=== PATIENT | male | born 1995 | race Caucasian/White ===

== ENCOUNTER 2022-04-29 11:12 | Emergency (ER) | payer OTHER, SELFPAY ==
--- NOTE | ~2022-04-29 | XR_ITS ---
Indication: Fall EXAMINATION: Bilateral knees. 4 views of the left knee do not demonstrate evidence for an acute fracture or dislocation. 4 views of the right knee do not show evidence for an acute fracture or dislocation. Degenerative changes are noted. XR/XR knee RT 4V IMPRESSION: No acute fracture or dislocation left or right knee.
--- NOTE | ~2022-04-29 | XR_ITS ---
Indication: Fall EXAMINATION: Bilateral knees. 4 views of the left knee do not demonstrate evidence for an acute fracture or dislocation. 4 views of the right knee do not show evidence for an acute fracture or dislocation. Degenerative changes are noted. XR/XR knee LT 4V IMPRESSION: No acute fracture or dislocation left or right knee.
[2022-04-29 11:18] VITALS: BP 167/97; PULSE 120; O2SAT 97
[2022-04-29 12:19] VITALS: BP 159/81; PULSE 129; RESP 20; TEMP 36.4; O2SAT 96; BMI 46.0
== END 2022-04-29 16:43 | disposition left against medical advice (07) ==
PROVIDERS: Emergency Provider Emergency Medicine; PCP Nurse Practitioner Family
DX: S89.92XA Unspecified injury of left lower leg, initial encounter (principal); S89.91XA Unspecified injury of right lower leg, initial encounter; W19.XXXA Unspecified fall, initial encounter; Y93.89 Activity, other specified; Y92.511 Restaurant or cafe as the place of occurrence of the external cause; Y99.9 Unspecified external cause status
CPT/HCPCS: 73564; 99281; 99283

== ENCOUNTER 2022-04-30 12:57 | Emergency (ER) | payer OTHER, SELFPAY ==
[2022-04-30 13:00] VITALS: BP 156/84; PULSE 110; RESP 18; TEMP 37.2; O2SAT 97; BMI 48.8
[2022-04-30 13:28] LABS: MANUAL DIFF FLAG NO
[2022-04-30 13:31] LABS: Basophils Percent Auto 0.4 % (0-2); Eosinophils Absolute Auto 0.3 X10*3/uL (0.0-0.4); Eosinophils Percent Auto 2.5 % (0-4); Hematocrit 38.2 % (42.0-52.0); Hemoglobin 12.8 g/dl (14.0-18.0); Imm Gran Abs Auto 0.03 X10*3/uL (0.00-0.03); Imm Gran Pct Auto 0.3 % (0.0-0.4); Lymphocytes Absolute Auto 2.4 X10*3/uL (1.2-4.9); Lymphocytes Percent Auto 24.6 % (20-40); Mean Corpuscular HGB Conc 33.5 g/dl (31.0-36.0); Mean Corpuscular Volume 86.6 fL (80.0-98.0); Mean Platelet Volume 9.9 fL (9.4-12.4); Monocytes Absolute Auto 0.7 X10*3/uL (0.1-1.2); Monocytes Percent Auto 7.4 % (2-11); Neutrophils Absolute Auto 6.4 x10*3/uL (2.0-8.3); Neutrophils Percent Auto 64.8 % (45-73); Platelet Count 170 X10*3/uL (160-400); Red Blood Count 4.41 X10*6/uL (4.60-5.80); Red Cell Distribution Width 12.9 % (11.0-16.0); White Blood Count 9.9 X10*3/uL (4.8-10.8)
[2022-04-30 13:56] LABS: Alanine Aminotransferase 51 U/L (0-40); Albumin Level 4.2 g/dL (3.5-5.0); Alkaline Phosphatase 81 U/L (39-117); Anion Gap 16 (12-20); Aspartate Amino Transferase 28 U/L (5-37); Bilirubin Direct 0.2 mg/dL (0.0-0.5); Bilirubin Total 0.5 mg/dL (0.0-1.0); Blood Urea Nitrogen 18 mg/dL (9-16); Calcium 9.3 mg/dL (8.4-10.2); Carbon Dioxide 29 mmol/L (22-29); Chloride 96 mmol/L (96-108); Creatinine Clr Calc Pharmacy 183.7; Estimated Glomerular Filt Rate > 60; Glucose Random 344 mg/dL (60-115); Lipase 62 U/L (8-78); Potassium 4.8 mmol/L (3.3-5.1); Sodium 136 mmol/L (135-145)
[2022-04-30 15:00] VITALS: BP 143/59; PULSE 100; RESP 18; TEMP 37.2; O2SAT 98
[2022-04-30 22:25] LABS: Acetone, serum QL Negative (Negative)
--- NOTE | 2022-04-30 23:55 | ED.ABDPAIN ---
HPI - Abdominal Pain General Chief Complaint: Abdominal Pain Stated Complaint: fall Time Seen by Provider: 04/30/22 17:58 Source: patient Mode of arrival: ambulatory History of Present Illness HPI narrative: 27-year-old male with history of hypertension and prior alcohol dependency with abuse as well as pancreatitis secondary to the alcoholism presents today with left-sided abdominal discomfort after a slip fall accident without head strike and no loss of consciousness on water at a [employer]. Otherwise, patient does describe that he is been very thirsty, urinating a lot and feeling fatigued. Related Data Home Medications Medication Instructions Recorded Confirmed dextroamphetamine-amphetamine 10 1 tab PO DAILY PRN 04/25/21 02/01/22 mg tablet dextroamphetamine-amphetamine ER cap PO 04/25/21 02/01/22 20 mg 24hr capsule,extend release (Adderall XR) hydroxyzine pamoate 25 mg capsule 25 mg PO DAILY PRN 02/01/22 02/01/22 mirtazapine 15 mg tablet 15 mg PO BEDTIME 02/01/22 02/01/22 Previous Rx's Medication Instructions Recorded clonidine HCl 0.1 mg tablet 0.1 mg PO BID 30 days #60 tabs 06/15/21 thiamine HCl (vitamin B1) 100 mg 100 mg PO DAILY 90 days #90 tabs 07/13/21 tablet folic acid 1 mg tablet 1 mg PO DAILY #90 tabs 09/26/21 albuterol sulfate 90 mcg/actuation 2 puff inhalation Q6H PRN 02/01/22 aerosol inhaler (ProAir HFA) shortness of breath or wheezing #8.5 grams lisinopril 10 mg tablet 10 mg PO DAILY 30 days #30 tabs 02/06/22 betamethasone dipropionate 0.05 % 1 appl topical BID PRN skin 02/07/22 topical cream irritation #45 grams gabapentin 100 mg capsule 200 mg PO TID 30 days #180 caps 02/20/22 metformin 500 mg tablet 500 mg PO DAILY #30 tabs 05/01/22 Allergies Allergy/AdvReac Type Severity Reaction Status Date / Time No Known Allergies Allergy Verified 02/01/22 18:34 Review of Systems Review of Systems Pertinent positives and negatives as stated in HPI 10 point review of systems otherwise negative. [facility] Past Medical History Source: nursing notes reviewed Surgical History H/O tooth extraction Family History Family History Father Diabetes Alcoholic Substance use disorder Mother Hypertension Social History Social History Housing: Apartment Patient Tobacco Use Status: Former Tobacco user Quit Date: quit 4 months ago e-Cigarette/Vaping Use: Currently Using Second Hand Smoke Exposure: No Advance Directives: No Current occupational status: unemployed Cognitive needs: No Hearing needs: No Vision needs: No Physical Exam ED Vital Signs: Vital Signs - 24 hr 04/30/22 13:00 04/30/22 15:00 Temperature 98.9 F 98.9 F Pulse Rate 110 H 100 Respiratory Rate 18 18 Blood Pressure 156/84 H 143/59 H Pulse Oximetry 97 98 Oxygen Delivery Method Room Air Room Air BMI result Body Mass Index 48.8 VITAL SIGNS: Reviewed. GENERAL: Elevated BMI, Well developed, well nourished, in no acute distress. HEAD: Normocephalic/atraumatic EYES: PERRLA, EOMI EARS: Ext canals without abnormality OROPHARYNX: no oral lesions noted, posterior pharynx clear LUNGS: Normal breath sounds. No adventitious sounds or accessory muscle use. SpO2<97> CARDIOVASCULAR: Regular rate and rhythm without noted murmurs, no JVD or lower extremity edema. ABDOMEN: Soft, non-tender, non-distended with bowel sounds. MUSCULOSKELETAL: No tenderness, deformities, or effusions noted on gross inspection. EXTREMITIES: No cyanosis, clubbing or edema, full range of motion at left shoulder/elbow/wrist without effusion/erythema SKIN: Inspection of the skin reveals no rashes NEUROLOGIC: Alert and oriented x 4. Strength and sensation to light touch were grossly intact x 4. Course Course Course Narrative: 27-year-old male with history and clinical presentation consistent with a mechanical fall due to a wet floor without head strike or loss of consciousness and no abdominal contusions or extremity deformities/ecchymoses noted. On review of all investigations patient is noted to have hyperglycemia-331 without evidence of acetone and given patient's history this is most consistent with new onset diabetes. Patient was informed of all results and findings, he became emotional but then was reassured that he would be started on oral medication initially and that he should call his primary care provider 1st thing in the morning and set up an appointment for re-evaluation. I will be sending initial oral medication to his pharmacy and will provide him with 1st dose here in the emergency room. MDM - Abdominal Pain Lab Data Result diagrams: 04/30/22 13:25 04/30/22 13:25 Labs: Lab Results 04/30/22 04/30/22 Range/Units 13:25 13:25 WBC 9.9 (4.8-10.8) X10*3/uL RBC 4.41 L (4.60-5.80) X10*6/uL Hgb 12.8 L (14.0-18.0) g/dl Hct 38.2 L (42.0-52.0) % MCV 86.6 (80.0-98.0) fL MCH 29.0 (27.0-33.0) pg MCHC 33.5 (31.0-36.0) g/dl RDW 12.9 (11.0-16.0) % Plt Count 170 (160-400) X10*3/uL MPV 9.9 (9.4-12.4) fL Immature Gran % (Auto) 0.3 (0.0-0.4) % Neut % (Auto) 64.8 (45-73) % Lymph % (Auto) 24.6 (20-40) % [place] % (Auto) 7.4 (2-11) % Eos % (Auto) 2.5 (0-4) % Baso % (Auto) 0.4 (0-2) % Lymph # (Auto) 2.4 (1.2-4.9) X10*3/uL [place] # (Auto) 0.7 (0.1-1.2) X10*3/uL Eos # (Auto) 0.3 (0.0-0.4) X10*3/uL Baso # (Auto) 0.0 (0.0-0.2) X10*3/uL Abs Immat Gran (auto) 0.03 (0.00-0.03) X10*3/uL Absolute Neuts (auto) 6.4 (2.0-8.3) x10*3/uL Absolute Nucleated RBC 0.000 (0.0-0.012) X10*3/uL Nucleated RBC % (auto) 0.0 (0.0-0.2) /100WBC Sodium 136 (135-145) mmol/L Potassium 4.8 (3.3-5.1) mmol/L Chloride 96 (96-108) mmol/L Carbon Dioxide 29 (22-29) mmol/L Anion Gap 16 (12-20) BUN 18 H (9-16) mg/dL Creatinine 0.92 (0.5-1.4) mg/dL Estim Creat Clear Calc 183.7 Estimated GFR > 60 Random Glucose 344 H (60-115) mg/dL Calcium 9.3 (8.4-10.2) mg/dL Total Bilirubin 0.5 (0.0-1.0) mg/dL Direct Bilirubin 0.2 (0.0-0.5) mg/dL AST 28 (5-37) U/L ALT 51 H (0-40) U/L Alkaline Phosphatase 81 (39-117) U/L Total Protein 7.0 (6.5-8.0) g/dL Albumin 4.2 (3.5-5.0) g/dL Lipase 62 (8-78) U/L Acetone, Qual Negative (Negative) Discharge Plan Discharge Clinical Impression: Diabetes mellitus, new onset, Hyperglycemia Patient Disposition: Home, Self-Care Instructions: Foot Care for People with Diabetes (ED), Type 2 Diabetes in Adults: New Diagnosis (ED), Diabetic Hyperglycemia (ED), Diabetes and Nutrition (ED), Diabetes and Exercise (ED) Additional Instructions: 1. Resume all home medications as prescribed. 2. You have been provided with extensive information regarding your new diagnosis of diabetes, you should call your primary care provider 1st thing in the morning to set up an appointment for re-evaluation. 3. You have been provided with a new prescription for oral medication, you should also begin initiating dietary changes to help in the control of your sugar levels. Return to the ER for any worsening of symptoms. Prescriptions: New metformin 500 mg tablet 500 mg PO DAILY Qty: 30 0RF No Action clonidine HCl 0.1 mg tablet 0.1 mg PO BID 30 Days Qty: 60 0RF thiamine HCl (vitamin B1) 100 mg tablet 100 mg PO DAILY 90 Days Qty: 90 0RF folic acid 1 mg tablet 1 mg PO DAILY Qty: 90 0RF lisinopril 10 mg tablet 10 mg PO DAILY 30 Days Qty: 30 3RF betamethasone dipropionate 0.05 % cream 1 appl topical BID PRN (Reason: skin irritation) Qty: 45 0RF gabapentin 100 mg capsule 200 mg PO TID 30 Days Qty: 180 2RF dextroamphetamine-amphetamine [Adderall XR] 20 mg capsule,extended release 24hr PO dextroamphetamine-amphetamine 10 mg tablet 1 tab PO DAILY PRN mirtazapine 15 mg tablet 15 mg PO BEDTIME hydroxyzine pamoate 25 mg capsule 25 mg PO DAILY PRN albuterol sulfate [ProAir HFA] 90 mcg/actuation HFA aerosol inhaler 2 puff inhalation Q6H PRN (Reason: shortness of breath or wheezing) Qty: 8.5 2RF Referrals: Isaac Dominguez, [employer] [Primary Care Provider] - (New onset diabetes, glucose-331 no ketones, started on metformin 500 daily, HB A1c is pending)
[2022-05-01] MEDS: metFORMIN HCl 500 MG TABLET PO (00:12)
[2022-05-01 07:38] LABS: Estimated Average Glucose 154 mg/dL
== END 2022-05-01 00:18 | disposition home or self-care (01) ==
PROVIDERS: Emergency Provider Student in an Organized Health Care Education/Training Program; PCP Nurse Practitioner Family
DX: E11.65 Type 2 diabetes mellitus with hyperglycemia (principal); R10.9 Unspecified abdominal pain; Z87.891 Personal history of nicotine dependence; Z79.899 Other long term (current) drug therapy
CPT/HCPCS: 36415; 80053; 82009; 82248; 83036; 83690; 85025; 99283

== ENCOUNTER 2023-07-16 14:20 | Outpatient (AMB) | payer OTHER, SELFPAY ==
[2023-07-16 14:30] VITALS: BP 110/76; PULSE 97; O2SAT 97; BMI 43.2
--- NOTE | 2023-07-16 14:30 | MHC.PC.OV ---
Vital Signs 07/16/23 14:30 Height 5 ft 11 in Weight 310 lb BMI 43.2 BP 110/76 Blood Pressure Location Rt brachial Position Sitting Pulse 97 Pulse Source Pulse Oximeter Pulse Oximetry (%) 97 Oxygen Delivery Method Room Air Intake Visit Reasons: ED F/U-Pulmonary embolisms Intake Note: Pt is here today to f/u ER Allergies No Known Allergies Allergy (Verified 07/16/23 14:35) Medication List - Last Reconciled 07/16/23 by KIM Cartwright- albuterol sulfate 90 mcg/actuation (ProAir HFA) 2 puffs inhalation Q6H PRN alcohol swabs (Alcohol Pads) 1 pad to test BS topically; apixaban (Eliquis) 5 mg PO BID 90 days blood sugar diagnostic (FreeStyle Lite Strips) 4 times a day testing clonidine HCl 0.1 mg PO BID 30 days dextroamphetamine-amphetamine 20 mg ER (Adderall XR) caps PO dextroamphetamine-amphetamine 5 mg 1 tab PO BID folic acid 1 mg PO DAILY FreeStyle Lancets (lancets) 4 x a day testing NS FreeStyle Lite Meter (blood-glucose meter) tid testing NS gabapentin 200 mg (2 x 100 mg) PO TID 30 days lisinopril 10 mg PO DAILY metformin 500 mg PO BID 30 days quetiapine mg PO rosuvastatin (Crestor) 5 mg PO BEDTIME 30 days thiamine HCl (vitamin B1) 100 mg PO DAILY 90 days Tobacco use date assessed: 07/16/23 Dental Screening Dental Screen Date: 07/16/23 Did you have a dental visit in the last 12 months?: Yes Did you have a dental problem in the last 6 months where you did not have access to dental care?: Yes Was dental information given to patient?: Patient has dentist HPI ED F/U-Pulmonary embolisms HPI Details Pt was seen in the ER on 07/01 with hemoptysis, chest pain, and alcohol withdrawl. Chest XR was nonacute. CTA showed small filling defects in segmental and subsegmental branches of pulmonary arteries in the lower lobes posteriorly, consistent with pulmonary emboli with a small clot burden and post bibasilar groundglass opacities, suggested airspace disease vs atelectatic change vs areas of pulmonary infarct. Labs were significant for d-dimer of 1.0, glucose 131, AST 60, ALT 111. He was given loveneox in the ER. Pt was admitted for alcohol withdrawal and PE. Pt was switched from lovenox to eliquis. Will refer to hematology for eval for possible reasons for PEs. Pt reports that he is still drinking alcohol and using drugs intermittently, reports having 2 beers yesterday. Educated pt on the importance of abstaining from alcohol and drugs. Denies fever, chills, chest pain, shortness of breath, abdominal pain, and N/V. Pt sees a psychiatrist and a psychologist. On eliquis 5mg BID currently. [facility] Surgical History H/O tooth extraction Family History Father Diabetes Alcoholic Substance use disorder Mother Hypertension Social History Housing: Apartment Patient Tobacco Use Status: Former Tobacco user Quit Date: quit 4 months ago e-Cigarette/Vaping Use: Currently Using Second Hand Smoke Exposure: No Current occupational status: unemployed Cognitive needs: No Hearing needs: No Vision needs: No Questionnaire Thrive Questionnaire Date Thrive assessed: 02/01/22 FABIOLA-7 AMB Questionnaire FABIOLA-7 Date FABIOLA - 7 assessed: 02/01/22 Source: Developed by Drs. Dann Ashley, Linda Macario, Nick Robert and colleagues, with an educational liz from [employer]. Review of Systems Const Reports as per HPI Physical exam (Primary Care) Vital Signs: Last Vital Signs Pulse 97 07/16/23 14:30 BP 110/76 07/16/23 14:30 Pulse Ox 97 07/16/23 14:30 Oxygen Delivery Method Room Air 07/16/23 14:30 BMI result Body Mass Index 43.2 Tobacco/Smoking Status: Tobacco use Status Tobacco use date assessed 07/16/23 07/16/23 14:38 Patient Tobacco Use Status Former Tobacco user 07/16/23 14:34 e-Cigarette/Vaping Use Currently Using 07/16/23 14:34 Thrive Assessment: Date of Thrive Assessment Date Thrive assessed 02/01/22 07/16/23 14:34 Const General: cooperative Nutritional Appearance: obese morbidly obese Orientation/consciousness: patient oriented x3 Resp Effort & Inspection: normal respiratory effort Auscultation: clear to auscultation bilaterally Cardio Rate: regular rate Rhythm: regular rhythm Heart sounds: S1 normal heart sound present, S2 normal heart sound present and no murmurs GI Palpation (GI): Soft to palpation and nontender Auscultation: normal bowel sounds Neuro General: patient oriented x3 Psych Appearance: grossly normal Mental Status: mental status grossly normal Speech and movement: Normal speech and movement present Affect: Anxious affect present Attitude: cooperative Thought process: Normal thought process present Thought content: Normal thought content present Insight: Good insight present (Psych) Judgement: Good judgement present (Psych) Results AMB Hemoglobin A1c AMB Hemoglobin A1c 6.0 % Last Edit by Alannah De La Torre CMA on 07/16/23 15:08 Results Reviewed Results Reviewed: Laboratory Last Values Hgb A1c (Clinic) 6.0 % (4.0-6.0) 07/16/23 15:07 Assessment and Plan Assessment & Plan (1) Alcoholic pancreatitis: Code(s): K85.20 - Alcohol induced acute pancreatitis without necrosis or infection Plan: Labs ordered (2) Pulmonary embolism: Code(s): I26.99 - Other pulmonary embolism without acute cor pulmonale Plan: Labs ordered, referred Plan The patient agreed to the use of a electromedical equipment technician for this encounter. Scribed for OUSMANE Jakcman by Debi Tan electromedical equipment technician, on 07/16/2023 at 14:50 EST. Orders: Orders Complete Blood Count Auto Diff Today K85.20 - Alcohol induced acute pancreatitis without necrosis or infection Comprehensive Met. Panel Today K85.20 - Alcohol induced acute pancreatitis without necrosis or infection TSH reflex Free T4 Today K85.20 - Alcohol induced acute pancreatitis without necrosis or infection Lipase Today K85.20 - Alcohol induced acute pancreatitis without necrosis or infection AMB Hemoglobin A1c Today E11.9 - Type 2 diabetes mellitus without complications Referrals Hematology & Oncology Referral I26.99 - Other pulmonary embolism without acute cor pulmonale Medications: New apixaban (Eliquis) 5 mg PO BID 90 days 180 tabs 0RF Coding Level of Care Code Est Pt Level 3 (82965) Diagnoses Alcoholic pancreatitis K85.20 Pulmonary embolism I26.99
== END 2023-07-16 15:51 | disposition home or self-care (01) ==
PROVIDERS: PCP Nurse Practitioner Family; Visit Provider Nurse Practitioner Family
DX: K85.20 Alcohol induced acute pancreatitis without necrosis or infection (principal); I26.99 Other pulmonary embolism without acute cor pulmonale; E11.9 Type 2 diabetes mellitus without complications
CPT/HCPCS: 83036; 99213

== ENCOUNTER 2023-07-18 12:31 | Outpatient (REF) | payer OTHER, SELFPAY ==
[2023-07-18 16:09] LABS: MANUAL DIFF FLAG NO
[2023-07-18 16:23] LABS: Basophils Percent Auto 0.4 % (0-2); Eosinophils Absolute Auto 0.1 X10*3/uL (0.0-0.4); Eosinophils Percent Auto 0.8 % (0-4); Hematocrit 46.3 % (42.0-52.0); Hemoglobin 14.9 g/dl (14.0-18.0); Imm Gran Abs Auto 0.03 X10*3/uL (0.00-0.03); Imm Gran Pct Auto 0.3 % (0.0-0.4); Lymphocytes Percent Auto 31.6 % (20-40); Mean Corpuscular HGB Conc 32.2 g/dl (31.0-36.0); Mean Corpuscular Hemoglobin 28.9 pg (27.0-33.0); Mean Corpuscular Volume 89.9 fL (80.0-98.0); Mean Platelet Volume 10.1 fL (9.4-12.4); Monocytes Absolute Auto 0.7 X10*3/uL (0.1-1.2); Neutrophils Absolute Auto 5.7 x10*3/uL (2.0-8.3); Neutrophils Percent Auto 59.9 % (45-73); Platelet Count 257 X10*3/uL (160-400); Red Blood Count 5.15 X10*6/uL (4.60-5.80); Red Cell Distribution Width 12.7 % (11.0-16.0); White Blood Count 9.5 X10*3/uL (4.8-10.8)
[2023-07-18 16:35] LABS: Alanine Aminotransferase 94 U/L (0-40); Albumin Level 4.8 g/dL (3.5-5.0); Alkaline Phosphatase 68 U/L (39-117); Anion Gap 12 (12-20); Aspartate Amino Transferase 41 U/L (5-37); Bilirubin Total 1.2 mg/dL (0.0-1.0); Blood Urea Nitrogen 15 mg/dL (9-16); Calcium 9.7 mg/dL (8.4-10.2); Carbon Dioxide 27 mmol/L (22-29); Chloride 102 mmol/L (96-108); Estimated Glomerular Filt Rate > 60; Glucose Random 119 mg/dL (60-115); Lipase 21 U/L (8-78); Potassium 3.4 mmol/L (3.3-5.1); Sodium 138 mmol/L (135-145); Total Protein 8.5 g/dL (6.5-8.0)
[2023-07-18 16:53] LABS: TSH reflex Free T4 1.53 uIU/mL (0.32-4.0)
== END 2023-07-18 12:32 | disposition home or self-care (01) ==
LOC: HO.HMGCLDS 12:31
PROVIDERS: PCP Nurse Practitioner Family; Visit Provider Nurse Practitioner Family
DX: K85.20 Alcohol induced acute pancreatitis without necrosis or infection (principal)
CPT/HCPCS: 36415; 80053; 83690; 84443; 85025

== ENCOUNTER 2023-08-02 14:23 | Emergency (ER) | payer OTHER, SELFPAY ==
--- NOTE | ~2023-08-02 | US_ITS ---
EXAMINATION: US VENOUS ULTRASOUND WITH DOPPLER LOWER EXTREMITY, RIGHT CLINICAL INFORMATION: Right leg pain, history of DVT COMPARISON: None available. TECHNIQUE: Ultrasound of the deep veins is performed from the hip to the calf with compression sonography and color and pulse Doppler assessment. Spectral analysis with color-flow imaging is performed. FINDINGS: There is normal venous compression and respiratory variation and augmented flow. The visualized common femoral vein, superficial femoral vein, profunda femoral vein, popliteal vein, and the trifurcation region shows no evidence of deep venous thrombosis. There is no significant popliteal fossa cyst. US/US venous duplex LE RT IMPRESSION: No evidence of deep vein thrombosis in the right femoral-popliteal system.
--- NOTE | 2023-08-02 15:55 | ED.ABDPAIN ---
HPI - Abdominal Pain General Chief Complaint: General Medical Stated Complaint: Abd & leg pain Time Seen by Provider: 08/02/23 20:05 Source: patient, RN notes reviewed and old records reviewed Mode of arrival: ambulatory Limitations: no limitations History of Present Illness HPI narrative: 28-year-old male with past medical history significant for obesity, diabetes, hypertension, pulmonary embolism on Eliquis presents for evaluation of right leg pain. Patient reports that he was diagnosed with PE 2 weeks ago at [facility] Reports that he was discharged on Eliquis and he reports being compliant with medication He states since his discharge she has had pain to the right leg behind his right knee He is concerned for DVT as ?they never checked this. ? He also complains of ?feeling jittery. He believes this is related to alcohol withdrawal because he wants to self detox. His last drink was 3 days ago. He reports that he is taking Klonopin that is not prescribed to him He states that he got from a friend and has been seeing 1 mg tablets remaining He is not interested in going detox at this time He denies any chest pain, shortness of breath Related Data Home Medications Medication Instructions Recorded Confirmed dextroamphetamine-amphetamine ER cap PO 04/25/21 07/16/23 20 mg 24hr capsule,extend release (Adderall XR) quetiapine 50 mg tablet mg PO 07/17/22 07/16/23 dextroamphetamine-amphetamine 5 mg 1 tab PO BID 07/16/23 07/16/23 tablet Previous Rx's Medication Instructions Recorded clonidine HCl 0.1 mg tablet 0.1 mg PO BID 30 days #60 tabs 06/15/21 alcohol swabs (Alcohol Pads) See Rx Instructions topical 05/01/22 .COMPLEX #100 ea albuterol sulfate 90 mcg/actuation 2 puff inhalation Q6H PRN 05/03/22 aerosol inhaler (ProAir HFA) shortness of breath or wheezing #8.5 grams FreeStyle Lancets 28 gauge #100 ea 07/03/22 (lancets) metformin 500 mg tablet 500 mg PO BID 30 days #60 tabs 08/07/22 rosuvastatin 5 mg tablet (Crestor) 5 mg PO BEDTIME 30 days #30 tabs 08/18/22 thiamine HCl (vitamin B1) 100 mg 100 mg PO DAILY 90 days #90 tabs 08/18/22 tablet blood sugar diagnostic (FreeStyle #100 ea 10/02/22 Lite Strips) FreeStyle Lite Meter #1 ea 12/04/22 (blood-glucose meter) folic acid 1 mg tablet 1 mg PO DAILY #90 tabs 12/25/22 gabapentin 100 mg capsule 200 mg (2 x 100 mg) PO TID 30 days 03/20/23 #180 caps lisinopril 10 mg tablet 10 mg PO DAILY #90 tabs 06/14/23 apixaban 5 mg tablet (Eliquis) 5 mg PO BID 90 days #180 tabs 07/16/23 Allergies Allergy/AdvReac Type Severity Reaction Status Date / Time No Known Allergies Allergy Verified 08/02/23 15:55 Review of Systems Constitutional: Denies chills and Denies fever(s) Cardiovascular: Denies chest pain and Denies dyspnea Respiratory: Reports cough and Denies dyspnea Gastrointestinal: Denies abdominal pain, Denies nausea and Denies vomiting Musculoskeletal: Denies back pain and Reports radiating pain into limb Skin/Breast: Denies rash PMFSH Past Medical History Surgical History H/O tooth extraction Family History Family History Father Diabetes Alcoholic Substance use disorder Mother Hypertension Social History Social History Housing: Apartment Patient Tobacco Use Status: Former Tobacco user Quit Date: quit 4 months ago e-Cigarette/Vaping Use: Currently Using Second Hand Smoke Exposure: No Current occupational status: unemployed Cognitive needs: No Hearing needs: No Vision needs: No Physical Exam ED Vital Signs: Vital Signs - 24 hr 08/02/23 15:56 08/02/23 19:38 Temperature 96.8 F 97.9 F Pulse Rate 83 101 H Respiratory Rate 18 20 Blood Pressure 155/102 H 142/81 H Pulse Oximetry 95 96 Oxygen Delivery Method Room Air Room Air BMI result Body Mass Index 43.2 Const General: healthy appearing, comfortable, no acute distress, alert and awake Nutritional Appearance: well nourished and obese morbidly obese Orientation/consciousness: patient oriented x3 HENMT Head: Yes normocephalic and Yes atraumatic Eyes Eyelids: Yes eyelids normal Conjunctivae: conjunctivae normal Sclerae: sclerae normal Corneas: corneas normal Pupils: Equal, round and reactive pupils present EOM: EOMs intact bilaterally Neck Neck: Yes full ROM Resp Effort & Inspection: normal respiratory effort, able to speak in complete sentences, no audible wheezes and not labored Auscultation: clear to auscultation bilaterally Cardio Rate: regular rate Rhythm: regular rhythm GI Inspection: No distended Palpation (GI): Soft to palpation, not firm, nontender, no guarding and not rigid Skin General skin exam: no rashes or lesions noted and elasticity normal Neuro General: patient oriented x3 Cranial nerves: Yes Equal, round and reactive pupils present and Yes Bilaterally intact EOM present Cognition (Neuro): normal cognition Extrem Other: Moving all extremities well without any obvious deformities. Patient has right calf tenderness behind the right knee and to his distal hamstring region with no deformity. No palpable cords. No skin changes. DP and PT pulses 2+ and equal Course Course Course Narrative: RME: 28yo M w/PMHx ETOH abuse, PE on Eliquis (Dx at [facility] a few weeks ago), HTN, DM, Opiate abuse, c/o R calf pain/pressure and RUQ abd pain x2 days. Admits to taking Klonopin x2 days and has not drank ETOH x2 days. denies missing doses of Eliquis. Admits typically drinks 12-30pk beer daily, last drink 2 days ago but has been taking Benzos to compensate Patient does not want his records released pertaining to his ETOH abuse EKG, labs, UA, Tox screen, Venous duplex US ordered Full HPI, ROS and PE to be performed by primary ED provider. Medical Decision Making Medical Decision Making [facility] Narrative: 28-year-old male presents for evaluation of right leg pain. He was diagnosed with PE 2 weeks ago reports being compliant with Eliquis but concern for DVT. His vital signs are stable, he is slightly tachycardic to 101. He is not hypoxic or tachypneic. Denies any chest pain or shortness of breath. Doubt worsening PE burden her will get an ultrasound of the right lower extremity to rule out DVT which was ultimately negative for DVT. Patient appears to have mild alcohol withdrawal symptoms but is not interested in detox at this time. He is stable for discharge Differential Diagnosis Differential Diagnoses: The differential diagnosis associated with the presentation includes Leg strain Pablo cyst DVT Muscle strain Admission/Observation Consideration of admission/observation: Escalation of care including admission/observation considered Patient with been considered for admission had he had worsening DVT/clot burden Lab Data MDM Lab Attestation statement: I reviewed the patient's lab results. Cytosis or anemia. No significant electrolyte abnormalities. Patient's BUN is just above normal but creatinine within normal limits. He had a very mild transaminitis likely related to alcoholic cirrhosis 08/02/23 16:25 08/02/23 16:25 Labs: Lab Results 08/02/23 Range/Units 16:25 WBC 9.9 (4.8-10.8) X10*3/uL RBC 5.57 (4.60-5.80) X10*6/uL Hgb 16.3 (14.0-18.0) g/dl Hct 48.9 (42.0-52.0) % MCV 87.8 (80.0-98.0) fL MCH 29.3 (27.0-33.0) pg MCHC 33.3 (31.0-36.0) g/dl RDW 12.8 (11.0-16.0) % Plt Count 237 (160-400) X10*3/uL MPV 9.7 (9.4-12.4) fL Immature Gran % (Auto) 0.2 (0.0-0.4) % Neut % (Auto) 64.0 (45-73) % Lymph % (Auto) 28.0 (20-40) % Bertie % (Auto) 6.1 (2-11) % Eos % (Auto) 1.2 (0-4) % Baso % (Auto) 0.5 (0-2) % Lymph # (Auto) 2.8 (1.2-4.9) X10*3/uL Bertie # (Auto) 0.6 (0.1-1.2) X10*3/uL Eos # (Auto) 0.1 (0.0-0.4) X10*3/uL Baso # (Auto) 0.1 (0.0-0.2) X10*3/uL Abs Immat Gran (auto) 0.02 (0.00-0.03) X10*3/uL Absolute Neuts (auto) 6.3 (2.0-8.3) x10*3/uL Absolute Nucleated RBC 0.000 (0.0-0.012) X10*3/uL Nucleated RBC % (auto) 0.0 (0.0-0.2) /100WBC PT 11.7 (11.1-13.3) SEC INR 1.0 (0.9-1.1) Sodium 139 (135-145) mmol/L Potassium 4.5 D (3.3-5.1) mmol/L Chloride 101 (96-108) mmol/L Carbon Dioxide 28 (22-29) mmol/L Anion Gap 15 (12-20) BUN 17 H (9-16) mg/dL Creatinine 0.86 (0.5-1.4) mg/dL Estim Creat Clear Calc 181.8 Estimated GFR > 60 Random Glucose 97 (60-115) mg/dL Calcium 10.1 (8.4-10.2) mg/dL Magnesium 2.2 (1.6-2.6) mg/dL Total Bilirubin 0.9 (0.0-1.0) mg/dL Direct Bilirubin 0.3 (0.0-0.5) mg/dL AST 52 H (5-37) U/L ALT 89 H (0-40) U/L Alkaline Phosphatase 68 (39-117) U/L B-Natriuretic Peptide < 10 (<100) pg/mL Total Protein 8.6 H (6.5-8.0) g/dL Albumin 4.9 (3.5-5.0) g/dL Lipase 22 (8-78) U/L Ethyl Alcohol < 10 mg/dL Discharge Plan Discharge Clinical Impression: Acute pain of right lower extremity Patient Disposition: Home, Self-Care Instructions: Leg Pain (ED) Additional Instructions: Your workup in the emergency department today was reassuring. This includes your ultrasound which did not show any evidence of blood clot or DVT Your labs are reassuring. You did have a slight elevation of your liver enzymes which is likely related to alcohol abuse Return to the ER for any new or worsening symptoms Prescriptions: No Action clonidine HCl 0.1 mg tablet 0.1 mg PO BID 30 Days Qty: 60 0RF alcohol swabs [Alcohol Pads] Pads, Medicated See Rx Instructions topical .COMPLEX Qty: 100 0RF Rx Instructions: 1 pad to test BS topically; albuterol sulfate [ProAir HFA] 90 mcg/actuation HFA aerosol inhaler 2 puff inhalation Q6H PRN (Reason: shortness of breath or wheezing) Qty: 8.5 2RF (DME) lancets [FreeStyle Lancets] 28 gauge misc See Rx Instructions .Route Qty: 100 1RF Rx Instructions: 4 x a day testing metformin 500 mg tablet 500 mg PO BID 30 Days Qty: 60 3RF thiamine HCl (vitamin B1) 100 mg tablet 100 mg PO DAILY 90 Days Qty: 90 0RF rosuvastatin [Crestor] 5 mg tablet 5 mg PO BEDTIME 30 Days Qty: 30 3RF (DME) FreeStyle Lite Strips Strip See Rx Instructions .Route Qty: 100 1RF Rx Instructions: 4 times a day testing (DME) blood-glucose meter [FreeStyle Lite Meter] Kit See Rx Instructions .Route Qty: 1 0RF Rx Instructions: tid testing folic acid 1 mg tablet 1 mg PO DAILY Qty: 90 1RF gabapentin 100 mg capsule 200 mg PO TID 30 Days Qty: 180 2RF lisinopril 10 mg tablet 10 mg PO DAILY Qty: 90 0RF dextroamphetamine-amphetamine [Adderall XR] 20 mg capsule,extended release 24hr PO quetiapine 50 mg tablet PO dextroamphetamine-amphetamine 5 mg tablet 1 tab PO BID Eliquis 5 mg tablet 5 mg PO BID 90 Days Qty: 180 0RF
[2023-08-02 15:56] VITALS: BP 155/102; PULSE 83; RESP 18; TEMP 36; O2SAT 95; BMI 43.2
[2023-08-02 16:29] LABS: MANUAL DIFF FLAG NO
[2023-08-02 16:31] LABS: Basophils Absolute Auto 0.1 X10*3/uL (0.0-0.2); Basophils Percent Auto 0.5 % (0-2); Eosinophils Absolute Auto 0.1 X10*3/uL (0.0-0.4); Eosinophils Percent Auto 1.2 % (0-4); Hematocrit 48.9 % (42.0-52.0); Hemoglobin 16.3 g/dl (14.0-18.0); Imm Gran Abs Auto 0.02 X10*3/uL (0.00-0.03); Imm Gran Pct Auto 0.2 % (0.0-0.4); Lymphocytes Absolute Auto 2.8 X10*3/uL (1.2-4.9); Mean Corpuscular HGB Conc 33.3 g/dl (31.0-36.0); Mean Corpuscular Hemoglobin 29.3 pg (27.0-33.0); Mean Corpuscular Volume 87.8 fL (80.0-98.0); Mean Platelet Volume 9.7 fL (9.4-12.4); Monocytes Absolute Auto 0.6 X10*3/uL (0.1-1.2); Monocytes Percent Auto 6.1 % (2-11); Neutrophils Absolute Auto 6.3 x10*3/uL (2.0-8.3); Platelet Count 237 X10*3/uL (160-400); Red Blood Count 5.57 X10*6/uL (4.60-5.80); Red Cell Distribution Width 12.8 % (11.0-16.0); White Blood Count 9.9 X10*3/uL (4.8-10.8)
[2023-08-02 16:37] LABS: Prothrombin Time 11.7 SEC (11.1-13.3)
[2023-08-02 16:57] LABS: B Type Natriuretic Peptide < 10 pg/mL (<100)
[2023-08-02 16:59] LABS: Alanine Aminotransferase 89 U/L (0-40); Albumin Level 4.9 g/dL (3.5-5.0); Alkaline Phosphatase 68 U/L (39-117); Anion Gap 15 (12-20); Aspartate Amino Transferase 52 U/L (5-37); Bilirubin Direct 0.3 mg/dL (0.0-0.5); Bilirubin Total 0.9 mg/dL (0.0-1.0); Blood Urea Nitrogen 17 mg/dL (9-16); Calcium 10.1 mg/dL (8.4-10.2); Carbon Dioxide 28 mmol/L (22-29); Chloride 101 mmol/L (96-108); Creatinine Clr Calc Pharmacy 181.8; Estimated Glomerular Filt Rate > 60; Ethanol < 10 mg/dL; Glucose Random 97 mg/dL (60-115); Lipase 22 U/L (8-78); Magnesium 2.2 mg/dL (1.6-2.6); Potassium 4.5 mmol/L (3.3-5.1); Sodium 139 mmol/L (135-145); Total Protein 8.6 g/dL (6.5-8.0)
[2023-08-02 19:38] VITALS: BP 142/81; PULSE 101; RESP 20; TEMP 36.6; O2SAT 96
== END 2023-08-02 20:46 | disposition home or self-care (01) ==
PROVIDERS: Physician Assistant; Emergency Provider Internal Medicine; PCP Nurse Practitioner Family
DX: M79.604 Pain in right leg (principal); R60.0 Localized edema; R06.02 Shortness of breath; Z79.899 Other long term (current) drug therapy
CPT/HCPCS: 36415; 80048; 80076; 80307; 83690; 83735; 83880; 85025; 85610; 93971; 99284

== ENCOUNTER → 2023-09-03 13:41 | Outpatient (BNV) | payer OTHER, SELFPAY | PROVIDERS: PCP Nurse Practitioner Family; Visit Provider Internal Medicine | DX: I26.99 Other pulmonary embolism without acute cor pulmonale (principal) | CPT/HCPCS: 99204 ==

== ENCOUNTER 2023-10-24 14:52 | Outpatient (AMB) | payer OTHER, SELFPAY ==
--- NOTE | 2023-10-24 15:09 | MHC.PC.OV ---
Vital Signs 10/24/23 15:13 Height 5 ft 11 in Weight 320 lb BMI 44.6 BP 132/80 Blood Pressure Location Lt brachial Position Sitting Pulse 90 Pulse Source Pulse Oximeter Pulse Oximetry (%) 97 Oxygen Delivery Method Room Air Intake Visit Reasons: 3 month fu Intake Note: pt is here for 3 month follow up Alcohol Rubber Required: No Allergies No Known Allergies Allergy (Verified 10/24/23 15:28) Medication List - Last Reconciled 10/24/23 by OUSMANE Cartwright albuterol sulfate 90 mcg/actuation (ProAir HFA) 2 puffs inhalation Q6H PRN alcohol swabs (Alcohol Pads) 1 pad to test BS topically; apixaban (Eliquis) 5 mg PO BID 90 days blood sugar diagnostic (FreeStyle Lite Strips) 4 times a day testing clonidine HCl 0.1 mg PO BID 30 days dextroamphetamine-amphetamine 20 mg ER (Adderall XR) caps PO DAILY folic acid 1 mg PO DAILY FreeStyle Lancets (lancets) 4 x a day testing NS FreeStyle Lite Meter (blood-glucose meter) tid testing NS gabapentin 200 mg (2 x 100 mg) PO TID 30 days lisinopril 10 mg PO DAILY metformin 500 mg PO BID 30 days quetiapine mg PO rosuvastatin (Crestor) 5 mg PO BEDTIME 30 days thiamine HCl (vitamin B1) 100 mg PO DAILY 90 days Tobacco use date assessed: 10/24/23 Dental Screening Dental Screen Date: 10/24/23 Did you have a dental visit in the last 12 months?: Yes Did you have a dental problem in the last 6 months where you did not have access to dental care?: No Was dental information given to patient?: Patient has dentist HPI 3 month fu HPI Details pt is here for a DM follow up. Reports his sugars around 120. Reports neuropathy, mostly to right foot. on gabapentin, which helps. pt is on a statin and chichi. Pt knows the s/s of hypoglycemia and how to correct it. He denies any polyuria, polydipsia. Pt is tolerating metformin. Hx of elevated liver enzymes, pt does drink alcohol, reports cutting back on this. Will order labs and ABD US. [facility] Surgical History H/O tooth extraction Family History Father Diabetes Alcoholic Substance use disorder Mother Hypertension Social History Household Members: Family Housing: Apartment Alcohol intake: former Patient Tobacco Use Status: Former Tobacco user Quit Date: quit 4 months ago e-Cigarette/Vaping Use: Currently Using Second Hand Smoke Exposure: No Current occupational status: unemployed Cognitive needs: No Hearing needs: No Vision needs: No Questionnaire Thrive Questionnaire Date Thrive assessed: 02/01/22 FABIOLA-7 AMB Questionnaire FABIOLA-7 Date FABIOLA - 7 assessed: 02/01/22 Source: Developed by Drs. Dann Ashley, Linda Macario, Nick Robert and colleagues, with an educational liz from [email or web address]. Physical exam (Primary Care) Vital Signs: Last Vital Signs Pulse 90 10/24/23 15:13 BP 132/80 10/24/23 15:13 Pulse Ox 97 10/24/23 15:13 Oxygen Delivery Method Room Air 10/24/23 15:13 BMI result Body Mass Index 44.6 Tobacco/Smoking Status: Tobacco use Status Tobacco use date assessed 10/24/23 10/24/23 15:17 Patient Tobacco Use Status Former Tobacco user 10/24/23 15:10 e-Cigarette/Vaping Use Currently Using 10/24/23 15:10 Thrive Assessment: Date of Thrive Assessment Date Thrive assessed 02/01/22 10/24/23 15:10 Const General: cooperative Nutritional Appearance: obese morbidly obese Resp Effort & Inspection: normal respiratory effort Auscultation: clear to auscultation bilaterally Cardio Rate: regular rate Rhythm: regular rhythm Heart sounds: S1 normal heart sound present, S2 normal heart sound present and no murmurs GI Palpation (GI): Soft to palpation and nontender Extrem Other: left heal dry, cracking. + sensation to bilat feet, intact otherwise. Psych Speech and movement: Normal speech and movement present Attitude: cooperative Assessment and Plan Assessment & Plan (1) Diabetes: Code(s): E11.9 - Type 2 diabetes mellitus without complications Plan: labs, A1c stable (2) Elevated liver enzymes: Code(s): R74.8 - Abnormal levels of other serum enzymes Plan: abd us and labs ordered. liver enzymes were trending down Orders: Orders Comprehensive [place]. Panel Fast Today E11.9 - Type 2 diabetes mellitus without complications UA CC w/rflx Micro + Cult Today E11.9 - Type 2 diabetes mellitus without complications US abdomen complete Today R74.8 - Abnormal levels of other serum enzymes Hepatitis A,B,C Profile Today R74.8 - Abnormal levels of other serum enzymes Complete Blood Count Auto Diff Today E11.9 - Type 2 diabetes mellitus without complications TSH reflex Free T4 Today E11.9 - Type 2 diabetes mellitus without complications Lipid Panel Today E11.9 - Type 2 diabetes mellitus without complications Referrals Gastroenterology Referral R74.8 - Abnormal levels of other serum enzymes Medications: Refilled apixaban (Eliquis) 5 mg PO BID 90 days 180 tabs 1RF gabapentin 200 mg (2 x 100 mg) PO TID 30 days 180 caps 2RF Coding Level of Care Code Est Pt Level 3 (86965) Diagnoses Diabetes E11.9 Elevated liver enzymes R74.8
[2023-10-24 15:13] VITALS: BP 132/80; PULSE 90; O2SAT 97; BMI 44.6
== END 2023-10-24 15:49 | disposition home or self-care (01) ==
PROVIDERS: PCP Nurse Practitioner Family; Visit Provider Nurse Practitioner Family
DX: E11.9 Type 2 diabetes mellitus without complications (principal); R74.8 Abnormal levels of other serum enzymes
CPT/HCPCS: 99213

== ENCOUNTER 2023-11-20 09:59 | Outpatient (REF) | payer OTHER, SELFPAY ==
--- NOTE | ~2023-11-20 | US_ITS ---
EXAMINATION: US ABDOMEN COMPLETE CLINICAL INFORMATION: Abnormal levels of other serum enzymes. COMPARISON: Ultrasound abdomen complete 02/22/2021. TECHNIQUE: Real-time imaging of the abdominal viscera. Technically limited study secondary to body habitus. FINDINGS: PANCREAS: Obscured by overlying bowel gas. ABDOMINAL AORTA: The proximal, mid, and distal segments are normal in caliber. INFERIOR VENA CAVA: Visualized portions are normal. LIVER: The liver is normal in size. The liver contour is normal. Diffuse increased echogenicity of the liver parenchyma. No focal hepatic lesion. There is no intrahepatic biliary duct dilatation seen. GALLBLADDER: Normal. The gallbladder is physiologically distended without evidence of stones, sludge, polyps, wall thickening or pericholecystic fluid. COMMON BILE DUCT: Normal in caliber measuring 0.8 cm in diameter. RIGHT KIDNEY: Normal. No hydronephrosis. No renal calculi or focal parenchymal lesions. The kidney measures 12.3 cm in maximum dimension. LEFT KIDNEY: Normal. No hydronephrosis. No renal calculi or focal parenchymal lesions. The kidney measures 13.6 cm in maximum dimension. SPLEEN: Normal. The spleen measures 11.3 cm in maximum dimension. FREE FLUID: None. US/US abdomen complete IMPRESSION: Diffuse increased echogenicity of the liver parenchyma. This is a nonspecific finding but most commonly on the basis of diffuse hepatocellular disease such as hepatic steatosis.
== END 2023-11-20 10:00 | disposition home or self-care (01) ==
LOC: HO.US 09:59
PROVIDERS: PCP Nurse Practitioner Family; Visit Provider Nurse Practitioner Family
DX: R74.8 Abnormal levels of other serum enzymes (principal)
CPT/HCPCS: 76700

== ENCOUNTER 2023-12-12 17:49 | Emergency (ER) | payer OTHER, SELFPAY ==
[2023-12-12 18:11] VITALS: BP 164/110; PULSE 109; RESP 18; TEMP 36.2; O2SAT 97; BMI 43.2
--- NOTE | 2023-12-12 18:12 | ED_ITS ---
HPI - General Adult General Stated complaint: pain with urination Related Data Home Medications ?Medication ?Instructions ?Recorded ?Confirmed quetiapine 50 mg tablet mg PO 07/17/22 10/24/23 dextroamphetamine-amphetamine ER cap PO DAILY 10/24/23 10/24/23 20 mg 24hr capsule,extend release (Adderall XR) Previous Rx's ?Medication ?Instructions ?Recorded clonidine HCl 0.1 mg tablet 0.1 mg PO BID 30 days #60 tabs 06/15/21 alcohol swabs (Alcohol Pads) See Rx Instructions topical 05/01/22 .COMPLEX #100 ea albuterol sulfate 90 mcg/actuation 2 puff inhalation Q6H PRN 05/03/22 aerosol inhaler (ProAir HFA) shortness of breath or wheezing #8.5 grams FreeStyle Lancets 28 gauge #100 ea 07/03/22 (lancets) metformin 500 mg tablet 500 mg PO BID 30 days #60 tabs 08/07/22 rosuvastatin 5 mg tablet (Crestor) 5 mg PO BEDTIME 30 days #30 tabs 08/18/22 blood sugar diagnostic (FreeStyle #100 ea 10/02/22 Lite Strips) FreeStyle Lite Meter #1 ea 12/04/22 (blood-glucose meter) lisinopril 10 mg tablet 10 mg PO DAILY #90 tabs 08/29/23 thiamine HCl (vitamin B1) 100 mg 100 mg PO DAILY 90 days #90 tabs 08/29/23 tablet apixaban 5 mg tablet (Eliquis) 5 mg PO BID 90 days #180 tabs 10/24/23 gabapentin 100 mg capsule 200 mg (2 x 100 mg) PO TID 30 days 10/24/23 #180 caps folic acid 1 mg tablet 1 mg PO DAILY #90 tabs 12/06/23 Allergies Allergy/AdvReac Type Severity Reaction Status Date / Time No Known Allergies Allergy Verified 12/12/23 18:11 [facility] Past Medical History Surgical History H/O tooth extraction Family History Family History Father Diabetes Alcoholic Substance use disorder Mother Hypertension Social History Social History Household Members: Family Housing: Apartment Alcohol intake: former Patient Tobacco Use Status: Former Tobacco user Quit Date: quit 4 months ago e-Cigarette/Vaping Use: Currently Using Second Hand Smoke Exposure: No Current occupational status: unemployed Cognitive needs: No Hearing needs: No Vision needs: No Course Course Course Narrative: RME- 28 year old male presents for evaluation of oliguria and burning with urination. Plan for UA. Denies any new sexual partners. Patient admits to not showering in the last few days. Discharge Plan Discharge Prescriptions: No Action clonidine HCl 0.1 mg tablet 0.1 mg PO BID 30 Days Qty: 60 0RF alcohol swabs [Alcohol Pads] Pads, Medicated See Rx Instructions topical .COMPLEX Qty: 100 0RF Rx Instructions: 1 pad to test BS topically; albuterol sulfate [ProAir HFA] 90 mcg/actuation HFA aerosol inhaler 2 puff inhalation Q6H PRN (Reason: shortness of breath or wheezing) Qty: 8.5 2RF (DME) lancets [FreeStyle Lancets] 28 gauge misc See Rx Instructions .Route Qty: 100 1RF Rx Instructions: 4 x a day testing metformin 500 mg tablet 500 mg PO BID 30 Days Qty: 60 3RF rosuvastatin [Crestor] 5 mg tablet 5 mg PO BEDTIME 30 Days Qty: 30 3RF (DME) FreeStyle Lite Strips Strip See Rx Instructions .Route Qty: 100 1RF Rx Instructions: 4 times a day testing (DME) blood-glucose meter [FreeStyle Lite Meter] Kit See Rx Instructions .Route Qty: 1 0RF Rx Instructions: tid testing lisinopril 10 mg tablet 10 mg PO DAILY Qty: 90 1RF thiamine HCl (vitamin B1) 100 mg tablet 100 mg PO DAILY 90 Days Qty: 90 1RF folic acid 1 mg tablet 1 mg PO DAILY Qty: 90 1RF dextroamphetamine-amphetamine [Adderall XR] 20 mg capsule,extended release 24hr PO DAILY quetiapine 50 mg tablet PO Eliquis 5 mg tablet 5 mg PO BID 90 Days Qty: 180 1RF gabapentin 100 mg capsule 200 mg PO TID 30 Days Qty: 180 2RF Print Language: Bahraini
[2023-12-12 18:33] LABS: MANUAL DIFF FLAG NO
[2023-12-12 18:34] LABS: Basophils Absolute Auto 0.1 X10*3/uL (0.0-0.2); Basophils Percent Auto 0.5 % (0-2); Eosinophils Percent Auto 0.4 % (0-4); Hematocrit 44.7 % (42.0-52.0); Hemoglobin 15.3 g/dl (14.0-18.0); Imm Gran Abs Auto 0.04 X10*3/uL (0.00-0.03); Imm Gran Pct Auto 0.4 % (0.0-0.4); Lymphocytes Absolute Auto 2.1 X10*3/uL (1.2-4.9); Lymphocytes Percent Auto 20.1 % (20-40); Mean Corpuscular HGB Conc 34.2 g/dl (31.0-36.0); Mean Corpuscular Hemoglobin 29.9 pg (27.0-33.0); Mean Corpuscular Volume 87.3 fL (80.0-98.0); Mean Platelet Volume 9.8 fL (9.4-12.4); Monocytes Absolute Auto 0.7 X10*3/uL (0.1-1.2); Monocytes Percent Auto 6.7 % (2-11); Neutrophils Absolute Auto 7.4 x10*3/uL (2.0-8.3); Neutrophils Percent Auto 71.9 % (45-73); Platelet Count 244 X10*3/uL (160-400); Red Blood Count 5.12 X10*6/uL (4.60-5.80); Red Cell Distribution Width 12.6 % (11.0-16.0); White Blood Count 10.2 X10*3/uL (4.8-10.8)
[2023-12-12 18:47] LABS: Anion Gap 15 (12-20); Blood Urea Nitrogen 13 mg/dL (9-16); Calcium 9.9 mg/dL (8.4-10.2); Carbon Dioxide 24 mmol/L (22-29); Chloride 105 mmol/L (96-108); Creatinine Clr Calc Pharmacy 164.5; Estimated Glomerular Filt Rate > 60; Glucose Random 99 mg/dL (60-115); Potassium 4.2 mmol/L (3.3-5.1); Sodium 140 mmol/L (135-145)
[2023-12-12 20:03] LABS: Appearance Urine Turbid; Color Urine Dark Yellow; Glucose Urine UA Negative (Negative); Leukocyte Esterase Urine Negative (Negative); Nitrite Urine Negative (Negative); Specific Gravity - Urine >= 1.030 (1.005-1.025); Urine Blood Negative (Negative); Urine Ketones Trace mg/dL (Negative); Urine Protein Trace mg/dL (Neg-Trace)
[2023-12-12 20:15] LABS: Bacteria Urine None Seen (None Seen); RBC Urine 0-2 /HPF (0-2); WBC Urine 0-5 /HPF (0-5)
[2023-12-12 20:35] LABS: Amphetamine Screen Urine Not Detected (Not Detect); Barbiturates, Urine Not Detected (Not Detect); Benzodiazepines Screen Urine POSITIVE (Not Detect); Buprenorphine Scr Not Detected (Not Detect); Cannabinoid Screen Urine POSITIVE (Not Detect); Cocaine Screen Urine Not Detected (Not Detect); Fentanyl, urine POSITIVE (Not Detect); Methadone Screen, Urine Positive (Not Detect); Opiate Screen Urine POSITIVE (Not Detect); Oxycodone Screen Urine Not Detected (Not Detect); Phencyclidine Screen Urine Not Detected (Not Detect)
--- OUTSIDE RECORDS SUMMARY | 2023-12-12 23:30 | XMS_ITS | Continuity of Care Document ---
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 Name Role Phone Raman Woodward MD Primary Care Physician Encounter [facility] [place] Date(s): 07/01/23 - 07/02/[address] [address]- Discharge Disposition: A-D/C Home Attending Physician: Joshua Sargent MD, Terry Fuchs Admitting Physician: Santiago ROJO, Ulysses Solis Referring Physician: Not on Staff, Referring MD Allergies, Adverse Reactions, Alerts No Known Allergies Medications acamprosate 333 mg oral delayed release tablet = 666 mg, By Mouth, 3 times a day with meals, # 120 tablet, 0 Refills, Maintenance, 03/16/21 8:58:00 EDT, Tablet, [facility], Partial fill upon patient request if the prescription is for a schedule II opioid drug., 170, cm, 03/13/21 21:5... Start Date: 03/16/21 Stop Date: 04/15/21 Status: Ordered Adderall XR 20 mg oral capsule, extended release TAKE 2 CAPSULES BY MOUTH EVERY MORNING WITH MEALS DX. ADHD Start Date: 07/01/23 Status: Ordered amphetamine-dextroamphetamine 5 mg oral tablet TAKE 2 TABLETS BY MOUTH ONCE DAILY AT 3 PM NEEDED DNF 06/02 Start Date: 07/01/23 Status: Ordered apixaban Starter Pack 5 mg oral tablet See Instructions, please 10 mg 2 times a day for one wek till 07/09/2023 then 5 mg 2 times a day from 07/10/2023 for 6 months till you see your PCP before stopping, # 37 tablet, 0 Refills, Maintenance, 07/02/23 9:57:00 EST, Tablet, [facility] Start Date: 07/02/23 Status: Ordered cloNIDine 0.1 mg oral tablet 0.1 mg, 1, tablet, By Mouth, 2 times a day, # 60 tablet, Refills 0, Maintenance, 06/15/21 11:59:00 EDT, Partial fill upon patient request if the prescription is for a schedule II opioid drug. Start Date: 06/15/21 Status: Ordered folic acid 1 mg oral tablet 1 mg, 1, tablet, By Mouth, Daily, # 30 tablet, Refills 0, Tot. Refills 0, Maintenance, 03/16/21 8:59:00 EDT, Route to Pharmacy Electronically, [facility], Partial fill upon patient request if the prescription is for a schedule II opioid... Start Date: 03/16/21 Status: Ordered gabapentin 100 mg oral capsule 200 mg, 2, capsule, By Mouth, 3 times a day, # 180 capsule, Refills 0, Maintenance, 07/01/23 19:26:00 EST, Partial fill upon patient request if the prescription is for a schedule II opioid drug. Start Date: 07/01/23 Status: Ordered lisinopril 10 mg oral tablet 10 mg, 1, tablet, By Mouth, Daily, # 30 tablet, Refills 0, Maintenance, 07/01/23 19:24:00 EST, Partial fill upon patient request if the prescription is for a schedule II opioid drug. Start Date: 07/01/23 Status: Ordered lisinopril 10 mg oral tablet 10 mg, Tablet, By Mouth, 07/02/23 9:00:00 EST Start Date: 07/02/23 Stop Date: 07/02/23 Status: Completed Methadone Tablet 140 mg, Tablet, By Mouth, Once, JONELLE, 07/02/23 10:21:00 EST, Stop date 07/02/23 10:21:00 EST Start Date: 07/02/23 Stop Date: 07/02/23 Status: Completed nicotine 4 mg oral transmucosal gum 1 each = 4 mg, Chew, Every 2 hours, PRN as needed for smoking cessation, # 40 each, 0 Refills, Maintenance, 03/16/21 9:01:00 EDT, Gum, [facility], Partial fill upon patient request if the prescription is for a schedule II opioid drug., 1... Start Date: 03/16/21 Status: Ordered QUEtiapine 50 mg oral tablet TAKE 1 TO 2 TABLETS BY MOUTH AT BEDTIME Start Date: 07/01/23 Status: Ordered Problem List Condition Confirmation Course Effective Dates Status Health [facility] Informant Alcohol dependence Confirmed Active Asperger's syndrome Confirmed Active ADHD Confirmed Active Gynecomastia 1 Confirmed Active In methadone clinic for opiate dependence Confirmed Active Obesity Confirmed Active Severe obesity Confirmed Active 1s/p reduction surgery Results Radiology Reports * Exam Date Time Procedure Performing Provider Status 07/01/23 9:[address] Angio Chest Ama Fernandez (Verified) Notes: (CT Angio Chest) Reason For Exam: PE suspected, Intermediate prob, positive D-dimer,;Other: RESULT: CT Angio Chest EXAMINATION: CT Angio Chest INDICATION: Patient comes in this endosing abdominal pain and an episode of coughing up blood. Uncomfortable appearing.; Reason: PE suspected, Intermediate prob, positive D-dimer,; Clinical Question(s): Pulmonary Embolism; TECHNIQUE: Spiral CTA of the chest was performed after rapid IV contrast administration without cardiac gating, triggered by an JOESPH on the main pulmonary artery. Images are formatted in multiple planes using 2-D multiplanar and 3-D maximum intensity projection. 50 cc of Omnipaque 300 was administered intravenously. Weight-based protocol using automatic tube modulation was used to optimize exposure parameters. CTDIvol Body: 4.70 mGy, DLP Body: 158 mGy*cm. COMPARISONS: None. ANGIOGRAPHIC FINDINGS: Evaluation is mildly limited by incomplete opacification of the pulmonary arteries with contrast. There are filling defects in a few of the segmental and subsegmental pulmonary arteries to the lower lobes lobes. NON-ANGIOGRAPHIC FINDINGS: Macadam Raker View Findings, Lines and Tubes: None. Trachea and Airways: Patent without evidence of tracheal or endobronchial lesion. Lungs and Pleura: There are groundglass opacities in the posterior lung bases which may represent atelectatic change. Mediastinum and mellisa: No mass or hematoma. There are mildly enlarged mediastinal and right hilar lymph nodes measuring up to 1 cm at their short axis. No esophageal abnormality. Normal thyroid. Heart: Heart is normal in size. No pericardial effusion. Chest Wall Soft Tissues: Unremarkable. Diaphragm and upper abdomen: No significant abnormality. Bones: No acute abnormality. IMPRESSION: 1. Small filling defects in segmental and subsegmental branches of pulmonary arteries in the lower lobes posteriorly consistent with pulmonary emboli with a small clot burden. 2. Posterior bibasilar groundglass opacities. Differential considerations include airspace disease versus atelectatic change. Given the pulmonary emboli. Areas of pulmonary infarct cannot be excluded. An actionable message (Edmunds) has been communicated via the [employer] system on 07/01/2023 10:24 AM, Message ID [id number]. I have personally reviewed the images and I agree with this report. WSN: [id number] Ordering Physician: Keshav Ortiz Dictated By: Jono Avendano MD Dictated Date/Time: 07/01/23 10:24 a Reviewed By: Susan Donato MD Signed By: Susan Donato MD Signed Date/Time: 07/01/23 10:29 am Transcribed By: ISABELLE Transcribed Date/Time: 07/01/23 9:53 am * Exam Date Time Procedure Performing Provider Status 06/30/23 6:47 PM Chest 2 Views Frontal and Lat Ellen z , Romina; Auth (Verified) Notes: (Chest 2 Views Frontal and Lat) Reason For Exam: Shortness of Breath, Fever;Other: RESULT: Chest 2 Views Frontal and Lat PA and lateral chest dated June 30, 2023. Comparison films are from 2021. HISTORY: Shortness of breath and fever. FINDINGS: The cardiac silhouette is at the upper limits of normal for size. Hilar and mediastinal structures are unremarkable. No airspace infiltrate or pleural effusion is identified. Visualized osseous structures are unremarkable. IMPRESSION: No evidence of acute pulmonary disease. Examination [id number]. Thank you for allowing me to participate in the care of this patient. WSN: [id number] Ordering Physician: Nataly Espinoza Dictated By: Ashkan Fraga MD Dictated Date/Time: 06/30/23 7:06 pm Reviewed By: Ashkan Fraga MD Signed By: Ashkan Fraga MD Signed Date/Time: 06/30/23 7:06 pm Transcribed By: ISABELLE Transcribed Date/Time: 06/30/23 6:51 pm Vital Signs Most recent to oldest [Reference Range]: 1 2 3 Height 180 cm (07/02/23 11:43 AM) Weight 141 kg (07/02/23 11:43 AM) 147.4 kg (07/02/23 7:59 AM) 147.4 kg (06/30/23 9:31 PM) Oxygen Saturation [94-100 %] 98 % (07/02/23 11:43 AM) 97 % (07/02/23 9:18 AM) 97 % (07/02/23 7:59 AM) Pulse Rate [55-90 bpm] 86 bpm (07/02/23 11:43 AM) 91 bpm *H* (07/02/23 9:21 AM) 92 bpm *H* (07/02/23 9:18 AM) Body Mass Index [18.5-24.99 kg/m2] 43.52 kg/m2 *>HHI* (07/02/23 11:43 AM) Blood Pressure [90-138/55-84 mm Hg] 156/66mm Hg *H* (07/02/23 11:43 AM) 137/60mm Hg (07/02/23 9:21 AM) 137/60mm Hg (07/02/23 9:18 AM) Respiratory Rate [16-30 br/min] 16 br/min (07/02/23 12:38 PM) 18 br/min (07/02/23 11:43 AM) 17 br/min (07/02/23 11:38 AM) Temperature [96.8-100.4 DegF] 98.4 DegF (07/02/23 11:43 AM) 97.9 DegF (07/02/23 6:35 AM) 98.0 DegF (07/02/23 1:54 AM) Mode of Delivery (Oxygen) Room air (07/02/23 11:43 AM) Room air (07/02/23 9:18 AM) Room air (07/02/23 7:59 AM) Blood pressure sites Arm, right (07/02/23 11:43 AM) Arm, right (07/02/23 9:18 AM) Arm, right (07/02/23 7:59 AM) Temperature Route Oral (07/02/23 11:43 AM) Oral (07/02/23 6:35 AM) Oral (07/02/23 1:54 AM) Dry Weight 141 kg (07/02/23 11:43 AM) Weight Obtained Via Patient/family state d (07/02/23 11:43 AM) Social History Social History Type Response Smoking Status Current every day 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 Admission evaluation note * Jer MONROY, Sandee Fuchs: PERFORM, MODIFY, MODIFY, MODIFY, MODIFY, MODIFY, MODIFY, MODIFY, MODIFY, MODIFY Event Display: Admission Note Authored Date: [id number] Patient: ??URIEL GRANADOS ? Age:??28 Years?Sex:??Male?:??1995?? History of Present Illness The patient is a 28-year-old male with a history of ADHD,??opioid use, on methadone, and??alcohol use disorder who presents for hemoptysis, chest pain and??alcohol withdrawal.?? For about 4-5 weeks, he has been having right sided chest/RUQ pain, which is increased with??deep breathing.?He denies??fevers, chills, shortness of breath.?Patient tells me he drinks 12??beers daily and voices concern for alcohol withdrawal.?He has attempted to stop drinking on his own before but has required unprescribed Klonopin for withdrawal symptoms.?? He is requesting detox.?He denies leg swelling,??recent travel, surgery, trauma.? In the ED, the patient is afebrile with stable vital signs.?? CXR is nonacute.?? CTA shows smallfilling defects in segmental and subsegmental branches of pulmonary arteries in the lower lobes posteriorly consistent with pulmonary emboli with a small clot burden??and posterior bibasilar groundglass opacities. suggesting??airspace disease versus atelectatic change vs areas of pulmonary infarct.Laboratory data is significant for D-dimer 1.0,?? glucose 131, AST 60, ALT 111.?? The patient was given therapeutic Lovenox in the ED. The patient is admitted for alcohol withdrawal and??pulmonary embolism. Review of Systems Constitutional:??No weight loss, fever, chills, weakness or fatigue. Allergy/Immune: Denies any??Eczema or hives Eyes:??No visual loss, blurred vision, double vision or yellow sclera ENT:??No hearing loss, sneezing, congestion, runny nose or sore throat. Respiratory:??No shortness of breath.?Hemoptysis. Cardiovascular: Pleuritic??chest pain. No palpitations or pedal edema. Gastrointestinal:??No anorexia, nausea, vomiting or diarrhea. No abdominal pain or blood in stool. Genitourinary:??No burning micturition. No urinary frequency or incontinence. Neurologic:??No headache, dizziness, syncope, unilateral weakness, ataxia, numbness or tingling in the extremities. No change in bowel or bladder control. Musculoskeletal:??No muscle pain, back pain, joint pain or stiffness. Hematologic/Lymphatics:??No bleeding or bruising. No painful lymph nodes. Skin:??No rash or itching. Endocrine:??No reports of sweating. No cold or heat intolerance. No polyuria or polydipsia. Psychiatric:??No depression or anxiety. Objective Vital Signs?? Temperature: 98.2 DegF (07/01/23 08:00:00) Temperature Route: Oral (07/01/23 08:00:00) Pulse Rate: 85 bpm (07/01/23 20:00:00) Respiratory Rate: 16 br/min (07/01/23 20:00:00) Systolic Blood Pressure: 129 mm Hg (07/01/23 20:00:00) Diastolic Blood Pressure: 69 mm Hg (07/01/23 20:00:00) Blood pressure sites: Arm, right (07/01/23 20:00:00) Mean Arterial Pressure: 51 mm Hg (07/01/23 08:00:00) Pulse Pressure: 60 mm Hg (07/01/23 20:00:00) Oxygen Saturation: 98 % (07/01/23 20:00:00) Mode of Delivery (Oxygen): Room air (07/01/23 20:00:00) Early Warning Score: 0 (07/01/23:51:31) ? Intake/Output? No Data Available ? Physical Exam Constitutional: Alert, in no distress. Mental Status: Oriented to person, place and time. Head: Normocephalic. Eyes: Pupils are equal, round and reactive to light. Extraocular muscles intact. Ear, Nose and Throat: Oropharynx clear, mucous membranes moist. Ears and nose without masses, lesions or deformities. Trachea midline. Neck: Supple, Full range of motion. Respiratory: Clear to auscultation. No wheezing, rales or rhonchi. Cardiovascular: S1 S2 regular. No murmurs, rubs or gallops. Gastrointestinal: Abdomen soft, non-tender, non-distended, obese. Normal bowel sounds. No pulsatilemass.?? Genitourinary: No costovertebral angle tenderness. Neurologic: Cranial nerves II-XII grossly intact. No focal neurological deficits. Flexor plantar response. Moves all extremities spontaneously. Sensation intact bilaterally. Skin: No rashes or lesions. No petechiae or purpura.?? Musculoskeletal: No cyanosis or clubbing. No gross deformities. Normal range of motion. Heme/Lymphatics/Immun: Palpation of neck reveals no swelling or tenderness of neck nodes.?? Psychiatric: Normal mood and affect Assessment/Plan Assessment:??The patient is a 28-year-old male with a history of ADHD, opioid use, on methadone, and alcohol use disorder who presents for hemoptysis, chest pain and alcohol withdrawal. For about 4-5weeks, he has been having right sided chest/RUQ pain, which is increased with deep breathing.?? He denies fevers, chills, shortness of breath. Patient tells me he drinks 12 beers daily and voices concern for alcohol withdrawal. He has attempted to stop drinking on his own before but has required unprescribed Klonopin for withdrawal symptoms. He is requesting detox. He denies leg swelling, recent travel, surgery, trauma. ?? In the ED, the patient is afebrile with stable vital signs. CXR is nonacute. CTA shows small filling defects in segmental and subsegmental branches of pulmonary arteries in the lower lobes posteriorly consistent with pulmonary emboli with a small clot burden and posterior bibasilar groundglass opacities. suggesting airspace disease versus atelectatic change vs areas of pulmonary infarct. Laboratory data is significant for D-dimer 1.0, glucose 131, AST 60, ALT 111. The patient was given therapeutic Lovenox in the ED. The patient is admitted for alcohol withdrawal and pulmonary embolism. ?? Pulmonary embolism (I26.99):?? Pleuritic chest pain (R 07.81): 28-year-old male with a history of ADHD, opioid use, on methadone, and alcohol use disorder presents for hemoptysis, chest pain and alcohol withdrawal. For about 4-5 weeks, he has been having right sided chest/RUQ pain, which is increased with deep breathing.?? He denies fevers, chills, shortness of breath. He denies leg swelling, recent travel, surgery, trauma.?? He does report sedentary lifestyle. In the ED, the patient is afebrile with stable vital signs. CXR is nonacute. CTA shows small filling defects in segmental and subsegmental branches of pulmonary arteries in the lower lobes posteriorly consistent with pulmonary emboli with a small clot burden and posterior bibasilar groundglass op acities. suggesting airspace disease versus atelectatic change vs areas of pulmonary infarct. The patient was given therapeutic Lovenox in the ED. -Continue Lovenox while inpatient.?? -Upon discharge can be switched to NOAC, depending on his insurance. -prn oxycodone for pain. ? Alcohol withdrawal (F10.939):?? Patient tells me he drinks 12 beers daily and voices concern for alcohol withdrawal. He has attempted to stop drinking on his own before but has required unprescribed Klonopin for withdrawal symptoms. He is requesting detox. -Continue CIWA. -Phenobarbital per CIWA scale. -Continue folic acid, thiamine, MV, and Pyridoxine. -Consult addiction medicine. ?? ADHD (F90.9):?? Agitation (R 45.1): -Continue home dose of Adderall, Quetiapine. ?? Opioid abuse (F11.10):?? Patient currently receives methadone [facility] daily through[facility] [place]. . -He gets a take home dose for Sundays and did receive his dose for today. -If needed, please verify dose with his clinic tomorrow, but please??discuss with patient first. ?? Hypertension (I10.): -Continue home dose of lisinopril, clonidine. ? Neuropathy (G62.9) -Continue gabapentin. ?VTE Prophylaxis:?? On therapeutic Lovenox. ?? Code Status:??Presumed Full Code. ?? Discharge Planning:?? -OMN PE, Alcohol withdrawal. ? Histories Allergies Allergies ?(Active and Proposed Allergies Only) NKA? (Severity: Unknown severity, Onset: Unknown) ? Past Medical History/Problem List Active Problems??(7) ADHD Agitation Alcohol dependence Asperger's syndrome Gynecomastia In methadone clinic for opiate dependence Obesity ? Past Surgical History No surgery history documented. ? Social History Tobacco Details:??Current every day smoker, Type: Cigarettes. ? Psychosocial History ? Family History No family history recorded. ? Medications Home Medications Acamprosate (acamprosate 333 mg oral delayed release tablet)?666?Milligram?By Mouth?3 times a day with meals?for 30?Days Amphetamine-Dextroamphetamine (Adderall XR 20 mg oral capsule, extended release)?TAKE 2 CAPSULESBY MOUTH EVERY MORNING WITH MEALS DX. ADHD Amphetamine-Dextroamphetamine (amphetamine-dextroamphetamine 5 mg oral tablet)?TAKE 2 TABLETS BYMOUTH ONCE DAILY AT 3 PM NEEDED DNF 06/02 Clonidine (cloNIDine 0.1 mg oral tablet)?0.1?Milligram?1?tablet?By Mouth?2 times a day Folic Acid (folic acid 1 mg oral tablet)?1?Milligram?1?tablet?By Mouth?Daily Gabapentin (gabapentin 100 mg oral capsule)?200?Milligram?2?capsule?By Mouth?3 times a day Lisinopril (lisinopril 10 mg oral tablet)?10?Milligram?1?tablet?By Mouth?Daily Nicotine (nicotine 4 mg oral transmucosal gum)?1?Each?4?Milligram?Chew?Every 2 hours?as needed?as needed for smoking cessation Quetiapine (QUEtiapine 50 mg oral tablet)?TAKE 1 TO 2 TABLETS BY MOUTH AT BEDTIME ? Inpatient Medications Medications (21) Active SCHEDULED: (11) Amphetamine-Dextroamphetamine 20 mg XR capsule (Adderall XR oral capsule) ??40 mg, By Mouth, Daily Amphetamine-Dextroamphetamine 5 mg Tablet (Amphetamine-Dextroamphetamine Oral Tablet) ??10 mg, By Mouth, Daily before dinner Clonidine 0.1 mg Tablet (cloNIDine 0.1 mg oral tablet) ??0.1 mg, By Mouth, 2 times a day Enoxaparin 150 mg Inj (Enoxaparin Inj) ??149 mg 0.99 mL, Subcutaneous Injection, Every 12 hours Folic Acid 1 mg Tablet (Folic Acid Tablet) ??1 mg, By Mouth, Daily Gabapentin 100 mg Capsule (gabapentin 100 mg oral capsule) ??200 mg, By Mouth, 3 times a day Lisinopril 10 mg Tablet (lisinopril 10 mg oral tablet) ??10 mg, By Mouth, Daily Multivitamin Tablet ??1 tablet, By Mouth, Daily Pyridoxine 50 mg Tablet (Pyridoxine Tablet) ??50 mg, By Mouth, Daily Quetiapine 25 mg Tablet (QUEtiapine 25 mg oral tablet) ??50 mg, By Mouth, Daily at bedtime Thiamine 100 mg Tablet (Thiamine Tablet) ??100 mg, By Mouth, 2 times a day CONTINUOUS: (1) NaCL 0.9% (1000 mL) Cont IV 1,000 mL (0.9% NaCL 1,000 mL) ??1,000 mL, IV Infusion, 150 mL/hr PRN: (9) Acetaminophen 325 mg Tablet (Acetaminophen Tablet) ??650 mg, By Mouth, Every 4 hours Docusate Sodium 100 mg Capsule (Docusate Sodium Capsule) ??100 mg 1 capsule, By Mouth, 2 times a day Melatonin 3 mg Tablet (Melatonin Tablet) ??3 mg, By Mouth, Daily at bedtime NaCl 0.9% Flush 3ml (NaCL 0.9% Flush) ??3 mL, IV Push, Every 8 hours OxyCODONE 5 mg IR Tablet (oxyCODONE 5 mg oral tablet) ??5 mg, By Mouth, Every 6 hours Phenobarbital 130 mg/mL Inj (Phenobarbital Inj) ??260 mg 2 mL, IV Push, Once Phenobarbital 130 mg/mL Inj (Phenobarbital Inj) ??130 mg 1 mL, IV Push, Every 2 hours Polyethylene Glycol 17 Gm Powder (MiraLax Powder) ??17 Gm 1 pack/packet, By Mouth, Daily Senna Tablet ??8.6 mg 1 tablet, By Mouth, 2 times a day ? Results Recent Labs BLOOD COUNT & DIFF WBC 9.5 k/mm3 ()?? 06/30/2023 15:22 RBC 4.53 m/mm3 (Low)?? 06/30/2023 15:22 Hgb 13.3 Gm/dL (Low)?? 06/30/2023 15:22 Hct 40.3 % (Low)?? 06/30/2023 15:22 MCV 89.0 femtoliters ()?? 06/30/2023 15:22 MCH 29.4 pg ()?? 06/30/2023 15:22 MCHC 33.0 g/dL ()?? 06/30/2023 15:22 Platelet Count 226 k/mm3 ()?? 06/30/2023 15:22 RDW-SD 41.1 femtoliters ()?? 06/30/2023 15:22 MPV 9.8 femtoliters ()?? 06/30/2023 15:22 Nucleated RBC (Automated) 0.0 #/100 WBC'S ()?? 06/30/2023 15:22 Abs. NRBC 0.0 k/mm3 ()?? 06/30/2023 15:22 Abs. Neut 7.0 k/mm3 ()?? 06/30/2023 15:22 Abs. Lymph 1.6 k/mm3 ()?? 06/30/2023 15:22 Abs. [place] 0.7 k/mm3 ()?? 06/30/2023 15:22 Abs. Eo 0.1 k/mm3 ()?? 06/30/2023 15:22 Abs. Baso 0.0 k/mm3 ()?? 06/30/2023 15:22 Neut % 74.1 % ()?? 06/30/2023 15:22 Lymph % 17.3 % ()?? 06/30/2023 15:22 [place] % 7.3 % ()?? 06/30/2023 15:22 Eos % 0.5 % ()?? 06/30/2023 15:22 Baso % 0.3 % ()?? 06/30/2023 15:22 Imm Gran 0.5 % ()?? 06/30/2023 15:22 Abs. Imm Gran 0.1 k/mm3 ()?? 06/30/2023 15:22 ?? CHEM GENERAL Sodium 138 mmol/L ()?? 06/30/2023 15:22 Potassium 4.8 mmol/L ()?? 06/30/2023 15:22 Chloride 101 mmol/L ()?? 06/30/2023 15:22 Bicarbonate Level 28 mmol/L ()?? 06/30/2023 15:22 Anion Gap 9 ()?? 06/30/2023 15:22 Glucose Level 131 mg/dL (High)?? 06/30/2023 15:22 BUN 13 mg/dL ()?? 06/30/2023 15:22 Creatinine-Blood 0.7 mg/dL ()?? 06/30/2023 15:22 Estimated GFR Creatinine 126 ML/MIN/1.73 M2 ()?? 06/30/2023 15:22 Calcium 9.7 mg/dL ()?? 06/30/2023 15:22 Protein, Total 7.2 Gm/dL ()?? 06/30/2023 15:22 Albumin 4.4 Gm/dL ()?? 06/30/2023 15:22 AG Ratio 1.6 ()?? 06/30/2023 15:22 Alkaline Phosphatase 68 units/L ()?? 06/30/2023 15:22 Lipase 28 units/L ()?? 06/30/2023 15:22 AST (SGOT) 60 units/L (High)?? 06/30/2023 15:22 ALT (SGPT) 111 units/L (High)?? 06/30/2023 15:22 Bilirubin, Total 0.8 mg/dL ()?? 06/30/2023 15:22 Lactate 1.9 mmol/L ()?? 06/30/2023 15:22 ?? COAG D-Dimer 1.00 mg/L FEU ()?? 06/30/2023 15:22 ?? HEME OTHER Hold Blue Top SPECIMEN DISCARDED AFTER 4 HOURS. ()?? 06/30/2023 15:22 ?? UA/URINALYSIS Appear/Color, Urine LIGHT YELLOW ()?? 06/30/2023 15:00 Specific [place], Urine 1.017 ()?? 06/30/2023 15:00 pH, Urine 6.5 ()?? 06/30/2023 15:00 Albumin, Urine NEGATIVE ()?? 06/30/2023 15:00 Glucose, Urine TRACE (Abnormal)?? 06/30/2023 15:00 Ketones, Urine NEGATIVE ()?? 06/30/2023 15:00 Bilirubin, Urine NEGATIVE ()?? 06/30/2023 15:00 Hemoglobin, Urine NEGATIVE ()?? 06/30/2023 15:00 Nitrite, Urine NEGATIVE ()?? 06/30/2023 15:00 Leukocyte, Urine NEGATIVE ()?? 06/30/2023 15:00 Urobilinogen NORMAL mg/dL ()?? 06/30/2023 15:00 WBC's, Urine 1 /HPF ()?? 06/30/2023 15:00 RBC's, Urine 2 /HPF ()?? 06/30/2023 15:00 Bacteria SLIGHT HPF (Abnormal)?? 06/30/2023 15:00 Squamous Epith <1 /HPF ()?? 06/30/2023 15:00 Hold Urine Culture Testing available 48 hours from time of collection. ()?? 06/30/2023 15:00 ?? VIROLOGY Influenza A PCR NEGATIVE ()?? 06/30/2023 17:55 Influenza B PCR NEGATIVE ()?? 06/30/2023 17:55 RSV PCR NEGATIVE ()?? 06/30/2023 17:55 COVID-19 PCR Specimen Source NASAL ()?? 06/30/2023 17:55 COVID-19 PCR Result NEGATIVE ()?? 06/30/2023 17:55 ? EKG study * Event Display: ECG 12-Lead Authored Date: Please click on pdf link to open report * Event Display: ECG 12-Lead Authored Date: Ventricular Rate: 70 BPM Atrial Rate: 70 BPM P-R Interval: 158 ms QRS Duration: 116 ms Q-T Interval: 414 ms QTC Calculation(Bazett): 447 ms P [place]: 2 degrees R [place]: -35 degrees T [place]: 17 degrees Normal sinus rhythm Left axis deviation Abnormal ECG When compared with ECG of 14-JUN-2021 13:49, Vent. rate has decreased BY 36 BPM Confirmed by SAMARA GARCIA MD ([id number]) on 07/01/2023 6:55:26 AM [place]: SAMARA GARCIA MD Consult note * Pat Klein: PERFORM Event Display: Consultation Note Authored Date: Patient: ??URIEL GRANADOS ? Age:??28 Years?Sex:??Male?:??1995?? Reason for Consultation Addiction Med Consult - ETOH dep Requested by??Sandee Randle NP History of Present Illness Uriel Granados is a 28 yo male with a PMHx of OUD on methadone, alcohol use disorder, ADHD. He was admitted 07/01 after presenting with chest pain and ETOH withdrawal.??Drinking??12 beers a day.??CTA with evidence of??PE with small clot burden. Pt given lovenox in the ED. Started on a CIWA with PRN phenobarbital, received 2 doses through today. ?? Met with pt this morning while he was in the ED. Pt reporting that he attends [facility] in [place]??for methadone. He last received his??dose??yesterday, and has been on??140mg??of methadone for??a few years now. He??does not endorse??any issues with his methadone??dose, and would like??to keep??it as is. Pt does not??report??any recent??recreational??opioid??use. He does mention he took a pill from??a friend recently??that he??thought was??a muscle relaxer,??but ended??up being one of those pressed pills people??get from the??street. He didn't realize until later, and was freaked out??by it.??He says he knows the dangers of that such as overdose, and would??not do that intentionally. Pt has been drinking on a more regular basis over the last??2 weeks. He has had issues with ETOH before though??and acknowledges he is a recovering alcoholic. [facility], and since he is in the hospital, his family has thrown out the rest of his beer. He is currently not interested in any medication for ETOH cravings.??Not interested in any specificresource referrals from our team. Pt does??not endorse use of??any other??substances aside??from??a nicotine vaporizer. Review of Systems No??acute complaints Physical Exam Vitals & Measurements T:??98.4?F?? TMIN:??97.9?F?? TMAX:??98.4?F?? HR:??86??(Peripheral)?? RR:??16?? BP:??156/66?? SpO2:??98%?? WT:??141??kg?? General:??well developed, well nourished,??appears to be stated age.??Breathing is??even and unlabored.??In no acute distress,??no diaphoresis. Mental Status Exam: Appearance:??casual?? Attitude:??cooperative? Eye contact:??normal Motor activity:??calm, no aberrant movements? Mood:??euthymic? Affect:??congruent? Speech:??fluent, unimpaired? Judgment:??appears intact? Insight:??appears intact? Thought process:??linear? Reliability:??likely reliable source? Delusions or hallucinations:??denies Fund of knowledge:??intact Assessment/Plan Alcohol use disorder, moderate, dependence (F10.20):??. Patient was counseled on consequences of fdc excessive ETOH consumption such as damage to thecardiovascular system, memory loss/dementia, falls/injury, cirrhosis, higher risk??for HCC,??liver failure, . ?? Pt not currently interested in any MAT for ETOH cravings, nor any referrals for any substance use??supports. Should pt change his mind, please let us know.? Nicotine dependence (F17.200):??. Pt is aware of the possible consequences that fdc nicotine??use may have on their health, such as pulmonary and/or cardiac complications. Pt should quit and is aware.? Opioid use disorder (F11.90):??. Methadone dose will need to be verified. QTc this admission <500ms. If he has received this in the last 3 days, can resume at 140mg daily. ?? At time of writing this note, pt has discharged already. Addiction??Service will sign off at this time. Thank you for allowing us to participate in the careof this patient. Please contact me with any questions or concerns. ?? Problem List/Past Medical History Ongoing ADHD Agitation Alcohol dependence Asperger's syndrome Gynecomastia In methadone clinic for opiate dependence Obesity Severe obesity Medications Inpatient 0.9% NaCL 1,000 mL, 1000 mL, IV Infusion Acetaminophen Tablet, 650 mg, By Mouth, Every 4 hours, PRN Adderall XR oral capsule, 40 mg, By Mouth, Daily Amphetamine-Dextroamphetamine Oral Tablet, 10 mg, By Mouth, Daily before dinner Apixaban Tablet, 10 mg, By Mouth, 2 times a day Apixaban Tablet, 5 mg, By Mouth, 2 times a day cloNIDine 0.1 mg oral tablet, 0.1 mg, By Mouth, 2 times a day Docusate Sodium Capsule, 100 mg= 1 capsule, By Mouth, 2 times a day, PRN Folic Acid Tablet, 1 mg, By Mouth, Daily gabapentin 100 mg oral capsule, 200 mg, By Mouth, 3 times a day lisinopril 10 mg oral tablet, 10 mg, By Mouth, Daily Melatonin Tablet, 3 mg, By Mouth, Daily at bedtime, PRN MiraLax Powder, 17 Gm= 1 pack/packet, By Mouth, Daily, PRN Multivitamin Tablet, 1 tablet, By Mouth, Daily NaCL 0.9% Flush, 3 mL, IV Push, Every 8 hours, PRN nalOXONE Inj, 0.2 mg= 0.5 mL, IV Push, Every 5 minutes, PRN oxyCODONE 5 mg oral tablet, 5 mg, By Mouth, Every 6 hours, PRN Pyridoxine Tablet, 50 mg, By Mouth, Daily QUEtiapine 25 mg oral tablet, 50 mg, By Mouth, Daily at bedtime Senna Tablet, 8.6 mg= 1 tablet, By Mouth, 2 times a day, PRN Thiamine Tablet, 100 mg, By Mouth, 2 times a day Home acamprosate 333 mg oral delayed release tablet, 666 mg, By Mouth, 3 times a day with meals Adderall XR 20 mg oral capsule, extended release amphetamine-dextroamphetamine 5 mg oral tablet apixaban Starter Pack 5 mg oral tablet, See Instructions cloNIDine 0.1 mg oral tablet, 0.1 mg= 1 tablet, By Mouth, 2 times a day folic acid 1 mg oral tablet, 1 mg= 1 tablet, By Mouth, Daily gabapentin 100 mg oral capsule, 200 mg= 2 capsule, By Mouth, 3 times a day lisinopril 10 mg oral tablet, 10 mg= 1 tablet, By Mouth, Daily nicotine 4 mg oral transmucosal gum, 4 mg= 1 each, Chew, Every 2 hours, PRN QUEtiapine 50 mg oral tablet Allergies NKA Social History Tobacco Current every day smoker, Type: Cigarettes. Immunizations Vaccine Date Status pneumococcal 23-valent vaccine - Not Given Comments : Patient Refuses influenza virus vaccine, inactivated - Not Given Comments : Patient Refuses Note * Joshua Sargent MD, Terry Fuchs: PERFORM Event Display: Discharge/Transfer Note Hospital Authored Date: Patient: ??URIEL GRANADOS ? Age:??28 Years?Sex:??Male?:??1995?? Patient Information Discharge Location: [facility] Primary Care Physician: Raman Woodward MD Admit Date/Time: 07/01/23 11:15 Discharge Disposition Discharge Disposition: ?? Discharge Diagnosis ADHD (F90.9) Alcohol withdrawal (F10.939) Neuropathy (G62.9) Opioid abuse (F11.10) Pleuritic chest pain (R07.81) Pulmonary embolism (I26.99) ADHD Asperger's syndrome In methadone clinic for opiate dependence Obesity ?? _ Discharge Medications Acamprosate (acamprosate 333 mg oral delayed release tablet)?666?Milligram?By Mouth?3 times a day with meals?for 30?Days Amphetamine-Dextroamphetamine (Adderall XR 20 mg oral capsule, extended release)?TAKE 2 CAPSULESBY MOUTH EVERY MORNING WITH MEALS DX. ADHD Amphetamine-Dextroamphetamine (amphetamine-dextroamphetamine 5 mg oral tablet)?TAKE 2 TABLETS BYMOUTH ONCE DAILY AT 3 PM NEEDED DNF 06/02 apixaban (apixaban Starter Pack 5 mg oral tablet)?See Instructions?please 10 mg 2 times a dayfor one week till 07/09/2023 then 5 mg 2 times a day from 07/10/2023 for 6 months till you see yourPCP before stopping Clonidine (cloNIDine 0.1 mg oral tablet)?0.1?Milligram?1?tablet?By Mouth?2 times a day Folic Acid (folic acid 1 mg oral tablet)?1?Milligram?1?tablet?By Mouth?Daily Gabapentin (gabapentin 100 mg oral capsule)?200?Milligram?2?capsule?By Mouth?3 times a day Lisinopril (lisinopril 10 mg oral tablet)?10?Milligram?1?tablet?By Mouth?Daily Nicotine (nicotine 4 mg oral transmucosal gum)?1?Each?4?Milligram?Chew?Every 2 hours?as needed?as needed for smoking cessation Quetiapine (QUEtiapine 50 mg oral tablet)?TAKE 1 TO 2 TABLETS BY MOUTH AT BEDTIME ? Allergies Allergies ?(Active and Proposed Allergies Only) NKA? (Severity: Unknown severity, Onset: Unknown) ? Objective The patient is a 28-year-old male with a history of ADHD, opioid use, on methadone, and alcohol usedisorder who presents for hemoptysis, chest pain and alcohol withdrawal. For about 4-5 weeks, he has been having right sided chest/RUQ pain, which is increased with deep breathing.?? He denies fevers, chills, shortness of breath. Patient tells me he drinks 12 beers daily and voices concern for alcohol withdrawal. He has attempted to stop drinking on his own before but has required unprescribed Klonopin for withdrawal symptoms. He is requesting detox. He denies leg swelling, recent travel, surgery, trauma. ?? In the ED, the patient is afebrile with stable vital signs. CXR is nonacute. CTA shows small filling defects in segmental and subsegmental branches of pulmonary arteries in the lower lobes posteriorly consistent with pulmonary emboli with a small clot burden and posterior bibasilar groundglass opacities. suggesting airspace disease versus atelectatic change vs areas of pulmonary infarct. Laboratory data is significant for D-dimer 1.0, glucose 131, AST 60, ALT 111. The patient was given therapeutic Lovenox in the ED. The patient is admitted for alcohol withdrawal and pulmonary embolism. ?? Pulmonary embolism (I26.99):?? Pleuritic chest pain (R 07.81): history of ADHD, opioid use, on methadone, and alcohol use disorder presents for hemoptysis chest pain and alcohol withdrawal. For about 4-5 weeks he has been having right sided chest/RUQ pain, which is increased with deep breathing.?? He does report sedentary lifestyle. In the ED, the patient is afebrile with stable vital signs. CXR is nonacute. CTA shows small filling defects in segmental and subsegmental branches of pulmonary arteries in thelower lobes posteriorly consistent with pulmonary emboli with a small clot burden and posterior bibasilar groundglass opacities. suggesting airspace disease versus atelectatic change vs areas of pulmonary infarct. The patient was given therapeutic Lovenox in the ED. ?? Patient is HD stable , afebrile, breathing at room air Lovenox switched to Eliquis 10 mg BID for 7 days then 5 mg BID for anticipated 6 months ?? Alcohol withdrawal (F10.939):?? Patient tells me he drinks 12 beers daily and voices concern for alcohol withdrawal. He has attempted to stop drinking on his own before but has required undescribed Klonopin for withdrawal symptoms. He is requesting detox. ?? S/p CIWA no withdrawal symptoms ?? ADHD (F90.9):?? Agitation (R 45.1): Continue home dose of Adderall, Quetiapine. ?? Opioid abuse (F11.10):?? Patient currently receives methadone 140 mg daily through??[facility] ([facility] [place]. . verified dose??140 mg , givne 11 am today ?? Hypertension (I10.): Continue home dose of lisinopril, clonidine. ?? Neuropathy (G62.9) Continue gabapentin. ? Measurements?? Height: 180 cm (07/02/23) Weight: 141 kg (07/02/23) Dry Weight: 141 kg (07/02/23) Body Mass Index:??43.52 kg/m2??Critical (07/02/23) ? Vital Signs?? Temperature: 98.4 DegF (07/02/23 11:43:00) Temperature Route: Oral (07/02/23 11:43:00) Pulse Rate: 86 bpm (07/02/23 11:43:00) Respiratory Rate: 18 br/min (07/02/23 11:43:00) Systolic Blood Pressure:??156 mm Hg??High (07/02/23 11:43:00) Diastolic Blood Pressure: 66 mm Hg (07/02/23 11:43:00) Blood pressure sites: Arm, right (07/02/23 11:43:00) Mean Arterial Pressure: 96 mm Hg (07/02/23 11:43:00) Pulse Pressure: 90 mm Hg (07/02/23 11:43:00) Oxygen Saturation: 98 % (07/02/23 11:43:00) Mode of Delivery (Oxygen): Room air (07/02/23 11:43:00) Early Warning Score: 0 (07/02/23 11:56:34) ? Intake/Output? No Data Available ?? . Physical Exam General: Awake, not in??distress, morbidly obese?? Head and neck: Atraumatic, no neck swelling Eye: no injection or jaundice, EOMI. Cardiac: RRR, no murmurs, gallops or rubs, no S3 or S4. Pulmonary: diminished?? breathing sounds bilaterally with decreased??air entry with??no wheezing or??rhonchi Abdominal: No tenderness or rebound tenderness, normal BS, no HSM Skin: No rashes, jaundice or scratching lau Extremities: No edema, no swelling or varicose veins Neuro: awake, alert oriented X3, no focal weakness. Psych: Not anxious Pending Results Add On Lab Order ordered on 06/30/2023 Follow-Up Appointments Added Follow Up ?Time Frame ?Comments Raman Woodward MD?1 week Post Discharge Care Discharge ?07/02/23 11:57:00 EST ?07/02/23 11:57:00 EST Home Health Face to Face *Denotes mandatory wallace ?? *I certify that this patient is under my care and that I or an allowed non- physician working with me had a face to face encounter with the patient on this date:??07/02/2023 12:01 ?? *The encounter with the patient was in whole, or in part, for the following medical condition, which is the primary diagnosis(es) for home health care:??ADHD (F90.9) Alcohol withdrawal (F10.939) Neuropathy (G62.9) Opioid abuse (F11.10) Pleuritic chest pain (R07.81) Pulmonary embolism (I26.99) ADHD Asperger's syndrome In methadone clinic for opiate dependence Obesity ? *Select the indications for the discipline/s that are being arranged for this patient. Nursing (select all that apply): [_] None [_XX] Medication management (reconciliation, teaching)?? [XX_] Chronic disease management?? [_] Wound care and treatment?? [_] Home safety evaluation [_] Administer SQ/IM/IV medications?? [_] Cath care?? [_] Drain care?? [_] Trach or GT care?? Other _ Occupation Therapy (select all that apply): [_] None [_] ADL Management [_] Fall prevention training [_] Energy conservation [_] Cognitive training Other _ Physical Therapy (select all that apply): [_] None [_XX] Functional mobility training [_] Home exercise program to strengthen [_] Increase ROM?? [_] Falls prevention training [_] Home maintenance program for chronic disease Other _ Speech Therapy (select all that apply): [_] None [_] Swallow evaluation and training [_] Speech and language training [_] Cognitive training to process, organize, and/or recall information Other _ ? *Homebound due to (select all that apply): [XX_] Inability to leave home without assistance/supervision [_] Inability to ambulate without assistance [_] Pain [_] Decreased strength and endurance [_] Unsteady gait [_] Severe SOB and fatigue [_] Impaired transfers [_] Inability to negotiate stairs [_] Limited weight bearing [_] Mental status change? *Physician Signature:??Terry Lewis MD ?? *By signing this, I certify that I have personally evaluated the patient and agree with the findings and recommendations as documented above. ? Results Discharge Labs BLOOD COUNT & DIFF WBC 9.5 k/mm3 ()?? 06/30/2023 15:22 RBC 4.53 m/mm3 (Low)?? 06/30/2023 15:22 Hgb 13.3 Gm/dL (Low)?? 06/30/2023 15:22 Hct 40.3 % (Low)?? 06/30/2023 15:22 MCV 89.0 femtoliters ()?? 06/30/2023 15:22 MCH 29.4 pg ()?? 06/30/2023 15:22 MCHC 33.0 g/dL ()?? 06/30/2023 15:22 Platelet Count 226 k/mm3 ()?? 06/30/2023 15:22 RDW-SD 41.1 femtoliters ()?? 06/30/2023 15:22 MPV 9.8 femtoliters ()?? 06/30/2023 15:22 Nucleated RBC (Automated) 0.0 #/100 WBC'S ()?? 06/30/2023 15:22 Abs. NRBC 0.0 k/mm3 ()?? 06/30/2023 15:22 Abs. Neut 7.0 k/mm3 ()?? 06/30/2023 15:22 Abs. Lymph 1.6 k/mm3 ()?? 06/30/2023 15:22 Abs. [place] 0.7 k/mm3 ()?? 06/30/2023 15:22 Abs. Eo 0.1 k/mm3 ()?? 06/30/2023 15:22 Abs. Baso 0.0 k/mm3 ()?? 06/30/2023 15:22 Neut % 74.1 % ()?? 06/30/2023 15:22 Lymph % 17.3 % ()?? 06/30/2023 15:22 [place] % 7.3 % ()?? 06/30/2023 15:22 Eos % 0.5 % ()?? 06/30/2023 15:22 Baso % 0.3 % ()?? 06/30/2023 15:22 Imm Gran 0.5 % ()?? 06/30/2023 15:22 Abs. Imm Gran 0.1 k/mm3 ()?? 06/30/2023 15:22 ?? CHEM GENERAL Sodium 138 mmol/L ()?? 06/30/2023 15:22 Potassium 4.8 mmol/L ()?? 06/30/2023 15:22 Chloride 101 mmol/L ()?? 06/30/2023 15:22 Bicarbonate Level 28 mmol/L ()?? 06/30/2023 15:22 Anion Gap 9 ()?? 06/30/2023 15:22 Glucose Level 131 mg/dL (High)?? 06/30/2023 15:22 BUN 13 mg/dL ()?? 06/30/2023 15:22 Creatinine-Blood 0.7 mg/dL ()?? 06/30/2023 15:22 Estimated GFR Creatinine 126 ML/MIN/1.73 M2 ()?? 06/30/2023 15:22 Calcium 9.7 mg/dL ()?? 06/30/2023 15:22 Protein, Total 7.2 Gm/dL ()?? 06/30/2023 15:22 Albumin 4.4 Gm/dL ()?? 06/30/2023 15:22 AG Ratio 1.6 ()?? 06/30/2023 15:22 Alkaline Phosphatase 68 units/L ()?? 06/30/2023 15:22 Lipase 28 units/L ()?? 06/30/2023 15:22 AST (SGOT) 60 units/L (High)?? 06/30/2023 15:22 ALT (SGPT) 111 units/L (High)?? 06/30/2023 15:22 Bilirubin, Total 0.8 mg/dL ()?? 06/30/2023 15:22 Lactate 1.9 mmol/L ()?? 06/30/2023 15:22 ? COAG D-Dimer 1.00 mg/L FEU ()?? 06/30/2023 15:22 ? HEME OTHER Hold Blue Top SPECIMEN DISCARDED AFTER 4 HOURS. ()?? 06/30/2023 15:22 ? UA/URINALYSIS Appear/Color, Urine LIGHT YELLOW ()?? 06/30/2023 15:00 Specific [place], Urine 1.017 ()?? 06/30/2023 15:00 pH, Urine 6.5 ()?? 06/30/2023 15:00 Albumin, Urine NEGATIVE ()?? 06/30/2023 15:00 Glucose, Urine TRACE (Abnormal)?? 06/30/2023 15:00 Ketones, Urine NEGATIVE ()?? 06/30/2023 15:00 Bilirubin, Urine NEGATIVE ()?? 06/30/2023 15:00 Hemoglobin, Urine NEGATIVE ()?? 06/30/2023 15:00 Nitrite, Urine NEGATIVE ()?? 06/30/2023 15:00 Leukocyte, Urine NEGATIVE ()?? 06/30/2023 15:00 Urobilinogen NORMAL mg/dL ()?? 06/30/2023 15:00 WBC's, Urine 1 /HPF ()?? 06/30/2023 15:00 RBC's, Urine 2 /HPF ()?? 06/30/2023 15:00 Bacteria SLIGHT HPF (Abnormal)?? 06/30/2023 15:00 Squamous Epith <1 /HPF ()?? 06/30/2023 15:00 Hold Urine Culture Testing available 48 hours from time of collection. ()?? 06/30/2023 15:00 ?? URINE OTHER Est Creatinine Clearance 165.16 mL/min ()?? 07/02/2023 11:56 ? VIROLOGY Influenza A PCR NEGATIVE ()?? 06/30/2023 17:55 Influenza B PCR NEGATIVE ()?? 06/30/2023 17:55 RSV PCR NEGATIVE ()?? 06/30/2023 17:55 COVID-19 PCR Specimen Source NASAL ()?? 06/30/2023 17:55 COVID-19 PCR Result NEGATIVE ()?? 06/30/2023 17:55 ? Microbiology ?? COVID-19, RSV, and Flu A/B, Rapid PCR?? Completed?? Source: Nasal Body Site: Nose Collected Dt/Tm: 06/30/2023 17:46 Last Updated Dt/Tm: 06/30/2023 19:51 ? >45_ minutes spent on discharge * Joshua Sargent MD, Terry Fuchs: PERFORM, SIGN, VERIFY Event Display: Patient Education Handout Authored Date: [id number] Patient Care team information Care Team Personnel Name: Zenaida Espinosa Position: S RN Member Role: Primary Care Nurse Name: Pat Iniguez RN Position: S RN Member Role: Primary Care Nurse Name: Juliette MONROY, Rosamaria Barrientos Position: [facility] Associate Professional Member Role: Primary Care Nurse Address: Address: [address] [place] [address] [place] [address]- [place] Name: Tanmay Ashford RN Position: [facility] RN Supv Member Role: Primary Care Nurse Name: Linn Gleason RN Position: [facility] RN Member Role: Primary Care Nurse Name: Daphne Case RN Position: [facility] RN Member Role: Primary Care Nurse Name: Anita Calvin RN Position: [facility] Cylinder Press Operator Helper Member Role: Primary Care Nurse Name: Briseyda Peralta RN Position: [facility] RN Member Role: Primary Care Nurse Name: Raman Woodward MD Position: [facility] General Pediatrics MD Member Role: PCP Address: Address: [address] [place] [address]- [place] Name: Deric BARNETT Attending Position: [facility] ED Medicine MD Name: Amparo Mcgregor Position: [facility] ED TA [facility] Member Role: Stream Control Officer Care Team Related Persons Name: MARCELA GREER Name: CAROLYNE WARREN Address: [address] [place] [address]
--- OUTSIDE RECORDS SUMMARY | 2023-12-12 23:30 | XMS_ITS | Continuity of Care Document ---
Author Organization [facility] Address [address] [place] [address]- Care Team Providers Care Metalsmith Name Role Phone Trace ROJO, Raman Primary Care Physician [place] [facility] [place] - 06/16/[address] [address] Discharge Disposition: A-D/C Home Attending Physician: Vasyl Velasquez MD Admitting Physician: Ariel Herrera MD Referring Physician: Not on Staff, Referring MD Allergies, Adverse Reactions, Alerts Substance Reaction Severity Status NKA Active Immunizations Not Given Vaccine Date Status Refusal Reason pneumococcal 23-valent vaccine 06/12/14 Not Given Patient Refuses influenza virus vaccine, inactivated 06/12/14 Not Given Patient Refuses Medications acamprosate 333 mg oral delayed release tablet = 666 mg, By Mouth, 3 times a day with meals, # 120 tablet, 0 Refills, Maintenance, 03/16/21 8:58:00 EDT, Tablet, [facility], Partial fill upon patient request if the prescription is for a schedule II opioid drug., 170, cm, 03/13/21 21:5... Start Date: 03/16/21 Stop Date: 04/15/21 Status: Ordered citalopram 20 mg oral tablet 1 tablet = 20 mg, By Mouth, Daily, # 30 tablet, 0 Refills, Maintenance, 06/15/21 11:56:00 EDT, Tablet, Partial fill upon patient request if the prescription is for a schedule II opioid drug. Start Date: 06/15/21 Status: Ordered cloNIDine 0.1 mg oral tablet [...] 03/16/21 8:59:00 EDT, Route to Pharmacy Electronically, [facility], Partial fill upon patient request if the prescription is for a schedule II opioid... Start Date: 03/16/21 Status: Ordered gabapentin 100 mg oral capsule 100 mg, 1, capsule, By Mouth, 3 times a day, # 21 capsule, Refills 0, Tot. Refills 0, Maintenance, 03/16/21 9:03:00 EDT, Route to Pharmacy Electronically, [facility], Partial fill upon patient request if the prescription is for a schedul... Start Date: 03/16/21 Stop Date: 03/23/21 Status: Ordered gabapentin 100 mg oral capsule 100 mg, Capsule, By Mouth, 06/16/21 9:00:00 EDT Start Date: 06/16/21 Stop Date: 06/16/21 Status: Completed hydrOXYzine hydrochloride 50 mg oral tablet 1 tablet = 50 mg, By Mouth, Daily, PRN for anxiety, # 40 tablet, 0 Refills, Maintenance, 06/15/21 11:58:00 EDT, Tablet, Partial fill upon patient request if the prescription is for a schedule II opioid drug. Start Date: 06/15/21 Status: Ordered Methadone = 135 mg, By Mouth, Daily, 0 Refills, Maintenance, 06/12/14 10:45:49 EDT Start Date: 06/12/14 Status: Ordered Methadone Tablet 135 mg, Tablet, By Mouth, 06/16/21 9:00:00 EDT Start Date: 06/16/21 Stop Date: 06/16/21 Status: Completed nicotine 4 mg oral transmucosal gum 1 each = 4 mg, Chew, Every 2 hours, PRN as needed for smoking cessation, # 40 each, 0 Refills, Maintenance, 03/16/21 9:01:00 EDT, Gum, [facility], Partial fill upon patient request if the prescription is for a schedule II opioid drug., 1... Start Date: 03/16/21 Status: Ordered Problem List Condition Effective Dates Status Health Status Inform ant Alcohol dependence(Confirmed) Active Asperger's syndrome(Confirmed) Active ADHD(Confirmed) Active Gynecomastia(Confirmed) 1 Active In methadone clinic for opia te dependence(Confirmed) Active Obesity(Confirmed) Active 1s/p reduction surgery Vital Signs Most recent to oldest [Reference Range]: 1 2 3 Weight 140.4 kg (06/15/21 11:18 AM) 140.4 kg (06/15/21 11:18 AM) 140.4 kg (06/14/21 6:34 PM) Oxygen Saturation [94-100 %] 95 % (06/16/21 2:39 PM) 99 % (06/15/21 8:31 PM) 91 % *L* (06/15/21 9:32 AM) Pulse Rate [55-90 bpm] 93 bpm *H* (06/16/21 2:39 PM) 81 bpm (06/16/21 4:23 AM) 79 bpm (06/16/21 12:48 AM) Blood Pressure [90-138/55-84 mm Hg] 136/80mm Hg (06/16/21 2:39 PM) 143/75mm Hg *H* (06/16/21 4:23 AM) 130/84mm Hg (06/16/21 12:48 AM) Respiratory Rate [16-30 br/min] 20 br/min (06/16/21 2:39 PM) 18 br/min (06/16/21 8:49 AM) 18 br/min (06/16/21 8:49 AM) Temperature [96.8-100.4 DegF] 98.1 DegF (06/16/21 2:39 PM) 97.4 DegF (06/16/21 4:23 AM) 98 DegF (06/16/21 12:48 AM) Mode of Delivery (Oxygen) Room air (06/16/21 2:39 PM) Room air (06/15/21 8:31 PM) Room air (06/15/21 9:32 AM) Blood pressure sites Arm, right (06/16/21 2:39 PM) Arm, right (06/15/21 8:31 PM) Arm, right (06/14/21 6:34 PM) Temperature Route Oral (06/16/21 2:39 PM) Oral (06/16/21 4:23 AM) Oral (06/16/21 12:48 AM) Dry Weight 140.4 kg (06/14/21 6:34 PM) Weight Obtained Via Bed scale (06/14/21 6:34 PM) Dry Weight Obtained Via Bed scale (06/14/21 6:34 PM) Social History Social History Type Response Smoking Status Current every day 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
--- OUTSIDE RECORDS SUMMARY | 2023-12-12 23:30 | XMS_ITS | Continuity of Care Document ---
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 Name Role Phone PORFIRIO Dominguez Primary Care Provider + MD Evaristo Tsai Emergency Provider Chief Complaint and Reason for Visit Chief Complaint ABD PAIN,(FROM [employer]) Allergies, Adverse Reactions, Alerts No known allergies Social History Smoking Status Unknown if ever smoked Additional Data Assigned Sex Male Problems Active Problems Medical Problem Onset Date Status Vomiting Active Relevant Diagnostic Tests and/or Laboratory Data Laboratory Results Test Date/Time Result Interpretation Reference Range Result Comment Performing Site White Blood Count February 09, 2023 3:25pm 9.2 X10 3/uL 4.5-11.0 [facility] [id number] [address] [place] [address] 63710 Red Blood Count February 09, 2023 3:25pm 4.65 X10 6/uL 4.00-5.50 [facility] [id number] [address] [place] [address] 38243 Hemoglobin February 09, 2023 3:25pm 13.7 g/dl 13.0-17.0 [facility] [id number] [address] [place] [address] 72610 Hematocrit February 09, 2023 3:25pm 43.0 % 37.5-50.0 [facility] [id number] [address] [place] [address] 62698 Mean Corpuscular Volume February 09, 2023 3:25pm 92.5 fl 80.0-100.0 [facility] [id number] [address] [place] [address] 27430 Mean Corpuscular Hemoglobin February 09, 2023 3:25pm 29.5 pg 27.0-34.0 [facility] [id number] [address] [place] [address] 43317 Mean Corpuscular Hemoglobin Concent February 09, 2023 3:25pm 31.9 g/dl 31.0-36.0 [facility] [id number] [address] [place] [address] 54696 Red Cell Distribution Width February 09, 2023 3:25pm 13.0 % 11.5-15.0 [facility] [id number] [address] [place] [address] 18022 Platelet Count February 09, 2023 3:25pm 222 X10 3/uL 150-400 [facility] [id number] [address] [place] [address] 58640 Immature Granulocyte % (Auto) February 09, 2023 3:25pm 0.2 % [facility] [id number] [address] [place] [address] 43013 Neutrophils (%) (Auto) February 09, 2023 3:25pm 66.7 % [facility] [id number] [address] [place] [address] 42258 Lymphocytes (%) (Auto) February 09, 2023 3:25pm 23.0 % [facility] [id number] [address] [place] [address] 08054 Monocytes (%) (Auto) February 09, 2023 3:25pm 7.5 % [facility] [id number] [address] [place] [address] 33870 Eosinophils (%) (Auto) February 09, 2023 3:25pm 2.2 % [facility] [id number] [address] [place] [address] 39547 Basophils (%) (Auto) February 09, 2023 3:25pm 0.4 % [facility] [id number] [address] [place] [address] 08696 Immature Granulocyte # (Auto) February 09, 2023 3:25pm 0.02 X10 3/uL 0.00-0.09 [facility] [id number] [address] [place] [address] 65920 Neutrophils # (Auto) February 09, 2023 3:25pm 6.1 X10 3/uL 1.5-7.8 [facility] [id number] [address] [facility] 21766 Lymphocytes # (Auto) February 09, 2023 3:25pm 2.1 X10 3/uL 1.0-4.8 [facility] [id number] [address] [place] [address] 60965 Monocytes # (Auto) February 09, 2023 3:25pm 0.7 X10 3/uL 0.0-0.8 [facility] [id number] [address] [place] [address] 77658 Eosinophils # (Auto) February 09, 2023 3:25pm 0.2 X10 3/uL 0.0-0.5 [facility] [id number] [address] [place] [address] 37886 Basophils # (Auto) February 09, 2023 3:25pm 0.0 X10 3/uL 0.0-0.2 [facility] [id number] [address] [place] [address] 02149 Nucleated Red Blood Cells % February 09, 2023 3:25pm 0.0 /100 WBC 0.0-0.0 [facility] [id number] [address] [place] [address] 81625 Sodium Level February 09, 2023 3:25pm 135 mmol/L 137-146 [facility] [id number] [address] [place] [address] 25386 Potassium Level February 09, 2023 3:25pm 4.4 mmol/L 3.5-5.3 [facility] [id number] [address] [place] [address] 45892 Chloride Level February 09, 2023 3:25pm 99 mmol/L 98-107 [facility] [id number] [address] [place] [address] 42244 Carbon Dioxide Level February 09, 2023 3:25pm 26 mmol/L 23-32 [facility] [id number] [address] [place] [address] 49030 Anion Gap February 09, 2023 3:25pm 10 mmol/L - [facility] [id number] [address] [place] [address] 79778 Blood Urea Nitrogen February 09, 2023 3:25pm 16 mg/dl 01-04 [facility] [id number] [address] [place] [address] 03427 Creatinine February 09, 2023 3:25pm 0.7 mg/dL 0.6-1.4 [facility] [id number] [address] [place] [address] 53928 Estimated Creatinine Clearance February 09, 2023 3:25pm Irrigation District Manager Unable to Calculate CRCL,Ht and/or Wt missing [facility] [id number] [address] [place] [address] 81531 Estimat Glomerular Filtration Rate February 09, 2023 3:25pm 129 >90 Reported eGFR is based on the CKD-EPI 2020 equation that does not use a race coefficient. Additional information can be found at: 1_icb_egfr_s [employer]_flyer 5.pdf (kidney.org) [facility] [id number] [address] [place] [address] 25210 BUN/Creatinine Ratio February 09, 2023 3:25pm 22.9 10.0-20.0 [facility] [id number] [address] [place] [address] 47040 Glucose Level February 09, 2023 3:25pm 124 mg/dL 70-100 [facility] [id number] [address] [place] [address] 06669 Calcium Level February 09, 2023 3:25pm 9.0 mg/dl 8.6-10.3 [facility] [id number] [address] [place] [address] 75058 Total Bilirubin February 09, 2023 3:25pm 0.5 mg/dl <1.1 [facility] [id number] [address] [place] [address] 18754 Aspartate Amino Transf (AST/SGOT) February 09, 2023 3:25pm 41 U/L 15- [facility] [id number] [address] [place] [address] 77625 Alanine Aminotransferase (ALT/SGPT) February 09, 2023 3:25pm 62 U/L 14-63 [facility] [id number] [address] [facility] 39559 Total Protein February 09, 2023 3:25pm 7.3 g/dL 6.4-8.3 [facility] [id number] [address] [facility] 49142 Albumin February 09, 2023 3:25pm 4.0 g/dl 4.0-5.0 [facility] [id number] [address] [facility] 91225 Albumin/Globulin Ratio February 09, 2023 3:25pm 1.2 1.0-2.6 [facility] [id number] [address] [facility] 03969 Alkaline Phosphatase February 09, 2023 3:25pm 53 U/L 40-129 [facility] [id number] [address] [facility] 97807 Lipase February 09, 2023 3:25pm 24 U/L 13-60 [facility] [id number] [address] [place] [address] 79438 Vital Signs Vital Reading Result Reference Range Collection Date/Time Body Temperature 98.1 [degF] 97.6-99.6 February 10 2 023 4:30am Heart Rate 78 /min 60-90 February 10, 2023 4:30am Respiratory rate 18 /min 12-24 February 10, 2 023 4:30am Oxygen saturation by Pulse oximetry 98 % 95-10 0 February 10, 2023 4:30am BP Systolic 136 mm[Hg] 90-140 February 10, 2023 4:30am BP Diastolic 71 mm[Hg] 60-90 February 10, 2023 4:30am Advance Directives Advance Directive Response Recorded Date/ Time Advance Directives No February 09 3:30pm Health Care Proxy No February 09 3:30pm Insurance Providers Guarantor URIEL QUINTEROS Address [address] [place] [address] Contact Info. Home Phone: Payer Policy Id Coverage Id Subscriber's Name Subscriber Id Effective Date Expiration Date [facility] (Medicaid) URIEL QUINTEROS [id number] [facility] Required [id number] URIEL QUINTEROS [id number] Encounters Encounter Location(s) Arrival/Admit Date Discharge/Depart Date Provider(s) Departed Emergency [facility]Emergency [facility] February 09, 2023 2:32pm February 10, 2023 6:25am null Plan of Treatment Future Tests Future scheduled test information is unavailable Pending Tests Pending diagnostic test information is unavailable Future Visits Future appointment information is unavailable Referrals to Other Providers Reason for Referral Referral Start Date Provider Provider Contact Information Provider Address Isaac Dominguez NP Work Phone: [address] [address] Future Procedures Future procedure information is unavailable Future Medications Future medication information is unavailable Patient Instructions ED Vomiting (Adult) Goals Acute Goals You were seen here for vomit ing and diarrhea and abdominal pain. Your workup here was reassuring. At this time, this is likely alcohol withdraw or viral illness. Please follow-up with your primary care doctor in the next several days. If you experience new or worsening symptoms, please return to the ER. You are cleared to return to detox.
--- OUTSIDE RECORDS SUMMARY | 2023-12-12 23:30 | XMS_ITS | Continuity of Care Document ---
Author Organization [facility] Address [address] [place] [address] Phone Care Team Providers Care Special Delivery Clerk Name Role Phone PORFIRIO Dominguez Primary Care [...] 09, 2023 3:25pm 9.2 X10 3/uL 4.5-11.0 [facility] [id number] [address] [place] [address] 29144 Red Blood Count February 09, 2023 3:25pm 4.65 X10 6/uL 4.00-5.50 [facility] [id number] [address] [place] [address] 61792 Hemoglobin February 09, 2023 3:25pm 13.7 g/dl 13.0-17.0 [facility] [id number] [address] [place] [address] 14906 Hematocrit February 09, 2023 3:25pm 43.0 % 37.5-50.0 [facility] [id number] [address] [place] [address] 81869 Mean Corpuscular Volume February 09, 2023 3:25pm 92.5 fl 80.0-100.0 [facility] [id number] [address] [place] [address] 46800 Mean Corpuscular Hemoglobin February 09, 2023 3:25pm 29.5 pg 27.0-34.0 [facility] [id number] [address] [place] [address] 62430 Mean Corpuscular Hemoglobin Concent February 09, 2023 3:25pm 31.9 g/dl 31.0-36.0 [facility] [id number] [address] [place] [address] 27022 Red Cell Distribution Width February 09, 2023 3:25pm 13.0 % 11.5-15.0 [facility] [id number] [address] [place] [address] 44674 Platelet Count February 09, 2023 3:25pm 222 X10 3/uL 150-400 [facility] [id number] [address] [place] [address] 87463 Immature Granulocyte % (Auto) February 09, 2023 3:25pm 0.2 % [facility] [id number] [address] [place] [address] 82102 Neutrophils (%) (Auto) February 09, 2023 3:25pm 66.7 % [facility] [id number] [address] [place] [address] 54545 Lymphocytes (%) (Auto) February 09, 2023 3:25pm 23.0 % [facility] [id number] [address] [place] [address] 64795 Monocytes (%) (Auto) February 09, 2023 3:25pm 7.5 % [facility] [id number] [address] [place] [address] 21326 Eosinophils (%) (Auto) February 09, 2023 3:25pm 2.2 % [facility] [id number] [address] [place] [address] 77075 Basophils (%) (Auto) February 09, 2023 3:25pm 0.4 % [facility] [id number] [address] [place] [address] 94238 Immature Granulocyte # (Auto) February 09, 2023 3:25pm 0.02 X10 3/uL 0.00-0.09 [facility] [id number] [address] [place] [address] 40335 Neutrophils # (Auto) February 09, 2023 3:25pm 6.1 X10 3/uL 1.5-7.8 [facility] [id number] [address] [facility] 314[address] Lymphocytes # (Auto) February 09, 2023 3:25pm 2.1 X10 3/uL 1.0-4.8 [facility] [id number] [address] [place] [address] 50333 Monocytes # (Auto) February 09, 2023 3:25pm 0.7 X10 3/uL 0.0-0.8 [facility] [id number] [address] [place] [address] 10062 Eosinophils # (Auto) February 09, 2023 3:25pm 0.2 X10 3/uL 0.0-0.5 [facility] [id number] [address] [place] [address] 71672 Basophils # (Auto) February 09, 2023 3:25pm 0.0 X10 3/uL 0.0-0.2 [facility] [id number] [address] [place] [address] 99747 Nucleated Red Blood Cells % February 09, 2023 3:25pm 0.0 /100 WBC 0.0-0.0 [facility] [id number] [address] [place] [address] 47421 Sodium Level February 09, 2023 3:25pm 135 mmol/L 137-146 [facility] [id number] [address] [place] [address] 76279 Potassium Level February 09, 2023 3:25pm 4.4 mmol/L 3.5-5.3 [facility] [id number] [address] [place] [address] 08777 Chloride Level February 09, 2023 3:25pm 99 mmol/L 98-107 [facility] [id number] [address] [place] [address] 86990 Carbon Dioxide Level February 09, 2023 3:25pm 26 mmol/L 23-32 [facility] [id number] [address] [place] [address] 86436 Anion Gap February 09, 2023 3:25pm 10 mmol/L - [facility] [id number] [address] [place] [address] 48104 Blood Urea Nitrogen February 09, 2023 3:25pm 16 mg/dl 01-04 [facility] [id number] [address] [place] [address] 42844 Creatinine February 09, 2023 3:25pm 0.7 mg/dL 0.6-1.4 [facility] [id number] [address] [place] [address] 56923 Estimated Creatinine Clearance February 09, 2023 3:25pm Manager Investigations Unable to Calculate CRCL,Ht and/or Wt missing [facility] [id number] [address] [place] [address] 40845 Estimat Glomerular Filtration Rate February 09, 2023 3:25pm 129 >90 Reported eGFR is based on the CKD-EPI 2020 equation that does not use a race coefficient. Additional information can be found at: 1_icb_egfr_s [employer]_flyer 5.pdf (kidney.org) [facility] [id number] [address] [place] [address] 46991 BUN/Creatinine Ratio February 09, 2023 3:25pm 22.9 10.0-20.0 [facility] [id number] [address] [place] [address] 49757 Glucose Level February 09, 2023 3:25pm 124 mg/dL 70-100 [facility] [id number] [address] [place] [address] 43099 Calcium Level February 09, 2023 3:25pm 9.0 mg/dl 8.6-10.3 [facility] [id number] [address] [place] [address] 19554 Total Bilirubin February 09, 2023 3:25pm 0.5 mg/dl <1.1 [facility] [id number] [address] [place] [address] 51101 Aspartate Amino Transf (AST/SGOT) February 09, 2023 3:25pm 41 U/L 15- [facility] [id number] [address] [place] [address] 28722 Alanine Aminotransferase (ALT/SGPT) February 09, 2023 3:25pm 62 U/L 14-63 [facility] [id number] [address] [facility] 7[address] Total Protein February 09, 2023 3:25pm 7.3 g/dL 6.4-8.3 [facility] [id number] [address] [facility] 37223 Albumin February 09, 2023 3:25pm 4.0 g/dl 4.0-5.0 [facility] [id number] [address] [facility] 10019 Albumin/Globulin Ratio February 09, 2023 3:25pm 1.2 1.0-2.6 [facility] [id number] [address] [facility] 33359 Alkaline Phosphatase February 09, 2023 3:25pm 53 U/L 40-129 [facility] [id number] [address] [facility] 74565 Lipase February 09, 2023 3:25pm 24 U/L 13-60 [facility] [id number] [address] [place] [address] 44418 Vital Signs Vital Reading Result Reference Range [...] Insurance Providers Guarantor URIEL QUINTEROS Address [address] [place] [address] Contact Info. Home Phone: Payer Policy Id Coverage Id Subscriber's Name Subscriber Id Effective Date Expiration Date [facility] (Medicaid) URIEL QUINTEROS [id number] [facility] Required [id number] URIEL QUINTEROS [id number] Encounters Encounter Location(s) Arrival/Admit Date Discharge/Depart Date Provider(s) Departed Emergency [facility] February 09, 2023 2:32pm February 10, 2023 5:05am null Plan of Treatment Future Tests Future scheduled test information is unavailable Pending Tests Pending diagnostic test information is unavailable Future Visits Future appointment information is unavailable Referrals to Other Providers Reason for Referral Referral Start Date Provider Provider Contact Information Provider Address Isaac Dominguez NP Work Phone: [address] [address] Future Procedures Future procedure information is unavailable [...]
== END 2023-12-12 23:31 | disposition left against medical advice (07) ==
PROVIDERS: Physician Assistant; Emergency Provider Emergency Medicine; PCP Nurse Practitioner Family
DX: R30.0 Dysuria (principal); R34 Anuria and oliguria; E11.9 Type 2 diabetes mellitus without complications; I10 Essential (primary) hypertension; F11.10 Opioid abuse, uncomplicated; Z87.891 Personal history of nicotine dependence; Z79.84 Long term (current) use of oral hypoglycemic drugs; Z53.21 Procedure and treatment not carried out due to patient leaving prior to being seen by health care provider
CPT/HCPCS: 36415; 80048; 80307; 81001; 85025; 99282; 99283

== ENCOUNTER 2024-03-25 13:50 | Outpatient (AMB) | payer OTHER, SELFPAY ==
[2024-03-25 13:59] VITALS: BP 140/92; PULSE 122; O2SAT 97; BMI 45.5
--- NOTE | 2024-03-25 13:59 | MHC.PC.OV ---
Vital Signs 03/25/24 13:59 Height 5 ft 11 in Weight 326 lb BMI 45.5 BP 140/92 H Blood Pressure Location Rt brachial Position Sitting Pulse 122 H Pulse Source Pulse Oximeter Pulse Oximetry (%) 97 Oxygen Delivery Method Room Air Intake Visit Reasons: Pancreas Issue Intake Note: pt is here for for pancreas issue Dining Room Busser Required: No Accompanied by: Self / Same As Patient Allergies No Known Allergies Allergy (Verified 03/25/24 17:14) Medication List - Last Reconciled 03/25/24 by [facility] albuterol sulfate 90 mcg/actuation (ProAir HFA) 2 puffs inhalation Q6H PRN alcohol swabs (Alcohol Pads) 1 pad to test BS topically; apixaban (Eliquis) 5 mg PO BID 90 days blood sugar diagnostic (FreeStyle Lite Strips) 4 times a day testing clonidine HCl 0.1 mg PO BID 30 days dextroamphetamine-amphetamine 20 mg ER (Adderall XR) caps PO DAILY folic acid 1 mg PO DAILY FreeStyle Lancets (lancets) 4 x a day testing NS FreeStyle Lite Meter (blood-glucose meter) tid testing NS gabapentin 200 mg (2 x 100 mg) PO TID 30 days lisinopril 10 mg PO DAILY metformin 500 mg PO BID 30 days quetiapine mg PO rosuvastatin (Crestor) 5 mg PO BEDTIME 30 days thiamine HCl (vitamin B1) 100 mg PO DAILY 90 days Tobacco use date assessed: 10/24/23 Dental Screening Dental Screen Date: 10/24/23 HPI Pancreas Issue HPI Details Pt reports that he is not digesting food. He reports undigested food (mostly fruit/vegetable skins) in his stool. He believes this is due to an issue with his pancreas. Pt has a hx of chronic alcoholic pancreatitis. He reports that he is not drinking alcohol currently, last time drinking was 4 months ago. Previous abdominal US showed diffuse increased echogenicity of the liver parenchyma. This is a nonspecific finding but most commonly on the basis of diffuse hepatocellular disease such as hepatic steatosis. He reports epigastric pain radiating to his LUQ. Will order CT and labs. Pt also reports shortness of breath. He reports that this is worse with activity. He is tachycardic today. Pt does have a hx of PE. He is on eliquis. Pt was seeing hematology for this and was told he could stop eliquis after 6 months. Pt has not stopped his eliquis because he questions a residual PE. Will order CTA to rule out PE. Will do an EKG in office today due to tachycardia. Pt is hysterical today and is very concerned about his health. He is catastrophizing and stating he is going to soon. After talking with pt for quite some time he did calm down. Denies fever, chills, vomiting, and diarrhea. PFSH Surgical History H/O tooth extraction Family History Father Diabetes Alcoholic Substance use disorder Mother Hypertension Social History Household Members: Family Housing: Apartment Alcohol intake: former Patient Tobacco Use Status: Former Tobacco user e-Cigarette/Vaping Use: Currently Using Second Hand Smoke Exposure: No Current occupational status: unemployed Cognitive needs: No Hearing needs: No Vision needs: No Questionnaire Thrive Questionnaire Date Thrive assessed: 02/01/22 FABIOLA-7 AMB Questionnaire FABIOLA-7 Date FABIOLA - 7 assessed: 02/01/22 Source: Developed by Drs. Dann Ashley, Linda Macario, Nick Robert and colleagues, with an educational liz from [employer]. Review of Systems Const Reports as per HPI Physical exam (Primary Care) Vital Signs: Last Vital Signs Pulse 122 H 03/25/24 13:59 BP 140/92 H 03/25/24 13:59 Pulse Ox 97 03/25/24 13:59 Oxygen Delivery Method Room Air 03/25/24 13:59 BMI result Body Mass Index 45.5 Tobacco/Smoking Status: Tobacco use Status Tobacco use date assessed 10/24/23 03/25/24 14:02 Patient Tobacco Use Status Former Tobacco user 03/25/24 14:02 e-Cigarette/Vaping Use Currently Using 03/25/24 14:02 Thrive Assessment: Date of Thrive Assessment Date Thrive assessed 02/01/22 03/25/24 14:02 Const General: cooperative Nutritional Appearance: obese morbidly obese Orientation/consciousness: patient oriented x3 Resp Effort & Inspection: normal respiratory effort Auscultation: clear to auscultation bilaterally Cardio Rate: tachycardic Rhythm: regular rhythm Heart sounds: S1 normal heart sound present and S2 normal heart sound present GI Palpation (GI): nontender Neuro General: patient oriented x3 Psych Appearance: grossly normal Mental Status: mental status grossly normal Speech and movement: Normal speech and movement present Assessment and Plan Assessment & Plan (1) Fatty liver: Code(s): K76.0 - Fatty (change of) liver, not elsewhere classified Plan: Labs and CT ordered (2) Elevated liver enzymes: Code(s): R74.8 - Abnormal levels of other serum enzymes Plan: Labs and CT ordered (3) Pulmonary embolism: Code(s): I26.99 - Other pulmonary embolism without acute cor pulmonale Plan: CTA ordered (4) Tachycardia: Code(s): R00.0 - Tachycardia, unspecified Plan: ekg performed, CTA ordered (5) Alcoholic pancreatitis: Code(s): K85.20 - Alcohol induced acute pancreatitis without necrosis or infection Plan: pt reports last drink was over 4 months ago. epigastric discomfort, CT scan ordered and labs (6) Left upper quadrant pain: Code(s): R10.12 - Left upper quadrant pain Plan: CT scan ordered (7) Tachycardia: Code(s): R00.0 - Tachycardia, unspecified (8) Pulmonary embolism: Code(s): I26.99 - Other pulmonary embolism without acute cor pulmonale (9) Tachycardia: Code(s): R00.0 - Tachycardia, unspecified (10) Hx of drug abuse: Code(s): F19.11 - Other psychoactive substance abuse, in remission (11) Diabetes: Code(s): E11.9 - Type 2 diabetes mellitus without complications Plan: labs Plan The patient agreed to the use of a medical records specialist for this encounter. Scribed for OUSMANE Jackman by Debi Tan medical records specialist, on 03/25/2024 at 14:10 EST. Orders: Orders Lipase Today K76.0 - Fatty (change of) liver, not elsewhere classified, R74.8 - Abnormal levels of other serum enzymes Drug Screen Urine Today F19.11 - Other psychoactive substance abuse, in remission, R00.0 - Tachycardia, unspecified Microalbumin, Random (w Creat) Today E11.9 - Type 2 diabetes mellitus without complications Amylase Today K76.0 - Fatty (change of) liver, not elsewhere classified, R74.8 - Abnormal levels of other serum enzymes CT abdomen wo IV con Today K76.0 - Fatty (change of) liver, not elsewhere classified, R74.8 - Abnormal levels of other serum enzymes CT angio chest PE protocol Today I26.99 - Other pulmonary embolism without acute cor pulmonale, R00.0 - Tachycardia, unspecified Pancreatic Elastase-1 Today K85.20 - Alcohol induced acute pancreatitis without necrosis or infection, R10.12 - Left upper quadrant pain AMB EKG-In Office Today R00.0 - Tachycardia, unspecified D Dimer High Sensitivity Today I26.99 - Other pulmonary embolism without acute cor pulmonale Hemoglobin A1c Today E11.9 - Type 2 diabetes mellitus without complications Coding Level of Care Code Est Pt Level 4 (25640) Diagnoses Fatty liver K76.0 Elevated liver enzymes R74.8 Pulmonary embolism I26.99 Tachycardia R00.0 Alcoholic pancreatitis K85.20 Left upper quadrant pain R10.12 Hx of drug abuse F19.11 Diabetes E11.9
== END 2024-03-25 15:06 | disposition home or self-care (01) ==
LOC: HO.HMGC 13:50
PROVIDERS: PCP Nurse Practitioner Family; Visit Provider Nurse Practitioner Family
DX: E11.9 Type 2 diabetes mellitus without complications (principal); I26.99 Other pulmonary embolism without acute cor pulmonale; F19.11 Other psychoactive substance abuse, in remission; R00.0 Tachycardia, unspecified; K76.0 Fatty (change of) liver, not elsewhere classified; R74.8 Abnormal levels of other serum enzymes; K85.20 Alcohol induced acute pancreatitis without necrosis or infection; R10.12 Left upper quadrant pain
CPT/HCPCS: 93000; 99214

== ENCOUNTER 2024-03-27 14:50 | Outpatient (REF) | payer OTHER, SELFPAY ==
--- NOTE | ~2024-03-27 | CT_ITS ---
EXAMINATION: CT ANGIOGRAM OF THE CHEST WITH AND WITHOUT CONTRAST (CT PULMONARY ANGIOGRAM FOR PE) CLINICAL INFORMATION: Reason for Exam R00.0 - Tachycardia, unspecified COMPARISON: None available. TECHNIQUE: Prior to contrast administration, noncontrast localization images were obtained. Subsequently, multidetector volumetric imaging was performed from the thoracic inlet to below the diaphragms following the administration of 85 mL Omnipaque 350 intravenous contrast. No contrast reaction reported Sagittal, coronal, and MIP oblique sagittal reformatted images were obtained on the CT workstation, uploaded to PACS, and reviewed. This CT examination was performed using dose optimization techniques as appropriate, variously including the following: *Automated exposure control *Adjustment of mA and/or kV according to patient size (this includes techniques or standardized protocols for targeted exams where dose is matched to indication/reason for exam; i.e. extremities or head) *Use of iterative reconstruction technique Total exam dose-length product 273 mGy-cm FINDINGS: QUALITY OF STUDY/CONTRAST BOLUS: Satisfactory. PULMONARY ARTERIES: No pulmonary emboli. THORACIC AORTA: No aneurysm. LUNG: No focal consolidation or suspicious nodules. PLEURA: No pleural effusion or pneumothorax. MEDIASTINUM: Normal heart size. No pericardial effusion. No hilar or mediastinal lymphadenopathy. No evidence of septal bowing or right heart strain. CORONARY ARTERY CALCIFICATION: None visualized on this study. CHEST WALL/AXILLA: No axillary or internal mammary lymphadenopathy. OSSEOUS STRUCTURES: No destructive bone lesions. UPPER ABDOMEN: Unremarkable. No reflux of contrast into the hepatic veins to suggest elevated right heart pressures. CT/CT angio chest PE protocol IMPRESSION: No evidence of pulmonary embolus. No acute intrathoracic abnormality. VTE: negative
[2024-03-27] MEDS: iohexoL 350 MG/ML 100 ML INFUS..BTL IV (15:55)
== END 2024-03-27 14:51 | disposition home or self-care (01) ==
LOC: HO.CT 14:50
PROVIDERS: PCP Nurse Practitioner Family; Visit Provider Nurse Practitioner Family
DX: R00.0 Tachycardia, unspecified (principal); I26.99 Other pulmonary embolism without acute cor pulmonale
CPT/HCPCS: 71275; Q9967

== ENCOUNTER 2024-07-16 09:13 | Outpatient (REF) | payer OTHER, SELFPAY ==
[2024-07-16 13:08] LABS: MANUAL DIFF FLAG NO
[2024-07-16 13:17] LABS: Basophils Percent Auto 0.4 % (0-2); Eosinophils Percent Auto 0.1 % (0-4); Hematocrit 45.6 % (42.0-52.0); Imm Gran Abs Auto 0.03 X10*3/uL (0.00-0.03); Imm Gran Pct Auto 0.3 % (0.0-0.4); Lymphocytes Absolute Auto 1.9 X10*3/uL (1.2-4.9); Mean Corpuscular HGB Conc 32.9 g/dl (31.0-36.0); Mean Corpuscular Hemoglobin 29.1 pg (27.0-33.0); Mean Corpuscular Volume 88.5 fL (80.0-98.0); Mean Platelet Volume 11.1 fL (9.4-12.4); Monocytes Absolute Auto 0.4 X10*3/uL (0.1-1.2); Monocytes Percent Auto 4.5 % (2-11); Neutrophils Absolute Auto 6.7 x10*3/uL (2.0-8.3); Neutrophils Percent Auto 73.7 % (45-73); Platelet Count 241 X10*3/uL (160-400); Red Blood Count 5.15 X10*6/uL (4.60-5.80); Red Cell Distribution Width 12.9 % (11.0-16.0); White Blood Count 9.2 X10*3/uL (4.8-10.8)
[2024-07-16 13:18] LABS: Amphetamine Screen Urine Not Detected (Not Detect); Barbiturates, Urine Not Detected (Not Detect); Benzodiazepines Screen Urine Not Detected (Not Detect); Buprenorphine Scr Not Detected (Not Detect); Cannabinoid Screen Urine POSITIVE (Not Detect); Cocaine Screen Urine Not Detected (Not Detect); Fentanyl, urine POSITIVE (Not Detect); Methadone Screen, Urine Positive (Not Detect); Opiate Screen Urine POSITIVE (Not Detect); Oxycodone Screen Urine Not Detected (Not Detect); Phencyclidine Screen Urine Not Detected (Not Detect)
[2024-07-16 13:24] LABS: D Dimer High Sensitivity < 150 NG/ML
[2024-07-16 13:25] LABS: Appearance Urine Clear; Color Urine Yellow; Glucose Urine UA >=1000 mg/dL (Negative); Leukocyte Esterase Urine Negative (Negative); Nitrite Urine Negative (Negative); PH 5.5 (5.0-9.0); Specific Gravity - Urine >= 1.030 (1.005-1.025); UMIC TRIGGER UACC YES; Urine Blood Negative (Negative); Urine Ketones Trace mg/dL (Negative); Urine Protein Negative (Neg-Trace)
[2024-07-16 13:34] LABS: Bacteria Urine None Seen (None Seen); Hyaline Casts Urine 0-2 /LPF (0-2); RBC Urine 0-2 /HPF (0-2); Squamous Epithelial Cell Urine 0-2 /HPF (0-2); WBC Urine 0-5 /HPF (0-5)
[2024-07-16 13:35] LABS: Estimated Average Glucose 243 mg/dL; Hemoglobin A1C 337.7578 umol/L; Hemoglobin A1c % 10.1 % (<6.0)
[2024-07-16 13:53] LABS: Alanine Aminotransferase 209 U/L (0-40); Albumin Level 4.8 g/dL (3.5-5.0); Alkaline Phosphatase 81 U/L (39-117); Amylase 25 U/L (28-100); Anion Gap 12 (12-20); Aspartate Amino Transferase 156 U/L (5-37); Bilirubin Total 0.8 mg/dL (0.0-1.0); Blood Urea Nitrogen 12 mg/dL (9-16); Calcium 10.4 mg/dL (8.4-10.2); Carbon Dioxide 27 mmol/L (22-29); Chloride 103 mmol/L (96-108); Cholesterol 222 mg/dL (<200); Estimated Glomerular Filt Rate > 60; Glucose Fasting 410 mg/dL (60-99); HDL Cholesterol 35 mg/dL (>40); LDL Cholesterol Calculated 147 mg/dL (<100); Lipase 20 U/L (8-78); Potassium 4.4 mmol/L (3.3-5.1); Sodium 138 mmol/L (135-145); TSH reflex Free T4 2.19 uIU/mL (0.32-4.0); Total Protein 8.1 g/dL (6.5-8.0); Triglycerides 202 mg/dL (<150)
[2024-07-16 14:13] LABS: Creatinine Urine 75.61 mg/dL
[2024-07-17 04:51] LABS: HBc Num1 0.04 S/CO (0.00-0.79); HBsAGNum1 0.42 S/CO (0.00-0.99); Hepatitis A Antibody IgM 0.13 Index (0-0.79); Hepatitis B Core Antibody Nonreactive (Nonreactive); Hepatitis B Surface Antigen Negative (Negative); ~HepC Num1 7.83 S/CO (0.00-0.79); ~Hepatitis A Antibody IgM Nonreactive (Nonreactive); ~Hepatitis B Surface Antibody NONREACTIVE (Nonreactive); ~Hepatitis C Antibody Reactive (Nonreactive)
== END 2024-07-16 09:14 | disposition home or self-care (01) ==
LOC: HO.HMGCLDS 09:13
PROVIDERS: PCP Nurse Practitioner Family; Visit Provider Nurse Practitioner Family
DX: E11.9 Type 2 diabetes mellitus without complications (principal); R74.8 Abnormal levels of other serum enzymes; K76.0 Fatty (change of) liver, not elsewhere classified; I26.99 Other pulmonary embolism without acute cor pulmonale; R00.0 Tachycardia, unspecified; F19.11 Other psychoactive substance abuse, in remission
CPT/HCPCS: 80053; 80061; 80307; 81001; 82043; 82150; 82570; 82948; 83036; 83690; 84443; 85025; 85379; 86704; 86706; 86709; 86803; 87340; 99212

== ENCOUNTER 2024-07-16 09:13 | Outpatient (AMB) | payer OTHER, SELFPAY ==
--- NOTE | 2024-07-16 09:16 | MHC.OFFWIV ---
Intake Vital Signs 07/16/24 09:18 Height 5 ft 11 in Weight 310 lb BMI 43.2 BP 150/110 H Blood Pressure Location Rt brachial Position Sitting Pulse 111 H Pulse Source Pulse Oximeter Pulse Oximetry (%) 99 Oxygen Delivery Method Room Air Intake Visit Reasons: EP- H/blood sugar Intake Note: Patient here for elevated blood sugars that have been going on for a few weeks. Patient Tobacco Use Status: Former Tobacco user Allergies No Known Allergies Allergy (Verified 07/16/24 09:19) Do you need a note to return to daycare/school/sports/work: No HPI EP- H/blood sugar HPI Details This note is constructed using voice recognition software. While every effort has been made to ensure accuracy, steam service inspector errors may have been included. The patient is a 29 year old male with history of alcoholic pancreatitis who presents to the clinic today with concerns for elevated glucose for the past 3 weeks. He reports that he has been sober for the past 3 weeks, when he had a couple of beers. He reports that when he drinks he tends to spend over a day in bed as it does not make him feel very good. In the past he was having up to a 12 pack every other week, but was advising his primary that he was no longer consuming alcohol. Given history weeks of sobriety, he has been acutely aware of what he has been doing to his body, and is concerned that if he does not take good care of himself that he may prematurely . He reports he is still drinking O'douls as he likes the carbonation and burping effect. He reports during the past 3 weeks, he has been checking his glucose more frequently, and has been running in the 300's and at times as high as 400. He has a friend who is diabetic, who gave his an insulin pen which is short acting insulin. He reports he is taking 1-2 units at a time, a couple times per day for the past few days. He has not kept an appointment with his pcp for the past few visits, which he attributes to increased drinking at that time. He did not obtain labs previously ordered for him in March to look at the pancreas, diabetes, and general health, as he reports he was unaware of orders. He also notes he had a CTA of his chest and was advised there was no order for Ct of his abdomen in March, which I advised him these orders are all in the system. [facility] Surgical History H/O tooth extraction Family History Father Diabetes Alcoholic Substance use disorder Mother Hypertension Social History Household Members: Family Housing: Apartment Alcohol intake: former Patient Tobacco Use Status: Former Tobacco user e-Cigarette/Vaping Use: Currently Using Second Hand Smoke Exposure: No Current occupational status: unemployed Cognitive needs: No Hearing needs: No Vision needs: No Review of Systems Const All systems reviewed & are unremarkable except as noted in HPI and below Physical Exam Vital Signs: Last Vital Signs Pulse 111 H 07/16/24 09:18 BP 150/110 H 07/16/24 09:18 Pulse Ox 99 07/16/24 09:18 Oxygen Delivery Method Room Air 07/16/24 09:18 BMI result Body Mass Index 43.2 Const General: cooperative, healthy appearing, comfortable, no acute distress and well developed Orientation/consciousness: patient oriented x3 Limitations: no limitations Resp Effort & Inspection: normal respiratory effort and able to speak in complete sentences Auscultation: clear to auscultation bilaterally Cardio Rate: regular rate Rhythm: regular rhythm Heart sounds: normal S1 and S2 GI Inspection: Yes normal to inspection (obese) Palpation (GI): Soft to palpation and nontender Skin General skin exam: no rashes or lesions noted Neuro General: patient oriented x3 Results AMB Random Glucose (hemocue) AMB Random Glucose (hemocue) 310 mg/dL Last Edit by TRACY Rojas on 07/16/24 09:50 Assessment & Plan Assessment & Plan (1) Diabetes: Code(s): E11.9 - Type 2 diabetes mellitus without complications Qualifiers: Diabetes mellitus type: type 2 Diabetes mellitus terminal clerk insulin use: without residential use Diabetes mellitus complication status: without complication Qualified Code(s): E11.9 - Type 2 diabetes mellitus without complications Plan: Advised patient to obtain previously ordered labs. He likely will require insulin given his long-term history of pancreatitis, coupled with the ongoing elevation in his blood sugars, however it would be best be determined with A1c results as well. Message sent to PCP to coordinate care, in terms of action in regards to overdue labs. Advised patient to avoid use of medications not prescribed to him. Advised adherence to his current medications. Reviewed signs and symptoms of hyper and hypoglycemia with the patient. Reviewed dietary changes to help with appropriate glucose levels. Advised patient to follow up with his PCP. Advised ongoing avoidance of EtOH, particularly beer as that contains higher levels of carbohydrates and is more likely to create abnormalities in his glucose level, as well as worsen his pancreatitis. Plan See above for full details and plan. Orders: Orders AMB Random Glucose (hemocue) Today Z13.9 - Encounter for screening, unspecified Medications: Refilled blood sugar diagnostic (FreeStyle Lite Strips) Test blood sugar twice a day 100 ea 1RF E11.9 - Type 2 diabetes mellitus without complications Coding Level of Care Code Est Pt Level 4 (72423) Diagnoses Type 2 diabetes mellitus without complication, without long-term current use of insulin E11.9 Diabetes mellitus type: type 2 Diabetes mellitus terminal clerk insulin use: without terminal clerk use Diabetes mellitus complication status: without complication Time Spent (min) 30
[2024-07-16 09:18] VITALS: BP 150/110; PULSE 111; O2SAT 99; BMI 43.2
--- OUTSIDE RECORDS SUMMARY | 2024-07-22 16:53 | XMS_ITS | Data Portability ---
Author Organization GIULIA RODRIGUEZ MD [facility], Main Office Address [address] [place] [id number] Assessment No assessment recorded. Plan of Treatment Reminders Order Date Submit Date Provider Last Modified By Organization Details Last Modified Time Details Appointments None recorded. Lab lipase, serum or plasma 2023 024 [email or web address] [facility], [address] [place], [address], 10:29:17 bilirubin , total, blood 2023 024 [email or web address] [facility], [address] [place], [address], 4 10:29:17 albumin, serum or plasma 2023 024 [email or web address] [facility], [address] [place], [address], 4 10:29:17 AST/SGOT (aspartat e aminotran sferase), serum or plasma 2023 024 [email or web address] [facility], [address] [place], [address], 4 10:29:17 ALT (alanine aminotran sferase), serum or plasma 2023 024 [email or web address] [facility], [address] [place], [address], 4 10:29:17 hepatitis C liver status biomarker panel, serum 2023 024 [email or web address] [facility], [address] [place], [address], 4 10:29:16 hepatitis C virus RNA, quant, PCR, serum or plasma 2023 024 [place] [address] [facility], [address] [place], [address], 4 10:29:16 culture, aerobic + anaerobic 2023 024 [place] [address] [facility], [address] [place], [address], 4 10:29:17 HIV 1 + 2 RNA panel, MARITZA+probe , serum or plasma [address], [address] [place], [address], 4 10:29:16 HIV-1 RNA, quantitat genoveva, PCR, serum or plasma [address], [address] [place], [address], 4 10:29:16 RPR (rapid plasma reagin), serum [address], [address] [place], [address], 4 10:29:16 HBsAg (hepatiti s B surface Ag), EIA, serum 2023 024 [place] [address] [facility], [address] [place], [address], 4 10:29:16 hepatitis B surface Ab, qualitati ve, serum 2023 024 [place] [address] [facility], [address] [place], [address], 4 10:29:17 chlamydia + gonorrhea RNA, QL, unspecifi ed specimen 2023 024 [email or web address] [facility], [address] [place], [address], 4 10:29:17 CT + NG RNA, PCR, unspecifi ed specimen 2023 024 [email or web address] [facility], [address], [address], 4 10:29:17 H pylori urea breath test, co2 infrared 2023 024 [email or web address] Main Office, [address] [place] [address], [phone], 14:18:04 H pylori urea breath test, co2 infrared 2023 024 [email or web address] Main Office, [address] [place] [address], [phone], 13:20:02 Referral None recorded. Procedures None recorded. Surgeries None recorded. Imaging None recorded. Medication Orders vitamin E 268 mg (400 unit) capsule 2023 024 [id number], [address] [place] [address], [address], 4 17:41:29 vitamin E 268 mg (400 unit) capsule 2023 024 [id number], [address] [place] [address], [address], 13:20:25 bupropion HCl SR 100 mg tablet,12 hr sustained -release 2023 024 [facility][id number], [address] [place] [address], [address], 13:41:09 Patient TargetsNo targets recorded. Patient InstructionsNo instructions recorded. Reason for Referral None Reported. Results Created Date Observation Date Name Description Value Unit Range Abnormal Flag Note LastModifiedBy Organization Detail LastModifiedTime 01/02/20 24 01/02/2024 WOUND CULTU RE wound culture GRAM STAIN RESUL T NO POLYS , NO EPITH ELIAL CELLS , NO ORGAN ISMS NOTED Not Available [facility] [address] [place] [address], [address], 01/02/2024 21:15:51 01/02/20 24 01/02/2024 WOUND CULTU RE performing lab Perfor vance [facility] cesar aguilar mem[facility] r of [address] [place] [address] Medic al Direc ele stuart MD Not Available [facility] [address] [place] [address], [address], 01/02/2024 21:15:51 01/02/20 24 01/02/2024 ANAER OBIC CULTU RE anaerobic culture GRAM STAIN RESUL T REFER TO AEROB IC CULTU RE FOR SMEAR RESUL TS Not Available [facility] [address] [place] [address], [address], 01/02/2024 21:15:52 01/02/20 24 01/02/2024 ANAER OBIC CULTU RE performing lab Perfor vance [facility] at[facility] cesar aguilar mem[facility] r of [address] [place] [address] Medic al Direc ele stuart MD Not Available [facility] [address] [place] [address], [address], 01/02/2024 21:15:52 01/02/20 24 01/03/2024 CHLAM YDIA DNA SWAB chlamydia DNA swab NEGATI VE negati ve Not Available [facility] [address] [place] [address], [address], 01/03/2024 08:54:37 01/02/20 24 01/03/2024 GC DNA SWAB GC DNA swab NEGATI VE negati ve Not Available [email or web address] [address] [place] [address], [address], 01/03/2024 08:54:38 01/02/20 24 01/03/2024 GC DNA SWAB performing lab Perfor vance [facility], [facility] [address] [place] [address] Medic al [facility] Not Available [facility] [address] [place] [address], [address], 01/03/2024 08:54:38 01/02/20 24 01/02/2024 FUNGU S CULTU RE: SKIN HAIR NAIL performing lab Perfor vance Lab [facility], [facility] [address] [place] [address] Medic al Dire ele stuart MD Not Available [facility] [address] [place] [address], [address], 01/31/2024 15:21:38 01/02/20 24 01/31/2024 FUNGU S CULTU RE: SKIN HAIR NAIL fungus culture: skin hair nail Negati ve for Fungus after 4 weeks Not Available [facility] [address] [place] [address], [address], 01/31/2024 15:21:38 01/02/20 24 01/02/2024 HCV FIBRO SURE methodology: Commen t The marcela evelyn teste d are perfo rmed by Fibro Sure- Speci fic metho ds. Not inten ded for use with other diagn ostic consi derat ions. Not Available [facility] ([facility]) [address] [facility], [place], [address], 02/07/2024 12:06:22 01/02/20 24 01/02/2024 HCV FIBRO SURE interpretati ons: Commen t Quant itati ve resul ts of 6 bioch emica l tests are marcela zed using a compu tatio nal algor ithm to provi de a quant itati ve surro gate marke r (0.0- 1.0) for liver fibro sis (META VIR F0-F4 ) and for necro infla mmato ry activ ity (META VIR A0-A3 ). Not Available [facility] ([facility]) [address] [facility], [place], [address], 02/07/2024 12:06:22 01/02/20 24 01/02/2024 HCV FIBRO SURE fibrosis scoring: Commen t <=0.2 1 = Stage F0 - No fibro sis 0.21 - 0.27 = Stage F0 - F1 0.27 - 0.31 = Stage F1 - Eleanor l fibro sis 0.31 - 0.48 = Stage F1 - F2 0.48 - 0.58 = Stage F2 - Bridg ing fibro sis with few septa 0.58 - 0.72 = Stage F3 - Bridg ing fibro sis with many septa 0.72 - 0.74 = Stage F3 - F4 >0.74 = Stage F4 - Cirrh osis Not Available [facility] ([facility]) [address] [facility], [place], [address], 02/07/2024 12:06:22 01/02/20 24 01/02/2024 HCV FIBRO SURE necroinflamm activity scoring: Commen t <0.17 = Grade A0 - No Activ ity 0.17 - 0.29 = Grade A0 - A1 0.29 - 0.36 = Grade A1 - Minim al activ ity 0.36 - 0.52 = Grade A1 - A2 0.52 - 0.60 = Grade A2 - Moder ate activ ity 0.60 - 0.62 = Grade A2 - A3 >0.62 = Grade A3 - Sever e activ ity Not Available [facility] ([facility]) [address] [facility], [place], [address], 02/07/2024 12:06:22 01/02/20 24 01/02/2024 HCV FIBRO SURE comment: Commen t This test was devel oped and its perfo rmanc e jeromy cteri stics deter mined by [facility]. It has not been clear ed or appro jamie by the Food and Drug Admin istra tion. The FDA has deter mined that such clear ance or appro eliezer is not neces durga. For quest ions regar ding this repor t pleas e conta ct custo cornelia servi ce at [phone]. Not Available [facility] ([facility]) [address] [place], [address], 02/07/2024 12:06:22 01/02/20 24 01/04/2024 HCV FIBRO SURE fibrosis score 0.07 0.00-0 .21 Not Available [facility] ([facility]) [address] [place], [address], 02/07/2024 12:06:22 01/02/20 24 01/04/2024 HCV FIBRO SURE fibrosis stage Commen t F0 - No fibro sis Not Available [facility] ([facility]) [address] [place], [address], 02/07/2024 12:06:22 01/02/20 24 01/04/2024 HCV FIBRO SURE necroinflamm at activity score 0.53 0.00-0 .17 above high normal Not Available [facility] ([facility]) [address] [place], [address], 02/07/2024 12:06:22 01/02/20 24 01/04/2024 HCV FIBRO SURE necroinflamm at activity grade A2-Mod erate activi ty Not Available [facility] ([facility]) [address] [place], [address], 02/07/2024 12:06:22 01/02/20 24 01/04/2024 HCV FIBRO SURE alpha 2-macroglobu johnny, qn 102 mg/dL 110-27 6 below low normal Not Available [facility] ([facility]) [address] [place], [address], 02/07/2024 12:06:22 01/02/20 24 01/04/2024 HCV FIBRO SURE haptoglobin 203 mg/dL 17-317 Not Available [facility] ([facility]) [address] [place], [address], 02/07/2024 12:06:22 01/02/20 24 01/04/2024 HCV FIBRO SURE apolipoprote in A-1 136 mg/dL 101-17 8 Not Available [facility] ([facility]) [address] [place], [address], 02/07/2024 12:06:22 01/02/20 24 01/04/2024 HCV FIBRO SURE bilirubin, total 0.6 mg/dL 0.0-1. 2 Not Available [facility] ([facility]) [address] [place], [address], 02/07/2024 12:06:22 01/02/20 24 01/04/2024 HCV FIBRO SURE GGT 91 IU/L 0-65 above high normal Not Available [facility] ([facility]) [address] [place], [address], 02/07/2024 12:06:22 01/02/20 24 01/04/2024 HCV FIBRO SURE ALT (SGPT) p5p 112 IU/L 0-55 above high normal Not Available [facility] ([facility]) [address] [place], [address], 02/07/2024 12:06:22 01/02/20 24 01/04/2024 HCV FIBRO SURE limitations: Commen t The negat genoveva predi ctive value of a Fibro test score <0.31 (abse nce of clini mariia signi fican t fibro sis) was 85% when hugh red to liver biops y in 1,270 HCV infec luis patie nts with a 38% preva lence of signi fican t liver fibro sis (F2, 3 or 4). The posit genoveva predi ctive value of a Fibro - test score >0.48 (F2, 3, 4) was 61% in that same patie nt cohor t. HCV Fibro SURE is not recom david d in patie nts with Gilbe rt Disea se, acute hemol ysis (e.g. HCV ribav irin thera py media luis hemol ysis) acute hepa- titis of the liver , extra -hepa tic fatuma stasi s, trans plant patie nts, and/o r renal insuf ficie ncy patie nts. Any of these clini arline situa tions may lead to inacc urate quant itati ve predi ction s of fibro sis and necro infla mmato ry activ ity in the liver . Not Available [facility] ([facility]) [address] [facility], [place], [address], 02/07/2024 12:06:22 01/02/20 24 01/02/2024 HCV RNA BY PCR, QN RFX JATIN test information: Commen t The quant itati ve range of this assay is 15 IU/mL to 100 regi on IU/mL . Not Available [facility] ([facility]) [address] [facility], [place], [address], 02/07/2024 12:06:22 01/02/20 24 01/04/2024 HCV RNA BY PCR, QN RFX JATIN hepatitis C quantitation HCV Not Detect ed IU/mL Not Available [facility] ([facility]) [address] [facility], [place], [address], 02/07/2024 12:06:22 01/02/20 24 01/04/2024 HCV RNA BY PCR, QN RFX JATIN HCV log10 COMMEN T log10 _IU/m L Unabl e to calcu late resul t since non-n umeri c resul t obtai yecenia for compo nent test. Not Available [facility] ([facility]) [address] [facility], [place], [address], 02/07/2024 12:06:22 01/02/20 24 01/04/2024 HCV RNA BY PCR, QN RFX JATIN HCV genotype COMMEN T Not indic ated Not Available [facility] ([facility]) [address] [facility], [place], [address], 02/07/2024 12:06:22 01/02/20 24 01/24/2024 CHLAM YDIA/ GC AMPLI FICAT ION chlamydia trachomatis, MARITZA COMMEN T [facility] was unabl e to colle ct suffi cient speci men to perfo rm the follo wing test( s), and is provi ding the patie nt with re-co llect ion instr uctio ns. Not Available [facility] ([facility]) [address] [facility], [place], [address], 02/07/2024 12:06:23 01/02/20 24 01/24/2024 CHLAM YDIA/ GC AMPLI FICAT ION neisseria gonorrhoeae, MARITZA TNP Test not perfo rmed Not Available [facility] ([facility]) [address] [facility], [place], [address], 02/07/2024 12:06:23 01/02/20 24 01/24/2024 CHLAM YDIA/ GC AMPLI FICAT ION pdf SYNTHETIC SOIL BLOCKS PULPER Not Available [facility] ([facility]) [address] [facility], [place], [address], 02/07/2024 12:06:23 01/02/20 24 01/04/2024 RNA, PCR(N ONGRA PH)RF X/GEN OPRI HIV-1 RNA by PCR <20 copie s/mL HIV-1 RNA not detec luis The repor table range for this assay is 20 to 10,00 0,000 copie s HIV-1 RNA/m L. Not Available [facility] ([facility]) [address] [facility], [place], [address], 02/07/2024 12:06:23 01/02/20 24 01/04/2024 RNA, PCR(N ONGRA PH)RF X/GEN OPRI log10 HIV-1 RNA COMMEN T log10 copy/ mL Unabl e to calcu late resul t since non-n umeri c resul t obtai yecenia for compo nent test. Not Available [facility] ([facility]) [address] [place], [address], 02/07/2024 12:06:23 01/02/20 24 01/04/2024 RNA, PCR(N ONGRA PH)RF X/GEN OPRI HIV genosure prime(R) COMMEN T Not indic ated Not Available [facility] ([facility]) [address] [facility], [place], [address], 02/07/2024 12:06:23 01/02/20 24 01/05/2024 HIV-1 /HIV- 2 QUALI TATIV E RNA HIV-1 RNA Non Reacti ve non reacti ve Not Available [facility] ([facility]) [address] [place], [address], 02/07/2024 12:06:24 01/02/20 24 01/05/2024 HIV-1 /HIV- 2 QUALI TATIV E RNA HIV-2 RNA Non Reacti ve non reacti ve Not Available [facility] ([facility]) [address] [facility], [place], [address], 02/07/2024 12:06:24 01/02/20 24 01/03/2024 RPR, RFX QN RPR/C ONFIR M TP RPR Non Reacti ve non reacti ve Not Available [facility] ([facility]) [address] [place], [address], 02/07/2024 12:06:24 01/02/20 24 01/04/2024 ALBUM IN albumin 4.7 g/dL 4.3-5. 2 Not Available [facility] ([facility]) [address] [place], [address], 02/07/2024 12:06:24 01/02/20 24 01/04/2024 BILIR UBIN, TOTAL bilirubin, total 0.5 mg/dL 0.0-1. 2 Not Available [facility] ([facility]) [address] [place], [address], 02/07/2024 12:06:25 01/02/20 24 01/04/2024 AST (SGOT ) AST (SGOT) 74 IU/L 0-40 above high normal Not Available [facility] ([facility]) [address] [place], [address], 02/07/2024 12:06:25 01/02/20 24 01/04/2024 ALT (SGPT ) ALT (SGPT) 95 IU/L 0-44 above high normal Not Available [facility] ([facility]) [address] [place], [address], 02/07/2024 12:06:26 01/02/20 24 01/04/2024 LIPAS E lipase 43 U/L 13-78 Not Available [facility] ([facility]) [address] [place], [address], 02/07/2024 12:06:26 01/02/20 24 01/25/2024 HBSAG SCREE N HBsAg screen COMMEN T [facility] was unabl e to colle ct suffi cient speci men to perfo rm the follo wing test( s), and is provi ding the patie nt with re-co llect ion instr uctio ns. Not Available [facility] ([facility]) [address] [place], [address], 02/07/2024 12:06:26 01/02/20 24 01/24/[address] PROBL EM request problem COMMEN T [facility] was unabl e to colle ct suffi cient speci men to perfo rm the follo wing test( s), and is provi ding the patie nt with re-co llect ion instr uctio ns. TEST: [id number] Chlam ydia/ GC Ampli ficat ion Not Available [facility] ([facility]) [address] [place], [address], 02/07/2024 12:06:27 01/02/20 24 01/25/[address] PROBL EM request problem COMMEN T [facility] was unabl e to colle ct suffi cient speci men to perfo rm the follo wing test( s), and is provi ding the patie nt with re-co llect ion instr uctio ns. TEST: [id number] HBsAg Scree n Not Available [facility] ([facility]) [address] [facility], [place], [address], 02/07/2024 12:06:27 01/25/20 24 01/26/2024 H PYLOR I BREAT H TEST H pylori breath test NEGATI VE negati ve Not Available [facility] [address] [place], [address], 01/26/2024 09:27:28 01/25/20 24 01/26/2024 H PYLOR I BREAT H TEST performing lab Perfor vance [facility], a [facility] [address] [facility] [place] [address] Medic al Direc ele stuart MD Not Available [facility] [address] [place], [address], 01/26/2024 09:27:28 01/21/20 24 11/20/2023 US, abdom en No observ ation record ed. [email or web address] Not Available 2023 12:08:41 Result Notes None recorded. Problems Name Problem SNOMED Code Status Onset Date Resolution Date Notes Provider Name and Address Organization Details Recorded Time Steatosis of liver 387496187 Active 2023 Traci Julian [facility] [address] [facility] [place], [address], [place] GIULIA JULIAN MD [facility] 09:47:56 Chronic hepatitis C 467087143 Active 2023 Traci Julian MD [address] [facility] [place], [address], [place] GIULIA JULIAN MD [facility] 09:47:59 Exposure to sexually transmissib le disorder Active 2023 Traci Julian MD [address] [place] [address], [place], [address], GIULIA JULIAN MD [facility] 4 09:48:29 Alcohol abuse 44473474 Active 2023 Traci Julian MD [address] [place] [address], [place], [address], GIULIA JULIAN MD [facility] 4 09:49:23 Morbid obesity 851819185 Active 2023 Traci Julian MD [address] [place] [address], [place], [address], GIULIA JULIAN MD [facility] 4 09:49:26 History of pancreatiti s 2304668237171 7 Active 2023 Traci Julian MD [address] [place] [address], [place], [address], GIULIA JULIAN MD [facility] 4 09:49:44 Problem Notes None recorded. Procedures Surgical History None recorded. Imaging Results Imaging Date Name Status LastModified by Organiz ation Details LastModified Time 11/20/2023 US, abdomen completed [email or web address] Information n ot available 01/21/2024 12:08:41 Procedure Notes None recorded. Medical Equipment None Reported. Allergies Allergen ID Allergen Name Allergen Category Reaction Reaction Severity Criticality Documentation Date Start Date Code Code System Note Provider Name and Address Organization Details Recorded Time 492 Prozac medicatio n Not available Not available Not available 10/03/20232014 08177 RxNorm Comme nt: adver se_ev ent_t ype: 29231 8002; ; Not Available [facility] 06:50:31 Medications Name Sig Start Date Stop Date Status Note LastModified by Organization Details LastModified Time clonidine HCl 0.1 mg tablet TAKE 1 TABLET BY MOUTH THREE TIMES A DAY active Not Available Not Available No t Available nicotine (polacril ex) 2 mg gum CHEW 1 PIECE IN MOUTH EVERY 1 TO 2 HOURS active Not Available Not Available No t Available dextroamp hetamine- amphetami ne 10 mg tablet 10 MG TAB; Quantity : 30; Duration : 30; 0 refill(s ) 2020 active Duration : 30; VACCINE_ IND: no; Not Available Not Available Not Available RA Nicotine 2 mg gum Quantity : 100; Duration : 25; 0 refill(s ) 02/01 completed Duration : 25; VACCINE_ IND: no; Not Available Not Available Not Available thiamine HCl (vitamin B1) 100 mg tablet TAKE 1 TABLET BY MOUTH DAILY FOR 90 DAYS active Not Available Not Available No t Available hydroxyzi ne HCl 50 mg tablet HCL 50 MG TABLET; Quantity : 30; Duration : 30; 0 refill(s ) 2020 active Duration : 30; VACCINE_ IND: no; Not Available Not Available Not Available quetiapin e 100 mg tablet active Not Available Not Available Not Available bupropion HCl SR 100 mg tablet,12 hr sustained -release TAKE 1 TABLET BY MOUTH EVERY MORNING FOR 1 WEEK TAKE 1 TABLET BY MOUTH TWICE A DAY FOR 1 WEEK TAKE 2 TABLETS BY MOUTH EVERY MORNING TAKE 1 TABLET IN THE EVENING FOR 1 WEEK active Not Available Not Available No t Available Adderall XR 20 mg capsule,e xtended release TAKE 2 CAPSULE BY MOUTH EVERY MORNING WITH MEALS FOR ADHD active Not Available Not Available No t Available citalopra m 20 mg tablet HBR 20 MG TABLET; Quantity : 30; Duration : 30; 0 refill(s ) 2020 active Duration : 30; VACCINE_ IND: no; Not Available Not Available Not Available magnesium oxide 400 mg (241.3 mg magnesium ) tablet active Not Available Not Available Not Available lisinopri l 10 mg tablet TAKE 1 TABLET BY MOUTH EVERY DAY active Not Available Not Available No t Available gabapenti n 300 mg capsule active Not Available Not Available Not Available folic acid 1 mg tablet TAKE 1 TABLET BY MOUTH DAILY active Not Available Not Available No t Available gabapenti n 100 mg capsule TAKE 2 CAPSULES BY MOUTH 3 TIMES A DAY FOR 30 DAYS active Not Available Not Available No t Available vitamin E 268 mg (400 unit) capsule Take 2 capsules by oral route. 2023 active Not Available Not Available Not Avai lable dextroamp hetamine- amphetami ne 5 mg tablet TAKE 2 TABLETS BY MOUTH ONCE DAILY AT 3 PM NEEDED FOR ADHD active Not Available Not Available No t Available atomoxeti ne 40 mg capsule TAKE 1 CAPSULE BY MOUTH EVERY MORNING WITH MEALS DX. ADHD (HX OF GAMA) active Not Available Not Available No t Available atomoxeti ne 60 mg capsule TAKE 1 CAPSULE BY MOUTH EVERY MORNING WITH MEALS DX. ADHD active Not Available Not Available No t Available acamprosa te 333 mg tablet,de layed release 333 mg Quantity : 90; Duration : 30; 0 refill(s ) 04/02 completed Frequenc y: tid; Duration : 30; VACCINE_ IND: no; SU_FULL_ NAME: Traci magallanes; Not Available Not Available Not Available quetiapin e 50 mg tablet TAKE 1 TO 2 TABLETS BY MOUTH AT BEDTIME active Not Available Not Available No t Available vitamin E (dl, acetate) 180 mg (400 unit) capsule TAKE 2 CAPSULES BY MOUTH EVERY DAY active Not Available Not Available No t Available Eliquis 5 mg tablet TAKE 1 TABLET BY MOUTH TWICE A DAY FOR 90 DAYS active Not Available Not Available No t Available Vitals Date Recorded Body height Heart rate Respiratory rate Body temperature Body mass index (BMI) Body weight Systolic blood pressure Diastolic blood pressure Provider Name and Address Organization Details Last Updated DateTime 180.34 cm 95 /min 12 /min 97.8 [degF] 44.1 kg/m2 524603. 19 g 130 mm[Hg] 80 mm[Hg] Allison JULIAN MD [facility] 12:52:48 Social History None recorded. Functional Status None recorded. Mental Status None recorded. Family History Nothing Reported Notes:Family history unknown , Response Property: Yes; Medical History No medical history recorded. Past Encounters Encounter ID Performer Location Encounter Start Date Encounter Closed Date Diagnosis/Indication Diagnosis SNOMED-CT Code Diagnosis ICD10 Code [id number] Traci Julian MD Main Office [address] [place] [phone] 01/02/2024 12:40:28 01/02/2024 13:18:34 Steatosis of liver 107676378 K76.0 Chronic hepatitis C 1283 18827 B18.2 Exposure t o sexually transmissible disorder 569290632 Z20.2 Alcohol abuse 75627390 F 10.10 Folliculitis 11038610 L7 3.9 Morbid obesity 416862856 E66.01 History of pancreatitis 5537303901 9107 Z87.19 [id number] Traci Julian MD Main Office [address] [place] [place] [address] 01/16/2024 12:23:28 01/17/2024 09:21:35 Steatosis of liver 927250159 K76.0 Chronic hepatitis C 1283 14139 B18.2 Alcohol abuse 18648950 F 10.10 Morbid obesity 817367652 E66.01 Nonulcer dyspepsia 40139 07 K30 Mixed anxi ety and depressive disorder 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.8 [id number] Traci Julian MD Main Office [address] [facility] [place] [place] [address] 01/25/2024 13:41:00 01/25/2024 15:55:31 Steatosis of liver 395668250 K76.0 Chronic hepatitis C 1283 46272 B18.2 Alcohol abuse 61772169 F 10.10 Morbid obesity 755734266 E66.01 Nonulcer dyspepsia 78355 07 K30 Mixed anxi ety and depressive disorder 543109915 F41.8 Health Concerns Section Related Observation LastModified by Organization Detai ls LastModified Time None Recorded Concern Status LastModified by Organization Details LastModified Time None Recorded Advance Directives Directive None Recorded Payers Encounter Date Sequence Insurance Name Policy Number Policy Anand Covered Member ID Anand Member ID Guarantor Name 01/02/2024 1 [facility] - Addiction Treatment Reviews & Information [facility] PLAN (MEDICAID O) VALENTINA Granados Ariel Granados 01/16/[address] [facility] PLAN (MEDICAID HMO) VALENTINA Granados Ariel Granados 01/25/[address] [facility] PLAN (MEDICAID HMO) VALENTINA Granados Ariel Granados Notes Date Note Type Note Provider Name and Address Organization Details Recorded Time 01/02/2024 text/html Male pt come in for fatty liver eval. overweight.Hx of ETOH use and hx pancreatitis hospitalized multiple times.on adderal prescribed by another prescriberchronic pancreatitis hx.cannot do wegovy due to risk of pancreatitisno recent labsreports recent u/s abd.has never been treated for weight loss. interestedETOH decreased per his report; last use 2 days ago.no drug usehas tried Campral. not interested in re-starting.anxious which he says triggers drinking; drinking calms he. he is aware pancreatitis episodes are related to drinking.past HCV. would like re-testing, and STI testingno STI sx.denies drug use.no fever. no current n/v/d. Traci Julian MD [address] [place] [address], [phone], GIULIA JULIAN MD [facility] 01/08/2024 09:54:06 01/16/2024 text/html f/uhx fatty liver/overweight/ETOH use; hx chronic pancreatitis hospitalized multiple times.on adderal prescribed by another prescriber ADHD; he is now on qd.12/2023 HCV VL PCR nondetected; HIV negative; fibrosure F0; RPR NR; alb 4.7 alb 4.7; GC/chlamydia pending; lipase =43; HBV s ag pendingolder CT scans 02/2021 fatty liver; u/s 2020 fatty liveru/s abd 11/2023 [place]: Fatty liver.has never been treated for weight loss. interested ; cannot do wegovy due to pancreatitis hx,ETOH decreased per his report; last use 2 days ago.sad. no suicide ideas.has tried Campral. not interested in re-starting.anxious which he says triggers drinking; drinking calms him;he reports pancreatitis episodes are related to drinking.past HCV.no STI sx nor hx.denies drug use. no opioid useno fever. no current n/v/d.complains about bloating; no diarrhea; has seen undigested food in his stools.methadone Traci Julian MD [address] [place] [address], [phone], GIULIA JULIAN MD [facility] 01/25/2024 15:17:23 01/25/2024 text/html f/uhx fatty liver/overweight/ETOH use; hx chronic pancreatitis hospitalized multiple times.on adderal prescribed by another prescriber ADHD; he is now on qd.12/2023 HCV VL PCR nondetected; HIV negative; fibrosure F0; RPR NR; alb 4.7 alb 4.7; GC/chlamydia pending; lipase =43; HBV s ag pendingolder CT scans 02/2021 fatty liver; u/s 2020 fatty liveru/s abd 11/2023 [place]: Fatty liver.has never been treated for weight loss. interested ; cannot do wegovy due to pancreatitis hx,ETOH decreased per his report; last use 2 days ago.sad. no suicide ideas.has tried Campral. not interested in re-starting.anxious which he says triggers drinking; drinking calms him;he reports pancreatitis episodes are related to drinking.past HCV.no STI sx nor hx.denies drug use. no opioid useno fever. no current n/v/d.complains about bloating; no diarrhea; has seen undigested food in his stools.methadone Traci Julian MD [address] [place] [address], [phone], GIULIA - TRACI JULIAN MD [facility] 01/28/2024 13:20:29
== END 2024-07-16 11:34 | disposition home or self-care (01) ==
PROVIDERS: PCP Nurse Practitioner Family; Visit Provider Registered Nurse
DX: Z13.9 Encounter for screening, unspecified (principal); E11.9 Type 2 diabetes mellitus without complications

== ENCOUNTER 2024-07-22 14:58 | Outpatient (AMB) | payer OTHER, SELFPAY ==
--- NOTE | 2024-07-22 15:04 | A.OFFPC_ITS ---
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: No Accompanied by: Self / Same As Patient Allergies No Known Allergies Allergy (Verified 07/22/24 15:47) Medication List - Last Reconciled 07/22/24 by Isaac Dominguez [employer]- albuterol sulfate 90 mcg/actuation (ProAir HFA) 2 puffs inhalation Q6H PRN alcohol swabs (Alcohol Pads) 1 pad to test BS topically; apixaban (Eliquis) 5 mg PO BID 90 days blood sugar diagnostic (FreeStyle Lite Strips) Test blood sugar twice a day clonidine HCl 0.1 mg PO BID 30 days dextroamphetamine-amphetamine 20 mg ER (Adderall XR) caps PO DAILY folic acid 1 mg PO DAILY FreeStyle Lancets (lancets) 4 x a day testing NS FreeStyle Lite Meter (blood-glucose meter) tid testing NS gabapentin 200 mg (2 x 100 mg) PO TID 30 days insulin glargine (Lantus Solostar U-100 Insulin) 15 units (0.15 mL) subcut QPM lisinopril 10 mg PO DAILY metformin 500 mg PO BID methadone 135 mg PO DAILY pen needle, diabetic (Comfort EZ Pen Bradley) Use to inject insulin once a day quetiapine mg PO rosuvastatin (Crestor) 5 mg PO BEDTIME 30 days thiamine HCl (vitamin B1) 100 mg PO DAILY 90 days Tobacco use date assessed: 10/24/23 Dental Screening Dental Screen Date: 10/24/23 HPI lab HPI Details Chief Complaint Patient experiences neuropathy and seeks management advice for diabetes. History of Present Illness The patient is a 29-year-old male presenting with diabetes mellitus and associated neuropathy. Previously, he was a heavy drinker but reports cessation of alcohol consumption approximately one month prior to the visit. He admits recent use of marijuana and cocaine, and a urine drug screen was positive for fentanyl, of which the patient was unaware. The patient reports daily use of gabapentin for neuropathy and has recently started insulin glargine (Lantus) at a dosage of 10 units daily to manage his diabetes. He acknowledges some abdominal discomfort, particularly localized to the left upper quadrant, and I have ordered a repeat abdominal CT scan as the previous one was not completed. The patient denies any fever, chills, chest pain, shortness of breath, nausea,vomiting, or gastrointestinal bleeding. A monofilament test revealed decreased sensation in the right big toe. Pt does see a psychiatrist and a therapist, denies any si or hi. Social History - Cessation of alcohol use one month ago - Reports recent cocaine and marijuana u se - Positive urine drug screen for fentany l - Currently taking gabapentin for neurop athy - Recently started on Lantus for diabete s management - Previously a heavy drinker Health Maintenance Review of Systems - Neurological: Reports neuropathy - Gastrointestinal: Denies vomiting, blo od in stool, constipation, diarrhea - Cardiovascular: Denies chest pain or s hortness of breath - General: Denies fever or chills Physical Exam General: Cooperative, healthy appearing, comfortable, no acute distress and well developed, morbidly obese Orientation: Patient oriented x3 Limitations: No limitations Head: Normal to inspection Ears: Hearing grossly normal bilaterally Nose: Normal external nose present Eyes: Appearance normal, both eyes and all related structures Neck: Normal visual inspection and Yes full ROM Respiratory: Normal respiratory effort and able to speak in complete sentences. Clear to auscultation bilaterally Cardiovascular: Regular rate and rhythm. Normal S1 and S2 GI: Tenderness to left upper abdomen with palpation Skin: No rashes or lesions noted Neuro: Patient oriented x3 Extremities: Feet are intact, monofilament was not felt to right big toe plantar aspect, otherwise positive sensation throughout Results - Urine Drug Screen: Positive for fentan yl and opiates Plan Patient was informed and verbally consented to the use of an ambient scribe for clinic note documentation during this visit. Discussion Notes Patient Instructions - Continue insulin (Lantus) as prescribe d (increased to 15 units from 10 units) - Avoid all street drugs given the poten tial risk of harm including - Maintain abstinence from alcohol - Monitor neuropathy symptoms and report changes - Seek medical attention if abdominal pa in worsens, or if severe symptoms occur - Follow up with endocrinology for diabe evelyn management and monitoring -pt knows to go to the er with worsening symptoms PFSH Surgical History H/O tooth extraction Family History Father Diabetes Alcoholic Substance use disorder Mother Hypertension Social History Household Members: Family Housing: Apartment Alcohol intake: former Patient Tobacco Use Status: Former Tobacco user e-Cigarette/Vaping Use: Currently Using Second Hand Smoke Exposure: No Current occupational status: unemployed Cognitive needs: No Hearing needs: No Vision needs: No Questionnaire Thrive Questionnaire Date Thrive assessed: 02/01/22 FABIOLA-7 AMB Questionnaire FABIOLA-7 Date FABIOLA - 7 assessed: 02/01/22 Source: Developed by Drs. Dann Ashley, Linda Macario, Nick Robert and colleagues, with an educational liz from [employer] Physical exam (Primary Care) Vital Signs: Last Vital Signs Pulse 120 H 07/22/24 15:05 BP 138/86 07/22/24 15:05 Pulse Ox 97 07/22/24 15:05 BMI result Body Mass Index 42.8 Tobacco/Smoking Status: Tobacco use Status Tobacco use date assessed 10/24/23 07/22/24 15:08 Patient Tobacco Use Status Former Tobacco user 07/22/24 15:08 e-Cigarette/Vaping Use Currently Using 07/22/24 15:08 Thrive Assessment: Date of Thrive Assessment Date Thrive assessed 02/01/22 07/22/24 15:08 Coding Level of Care Code Est Pt Level 4 (77499) Diagnoses Hx of drug abuse F19.11 Abdominal tenderness R10.819 Newly diagnosed diabetes E11.9 Assessment & Plan Assessment & Plan (1) Hx of drug abuse: Code(s): F19.11 - Other psychoactive substance abuse, in remission Category: Medical (2) Abdominal tenderness: Code(s): R10.819 - Abdominal tenderness, unspecified site Category: Medical (3) Newly diagnosed diabetes: Code(s): E11.9 - Type 2 diabetes mellitus without complications Category: Medical Plan . Medications: Changed From insulin glargine (Lantus Solostar U-100 Insulin) 10 units (0.1 mL) subcut QPM 15 mL 0RF E11.9 - Type 2 diabetes mellitus without complications To insulin glargine (Lantus Solostar U-100 Insulin) 15 units (0.15 mL) subcut QPM 15 mL 0RF E11.9 - Type 2 diabetes mellitus without complications Refilled gabapentin 200 mg (2 x 100 mg) PO TID 30 days 180 caps 2RF
[2024-07-22 15:05] VITALS: BP 138/86; PULSE 120; O2SAT 97; BMI 42.8
--- OUTSIDE RECORDS SUMMARY | 2024-07-23 22:18 | XMS_ITS | Data Portability ---
Author Organization GIULIA RODRIGUEZ MD [facility], Main Office Address [address] [place] [phone] Assessment No assessment recorded. Plan of Treatment Reminders Order Date Submit Date Provider Last Modified By Organization Details Last Modified Time Details Appointments None recorded. Lab lipase, serum or plasma 2023 024 [email or web address] [facility], [address] [place], [address], 10:29:17 bilirubin , total, blood 2023 024 [email or web address] [facility], [address] [place], [address], 4 10:29:17 albumin, serum or plasma 2023 024 [email or web address] [facility], [address] [place], [address], 4 10:29:17 AST/SGOT (aspartat e aminotran sferase), serum or plasma 2023 024 [email or web address] [facility], [address] [place], [address], 4 10:29:17 ALT (alanine aminotran sferase), serum or plasma 2023 024 [email or web address] [facility], [address] [place], [address], 4 10:29:17 hepatitis C liver status biomarker panel, serum 2023 024 [email or web address] [facility], [address] [place], [address], 4 10:29:16 hepatitis C virus RNA, quant, PCR, serum or plasma 2023 024 [place] [address] [facility], [address] [place], [address], 4 10:29:16 culture, aerobic + anaerobic 2023 024 [place] [address] [facility], [address] [place], [address], 4 10:29:17 HIV 1 + 2 RNA panel, MARITZA+probe , serum or plasma [address], [address] [place], [address], 4 10:29:16 HIV-1 RNA, quantitat genoveva, PCR, serum or plasma [address], [address] [place], [address], 4 10:29:16 RPR (rapid plasma reagin), serum [address], [address] [place], [address], 4 10:29:16 HBsAg (hepatiti s B surface Ag), EIA, serum 2023 024 [place] [address] [facility], [address] [place], [address], 4 10:29:16 hepatitis B surface Ab, qualitati ve, serum 2023 024 [place] [address] [facility], [address] [place], [address], 4 10:29:17 chlamydia + gonorrhea RNA, QL, unspecifi ed specimen 2023 024 [email or web address] [facility], [address] [place], [address], 4 10:29:17 CT + NG RNA, PCR, unspecifi ed specimen 2023 024 [email or web address] [facility], [address], [address], 4 10:29:17 H pylori urea breath test, co2 infrared 2023 024 [email or web address] Main Office, [address] [place] [address], [phone], 14:18:04 H pylori urea breath test, co2 infrared 2023 024 [email or web address] Main Office, [address] [place] [address], [phone], 13:20:02 Referral None recorded. Procedures None recorded. Surgeries None recorded. Imaging None recorded. Medication Orders vitamin E 268 mg (400 unit) capsule 2023 024 [id number], [address] [place] [address], [address], 4 17:41:29 vitamin E 268 mg (400 unit) capsule 2023 024 [facility]/Pharmacy #[id number], [address] [place] [address], [address], 13:20:25 bupropion HCl SR 100 mg tablet,12 hr sustained -release 2023 024 [facility]acy #[id number], [address] [place] [address], [address], 13:41:09 Patient TargetsNo targets recorded. Patient InstructionsNo instructions recorded. Reason for Referral None Reported. Results Created Date Observation Date Name Description Value Unit Range Abnormal Flag Note LastModifiedBy Organization Detail LastModifiedTime 01/02/20 24 01/02/2024 WOUND CULTU RE wound culture GRAM STAIN RESUL T NO POLYS , NO EPITH ELIAL CELLS , NO ORGAN ISMS NOTED Not Available [facility] [address] [place] [address], [address], 01/02/2024 21:15:51 01/02/20 24 01/02/2024 WOUND CULTU RE performing lab Perfor v[facility] ces[facility] aguilar membe r of [address] [place] [address] Medic al Direc ele stuart MD Not Available [facility] [address] [place] [address], [address], 01/02/2024 21:15:51 01/02/20 24 01/02/2024 ANAER OBIC CULTU RE anaerobic culture GRAM STAIN RESUL T REFER TO AEROB IC CULTU RE FOR SMEAR RESUL TS Not Available [facility] [address] [place] [address], [address], 01/02/2024 21:15:52 01/02/20 24 01/02/2024 ANAER OBIC CULTU RE performing lab Perfor vance [facility] aguilar mem[facility] r of [address] [place] [address] Medic al Direc ele stuart MD Not Available [facility] [address] [place] [address], [address], 01/02/2024 21:15:52 01/02/20 24 01/03/2024 CHLAM YDIA DNA SWAB chlamydia DNA swab NEGATI VE negati ve Not Available [facility] [address] [place] [address], [address], 01/03/2024 08:54:37 01/02/20 24 01/03/2024 GC DNA SWAB GC DNA swab NEGATI VE negati ve Not Available [facility] [address] [place] [address], [address], 01/03/2024 08:54:38 01/02/20 24 01/03/2024 GC DNA SWAB performing lab Perfor v[facility], [facility] [address] [place] [address] Medic al [facility] Not Available [facility] [address] [place] [address], [address], 01/03/2024 08:54:38 01/02/20 24 01/02/2024 FUNGU S CULTU RE: SKIN HAIR NAIL performing lab Perfor vance [facility], [facility] [address] [place] [address] Medic al Dire ele stuart MD Not Available [facility] [address] [place] [address], [address], 01/31/2024 15:21:38 01/02/20 24 01/31/2024 FUNGU S CULTU RE: SKIN HAIR NAIL fungus culture: skin hair nail Negati ve for Fungus after 4 weeks Not Available [facility] [address] [place] [address], [address], 01/31/2024 15:21:38 01/02/20 24 01/02/2024 HCV FIBRO SURE methodology: Commen t The marcela evelyn teste d are perfo rmed by Fibro Sure- Speci fic metho ds. Not inten ded for use with other diagn ostic consi derat ions. Not Available [facility] ([facility]) [address] [facility], [place], [address], 02/07/2024 12:06:22 01/02/20 24 01/02/2024 HCV FIBRO [...] (META VIR A0-A3 ). Not Available [facility] ([facility]) [address] [facility], [place], [address], 02/07/2024 12:06:22 01/02/20 24 01/02/2024 HCV FIBRO [...] F4 - Cirrh osis Not Available [facility] ([facility]) [address] [facility], [place], [address], 02/07/2024 12:06:22 01/02/20 24 01/02/2024 HCV FIBRO [...] Sever e activ ity Not Available [facility] ([facility]) [address] [facility], [place], [address], 02/07/2024 12:06:22 01/02/20 24 01/02/2024 HCV FIBRO [...] conta ct custo cornelia servi ce at [phone]. Not Available [facility] ([facility]) [address] [place], [address], 02/07/2024 12:06:22 01/02/20 24 01/04/2024 HCV FIBRO SURE fibrosis score 0.07 0.00-0 .21 Not Available [facility] ([facility]) [address] [place], [address], 02/07/2024 12:06:22 01/02/20 24 01/04/2024 HCV FIBRO SURE fibrosis stage Commen t F0 - No fibro sis Not Available [facility] ([facility]) [address] [place], [address], 02/07/2024 12:06:22 01/02/20 24 01/04/2024 HCV FIBRO SURE necroinflamm at activity score 0.53 0.00-0 .17 above high normal Not Available [facility] ([facility]) [address] [place], [address], 02/07/2024 12:06:22 01/02/20 24 01/04/2024 HCV FIBRO SURE necroinflamm at activity grade A2-Mod erate activi ty Not Available [facility] ([facility]) [address] [place], [address], 02/07/2024 12:06:22 01/02/20 24 01/04/2024 HCV FIBRO SURE alpha 2-macroglobu johnny, qn 102 mg/dL 110-27 6 below low normal Not Available [facility] ([facility]) [address] [place], [address], 02/07/2024 12:06:22 01/02/20 24 01/04/2024 HCV FIBRO SURE haptoglobin 203 mg/dL 17-317 Not Available [facility] ([facility]) [address] [place], [address], 02/07/2024 12:06:22 01/02/20 24 01/04/2024 HCV FIBRO SURE apolipoprote in A-1 136 mg/dL 101-17 8 Not Available [facility] ([facility]) [address] [place], [address], 02/07/2024 12:06:22 01/02/20 24 01/04/2024 HCV FIBRO SURE bilirubin, total 0.6 mg/dL 0.0-1. 2 Not Available [facility] ([facility]) [address] [place], [address], 02/07/2024 12:06:22 01/02/20 24 01/04/2024 HCV FIBRO SURE GGT 91 IU/L 0-65 above high normal Not Available [facility] ([facility]) [address] [place], [address], 02/07/2024 12:06:22 01/02/20 24 01/04/2024 HCV FIBRO SURE ALT (SGPT) p5p 112 IU/L 0-55 above high normal Not Available [facility] ([facility]) [address] [place], [address], 02/07/2024 12:06:22 01/02/20 24 01/04/2024 HCV FIBRO [...] in the liver . Not Available [facility] ([facility]) [address] [facility], [place], [address], 02/07/2024 12:06:22 01/02/20 24 01/02/2024 HCV RNA BY PCR, QN RFX JATIN test information: Commen t The quant itati ve range of this assay is 15 IU/mL to 100 regi on IU/mL . Not Available [facility] ([facility]) [address] [facility], [place], [address], 02/07/2024 12:06:22 01/02/20 24 01/04/2024 HCV RNA BY PCR, QN RFX JATIN hepatitis C quantitation HCV Not Detect ed IU/mL Not Available [facility] ([facility]) [address] [facility], [place], [address], 02/07/2024 12:06:22 01/02/20 24 01/04/2024 HCV RNA BY PCR, QN RFX JATIN HCV log10 COMMEN T log10 _IU/m L Unabl e to calcu late resul t since non-n umeri c resul t obtai yecenia for compo nent test. Not Available [facility] ([facility]) [address] [facility], [place], [address], 02/07/2024 12:06:22 01/02/20 24 01/04/2024 HCV RNA BY PCR, QN RFX JATIN HCV genotype COMMEN T Not indic ated Not Available [facility] ([facility]) [address] [facility], [place], [address], 02/07/2024 12:06:22 01/02/20 24 01/24/2024 CHLAM YDIA/ GC AMPLI FICAT ION chlamydia trachomatis, MARITZA COMMEN T [facility] was unabl e to colle ct suffi cient speci men to perfo rm the follo wing test( s), and is provi ding the patie nt with re-co llect ion instr uctio ns. Not Available [facility] ([facility]) [address] [facility], [place], [address], 02/07/2024 12:06:23 01/02/20 24 01/24/2024 CHLAM YDIA/ GC AMPLI FICAT ION neisseria gonorrhoeae, MARITZA TNP Test not perfo rmed Not Available [facility] ([facility]) [address] [facility], [place], [address], 02/07/2024 12:06:23 01/02/20 24 01/24/2024 CHLAM YDIA/ GC AMPLI FICAT ION pdf PIT HAND Not Available [facility] ([facility]) [address] [facility], [place], [address], 02/07/2024 12:06:23 01/02/20 24 01/04/2024 RNA, PCR(N ONGRA PH)RF X/GEN OPRI HIV-1 RNA by PCR <20 copie s/mL HIV-1 RNA not detec luis The repor table range for this assay is 20 to 10,00 0,000 copie s HIV-1 RNA/m L. Not Available [facility] ([facility]) [address] [facility], [place], [address], 02/07/2024 12:06:23 01/02/20 24 01/04/2024 RNA, PCR(N ONGRA PH)RF X/GEN OPRI log10 HIV-1 RNA COMMEN T log10 copy/ mL Unabl e to calcu late resul t since non-n umeri c resul t obtai yecenia for compo nent test. Not Available [facility] ([facility]) [address] [place], [address], 02/07/2024 12:06:23 01/02/20 24 01/04/2024 RNA, PCR(N ONGRA PH)RF X/GEN OPRI HIV genosure prime(R) COMMEN T Not indic ated Not Available [facility] ([facility]) [address] [facility], [place], [address], 02/07/2024 12:06:23 01/02/20 24 01/05/2024 HIV-1 /HIV- 2 QUALI TATIV E RNA HIV-1 RNA Non Reacti ve non reacti ve Not Available [facility] ([facility]) [address] [place], [address], 02/07/2024 12:06:24 01/02/20 24 01/05/2024 HIV-1 /HIV- 2 QUALI TATIV E RNA HIV-2 RNA Non Reacti ve non reacti ve Not Available [facility] ([facility]) [address] [facility], [place], [address], 02/07/2024 12:06:24 01/02/20 24 01/03/2024 RPR, RFX QN RPR/C ONFIR M TP RPR Non Reacti ve non reacti ve Not Available [facility] ([facility]) [address] [place], [address], 02/07/2024 12:06:24 01/02/20 24 01/04/2024 ALBUM IN albumin 4.7 g/dL 4.3-5. 2 Not Available [facility] ([facility]) [address] [place], [address], 02/07/2024 12:06:24 01/02/20 24 01/04/2024 BILIR UBIN, TOTAL bilirubin, total 0.5 mg/dL 0.0-1. 2 Not Available [facility] ([facility]) [address] [place], [address], 02/07/2024 12:06:25 01/02/20 24 01/04/2024 AST (SGOT ) AST (SGOT) 74 IU/L 0-40 above high normal Not Available [facility] ([facility]) [address] [place], [address], 02/07/2024 12:06:25 01/02/20 24 01/04/2024 ALT (SGPT ) ALT (SGPT) 95 IU/L 0-44 above high normal Not Available [facility] ([facility]) [address] [place], [address], 02/07/2024 12:06:26 01/02/20 24 01/04/2024 LIPAS E lipase 43 U/L 13-78 Not Available [facility] ([facility]) [address] [place], [address], 02/07/2024 12:06:26 01/02/20 24 01/25/2024 HBSAG SCREE N HBsAg screen COMMEN T [facility] was unabl e to colle ct suffi cient speci men to perfo rm the follo wing test( s), and is provi ding the patie nt with re-co llect ion instr uctio ns. Not Available [facility] ([facility]) [address] [place], [address], 02/07/2024 12:06:26 01/02/20 24 01/24/[address] PROBL EM request problem COMMEN T [facility] was unabl e to colle ct suffi cient speci men to perfo rm the follo wing test( s), and is provi ding the patie nt with re-co llect ion instr uctio ns. TEST: 11471 [id number] Chlam ydia/ GC Ampli ficat ion Not Available [facility] ([facility]) [address] [place], [address], 02/07/2024 12:06:27 01/02/20 24 01/25/[address] PROBL EM request problem COMMEN T [facility] was unabl e to colle ct suffi cient speci men to perfo rm the follo wing test( s), and is provi ding the patie nt with re-co llect ion instr uctio ns. TEST: [id number] [id number] HBsAg Scree n Not Available [facility] ([facility]) [address] [facility], [place], [address], 02/07/2024 12:06:27 01/25/20 24 01/26/2024 H PYLOR I BREAT H TEST H pylori breath test NEGATI VE negati ve Not Available [facility] [address] [place], [address], 01/26/2024 09:27:28 01/25/20 24 01/26/2024 H PYLOR I BREAT H TEST performing lab Perfor v[facility], [facility] [address] [facility] [place] [address] Medic al Direc ele stuart MD Not Available [facility] [address] [place], [address], 01/26/2024 09:27:28 01/21/20 24 11/20/2023 US, abdom en No observ ation record ed. [email or web address] Not Available 2023 12:08:41 Result Notes None recorded. Problems Name Problem SNOMED Code Status Onset Date Resolution Date Notes Provider Name and Address Organization Details Recorded Time Steatosis of liver 340767617 Active 2023 Traci Julian MD [address] [facility] [place], [address], [place] GIULIA JULIAN MD [facility] 09:47:56 Chronic hepatitis C 399052594 Active 2023 Traci Julian MD [address] [facility] [place], [address], [place] GIULIA JULIAN MD [facility] 09:47:59 Exposure to sexually transmissib le disorder Active 2023 Traci Julian MD [address] [place] [address], [facility] [place], [address], GIULIA JULIAN MD [facility] 4 09:48:29 Alcohol abuse 18542469 Active 2023 Traci Julian MD [address] [place] [address], [facility] [place], [address], GIULIA JULIAN MD [facility] 4 09:49:23 Morbid obesity 560978516 Active 2023 Traci Julian MD [address] [place] [address], [facility] [place], [address], GIULIA JULIAN MD [facility] 4 09:49:26 History of pancreatiti s 0379036181329 7 Active 2023 Traci Julian MD [address] [place] [address], [place], [address], GIULIA JULIAN MD [facility] 4 09:49:44 Problem Notes None recorded. Procedures [...] Not available Not available Not available 10/03/20232014 82335 RxNorm Comme nt: adver se_ev ent_t ype: 77522 8002; ; Not Available [facility] 06:50:31 Medications [...] /min 12 /min 97.8 [degF] 44.1 kg/m2 355081. 19 g 130 mm[Hg] 80 mm[Hg] Allison JULIAN MD [facility] 12:52:48 Social History None recorded. Functional Status None recorded. Mental Status None recorded. Family History Nothing Reported Notes:Family history unknown , Response Property: Yes; Medical History No medical history recorded. Past Encounters Encounter ID Performer Location Encounter Start Date Encounter Closed Date Diagnosis/Indication Diagnosis SNOMED-CT Code Diagnosis ICD10 Code [id number] Traci Julian MD Main Office [address] [place] [phone] 01/02/2024 12:40:28 01/02/2024 13:18:34 Steatosis of liver 449732615 K76.0 Chronic hepatitis C 1283 74162 B18.2 Exposure t o sexually transmissible disorder 918778476 Z20.2 Alcohol abuse 27311006 F 10.10 Folliculitis 80168010 L7 3.9 Morbid obesity 938149730 E66.01 History of pancreatitis 6799708720 9107 Z87.19 [id number] Traci Julian MD Main Office [address] 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 [id number] Traci Julian MD Main Office [address] [facility] [place] [address] 01/25/2024 13:41:00 01/25/2024 15:55:31 Steatosis of liver 741158802 K76.0 Chronic hepatitis C 1283 76778 B18.2 Alcohol abuse 43514198 F 10.10 Morbid obesity 707411174 E66.01 Nonulcer dyspepsia 06950 07 K30 Mixed anxi ety and depressive disorder 743630238 F41.8 Health Concerns Section Related Observation LastModified by Organization Detai ls LastModified Time None Recorded Concern Status LastModified by Organization Details LastModified Time None Recorded Advance Directives Directive None Recorded Payers Encounter Date Sequence Insurance Name Policy Number Policy Anand Covered Member ID Anand Member ID Guarantor Name 01/02/2024 1 [facility] [employer] [facility] PLAN (MEDICAID O) VALENTINA Granados Ariel Granados 01/16/2024 1 [facility] PLAN (MEDICAID HMO) VALENTINA Granados Ariel Granados 01/25/2024 1 [facility] PLAN (MEDICAID HMO) VALENTINA Granados Ariel Granados [...] fever. no current n/v/d. Traci Julian MD [address] [place] [address], [phone], GIULIA JULIAN MD [facility] 01/08/2024 09:54:06 01/16/2024 text/html f/uhx fatty liver/overweight/ETOH use; hx chronic pancreatitis hospitalized multiple times.on adderal prescribed by another prescriber ADHD; he is now on qd.12/2023 HCV VL PCR nondetected; HIV negative; fibrosure F0; RPR NR; alb 4.7 alb 4.7; GC/chlamydia pending; lipase =43; HBV s ag pendingolder CT scans 02/2021 fatty liver; u/s 2020 fatty liveru/s abd 11/2023 [place]: Fatty liver.has never been treated for weight [...] food in his stools.methadone Traci Julian MD [address] [place] [address], [phone], GIULIA JULIAN MD [facility] 01/25/2024 15:17:23 01/25/2024 text/html f/uhx fatty liver/overweight/ETOH use; hx chronic pancreatitis hospitalized multiple times.on adderal prescribed by another prescriber ADHD; he is now on qd.12/2023 HCV VL PCR nondetected; HIV negative; fibrosure F0; RPR NR; alb 4.7 alb 4.7; GC/chlamydia pending; lipase =43; HBV s ag pendingolder CT scans 02/2021 fatty liver; u/s 2020 fatty liveru/s abd 11/2023 [place]: Fatty liver.has never been treated for weight [...] food in his stools.methadone Traci Julian MD [address] [place] [address], [phone], GIULIA - TRACI JULIAN MD [facility] 01/28/2024 13:20:29
== END 2024-07-22 15:47 | disposition home or self-care (01) ==
PROVIDERS: PCP Nurse Practitioner Family; Visit Provider Nurse Practitioner Family
DX: F19.11 Other psychoactive substance abuse, in remission (principal); R10.819 Abdominal tenderness, unspecified site; E11.9 Type 2 diabetes mellitus without complications

== ENCOUNTER → 2024-07-22 14:58 | Outpatient (BNVA) | payer OTHER, SELFPAY | PROVIDERS: PCP Nurse Practitioner Family; Visit Provider Nurse Practitioner Family | DX: F19.11 Other psychoactive substance abuse, in remission (principal); E11.9 Type 2 diabetes mellitus without complications; R10.819 Abdominal tenderness, unspecified site | CPT/HCPCS: 99212 ==

== ENCOUNTER 2024-08-12 09:46 | Outpatient (REF) | payer OTHER, SELFPAY ==
--- OUTSIDE RECORDS SUMMARY | 2024-08-12 09:49 | XMS_ITS | Data Portability ---
Author Organization GIULIA RODRIGUEZ MD [facility], Main Office Address [address] [place] [phone] Assessment No assessment recorded. Plan of Treatment Reminders Order Date Submit Date Provider Last Modified By Organization Details Last Modified Time Details Appointments None recorded. Lab lipase, serum or plasma 2023 024 [email or web address] [facility], [address] [place], [address], 10:29:17 bilirubin , total, blood 2023 024 [email or web address] [facility], [address] [place], [address], 4 10:29:17 albumin, serum or plasma 2023 024 [email or web address] [facility], [address] [place], [address], 4 10:29:17 AST/SGOT (aspartat e aminotran sferase), serum or plasma 2023 024 [email or web address] [facility], [address] [place], [address], 4 10:29:17 ALT (alanine aminotran sferase), serum or plasma 2023 024 [email or web address] [facility], [address] [place], [address], 4 10:29:17 hepatitis C liver status biomarker panel, serum 2023 024 [email or web address] [facility], [address] [place], [address], 4 10:29:16 hepatitis C virus RNA, quant, PCR, serum or plasma 2023 024 [place] [address] [facility], [address] [place], [address], 4 10:29:16 culture, aerobic + anaerobic 2023 024 [place] [address] [facility], [address] [place], [address], 4 10:29:17 HIV 1 + 2 RNA panel, MARITZA+probe , serum or plasma [address], [address] [place], [address], 4 10:29:16 HIV-1 RNA, quantitat genoveva, PCR, serum or plasma [address], [address] [place], [address], 4 10:29:16 RPR (rapid plasma reagin), serum [address], [address] [place], [address], 4 10:29:16 HBsAg (hepatiti s B surface Ag), EIA, serum 2023 024 [place] [address] [facility], [address] [place], [address], 4 10:29:16 hepatitis B surface Ab, qualitati ve, serum 2023 024 [place] [address] [facility], [address] [place], [address], 4 10:29:17 chlamydia + gonorrhea RNA, QL, unspecifi ed specimen 2023 024 [email or web address] [facility], [address] [place], [address], 4 10:29:17 CT + NG RNA, PCR, unspecifi ed specimen 2023 024 [email or web address] [facility], [address], [address], 4 10:29:17 H pylori urea breath test, co2 infrared 2023 024 [email or web address] Main Office, [address] [place] [address], [phone], 14:18:04 H pylori urea breath test, co2 infrared 2023 024 [email or web address] Main Office, [address] [place] [address], [address], 13:20:02 Referral None recorded. Procedures None recorded. Surgeries None recorded. Imaging None recorded. Medication Orders vitamin E 268 mg (400 unit) capsule 2023 024 [id number], [address] [place] [address], [address], 4 17:41:29 vitamin E 268 mg (400 unit) capsule [address] [facility][id number], [address] [place] [address], [address], 13:20:25 bupropion HCl SR 100 mg tablet,12 hr sustained -release [address] [facility][id number], [address] [place] [address], [address], 13:41:09 Patient TargetsNo targets recorded. Patient InstructionsNo instructions recorded. Reason for Referral None Reported. Results Created Date Observation Date Name Description Value Unit Range Abnormal Flag Note LastModifiedBy Organization Detail LastModifiedTime 01/02/20 24 01/02/2024 WOUND CULTU RE wound culture GRAM STAIN RESUL T NO POLYS , NO EPITH ELIAL CELLS , NO ORGAN ISMS NOTED Not Available [facility] [address] [place] [address], [address], 01/02/2024 21:15:51 01/02/20 24 01/02/2024 WOUND CULTU RE performing lab Perfor v[facility] cesar aguilar mem[facility] r of [address] [place] [address] Medic al Direc ele stuart MD Not Available [facility] [address] [place] [address], [address], 01/02/2024 21:15:51 01/02/20 24 01/02/2024 ANAER OBIC CULTU RE anaerobic culture GRAM STAIN RESUL T REFER TO AEROB IC CULTU RE FOR SMEAR RESUL TS Not Available [facility] [address] [place] [address], [address], 01/02/2024 21:15:52 01/02/20 24 01/02/2024 ANAER OBIC CULTU RE performing lab Perfor v[facility]ar aguilar mem[facility] r of [address] [place] [address] Medic al Direc ele stuart MD Not Available [facility] [address] [place] [address], [address], 01/02/2024 21:15:52 01/02/20 24 01/03/2024 CHLAM YDIA DNA SWAB chlamydia DNA swab NEGATI VE negati ve Not Available [facility] [address] [place] [address], [address], 01/03/2024 08:54:37 01/02/20 24 01/03/2024 GC DNA SWAB GC DNA swab NEGATI VE negati ve Not Available [facility] [address] [place] [address], [address], 01/03/2024 08:54:38 01/02/20 24 01/03/2024 GC DNA SWAB performing lab Perfor v[facility], [facility] [address] [place] [address] Medic al [facility] Not Available [facility] [address] [place] [address], [address], 01/03/2024 08:54:38 01/02/20 24 01/02/2024 FUNGU S CULTU RE: SKIN HAIR NAIL performing lab Perfor vance [facility], [facility] [address] [place] [address] Medic al Dire ele stuart MD Not Available [facility] [address] [place] [address], [address], 01/31/2024 15:21:38 01/02/20 24 01/31/2024 FUNGU S CULTU RE: SKIN HAIR NAIL fungus culture: skin hair nail Negati ve for Fungus after 4 weeks Not Available [facility] [address] [place] [address], [address], 01/31/2024 15:21:38 01/02/20 24 01/02/2024 HCV FIBRO SURE methodology: Commen t The marcela evelyn teste d are perfo rmed by Fibro Sure- Speci fic metho ds. Not inten ded for use with other diagn ostic consi derat ions. Not Available [facility] ([facility]) [address] [facility], [place], [address], 02/07/2024 12:06:22 01/02/20 24 01/02/2024 HCV FIBRO [...] (META VIR A0-A3 ). Not Available [facility] ([facility]) [address] [facility], [place], [address], 02/07/2024 12:06:22 01/02/20 24 01/02/2024 HCV FIBRO [...] F4 - Cirrh osis Not Available [facility] ([facility]) [address] [facility], [place], [address], 02/07/2024 12:06:22 01/02/20 24 01/02/2024 HCV FIBRO [...] Sever e activ ity Not Available [facility] ([facility]) [address] [facility], [place], [address], 02/07/2024 12:06:22 01/02/20 24 01/02/2024 HCV FIBRO [...] conta ct custo cornelia servi ce at [phone]. Not Available [facility] ([facility]) [address] [place], [address], 02/07/2024 12:06:22 01/02/20 24 01/04/2024 HCV FIBRO SURE fibrosis score 0.07 0.00-0 .21 Not Available [facility] ([facility]) [address] [place], [address], 02/07/2024 12:06:22 01/02/20 24 01/04/2024 HCV FIBRO SURE fibrosis stage Commen t F0 - No fibro sis Not Available [facility] ([facility]) [address] [place], [address], 02/07/2024 12:06:22 01/02/20 24 01/04/2024 HCV FIBRO SURE necroinflamm at activity score 0.53 0.00-0 .17 above high normal Not Available [facility] ([facility]) [address] [place], [address], 02/07/2024 12:06:22 01/02/20 24 01/04/2024 HCV FIBRO SURE necroinflamm at activity grade A2-Mod erate activi ty Not Available [facility] ([facility]) [address] [place], [address], 02/07/2024 12:06:22 01/02/20 24 01/04/2024 HCV FIBRO SURE alpha 2-macroglobu johnny, qn 102 mg/dL 110-27 6 below low normal Not Available [facility] ([facility]) [address] [place], [address], 02/07/2024 12:06:22 01/02/20 24 01/04/2024 HCV FIBRO SURE haptoglobin 203 mg/dL 17-317 Not Available [facility] ([facility]) [address] [place], [address], 02/07/2024 12:06:22 01/02/20 24 01/04/2024 HCV FIBRO SURE apolipoprote in A-1 136 mg/dL 101-17 8 Not Available [facility] ([facility]) [address] [place], [address], 02/07/2024 12:06:22 01/02/20 24 01/04/2024 HCV FIBRO SURE bilirubin, total 0.6 mg/dL 0.0-1. 2 Not Available [facility] ([facility]) [address] [place], [address], 02/07/2024 12:06:22 01/02/20 24 01/04/2024 HCV FIBRO SURE GGT 91 IU/L 0-65 above high normal Not Available [facility] ([facility]) [address] [place], [address], 02/07/2024 12:06:22 01/02/20 24 01/04/2024 HCV FIBRO SURE ALT (SGPT) p5p 112 IU/L 0-55 above high normal Not Available [facility] ([facility]) [address] [place], [address], 02/07/2024 12:06:22 01/02/20 24 01/04/2024 HCV FIBRO [...] in the liver . Not Available [facility] ([facility]) [address] [facility], [place], [address], 02/07/2024 12:06:22 01/02/20 24 01/02/2024 HCV RNA BY PCR, QN RFX JATIN test information: Commen t The quant itati ve range of this assay is 15 IU/mL to 100 regi on IU/mL . Not Available [facility] ([facility]) [address] [facility], [place], [address], 02/07/2024 12:06:22 01/02/20 24 01/04/2024 HCV RNA BY PCR, QN RFX JATIN hepatitis C quantitation HCV Not Detect ed IU/mL Not Available [facility] ([facility]) [address] [facility], [place], [address], 02/07/2024 12:06:22 01/02/20 24 01/04/2024 HCV RNA BY PCR, QN RFX JATIN HCV log10 COMMEN T log10 _IU/m L Unabl e to calcu late resul t since non-n umeri c resul t obtai yecenia for compo nent test. Not Available [facility] ([facility]) [address] [facility], [place], [address], 02/07/2024 12:06:22 01/02/20 24 01/04/2024 HCV RNA BY PCR, QN RFX JATIN HCV genotype COMMEN T Not indic ated Not Available [facility] ([facility]) [address] [facility], [place], [address], 02/07/2024 12:06:22 01/02/20 24 01/24/2024 CHLAM YDIA/ GC AMPLI FICAT ION chlamydia trachomatis, MARITZA COMMEN T [facility] was unabl e to colle ct suffi cient speci men to perfo rm the follo wing test( s), and is provi ding the patie nt with re-co llect ion instr uctio ns. Not Available [facility] ([facility]) [address] [facility], [place], [address], 02/07/2024 12:06:23 01/02/20 24 01/24/2024 CHLAM YDIA/ GC AMPLI FICAT ION neisseria gonorrhoeae, MARITZA TNP Test not perfo rmed Not Available [facility] (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) [address] [facility], [place], [address], 02/07/2024 12:06:23 01/02/20 24 01/04/2024 RNA, PCR(N ONGRA PH)RF X/GEN OPRI HIV-1 RNA by PCR <20 copie s/mL HIV-1 RNA not detec luis The repor table range for this assay is 20 to 10,00 0,000 copie s HIV-1 RNA/m L. Not Available [facility] ([facility]) [address] [facility], [place], [address], 02/07/2024 12:06:23 01/02/20 24 01/04/2024 RNA, PCR(N ONGRA PH)RF X/GEN OPRI log10 HIV-1 RNA COMMEN T log10 copy/ mL Unabl e to calcu late resul t since non-n umeri c resul t obtai yecenia for compo nent test. Not Available [facility] ([facility]) [address] [place], [address], 02/07/2024 12:06:23 01/02/20 24 01/04/2024 RNA, PCR(N ONGRA PH)RF X/GEN OPRI HIV genosure prime(R) COMMEN T Not indic ated Not Available [facility] ([facility]) [address] [facility], [place], [address], 02/07/2024 12:06:23 01/02/20 24 01/05/2024 HIV-1 /HIV- 2 QUALI TATIV E RNA HIV-1 RNA Non Reacti ve non reacti ve Not Available [facility] ([facility]) [address] [place], [address], 02/07/2024 12:06:24 01/02/20 24 01/05/2024 HIV-1 /HIV- 2 QUALI TATIV E RNA HIV-2 RNA Non Reacti ve non reacti ve Not Available [facility] ([facility]) [address] [facility], [place], [address], 02/07/2024 12:06:24 01/02/20 24 01/03/2024 RPR, RFX QN RPR/C ONFIR M TP RPR Non Reacti ve non reacti ve Not Available [facility] ([facility]) [address] [place], [address], 02/07/2024 12:06:24 01/02/20 24 01/04/2024 ALBUM IN albumin 4.7 g/dL 4.3-5. 2 Not Available [facility] ([facility]) [address] [place], [address], 02/07/2024 12:06:24 01/02/20 24 01/04/2024 BILIR UBIN, TOTAL bilirubin, total 0.5 mg/dL 0.0-1. 2 Not Available [facility] ([facility]) [address] [place], [address], 02/07/2024 12:06:25 01/02/20 24 01/04/2024 AST (SGOT ) AST (SGOT) 74 IU/L 0-40 above high normal Not Available [facility] ([facility]) [address] [place], [address], 02/07/2024 12:06:25 01/02/20 24 01/04/2024 ALT (SGPT ) ALT (SGPT) 95 IU/L 0-44 above high normal Not Available [facility] ([facility]) [address] [place], [address], 02/07/2024 12:06:26 01/02/20 24 01/04/2024 LIPAS E lipase 43 U/L 13-78 Not Available [facility] ([facility]) [address] [place], [address], 02/07/2024 12:06:26 01/02/20 24 01/25/2024 HBSAG SCREE N HBsAg screen COMMEN T [facility] was unabl e to colle ct suffi cient speci men to perfo rm the follo wing test( s), and is provi ding the patie nt with re-co llect ion instr uctio ns. Not Available [facility] ([facility]) [address] [place], [address], 02/07/2024 12:06:26 01/02/20 24 01/24/[address] PROBL EM request problem COMMEN T [facility] was unabl e to colle ct suffi cient speci men to perfo rm the follo wing test( s), and is provi ding the patie nt with re-co llect ion instr uctio ns. TEST: [id number] Chlam ydia/ GC Ampli ficat ion Not Available [facility] ([facility]) [address] [place], [address], 02/07/2024 12:06:27 01/02/20 24 01/25/[address] PROBL EM request problem COMMEN T [facility] was unabl e to colle ct suffi cient speci men to perfo rm the follo wing test( s), and is provi ding the patie nt with re-co llect ion instr uctio ns. TEST: [id number] HBsAg Scree n Not Available [facility] ([facility]) [address] [facility], [place], [address], 02/07/2024 12:06:27 01/25/20 24 01/26/2024 H PYLOR I BREAT H TEST H pylori breath test NEGATI VE negati ve Not Available [facility] [address] [place], [address], 01/26/2024 09:27:28 01/25/20 24 01/26/2024 H PYLOR I BREAT H TEST performing lab [facility], a [facility] [address] [facility] [place] [address] Medic al Direc ele stuart MD Not Available [facility] [address] [place], [address], 01/26/2024 09:27:28 01/21/20 24 11/20/2023 US, abdom en No observ ation record ed. [email or web address] Not Available 2023 12:08:41 Result Notes None recorded. Problems Name Problem SNOMED Code Status Onset Date Resolution Date Notes Provider Name and Address Organization Details Recorded Time Steatosis of liver 333224285 Active 2023 Traci Julian [facility] [address] [facility] [place], [address], [place] GIULIA JULIAN MD [facility] 09:47:56 Chronic hepatitis C 342583356 Active 2023 Traci Julian MD [address] [place] [place], [address], [place] GIULIA JULIAN MD [facility] 09:47:59 Exposure to sexually transmissib le disorder Active 2023 Traci Julian MD [address] [place] [address], [place], [address], GIULIA JULIAN MD [facility] 4 09:48:29 Alcohol abuse 74903654 Active 2023 Traci Julian MD [address] [place] [address], [place], [address], GIULIA JULIAN MD [facility] 4 09:49:23 Morbid obesity 036064101 Active 2023 Traci Julian MD [address] [place] [address], [place], [address], GIULIA JULIAN MD [facility] 4 09:49:26 History of pancreatiti s 0949758497706 7 Active 2023 Traci Julian MD [address] [place] [address], [place], [address], GIULIA JULIAN MD [facility] 4 09:49:44 Problem Notes None [...] Not available Not available Not available 10/03/20232014 78188 RxNorm Comme nt: adver se_ev ent_t ype: 07460 8002; ; Not Available [facility] 06:50:31 Medications [...] /min 12 /min 97.8 [degF] 44.1 kg/m2 492155. 19 g 130 mm[Hg] 80 mm[Hg] Allison JULIAN MD [facility] 12:52:48 Social History None recorded. Functional Status None recorded. Mental Status None recorded. Family History Nothing Reported Notes:Family history unknown , Response Property: Yes; Medical History No medical history recorded. Past Encounters Encounter ID Performer Location Encounter Start Date Encounter Closed Date Diagnosis/Indication Diagnosis SNOMED-CT Code Diagnosis ICD10 Code [id number] Traci Julian MD Main Office [address] [place] [phone] 01/02/2024 12:40:28 01/02/2024 13:18:34 Steatosis of liver 237523478 K76.0 Chronic hepatitis C 1283 93169 B18.2 Exposure t o sexually transmissible disorder 117271979 Z20.2 Alcohol abuse 97107911 F 10.10 Folliculitis 75492297 L7 3.9 Morbid obesity 115065892 E66.01 History of pancreatitis 9246709987 9107 Z87.19 [id number] Traci Julian MD Main Office [address] [place] [address] 01/16/2024 12:23:28 01/17/2024 09:21:35 Steatosis of liver 388008500 K76.0 Chronic hepatitis C 1283 30659 B18.2 Alcohol abuse 02057716 F 10.10 Morbid obesity 946959894 E66.01 Nonulcer dyspepsia 95112 07 K30 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.8 [id number] Traci Julian MD Main Office [address] [place] [address] 01/25/2024 13:41:00 01/25/2024 15:55:31 Steatosis of liver 278806467 K76.0 Chronic hepatitis C 1283 60784 B18.2 Alcohol abuse 33341942 F 10.10 Morbid obesity 252718949 E66.01 Nonulcer dyspepsia 32793 07 K30 Mixed anxi ety and depressive disorder 847159614 F41.8 Health Concerns Section Related Observation LastModified by Organization Detai ls LastModified Time None Recorded Concern Status LastModified by Organization Details LastModified Time None Recorded Advance Directives Directive None Recorded Payers Encounter Date Sequence Insurance Name Policy Number Policy Anand Covered Member ID Anand Member ID Guarantor Name 01/02/2024 1 [facility] Welcome Real-time [employer] (MEDICAID O) VALENTINA Granados Ariel Granados 01/16/[address] [facility] (MEDICAID HMO) VALENTINA Granados Ariel Granados 01/25/[address] [facility] (MEDICAID HMO) VALENTINA Granados Ariel [...] fever. no current n/v/d. Traci Julian MD [address] [place] [address], [phone], GIULIA JULIAN MD [facility] 01/08/2024 09:54:06 01/16/2024 text/html f/uhx fatty liver/overweight/ETOH use; hx chronic pancreatitis hospitalized multiple times.on adderal prescribed by another prescriber ADHD; he is now on qd.12/2023 HCV VL PCR nondetected; HIV negative; fibrosure F0; RPR NR; alb 4.7 alb 4.7; GC/chlamydia pending; lipase =43; HBV s ag pendingolder CT scans 02/2021 fatty liver; u/s 2020 fatty liveru/s abd 11/2023 [place]: Fatty liver.has never been treated for weight [...] food in his stools.methadone Traci Julian MD [address] [place] [address], [phone], GIULIA JULIAN MD [facility] 01/25/2024 15:17:23 01/25/2024 text/html f/uhx fatty liver/overweight/ETOH use; hx chronic pancreatitis hospitalized multiple times.on adderal prescribed by another prescriber ADHD; he is now on qd.12/2023 HCV VL PCR nondetected; HIV negative; fibrosure F0; RPR NR; alb 4.7 alb 4.7; GC/chlamydia pending; lipase =43; HBV s ag pendingolder CT scans 02/2021 fatty liver; u/s 2020 fatty liveru/s abd 11/2023 [place]: Fatty liver.has never been treated for weight [...] food in his stools.methadone Traci Julian MD [address] [place] [address], [phone], GIULIA - TRACI JULIAN MD [facility] 01/28/2024 13:20:29
[2024-08-13 14:58] LABS: HCV RNA PCR Qn <1.18 NOT DETECTED Log IU/mL (NOT DETECTED); HCV RNA PCR Qn <15 NOT DETECTED IU/mL (NOT DETECTED)
== END 2024-08-12 09:47 | disposition home or self-care (01) ==
LOC: HO.HMGCLDS 09:46
PROVIDERS: PCP Nurse Practitioner Family; Visit Provider Nurse Practitioner Family
DX: R76.8 Other specified abnormal immunological findings in serum (principal)
CPT/HCPCS: 36415; 87522

== ENCOUNTER 2024-12-09 12:29 | Outpatient (AMB) | payer OTHER, SELFPAY ==
--- NOTE | 2024-12-09 08:06 | MHC.OFFVIS ---
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 He was diagnosed with a type 2 diabetes in 2022. He had a glucose of 243 in July 2024 and was started on Lantus 10 units. Last A1c 6%. Over the past few months he has been running extremely elevated glucose readings using his glucometer. He had self increase Lantus to 30 units and was taking Humalog 10 units t.i.d. from a friend. Over the past 4 weeks he was not had any Humalog and his glucose has been running 200-400. Sugars central dermatology He has a history of chronic pancreatitis in his concerned that he may have pancreatic insufficiency. He has some chronic left upper sided abdominal pain and his stools have been off color (no blood). He would like to see a [employer]ora operations consultant Initially diagnosed with T2DM 2022 He has a history of polysubstance abuse on methadone. He denies current cocaine. He is using THC Was initially started on treatment with metformin Current regimen: metformin 500mg twice daily Lantus 30 units Humalog 10 units tid (ran out) Reports low sugars none Eye exam 2023 Has neuropathy, last foot exam today in the office does not see podiatry but would like referral as he has callus formation Has nephropathy, on chichi inhibitor. 07/16/24 Elevated microalbumin/creatinine ratio 37 microalbumin 28 eGFR>60 Has HLD, on statin. Last LDL 147 as measured on 07/2024. Denies CAD. Diet: attempts to balance No diabetes education. PFSH Surgical History H/O tooth extraction Family History Father Diabetes Alcoholic Substance use disorder Mother Hypertension Social History Household Members: Family Housing: Apartment Alcohol intake: former Patient Tobacco Use Status: Former Tobacco user e-Cigarette/Vaping Use: Currently Using Second Hand Smoke Exposure: No Current occupational status: unemployed Cognitive needs: No Hearing needs: No Vision needs: No Physical Exam Vital Signs: Last Vital Signs Pulse 109 H 12/09/24 12:31 BP 118/78 12/09/24 12:31 Pulse Ox 96 12/09/24 12:31 Oxygen Delivery Method Room Air 12/09/24 12:31 BMI result Body Mass Index 42.7 Absence of Cushingoid features. Absence of acromegalic features. Neck exam reveals nl size thyroid about 15 gms. No thyroid nodules palpable. No carotid bruits present. Lungs CTA. Heart S1 S2, Reg R/R. No M/R/ G. Skin exam reveals absence of vitiligo or acanthosis nigricans. Abdominal exam reveals Soft NT/ND with NA BS. No organomegaly present. Const Other: Absence of Cushingoid features. Absence of acromegalic features. Neck exam reveals nl size thyroid about 15 gms. No thyroid nodules palpable. Heart S1 S2, Reg R/R. No M/R G. Skin exam reveals absence of vitiligo or acanthosis nigricans. No edema Visual exam of foot performed. No ulcerations or open lesions. No inter digit maceration or fissuring. No onychomycosis, +callouses bilateral great toe Sensation intact to monofilament exam. Vibratory sensation is normal with 128 Hz tuning fork. Neck Other: . Extrem Other: Visual exam of foot performed. No ulcerations or open lesions. No onchomycosis, no callouses.Pulses 2 + distally Sensation intact to monofilament exam. Vibratory sensation sensed is intact with 128 Hz tuning fork Results AMB Hemoglobin A1c AMB Hemoglobin A1c 13.6 % Last Edit by RICKY Troy on 12/09/24 12:54 UR Ketone Dip UR Ketone Dip Negative Last Edit by RICKY Troy on 12/09/24 12:55 Results Reviewed Results Reviewed: Laboratory Last Values Glucose (Clinic) 437 mg/dL (60-115) H* 12/09/24 12:41 Assessment & Plan Assessment & Plan (1) Diabetes: Code(s): E11.9 - Type 2 diabetes mellitus without complications Category: Medical Qualifiers: Diabetes mellitus type: type 2 Diabetes mellitus longterm insulin use: without long term care pharmacist use Diabetes mellitus complication status: without complication Qualified Code(s): E11.9 - Type 2 diabetes mellitus without complications Plan: This is a 29-year-old male with a substance you abuse disorder on methadone with uncontrolled diabetes. This is most likely pancreatic diabetes as he has had multiple cases of pancreatitis. will check C-peptide rashid D and insulin antibodies Refer to GI for probable pancreatic insufficiency The patient is ketone negative with glucose above 400. I recommended that he be transported to the hospital via ambulance for IV hydration IV insulin and treatment. He declines this against medical advice and he is advised that leaving without treatment can lead to coma and and he is aware this is against medical advice. His mother is here with him and she will transport him immediately to [facility] to sweet pickled fruit maker insulin. New dosing Lantus 30 units Humalog t.i.d. with meals 80-150 8 units 151-200 10 units 201-250 12 units 250-300 14 units Over 316 units Continue metformin at current dose He needs an updated a glucometer and we will prescribe freestyle Laith 3+ with a reader as his phone is unable to work with the chidi If his glucose remains over 300 later this evening he will go to the emergency room The patient had an opportunity to ask questions regarding treatment plan. The patient expressed understanding and agreement with the above treatment plan. The patient is aware they should contact our office by phone for worsening glucose readings or for any low blood sugars which may warrant a change in diabetes medication. Compliance is encouraged with medications and any followup testing/consults which may have been ordered. Orders: Orders AMB Hemoglobin A1c Today E11.9 - Type 2 diabetes mellitus without complications, Z13.9 - Encounter for screening, unspecified AMB Ketone Urine Dipstick Today E11.9 - Type 2 diabetes mellitus without complications Medications: New insulin glargine (Lantus Solostar U-100 Insulin) 30 units (0.3 mL) subcut QPM 30 days 12 mL 4RF pen needle, diabetic As directed qid 150 ea 6RF E11.9 - Type 2 diabetes mellitus without complications blood sugar diagnostic (FreeStyle Lite Strips) As directed qid 150 ea 1RF E11.9 - Type 2 diabetes mellitus without complications insulin lispro (Humalog KwikPen (U-100) Insulin) before meals 80-150 8 units 151-200 10 units 201-250 12 units 250-300 14 units over 300 16 units subcutaneously 3 times a day; 30 days 18 mL 3RF MDD 54 units blood-glucose meter (FreeStyle Lite Meter kit) As directed 1 ea 0RF E11.9 - Type 2 diabetes mellitus without complications blood-glucose sensor (FreeStyle Laith 3 Plus Sensor device) As directed 2 ea 11RF E11.9 - Type 2 diabetes mellitus without complications FreeStyle Laith 3 [place] (blood-glucose,sewer pipe layer,cont) for use with glucose sensor 1 ea 0RF NS E11.9 - Type 2 diabetes mellitus without complications Refilled FreeStyle Lancets (lancets) 4 x a day testing 100 ea 3RF NS E11.9 - Type 2 diabetes mellitus without complications Discontinued Lantus Solostar U-100 Insulin (insulin glargine) Discontinued Reason: Duplicate 15 units (0.15 mL) subcut QPM 15 mL 1RF NS E11.9 - Type 2 diabetes mellitus without complications Coding Level of Care Code New Pt Level 4 (88275) Complex EM visit Add On G2211 Diagnoses Type 2 diabetes mellitus without complication, without long-term current use of insulin E11.9 Diabetes mellitus type: type 2 Diabetes mellitus long term care pharmacist insulin use: without longterm use Diabetes mellitus complication status: without complication Time Spent (min) 35 Comment Time spent reviewing labs/provider notes, face to face, chart doc
[2024-12-09 12:31] VITALS: BP 118/78; PULSE 109; O2SAT 96; BMI 42.7
[2024-12-09 12:45] LABS: Glucose, Whole Blood 437 mg/dL (60-115)
--- OUTSIDE RECORDS SUMMARY | 2024-12-09 14:24 | XMS_ITS | Referral Summary ---
Author Organization [facility] Address [address] [place] [address] Care Team Providers Care Padded Products Inspector Trimmer Name Role Phone Patient, Has No Pcp Or Ref Primary Care Provider Unavailable Allergies No known active allergies Social History Tobacco Use Types Packs/Day Years Used Date Smoking Tobacco: Never Smokeless Tobacco: Never Tobacco Cessation:Counseling Given: Not Answered Alcohol Use Standard Drinks/Week Comments Yes 0 (1 standard drink = 0.6 oz pur e alcohol) 30/beers Sex and Gender Information Value Date Recorded Sex Assigned at Not on file Legal Sex Male 9:41 PM EDT Gender Identity Not on file Sexual Orientation Not on file Last Filed Vital Signs Vital Sign Reading Time Taken Comments Blood Pressure 161/98 05/04/2023 5:12 AM EDT Pulse 65 05/04/2023 5:12 AM EDT Temperature 35.9 ??C (96.6 ??F) 05/04/2023 1:03 AM ED T Respiratory Rate 18 05/04/2023 5:12 AM EDT Oxygen Saturation 97% 05/04/2023 5:12 AM EDT Inhaled Oxygen Concentration - - Weight 149.7 kg (330 lb) 05/03/2023 9:59 PM EDT Height 180.3 cm (5' 11 ) 05/03/2023 9:59 PM EDT Body Mass Index 46.03 05/03/2023 9:59 PM EDT Plan of Treatment Not on file Insurance [facility] MEDICAID Care Teams Padded Products Inspector Trimmer Relationship Specialty Start Date End Date Patient, Has No Pcp Or Ref DO NOT EDIT THIS RECORD VIA PROVIDER ON THE FLY PCP - General Weight Loss Centre Manager 05/04/23
--- OUTSIDE RECORDS SUMMARY | 2024-12-09 14:24 | XMS_ITS | Clinical Summary ---
Author Organization [facility] Address [address] [place] [address] Care Team Providers Care Docent Coordinator Name Role Phone Patient, Has No Pcp [...] 05/03/2023 9:59 PM EDT Plan of Treatment Health Maintenance Due Date Last Done Comments HIV Screening 1994 Varicella Vaccines (1 of 2 - 13+ 2-dose series) 2007 Hepatitis B Vaccines (1 of 3 - 19+ 3-dose series) 2013 DTaP,Tdap,and Td Vaccines (1 - Tdap) 2016 COVID-19 Vaccine ( - 2024-2 5 season) 2024 Alcohol/Substance Use Screening 08/13/2024 Influenza Vaccine (Season Ended) 2025 RSV Vaccine (60+ years old a nd patients) (1 - 1-dose 75+ series) 2069 Pneumococcal Vaccine: Pediat rylee (0-5 Years) and At-Risk Patients (6-50 Years) Aged Out No longer eligible b ased on patient's age to complete this topic Insurance [employer] Care Teams Docent Coordinator Relationship Specialty Start Date End Date Patient, Has No Pcp Or Ref DO NOT EDIT THIS RECORD VIA PROVIDER ON THE FLY PCP - General Activities Therapist 05/04/23
== END 2024-12-09 13:14 | disposition home or self-care (01) ==
LOC: HO.ENCR 12:30
PROVIDERS: PCP Nurse Practitioner Family; Visit Provider Nurse Practitioner Adult Health
DX: Z13.9 Encounter for screening, unspecified (principal); E11.9 Type 2 diabetes mellitus without complications
CPT/HCPCS: 99204; G2211

== ENCOUNTER → 2024-12-09 12:29 | Outpatient (BNVA) | payer OTHER, SELFPAY | PROVIDERS: PCP Nurse Practitioner Family; Visit Provider Nurse Practitioner Adult Health | DX: E11.9 Type 2 diabetes mellitus without complications (principal); F11.20 Opioid dependence, uncomplicated; Z79.4 Long term (current) use of insulin | CPT/HCPCS: 81002; 82947; 83036; 99202 ==

== ENCOUNTER 2024-12-12 10:44 | Outpatient (AMB) | payer OTHER, SELFPAY ==
--- NOTE | 2024-12-12 04:18 | A.OFFVIS_ITS ---
Vital Signs 12/12/24 10:51 Height 5 ft 11 in Weight 306 lb 10.354 oz BMI 42.8 BP 124/60 Blood Pressure Location Rt brachial Position Sitting Pulse 80 Pulse Source Pulse Oximeter Pulse Oximetry (%) 95 Oxygen Delivery Method Room Air Intake Visit Reasons: T2DM/ PLEASE VERIFY PHONE # Intake Note: Patient present today for Type 2 Diabetes Mellitus Last Diabetic eye exam: 2023 Last Podiatry Visit: Doesn't have one Most Recent HgA1C: 13.6%, 12/09/2024 Random Glucose: 316 mg/dL, Today Magazine Hand Required: No Accompanied by: Self / Same As Patient Allergies No Known Allergies Allergy (Verified 12/09/24 12:37) HPI Comments Details: 29 YO male who is seen in f/u for Type 2 diabetes. He was seen as a new consult on 12/09/2024 with a glucose over 400. He declined referral to the ER//insulin in the office on that day. He had run out of Humalog insulin prior to the time he came in for consult. He was diagnosed with a type 2 diabetes in 2022. He had a glucose of 243 in July 2024 and was started on Lantus 10 units. Last A1c 6%. Over the past few months he has been running extremely elevated glucose readings using his glucometer. He had self increased Lantus to 30 units and was taking Humalog 10 units t.i.d. from a friend. Over the past 4 weeks he had not had any Humalog and his glucose has been running 200-400. At his office visit several days ago he was restarted on Humalog. He has a history of chronic pancreatitis in his concerned that he may have pancreatic insufficiency. He has some chronic left upper sided abdominal pain and his stools have been off color (no blood). He would like to see a land classifier. He was given a referral to GI from his PCP in October. New referral will be placed today. Initially diagnosed with T2DM 2023 He has a history of polysubstance abuse on methadone. He denies current cocaine. He is using THC. He was a heavy drinker in the past. He stopped all alcohol earlier in the year.He has elevated LFT's, hep C screen postive PCR negative Was initially started on treatment with metformin Freestyle lite meter and supplies sent today after one touch and accucheck were denied by insurance needs [employer] seg[employer]ia Current regimen: metformin 500mg twice daily Lantus 30 units Humalog 10 units tid has been taking about 40 per day sugars running high 200's Reports low sugars none Eye exam 2023 Has neuropathy, last foot exam today in the office does not see podiatry but would like referral as he has callus formation Has nephropathy, on chichi inhibitor. 07/16/24 Elevated microalbumin/creatinine ratio 37 microalbumin 28 eGFR>60 Has HLD, on statin. Last LDL 147 as measured on 07/2024. Denies CAD. Diet: attempts to balance No diabetes education. PFS Surgical History H/O tooth extraction Family History Father Diabetes Alcoholic Substance use disorder Mother Hypertension Social History Household Members: Family Housing: Apartment Alcohol intake: former Patient Tobacco Use Status: Former Tobacco user e-Cigarette/Vaping Use: Currently Using Second Hand Smoke Exposure: No Current occupational status: unemployed Cognitive needs: No Hearing needs: No Vision needs: No Physical Exam Vital Signs: Last Vital Signs Pulse 80 12/12/24 10:51 BP 124/60 12/12/24 10:51 Pulse Ox 95 12/12/24 10:51 Oxygen Delivery Method Room Air 12/12/24 10:51 BMI result Body Mass Index 42.8 Const Other: Absence of Cushingoid features. Absence of acromegalic features. Neck exam reveals nl size thyroid about 15 gms. No thyroid nodules palpable. Heart S1 S2, Reg R/R. No M/R G. Skin exam reveals absence of vitiligo or acanthosis nigricans. no edema Results Reviewed Results Reviewed: Laboratory Last Values Glucose (Clinic) 316 mg/dL (60-115) H 12/12/24 10:57 Assessment & Plan Assessment & Plan (1) Pancreatic insufficiency: Code(s): K86.89 - Other specified diseases of pancreas Plan: Rule out pancreatic insufficiency history of elevated liver function tests hep C screen positive PCR negative Refer to GI (2) Diabetes: Code(s): E11.9 - Type 2 diabetes mellitus without complications Category: Medical Qualifiers: Diabetes mellitus type: type 2 Diabetes mellitus termite exterminator insulin use: without termite exterminator use Diabetes mellitus complication status: without complication Qualified Code(s): E11.9 - Type 2 diabetes mellitus without complications Plan: Newly diagnosed type 2 diabetic. Readings have come from down high 300s maily 250's New dosing Lantus 38 units at bedtime Humalog 80-150 10 units 151-200 12 units 201-250 14 units 251-300 16 units Over 300 18 units If scale not working after 3 days increase all doses by 2 units with the exception of no increase 80-150 The patient had an opportunity to ask questions regarding treatment plan. The patient expressed understanding and agreement with the above treatment plan. The patient is aware they should contact our office by phone for worsening glucose readings or for any low blood sugars which may warrant a change in diabetes medication. Compliance is encouraged with medications and any followup testing/consults which may have been ordered. He will come back for training on freestyle Laith 3 I will see him back in 1-2 weeks to review glucose readings. Orders: Referrals Gastroenterology Referral K86.89 - Other specified diseases of pancreas, R76.8 - Other specified abnormal immunological findings in serum Medications: New FreeStyle Lite Meter (blood-glucose meter) As directed for use with freestyle lite strips 1 ea 0RF NS E11.9 - Type 2 diabetes mellitus without complications lancets (FreeStyle Lancets) 4 times a day prn sensor failure or to confirm glucose 100 ea 1RF FreeStyle Lite Strips (blood sugar diagnostic) As directed prn sensor failure, confirm glucose 100 ea 3RF NS E11.9 - Type 2 diabetes mellitus without complications Changed From insulin lispro (Humalog KwikPen (U-100) Insulin) before meals 80-150 8 units 151-200 10 units 201-250 12 units 250-300 14 units over 300 16 units subcutaneously 3 times a day; 30 days 18 mL 3RF MDD 54 units To insulin lispro (Humalog KwikPen (U-100) Insulin) before meals 80-150 10 units 151-200-12 units 201-250 14 units 251-300 16 units over 300 18 units subcutaneously 3 times a day; 30 days 18 mL 3RF MDD 60 units From insulin glargine (Lantus Solostar U-100 Insulin) 30 units (0.3 mL) subcut QPM 30 days 12 mL 4RF To insulin glargine (Lantus Solostar U-100 Insulin) 38 units (0.38 mL) subcut QPM 30 days 12 mL 4RF Refilled blood-glucose,chuck wagon driver,cont (FreeStyle Laith 3 [place]) As directed for use with fs laith sensors 1 ea 0RF E11.9 - Type 2 diabetes mellitus without c omplications Discontinued blood sugar diagnostic (Accu-Chek Guide test strips) Discontinued Reason: Insurance Denied As directed qid prn sensor failure or to confirm glucose on sensor 100 ea 3RF E11.9 - Type 2 diabetes mellitus without complications blood-glucose meter (Accu-Chek Guide Glucose Meter) Discontinued Reason: Insurance Denied As directed 1 ea 0RF E11.9 - Type 2 diabetes mellitus without complications lancets (Accu-Chek Softclix Lancets) Discontinued Reason: Insurance Denied As directed qid to confirm sensor glucose or sensor failure 100 ea 3RF Coding Level of Care Code Est Pt Level 4 (03587) Complex EM visit Add On G2211 Diagnoses Pancreatic insufficiency K86.89 Type 2 diabetes mellitus without complication, without long-term current use of insulin E11.9 Diabetes mellitus type: type 2 Diabetes mellitus chcf insulin use: without termite exterminator use Diabetes mellitus complication status: without complication Time Spent (min) 30 Comment Time spent reviewing labs/provider notes, face to face, chart doc
[2024-12-12 10:51] VITALS: BP 124/60; PULSE 80; O2SAT 95; BMI 42.8
[2024-12-12 11:02] LABS: Glucose, Whole Blood 316 mg/dL (60-115)
--- OUTSIDE RECORDS SUMMARY | 2024-12-12 11:54 | XMS_ITS | Clinical Summary ---
Author Organization [facility] Address [address] [place] [address] Care Team Providers Care Rn Care Manager Name Role Phone Patient, Has No Pcp [...] this topic Insurance [employer] Care Teams Rn Care Manager Relationship Specialty Start Date End Date Patient, Has No Pcp Or Ref DO NOT EDIT THIS RECORD VIA PROVIDER ON THE FLY PCP - General Plant Electrical Engineer 05/04/23
--- OUTSIDE RECORDS SUMMARY | 2024-12-12 11:54 | XMS_ITS | Referral Summary ---
Author Organization [facility] Address [address] [place] [address] Care Team Providers Care Drying Room Operator Name Role Phone Patient, Has No Pcp [...] Plan of Treatment Not on file Insurance [facility] MEDICAID Care Teams Drying Room Operator Relationship Specialty Start Date End Date Patient, Has No Pcp Or Ref DO NOT EDIT THIS RECORD VIA PROVIDER ON THE FLY PCP - General Personal Financial Representative 05/04/23
== END 2024-12-12 11:17 | disposition home or self-care (01) ==
LOC: HO.ENCR 10:47
PROVIDERS: PCP Nurse Practitioner Family; Visit Provider Nurse Practitioner Adult Health
DX: K86.89 Other specified diseases of pancreas (principal); E11.9 Type 2 diabetes mellitus without complications
CPT/HCPCS: 99214; G2211

== ENCOUNTER → 2024-12-12 10:44 | Outpatient (BNVA) | payer OTHER, SELFPAY | PROVIDERS: PCP Nurse Practitioner Family; Visit Provider Nurse Practitioner Adult Health | DX: K86.89 Other specified diseases of pancreas (principal); E11.9 Type 2 diabetes mellitus without complications; Z79.4 Long term (current) use of insulin; Z79.84 Long term (current) use of oral hypoglycemic drugs | CPT/HCPCS: 82947; 99212 ==

== ENCOUNTER 2024-12-19 14:33 | Outpatient (AMB) | payer OTHER, SELFPAY ==
--- NOTE | 2024-12-19 10:03 | A.OFFVIS_ITS ---
Vital Signs 12/19/24 14:36 Height 5 ft 11 in Weight 308 lb BMI 43.0 BP 130/78 Blood Pressure Location Rt brachial Position Sitting Pulse 89 Pulse Source Pulse Oximeter Pulse Oximetry (%) 99 Oxygen Delivery Method Room Air Intake Visit Reasons: T2DM Intake Note: Patient present today for Type 2 Diabetes Mellitus Last Diabetic eye exam: 2023 Last Podiatry Visit: Doesn't have one Most Recent HgA1C: 13.6%, 12/09/2024 Random Glucose: 202 mg/dL, Today Machine Adjuster Leader Case Trim Required: No Accompanied by: Self / Same As Patient Allergies No Known Allergies Allergy (Verified 12/09/24 12:37) HPI Comments Details: 29 YO male who is seen in f/u for Type 2 diabetes. He was seen as a new consult on 12/09/2024 with a glucose over 400. He was started on basal/bolus insulin and insulin dosing has been adjusted once since that time. He was diagnosed with a type 2 diabetes in 2022. He had a glucose of 243 in July 2024 and was started on Lantus 10 units . Last A1c 6%. Over the past few months he had been running extremely elevated glucose readings using his glucometer. He had self increased Lantus to 30 units and was taking Humalog 10 units t.i.d. from a friend. He has a history of chronic pancreatitis in his concerned that he may have pancreatic insufficiency. He has some chronic left upper sided abdominal pain and his stools have been off color (no blood). He would like to see a pile driver operator barge mounted. He was given a referral to GI from his PCP in October. New referral will be placed today. He is not complaining of abd pain today. Initially diagnosed with T2DM 2022 He has a history of polysubstance abuse on methadone. He denies current cocaine. He is using THC. He was a heavy drinker in the past. He stopped all alcohol earlier in the year.He has elevated LFT's, hep C screen postive PCR negative Was initially started on treatment with metformin Estephaniestyle lite meter and supplies sent today after one touch and accucheck were denied by insurance needs [employer] segovia Current regimen: metformin 500mg twice daily Lantus 38 units at bedtime Humalog 80-150 10 units 151-200 12 units 201-250 14 units 251-300 16 units Over 300 18 units sugars running high 200's Reports low sugars none DId not bring in device Eye exam 2023 Has neuropathy, last foot exam today in the office does not see podiatry but would like referral as he has callus formation Has nephropathy, on chichi inhibitor. 07/16/24 Elevated microalbumin/creatinine ratio 37 microalbumin 28 eGFR>60 Has HLD, on statin. Last LDL 147 as measured on 07/2024. Denies CAD. Diet: attempts to balance No diabetes education. [facility] Medical History (Updated 12/19/24 @ 15:31 by Isaac Dominguez, [facility]) Neuropathy Surgical History H/O tooth extraction Family History Father Diabetes Alcoholic Substance use disorder Mother Hypertension Social History Household Members: Family Housing: Apartment Alcohol intake: former Patient Tobacco Use Status: Former Tobacco user e-Cigarette/Vaping Use: Currently Using Second Hand Smoke Exposure: No Current occupational status: unemployed Cognitive needs: No Hearing needs: No Vision needs: No Physical Exam Vital Signs: Last Vital Signs Pulse 89 12/19/24 14:36 BP 130/78 12/19/24 14:36 Pulse Ox 99 12/19/24 14:36 Oxygen Delivery Method Room Air 12/19/24 14:36 BMI result Body Mass Index 43.0 Const Other: Absence of Cushingoid features. Absence of acromegalic features. Neck exam reveals nl size thyroid about 15 gms. No thyroid nodules palpable. Heart S1 S2, Reg R/R. No M/R G. Skin exam reveals absence of vitiligo or acanthosis nigricans. Foot exam deferred Results Reviewed Results Reviewed: Laboratory Last Values Glucose (Clinic) 202 mg/dL (60-115) H 12/19/24 14:41 Assessment & Plan Assessment & Plan (1) Newly diagnosed diabetes: Code(s): E11.9 - Type 2 diabetes mellitus without complications Category: Medical Plan: 29 year-old type 2 diabetic with chronic pancreatitis: Patient requests referral to GI provider to rule out pancreatic insufficiency. Insulin adjusted see med sheet The patient had an opportunity to ask questions regarding treatment plan. The patient expressed understanding and agreement with the above treatment plan. The patient is aware they should contact our office by phone for worsening glucose readings or for any low blood sugars which may warrant a change in diabetes medication. Compliance is encouraged with medications and any followup testing/consults which may have been ordered. Medications: Changed From FreeStyle Lite Strips As directed prn sensor failure, confirm glucose qid 100 ea 3RF NS E11.9 - Type 2 diabetes mellitus without complications To FreeStyle Lite Strips (blood sugar diagnostic) As directed prn sensor failure, confirm glucose 6 times per day 200 ea 3RF NS E11.9 - Type 2 diabetes mellitus without complications From FreeStyle Lite Strips As directed prn sensor failure, confirm glucose 100 ea 3RF NS E11.9 - Type 2 diabetes mellitus without complications To FreeStyle Lite Strips (blood sugar diagnostic) As directed prn sensor failure, confirm glucose qid 100 ea 3RF NS E11.9 - Type 2 diabetes mellitus without complications Coding Level of Care Code Est Pt Level 4 (47775) Complex EM visit Add On G2211 Diagnoses Newly diagnosed diabetes E11.9 Time Spent (min) 30 Comment Time spent reviewing labs/provider notes, face to face, chart doc
[2024-12-19 14:36] VITALS: BP 130/78; PULSE 89; O2SAT 99; BMI 43.0
[2024-12-19 14:49] LABS: Glucose, Whole Blood 202 mg/dL (60-115)
== END 2024-12-19 15:29 | disposition home or self-care (01) ==
LOC: HO.ENCR 14:33
PROVIDERS: PCP Nurse Practitioner Family; Visit Provider Nurse Practitioner Adult Health
DX: E11.9 Type 2 diabetes mellitus without complications (principal)
CPT/HCPCS: 99214; G2211

== ENCOUNTER → 2024-12-19 14:33 | Outpatient (BNVA) | payer OTHER, SELFPAY | PROVIDERS: PCP Nurse Practitioner Family; Visit Provider Nurse Practitioner Adult Health | DX: E11.9 Type 2 diabetes mellitus without complications (principal); Z79.84 Long term (current) use of oral hypoglycemic drugs; Z79.4 Long term (current) use of insulin | CPT/HCPCS: 82947; 99212 ==

== ENCOUNTER 2025-01-09 13:43 | Outpatient (AMB) | payer OTHER, SELFPAY ==
--- NOTE | 2025-01-09 07:57 | A.OFFVIS_ITS ---
Vital Signs 01/09/25 13:48 Height 5 ft 11 in Weight 308 lb 10.354 oz BMI 43.0 BP 162/98 H Blood Pressure Location Rt brachial Position Sitting Pulse 84 Pulse Source Pulse Oximeter Pulse Oximetry (%) 98 Oxygen Delivery Method Room Air Intake Visit Reasons: T2DM Allergies No Known Allergies Allergy (Verified 12/09/24 12:37) HPI Comments Details: 29 YO male who is seen in f/u for Type 2 diabetes. He was seen as a new consult on 12/09/2024 with a glucose over 400. He was started on basal/bolus insulin and insulin dosing has been adjusted several times since then. His last visit was on December 19. He was diagnosed with a type 2 diabetes in 2022. He had a glucose of 243 in July 2024 and was started on Lantus 10 units . Last A1c 6%. Over the past few months he had been running extremely elevated glucose readings using his glucometer. He had self increased Lantus to 30 units and was taking Humalog 10 units t.i.d. from a friend. He is requesting antibiotic for an infected finger. He has a history of chronic pancreatitis and is concerned that he may have pancreatic insufficiency. He has some chronic left upper sided abdominal pain and his stools have been off color (no blood). He would like to see a multi operation machine operator. He was given a referral to GI from his PCP in October. New referral was placed at a previous visit. He is not complaining of abd pain today. Prior ultrasound showed possible fatty liver. Initially diagnosed with T2DM 2022 He has a history of polysubstance abuse on methadone. He denies current cocaine. He is using THC. He was a heavy drinker in the past. He stopped all alcohol earlier in the year.He has elevated LFT's, hep C screen postive PCR negative Was initially started on treatment with metformin Estephaniestmegan lite meter and supplies sent today after one touch and accucheck were denied by insurance needs [employer] segovia Current regimen: metformin 500mg twice daily Lantus 28 units at bedtime Humalog 80-150 10 units 151-200 12 units 201-250 14 units 251-300 16 units Over 300 18 units first thing in am 200- same later in the day Reports low sugars none He did not bring in device Eye exam 2023 Has neuropathy, last foot exam today in the office does not see podiatry but would like referral as he has callus formation Has nephropathy, on chichi inhibitor. 07/16/24 Elevated microalbumin/creatinine ratio 37 microalbumin 28 eGFR>60 Has HLD, on statin. Last LDL 147 as measured on 07/2024. Denies CAD. Diet: attempts to balance No diabetes education. [facility] Medical History (Updated 12/19/24 @ 15:31 by Isaac Dominguez [facility]) Neuropathy Surgical History H/O tooth extraction Family History Father Diabetes Alcoholic Substance use disorder Mother Hypertension Social History Household Members: Family Housing: Apartment Alcohol intake: former Patient Tobacco Use Status: Former Tobacco user e-Cigarette/Vaping Use: Currently Using Second Hand Smoke Exposure: No Current occupational status: unemployed Cognitive needs: No Hearing needs: No Vision needs: No Physical Exam Vital Signs: Last Vital Signs Pulse 84 01/09/25 13:48 BP 162/98 H 01/09/25 13:48 Pulse Ox 98 01/09/25 13:48 Oxygen Delivery Method Room Air 01/09/25 13:48 BMI result Body Mass Index 43.0 Const Other: Absence of Cushingoid features. Absence of acromegalic features. Neck exam reveals nl size thyroid about 15 gms. No thyroid nodules palpable. Heart S1 S2, Reg R/R. No M/R G. Skin exam reveals absence of vitiligo or acanthosis nigricans. No edema. 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 New dosing Lantus 36 units Short-actin-100 10 units 100-150 14 units 151-200 18 units 201-250 22 units 250-300 24 units 300-350 26 units Over 51899 units The patient had an opportunity to ask questions regarding treatment plan. The patient expressed understanding and agreement with the above treatment plan. The patient is aware they should contact our office by phone for worsening glucose readings or for any low blood sugars which may warrant a change in diabetes medication. Compliance is encouraged with medications and any followup testing/consults which may have been ordered. Medications: New amoxicillin-pot clavulanate 500-125 mg (Augmentin) 1 tab PO BID 20 tabs 0RF 10 days Patient Instructions: Call if infection around nail bed is not resolved. The patient was counseled to achieve a target A1C of 7% (154 avg). Fasting blood sugars should be 90-130 in the morning and less than 180 two hours after meals. Reviewed the relationship between poor diabetic control and the development of complications. Check your feet daily looking for any signs of infection, drainage, redness, ulceration and seek medical attention if this occurs. Break in shoes gradually and do not wear open-toed shoes or walk stocking footed or barefooted. Coding Level of Care Code Est Pt Level 4 (10853) Complex EM visit Add On G2211 Diagnoses Type 2 diabetes mellitus without complication, without long-term current use of insulin E11.9 Diabetes mellitus type: type 2 Diabetes mellitus detention insulin use: without extermination supervisor use Diabetes mellitus complication status: without complication Time Spent (min) 30 Comment Time spent reviewing labs/provider notes, face to face, chart doc
[2025-01-09 13:48] VITALS: BP 162/98; PULSE 84; O2SAT 98; BMI 43.0
--- OUTSIDE RECORDS SUMMARY | 2025-01-09 13:53 | XMS_ITS | Referral Summary ---
Author Organization [facility] Address [address] [place] [address] Care Team Providers Care Building Principal Name Role Phone Patient, Has No Pcp [...] Plan of Treatment Not on file Insurance [facility] MEDICAID Care Teams Building Principal Relationship Specialty Start Date End Date Patient, Has No Pcp Or Ref DO NOT EDIT THIS RECORD VIA PROVIDER ON THE FLY PCP - General Medical Coding Auditor 05/04/23
[2025-01-09 14:01] LABS: Glucose, Whole Blood 303 mg/dL (60-115)
== END 2025-01-09 14:26 | disposition home or self-care (01) ==
LOC: HO.ENCR 13:43
PROVIDERS: PCP Nurse Practitioner Family; Visit Provider Nurse Practitioner Adult Health
DX: E11.9 Type 2 diabetes mellitus without complications (principal)
CPT/HCPCS: 99214; G2211

== ENCOUNTER → 2025-01-09 13:43 | Outpatient (BNVA) | payer OTHER, SELFPAY | PROVIDERS: PCP Nurse Practitioner Family; Visit Provider Nurse Practitioner Adult Health | DX: E11.9 Type 2 diabetes mellitus without complications (principal); Z79.4 Long term (current) use of insulin; Z79.84 Long term (current) use of oral hypoglycemic drugs | CPT/HCPCS: 82947; 99212 ==

== ENCOUNTER 2025-03-19 10:32 | Outpatient (AMB) | payer OTHER, SELFPAY ==
--- NOTE | 2025-03-19 10:35 | MHC.OFFVIS ---
Vital Signs 03/19/25 10:42 Height 5 ft 11 in Weight 333 lb 8.95 oz BMI 46.5 BP 110/74 Blood Pressure Location Rt brachial Position Sitting Pulse 108 H Pulse Source Pulse Oximeter Pulse Oximetry (%) 98 Oxygen Delivery Method Room Air Intake Visit Reasons: T2DM Intake Note: Patient present today to follow up on Type 2 Diabetes Mellitus. Patient receives Freestyle Laith 3 Plus supplies through: Pharmacy Last Diabetic Eye exam: Last year Last Podiatry Visit: Does not see a Supervisor Production Random Glucose: 138 mg/dl HgA1C: 8.0% 03/19/2025 Centrex Radio Operator Required: No Accompanied by: Self / Same As Patient Allergies No Known Allergies Allergy (Verified 03/19/25 10:43) Medication List - Last Reconciled 03/19/25 by Dann Dimas MD albuterol sulfate 90 mcg/actuation (ProAir HFA) 2 puffs inhalation Q6H PRN alcohol swabs (Alcohol Pads) 1 pad to test BS topically; amoxicillin-pot clavulanate 500-125 mg (Augmentin) 1 tab PO BID 10 days apixaban (Eliquis) 5 mg PO BID 90 days blood-glucose sensor (FreeStyle Laith 3 Plus Sensor device) As directed every 15 days blood-glucose,crystal machining coordinator,cont (FreeStyle Laith 3 Sturgeon) As directed for use with fs laith sensors clonidine HCl 0.1 mg PO BID 30 days dextroamphetamine-amphetamine 20 mg ER (Adderall XR) caps PO DAILY folic acid 1 mg PO DAILY FreeStyle Lite Meter (blood-glucose meter) As directed for use with freestyle lite strips NS FreeStyle Lite Strips (blood sugar diagnostic) As directed prn sensor failure, confirm glucose 3 times per day NS gabapentin 300 mg PO TID 30 days insulin glargine (Lantus Solostar U-100 Insulin) 36 units (0.36 mL) subcut QPM 30 days insulin lispro (Humalog KwikPen (U-100) Insulin) before meals 80-100 10 units 101-150-14 units 151-200 18 units 201-250 22 units 251-300 22 units 301-350 26 units over 350 28 units 30 days MDD 84 units lancets (FreeStyle Lancets) 4 times a day prn sensor failure or to confirm glucose lisinopril 10 mg PO DAILY metformin 500 mg PO BID methadone 135 mg PO DAILY pen needle, diabetic qid NS quetiapine mg PO rosuvastatin (Crestor) 5 mg PO BEDTIME 30 days [skin tac wipe every 15 days to improve adherance of sensor] thiamine HCl (vitamin B1) 100 mg PO DAILY 90 days HPI Comments Details: 30 YO male who is seen in f/u for Type 2 diabetes. He was last seen by Lucía Kennedy NP on 01/09/25 . He was started on basal/bolus insulin and insulin dosing has been adjusted several times since then. His last visit was on December 19. He was diagnosed with a type 2 diabetes in 2022. He had a glucose of 243 in July 2024 and was started on Lantus 10 units . Last A1c 6%. Over the past few months he had been running extremely elevated glucose readings using his glucometer. He had self increased Lantus to 30 units and was taking Humalog 10 units t.i.d. from a friend. He is requesting antibiotic for an infected finger. He has a history of chronic pancreatitis and is concerned that he may have pancreatic insufficiency. He has some chronic left upper sided abdominal pain and his stools have been off color (no blood). He would like to see a tie layer. He was given a referral to GI from his PCP in October. New referral was placed at a previous visit. He is not complaining of abd pain today. Prior ultrasound showed possible fatty liver. Initially diagnosed with T2DM 2022 He has a history of polysubstance abuse on methadone. He denies current cocaine. He is using THC. He was a heavy drinker in the past. He stopped all alcohol earlier in the year.He has elevated LFT's, hep C screen postive PCR negative Was initially started on treatment with metformin Freestyle lite meter and supplies sent today after one touch and accucheck were denied by insurance needs [employer] segovia Current regimen: metformin 500mg twice daily Lantus 36 units Short-actin-100 10 units 100-150 14 units 151-200 18 units 201-250 22 units 250-300 24 units 300-350 26 units Over 12778 units Unfortunately, patient did not bring in his sensor, glucometer or log book to follow up visit Reports low sugars none He did not bring in device Eye exam last eye exam last yr- needs to make appt Has neuropathy, last foot exam today in the office does not see podiatry but would like referral as he has callus formation Has nephropathy, on chichi inhibitor. 07/16/24 Elevated microalbumin/creatinine ratio 37 microalbumin 28 eGFR>60 Has HLD, on statin. Last LDL 147 as measured on 07/2024. Denies CAD. Diet: attempts to balance No diabetes education. COUNTS INCLUDE 234 BEDS AT THE [facility] Medical History (Updated 12/19/24 @ 15:[address] [facility]) Neuropathy Surgical History H/O tooth extraction Family History Father Diabetes Alcoholic Substance use disorder Mother Hypertension Social History Household Members: Family Housing: Apartment Alcohol intake: former Patient Tobacco Use Status: Former Tobacco user e-Cigarette/Vaping Use: Currently Using Second Hand Smoke Exposure: No Current occupational status: unemployed Cognitive needs: No Hearing needs: No Vision needs: No Physical Exam Vital Signs: Last Vital Signs Pulse 108 H 03/19/25 10:42 BP 110/74 03/19/25 10:42 Pulse Ox 98 03/19/25 10:42 Oxygen Delivery Method Room Air 03/19/25 10:42 BMI result Body Mass Index 46.5 Absence of Cushingoid features. Absence of acromegalic features. Neck exam reveals nl size thyroid about 15 gms. No thyroid nodules palpable. No carotid bruits present. Lungs CTA. Heart S1 S2, Reg R/R. No M/R/ G. Skin exam reveals absence of vitiligo or acanthosis nigricans. Abdominal exam reveals Soft NT/ND with NA BS. No organomegaly present. Neck Other: . Extrem Other: Visual exam of foot performed. No ulcerations or open lesions. No onchomycosis, no callouses.Pulses 2 + distally Sensation intact to monofilament exam. Vibratory sensation sensed is intact with 128 Hz tuning fork. There is mild edema around the ankles Results AMB Hemoglobin A1c AMB Hemoglobin A1c 8.0 % Last Edit by RICKY Contreras on 03/19/25 11:02 Results Reviewed Results Reviewed: Laboratory Last Values Glucose (Clinic) 138 mg/dL (60-115) H 03/19/25 10:48 Assessment & Plan Assessment & Plan (1) Diabetes: Code(s): E11.9 - Type 2 diabetes mellitus without complications Category: Medical Qualifiers: Diabetes mellitus complication status: without complication Diabetes mellitus manager terminal insulin use: without retirement use Diabetes mellitus type: type 2 Qualified Code(s): E11.9 - Type 2 diabetes mellitus without complications Plan: Is a 30-year-old white male with a history of pancreolytic diabetes due to multiple episodes of pancreatitis. He is currently being managed with metformin and basal-bolus insulin with glycemic control and known microvascular complications namely neuropathy and CKD. Plan is to reinitiate the sensor. Can not make any adjustments of the insulin regimen because of lack of data today. Went over with the patient the correlation between poor glycemic control and development and progression of complications. Can not initiate a G LP 1 because of history of chronic pancreatitis. We will have patient check repeat lipid profile. I will also check a testosterone considering the patient is on methadone and will do a 24 hour urine free cortisol and creatinine. Lastly, I suggest the patient talk to his primary care provider about getting a referral for sleep study Orders: Orders Lipid Panel Today E11.9 - Type 2 diabetes mellitus without complications AMB Hemoglobin A1c Today E11.9 - Type 2 diabetes mellitus without complications Testosterone, Free/Total Today E11.9 - Type 2 diabetes mellitus without complications Creatinine, 24 Hr Group Today E11.9 - Type 2 diabetes mellitus without complications Cortisol, Free 24Hr Urine Today E11.9 - Type 2 diabetes mellitus without complications Referrals Diabetes Education Referral E11.9 - Type 2 diabetes mellitus without complications Nutrition/Dietitian Referral E11.9 - Type 2 diabetes mellitus without complications Medications: Refilled blood-glucose,crystal machining coordinator,cont (FreeStyle Laith 3 Sturgeon) As directed for use with fs laith sensors 1 ea 0RF E11.9 - Type 2 diabetes mellitus without complications Coding Level of Care Code Est Pt Level 4 (53788) Diagnoses Type 2 diabetes mellitus without complication, without long-term current use of insulin E11.9 Diabetes mellitus complication status: without complication Diabetes mellitus retirement insulin use: without manager terminal use Diabetes mellitus type: type 2
[2025-03-19 10:42] VITALS: BP 110/74; PULSE 108; O2SAT 98; BMI 46.5
[2025-03-19 10:53] LABS: Glucose, Whole Blood 138 mg/dL (60-115)
--- OUTSIDE RECORDS SUMMARY | 2025-03-19 11:09 | XMS_ITS | Referral Summary ---
Author Organization [facility] Address [address] [place] [address] Care Team Providers Care Mica Plate Layer Name Role Phone Patient, Has No Pcp [...] 64 05/04/2023 5:12 AM EDT Temperature 35.9 C (96.6 F) 05/04/2023 1:03 AM EDT Respiratory Rate 18 05/04/2023 5:12 AM EDT Oxygen Saturation 97% 05/04/2023 5:12 AM EDT Inhaled Oxygen Concentration - - Weight 149.7 kg (330 lb) 05/03/2023 9:59 PM EDT Height 180.3 cm (5' 11 ) 05/03/2023 9:59 PM EDT Body Mass Index 46.03 05/03/2023 9:59 PM EDT Plan of Treatment Not on file Insurance [employer] MEDICAID Care Teams Mica Plate Layer Relationship Specialty Start Date End Date Patient, Has No Pcp Or Ref DO NOT EDIT THIS RECORD VIA PROVIDER ON THE FLY PCP - General Banking Consultant 05/04/23
== END 2025-03-19 11:25 | disposition home or self-care (01) ==
LOC: HO.ENCR 10:33
PROVIDERS: PCP Nurse Practitioner Family; Visit Provider Internal Medicine Endocrinology, Diabetes & Metabolism
DX: E11.9 Type 2 diabetes mellitus without complications (principal)
CPT/HCPCS: 99214

== ENCOUNTER → 2025-03-19 10:32 | Outpatient (BNVA) | payer OTHER, SELFPAY | PROVIDERS: PCP Nurse Practitioner Family; Visit Provider Internal Medicine Endocrinology, Diabetes & Metabolism | DX: E11.9 Type 2 diabetes mellitus without complications (principal) | CPT/HCPCS: 82947; 83036; 99212 ==

== ENCOUNTER 2025-04-07 14:47 | Outpatient (AMB) | payer OTHER, SELFPAY ==
--- NOTE | 2025-04-07 14:55 | MHC.OFFVIS ---
Vital Signs 04/07/25 14:57 Height 5 ft 11 in Weight 311 lb BMI 43.4 BP 126/64 Blood Pressure Location Lt brachial Position Sitting Pulse 87 Pulse Oximetry (%) 98 Oxygen Delivery Method Room Air Intake Visit Reasons: r/o pancreatic insufficiency elevated LFT's Intake Note: Patient new consult for r/o pancreatic insufficiency and elevated LFT's. Patient cc: bad text on her mouth, upper left abdominal pain, and some discomfort swallowing on and off. Denies any other GI issues. Asset Management Lead Required: No Accompanied by: Self / Same As Patient Allergies No Known Allergies Allergy (Verified 04/07/25 14:55) Medication List - Last Reconciled 04/07/25 by Alysha Christensen CNP albuterol sulfate 90 mcg/actuation (ProAir HFA) 2 puffs inhalation Q6H PRN alcohol swabs (Alcohol Pads) 1 pad to test BS topically; blood-glucose sensor (FreeStyle Laith 3 Plus Sensor device) As directed every 15 days blood-glucose,domestic laundry worker,cont (FreeStyle Laith 3 Jelm) As directed for use with fs laith sensors clonidine HCl 0.1 mg PO BID 30 days dextroamphetamine-amphetamine 20 mg ER (Adderall XR) caps PO DAILY folic acid 1 mg PO DAILY FreeStyle Lite Meter (blood-glucose meter) As directed for use with freestyle lite strips NS FreeStyle Lite Strips (blood sugar diagnostic) As directed prn sensor failure, confirm glucose 3 times per day NS gabapentin 300 mg PO TID 30 days insulin glargine (Lantus Solostar U-100 Insulin) 36 units (0.36 mL) subcut QPM 30 days insulin lispro (Humalog KwikPen (U-100) Insulin) before meals 80-100 10 units 101-150-14 units 151-200 18 units 201-250 22 units 251-300 22 units 301-350 26 units over 350 28 units 30 days MDD 84 units lancets (FreeStyle Lancets) 4 times a day prn sensor failure or to confirm glucose lisinopril 10 mg PO DAILY metformin 500 mg PO BID methadone 95 mg PO DAILY pen needle, diabetic qid NS polyethylene glycol 3350 (Miralax) 17 grams PO DAILY 30 days quetiapine mg PO [skin tac wipe every 15 days to improve adherance of sensor] thiamine HCl (vitamin B1) 100 mg PO DAILY 90 days HPI HPI r/o pancreatic insufficiency elevated LFT's: Details: Patient is a 30-year-old male with PMH of diabetes, substance and ETOH use d/o in remission, hx PE no longer on anticoagulation. Referred by PCP for further evaluation of LFTs. Ariel reports a long-standing history of alcohol misuse, drinking heavily for more than 10 years until complete cessation six months ago. He experienced pancreatitis twice and is concerned it may now be chronic due to persistent aching in the left upper quadrant. The aching has been intermittent, particularly aggravated after prolonged physical activity or standing, lasting for several hours. Initially a sharp pain post-alcohol cessation, it has since evolved into a dull ache described as alarming despite presumed healing. There is no nausea, vomiting, appetite changes, or difficulty swallowing. He denies any heartburn, blood in stools, or unexplained weight loss. He is actively trying to lose weight with dietary modifications such as meal replacements. He attributes his fatigue partially to recent methadone dose reduction for opioid dependence. Relevant systemic symptoms include long-standing fatigue. Past medical history is notable for diabetes and pulmonary embolism with prior anticoagulation therapy due to blood clots in the lungs. Patient denies: fever/chills, n/v, appetite changes, pyrosis, regurgitation,dysphasia, unintentional wt loss or melena/hematochezia. Social hx: Diet: Actively trying to lose weight, reports meal replacements for breakfast such as nutritional drinks. Denies significant intake of high-fat foods. Alcohol/Tobacco/Drug Use: History of heavy alcohol use (10+ years, up to a gallon/day; last drink six months ago). Prior opioid use (Percocet). Currently on methadone. Vapes daily with rare cigarette use (~once/month). No recreational drug including marijuana. Occupation: Works through a [employer] agency, has missed work recently due to fatigue. - family hx as below - denies personal hx of CA -tolerated anesthesia in the past without difficulty. [facility] Medical History (Updated 04/07/25 @ 16:35 by Alysha Christensen CNP) Neuropathy Surgical History H/O tooth extraction Family History Father Diabetes Alcoholic Substance use disorder Mother Hypertension Social History Household Members: Family Housing: Apartment Alcohol intake: former Patient Tobacco Use Status: Former Tobacco user e-Cigarette/Vaping Use: Currently Using Second Hand Smoke Exposure: No Current occupational status: unemployed Cognitive needs: No Hearing needs: No Vision needs: No Review of Systems Const Reports as per HPI ENT Reports as per HPI Card Reports as per HPI Resp Reports as per HPI GI Reports as per HPI Reports as per HPI Physical Exam Const General: healthy appearing, no acute distress and well developed Nutritional Appearance: obese Orientation/consciousness: patient oriented x3 HEENT Head: Yes normal to inspection, Yes normocephalic and Yes atraumatic Face and sinus: Yes normal facial exam Eyes General: appearance normal, both eyes and all related structures Neck Neck: Yes normal visual inspection Resp Effort & Inspection: normal respiratory effort, able to speak in complete sentences, no tracheal deviation and symmetric chest movement Cardio Jugular venous distension: no JVD GI Inspection: Yes normal to inspection, No distended and Yes obesity Palpation (GI): Soft to palpation, not firm, nontender and No Ascites present Auscultation: normal bowel sounds Neuro General: patient oriented x3 Gait exam (Neuro): Normal gait present Psych Appearance: grossly normal Mental Status: mental status grossly normal Speech and movement: Normal speech and movement present Affect: normal affect Attitude: cooperative Thought process: Normal thought process present Thought content: Normal thought content present Insight: Good insight present (Psych) Judgement: Good judgement present (Psych) Results Reviewed Results Reviewed: Laboratory Tests 07/16/24 03/19/25 10:10 11:02 Hgb A1c (Clinic) 8.0 H Total Bilirubin 0.8 AST 156 H ALT 209 H Alkaline Phosphatase 81 Total Protein 8.1 H Albumin 4.8 Triglycerides 202 H Cholesterol 222 H LDL Cholesterol, Calc 147 H HDL Cholesterol 35 L Amylase 25 L Lipase 20 TSH 2.19 Date of Service: 11/20/23 Procedure(s): US abdomen complete Accession Number(s): [id number] cc: Isaac Dominguez 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 COMPARISON: Ultrasound abdomen complete 02/22/2021. TECHNIQUE: Real-time imaging of the abdominal viscera. Technically limited study secondary to body habitus. FINDINGS: PANCREAS: Obscured by overlying bowel gas. ABDOMINAL AORTA: The proximal, mid, and distal segments are normal in caliber. INFERIOR VENA CAVA: Visualized portions are normal. LIVER: The liver is normal in size. The liver contour is normal. Diffuse increased echogenicity of the liver parenchyma. No focal hepatic lesion. There is no intrahepatic biliary duct dilatation seen. GALLBLADDER: Normal. The gallbladder is physiologically distended without evidence of stones, sludge, polyps, wall thickening or pericholecystic fluid. COMMON BILE DUCT: Normal in caliber measuring 0.8 cm in diameter. RIGHT KIDNEY: Normal. No hydronephrosis. No renal calculi or focal parenchymal lesions. The kidney measures 12.3 cm in maximum dimension. LEFT KIDNEY: Normal. No hydronephrosis. No renal calculi or focal parenchymal lesions. The kidney measures 13.6 cm in maximum dimension. SPLEEN: Normal. The spleen measures 11.3 cm in maximum dimension. FREE FLUID: None. US/US abdomen complete IMPRESSION: Diffuse increased echogenicity of the liver parenchyma. This is a nonspecific finding but most commonly on the basis of diffuse hepatocellular disease such as hepatic steatosis. Assessment & Plan Assessment & Plan (1) Elevated liver enzymes: Code(s): R74.8 - Abnormal levels of other serum enzymes Category: Medical Plan: Elevated enzymes, long history of high alcohol intake, concerns about cirrhosis. DDX: Fatty liver disease secondary to metabolic syndrome. Cannot exclude autoimmune etiology. Additional Testing: Repeat liver enzyme labs (fasting), check clotting, iron storage, autoimmune markers, and hepatitis immunity (A). Medication Management: -Need Hep B immunization. -Continue insulin as directed. Lifestyle Recommendations: Continue alcohol cessation, avoid fatty and fried foods, maintain balanced diet with fruits, vegetables, and minimal processed foods. Incorporate physical activity as tolerable. Follow-Up: Review labs and imaging (2) Left upper quadrant pain: Code(s): R10.12 - Left upper quadrant pain Category: Medical Plan: Pancreatic dysfunction suspected secondary to history of pancreatitis and diabetes. DDX:Pancreatic exocrine insufficiency, Additional injury from diabetes and/or alcohol use. History of pancreatitis, LUQ pain with possible overlap of regions, diabetes diagnosis. Additional Testing: Abdominal CT (with oral and IV contrast), stool testing for fat absorption, vitamin levels. Medication Management: Started taking MiraLAX daily for methadone-induced constipation. Rx sent, ir not covered OTC generic version sufficient. Lifestyle Recommendations: Maintain diabetes management and balanced diet to minimize pancreatic stress. Increase bowel regularity with stool softeners daily. Follow-Up: Evaluate imaging and stool studies for next steps, including advanced imaging. (3) Diabetes: Code(s): E11.9 - Type 2 diabetes mellitus without complications Category: Medical Qualifiers: Diabetes mellitus type: type 2 Diabetes mellitus senior living insulin use: with senior living use Diabetes mellitus complication status: with hyperglycemia Qualified Code(s): E11.65 - Type 2 diabetes mellitus with hyperglycemia; Z79.4 - skilled nursing (current) use of insulin Plan: Known DMII, risk for pancreatic insufficiency, ongoing management Additional Testing: Monitor A1c, fasting glucose as part of routine labs Medication Management: Continue metformin and insulin as prescribed Lifestyle: Reinforce DM diet, weight loss, regular activity F/U: Ongoing DM management in conjunction with GI workup Plan Follow-up in 3 months or sooner as needed Time: I spent a total of 45 minutes on the date of encounter which includes: Preparing to see the patient (reviewed previous documentation, test results and medical history) Performing a medically appropriate exam and/or evaluation Ordering medications, tests, and procedures Documenting clinical information in the health record Orders: Orders Complete Blood Count Auto Diff Today R74.8 - Abnormal levels of other serum enzymes Lipase Today R74.8 - Abnormal levels of other serum enzymes Fecal Fat Qualitative Today R74.8 - Abnormal levels of other serum enzymes Vitamin A Today R74.8 - Abnormal levels of other serum enzymes Vitamin D 1,25 dihydroxy Today R74.8 - Abnormal levels of other serum enzymes Vitamin E Today R74.8 - Abnormal levels of other serum enzymes Hepatitis A IgG Today R74.8 - Abnormal levels of other serum enzymes CT abdomen pelvis w IV con Today R10.12 - Left upper quadrant pain, R74.8 - Abnormal levels of other serum enzymes Prothrombin Time INR Today R74.8 - Abnormal levels of other serum enzymes TUCKER Reflex Titer and Pattern Today R74.8 - Abnormal levels of other serum enzymes Mitochondrial Antibody Today R74.8 - Abnormal levels of other serum enzymes Smooth Muscle Antibody Today R74.8 - Abnormal levels of other serum enzymes Ferritin Today R74.8 - Abnormal levels of other serum enzymes Vitamin K1 Today R74.8 - Abnormal levels of other serum enzymes Medications: New polyethylene glycol 3350 (Miralax) Take 17G (one cap full) daily with 8oz of water 17 grams PO DAILY 510 grams 2RF constipation 30 days Coding Level of Care Code New Pt New Pt Level 4 (89291) Patient Type New Diagnoses Elevated liver enzymes R74.8 Left upper quadrant pain R10.12 Type 2 diabetes mellitus with hyperglycemia, with long-term current use of insulin E11.65; Z79.4 Diabetes mellitus type: type 2 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
[2025-04-07 14:57] VITALS: BP 126/64; PULSE 87; O2SAT 98; BMI 43.4
--- OUTSIDE RECORDS SUMMARY | 2025-04-07 15:38 | XMS_ITS | Clinical Summary ---
Author Organization [facility] Address [address] [place] [address] Care Team Providers Care Public Health Specialist Name Role Phone Patient, Has No Pcp [...] - Tdap) 2016 COVID-19 Vaccine ( - 2023-2 5 season) 2024 Alcohol/Substance Use Screening 08/13/2024 Influenza Vaccine (#1) 2025 RSV Vaccine (60+ years old a nd patients) (1 - 1-dose 75+ series) 2069 Pneumococcal Vaccine: Pediat rylee (0-5 Years) and At-Risk Patients (6-50 Years) Aged Out No longer eligible b ased on patient's age to complete this topic Insurance [employer] Care Teams Public Health Specialist Relationship Specialty Start Date End Date Patient, Has No Pcp Or Ref DO NOT EDIT THIS RECORD VIA PROVIDER ON THE FLY PCP - General Vocational Rehabilitation Administrator 05/04/23
== END 2025-04-07 15:38 | disposition home or self-care (01) ==
LOC: HO.HGI 14:47
PROVIDERS: PCP Nurse Practitioner Family; Visit Provider Nurse Practitioner Family
DX: R74.8 Abnormal levels of other serum enzymes (principal); R10.12 Left upper quadrant pain; E11.65 Type 2 diabetes mellitus with hyperglycemia; Z79.4 Long term (current) use of insulin
CPT/HCPCS: 99204

== ENCOUNTER → 2025-04-07 14:47 | Outpatient (BNVA) | payer OTHER, SELFPAY | PROVIDERS: PCP Nurse Practitioner Family; Visit Provider Nurse Practitioner Family | DX: R74.8 Abnormal levels of other serum enzymes (principal); R10.12 Left upper quadrant pain; E11.65 Type 2 diabetes mellitus with hyperglycemia; Z79.4 Long term (current) use of insulin; F10.21 Alcohol dependence, in remission; F11.10 Opioid abuse, uncomplicated; R53.83 Other fatigue | CPT/HCPCS: 99202 ==

== ENCOUNTER 2025-04-16 17:12 | Emergency (ER) | payer OTHER, SELFPAY ==
[2025-04-16 17:51] VITALS: BP 156/77; PULSE 65; RESP 20; TEMP 37; O2SAT 99; BMI 41.1
--- NOTE | 2025-04-16 17:52 | ED.GENADULT ---
HPI - General Adult General Chief complaint: Animal Bite Stated complaint: mouse bite?? Time Seen by Provider: 04/16/25 21:00 Source: patient Mode of arrival: ambulatory Limitations: no limitations History of Present Illness ED Provider: Dr. Ivania Ravi HPI narrative: Patient comes to the emergency room complaining of a mass bite to the thumb of the right hand. Patient states that yesterday he was cleaning his house, cut a mouse and it bit him back. Patient states that he immediately washed his hands. Patient denies fever or chills. Patient denies any pus drainage. Patient has a 1 mm superficial puncture wound to the thumb. Patient states that he is not up-to-date with his tetanus shot to his knowledge Related Data Home Medications ?Medication ?Instructions ?Recorded ?Confirmed quetiapine 50 mg tablet mg PO 07/17/22 04/07/25 dextroamphetamine-amphetamine ER cap PO DAILY 10/24/23 04/07/25 20 mg 24hr capsule,extend release (Adderall XR) methadone 40 mg soluble tablet 95 mg PO DAILY 04/07/25 04/07/25 Previous Rx's ?Medication ?Instructions ?Recorded clonidine HCl 0.1 mg tablet 0.1 mg PO BID 30 days #60 tabs 06/15/21 alcohol swabs (Alcohol Pads) See Rx Instructions topical 05/01/22 .COMPLEX #100 ea albuterol sulfate 90 mcg/actuation 2 puff inhalation Q6H PRN 05/03/22 aerosol inhaler (ProAir HFA) shortness of breath or wheezing #8.5 grams metformin 500 mg tablet 500 mg PO BID #180 tabs 11/11/24 blood-glucose sensor (FreeStyle #2 ea 12/09/24 Laith 3 Plus Sensor device) FreeStyle Lite Meter #1 ea 12/12/24 (blood-glucose meter) lancets 28 gauge (FreeStyle #100 ea 12/12/24 Lancets) insulin glargine 100 unit/mL (3 36 unit (0.36 mL) subcut QPM 30 01/23/25 mL) subcutaneous pen (Lantus days #12 mL Solostar U-100 Insulin) pen needle, diabetic 31 gauge x #150 ea 02/03/2512/26 skin tac wipe #20 ea 02/03/25 insulin lispro 100 unit/mL See Rx Instructions subcut TID 30 02/25/25 subcutaneous pen (Humalog Kwik #25 mL (U-100) Insulin) FreeStyle Lite Strips (blood sugar #100 ea 03/17/25 diagnostic) blood-glucose,supervisor building maintenance,cont #1 ea 03/19/25 (FreeStyle Laith 3 Torrey) polyethylene glycol 3350 17 17 g PO DAILY constipation 30 days 04/07/25 gram/dose oral powder (Miralax) #510 grams folic acid 1 mg tablet 1 mg PO DAILY #90 tabs 04/08/25 lisinopril 10 mg tablet 10 mg PO DAILY #90 tabs 04/08/25 thiamine HCl (vitamin B1) 100 mg 100 mg PO DAILY 90 days #90 tabs 04/08/25 tablet gabapentin 300 mg capsule 300 mg PO TID 30 days #90 caps 04/09/25 Allergies Allergy/AdvReac Type Severity Reaction Status Date / Time No Known Allergies Allergy Verified 04/16/25 17:53 Review of Systems Review of Systems: Constitutional : No Weight loss, No Fever, No Chills, No Night Sweats, No Fatigue, No Malaise ENT/Mouth : No Hearing loss, No Ear Pain, No Nasal Congestion, No Sinus Pain, No Hoarseness, No sore throat, No Rhinorrhea, No Swallowing Difficulty Eyes: No Eye Pain, No Swelling, No Redness, No Foreign Body, No Discharge, No Vision Changes Cardiovascular : No Chest Pain, No SOB, No Dyspnea on Exertion, No Orthopnea, No Edema, No Palpitations Respiratory : No Cough, No Sputum, No Wheezing, No Smoke Exposure, No Dyspnea Gastrointestinal : No Nausea, No Vomiting, No Diarrhea, No Constipation, No abdominal Pain, No Hematochezia, No Melena Genitourinary : no irregular bleeding, No Dysuria, No Urinary Frequency, No Hematuria, No Urinary Incontinence, No Urgency, No Flank Pain, No Urinary Flow Changes, No Hesitancy Musculoskeletal : No joint pain, No Myalgias, No Joint Swelling Skin : Small puncture wound/miles bite to the right thumb Neuro : No Weakness, No Numbness, No Paresthesias, No Loss of Consciousness, No Dizziness, No Headache Psych : No Anxiety/Panic, No Depression, No SI/HI/AH/VH, No Social Issues, Heme/Lymph: No Bruising, No Bleeding,No Lymphadenopathy Endocrine : No Polyuria, No Polydipsia, No Temperature Intolerance [facility] Past Medical History Medical History Neuropathy Surgical History H/O tooth extraction Family History Family History Father Diabetes Alcoholic Substance use disorder Mother Hypertension Social History Social History Household Members: Family Housing: Apartment Alcohol intake: former Patient Tobacco Use Status: Former Tobacco user e-Cigarette/Vaping Use: Currently Using Second Hand Smoke Exposure: No Current occupational status: unemployed Cognitive needs: No Hearing needs: No Vision needs: No Physical Exam ED Exam Exam: Appearance: Alert. Oriented X3. No acute distress. Eyes: Pupils equal, round and reactive to light. ENT: Pharynx normal. Neck: Normal inspection. Neck supple. No lymph nodes noted. No crepitus CVS: Normal heart rate and rhythm. Pulses normal. Normal S1 and S2 Respiratory: No respiratory distress. Breath sounds normal. No Wheezing. No rales Abdomen: Soft and nontender. No rigidity. No distention. Skin: Skin warm and dry. Normal skin color. Normal skin turgor. At the edge of the right thumb on the palmar aspect, there is a 1 mm puncture wound/mouse bite, clean, no bleeding, no cellulitis Extremities: No lower extremity edema. No Lacerations. No Rash Neuro: Oriented X 3. No motor deficit. No sensory deficit. Moving all extremities. No slurred speech. CN 2 through 12 grossly intact Psych: calm, cooperative, normal affect Vital Signs: Vital Signs - 24 hr 04/16/25 17:51 Temperature 98.6 F Pulse Rate 65 Respiratory Rate 20 Blood Pressure 156/77 H Pulse Oximetry 99 Oxygen Delivery Method Room Air BMI result Body Mass Index 41.1 Course Course Course Narrative: This is a rapid medical exam performed by Dona Wan NP: Additional HPI, ROS, PE not included below will be deferred to primary provider. Patient is a 30-year-old right hand dominant male with history of DM, PE, HTN, opiate abuse presenting with mouse bite to right thumb. States was removing a mouse from a glue trap yesterday when it bit him. Tdap NOT UTD. Plan: Tdap ordered Medical Decision Making Medical Decision Making MDM Narrative: I discussed with the patient that my eyes usually do not carry rabies. At this time, rabies vaccines are not recommended. However, since patient is not sure when he got his last Tdap, we will go ahead and provide for him, patient agrees with plan. Discussed with the patient that it if he sees any signs of infection, he needs to return to emergency room Discharge Plan Discharge Clinical Impression: Bitten by mouse Patient Disposition: Home, Self-Care Instructions: Animal Bite (ED) Additional Instructions: Please follow-up with your primary care physician tomorrow. If you have any worsening or new symptoms, please return to the emergency room or call 911 Prescriptions: No Action clonidine HCl 0.1 mg tablet 0.1 mg PO BID 30 Days Qty: 60 0RF alcohol swabs [Alcohol Pads] Pads, Medicated See Rx Instructions topical .COMPLEX Qty: 100 0RF Rx Instructions: 1 pad to test BS topically; albuterol sulfate [ProAir HFA] 90 mcg/actuation HFA aerosol inhaler 2 puff inhalation Q6H PRN (Reason: shortness of breath or wheezing) Qty: 8.5 2RF metformin 500 mg tablet 500 mg PO BID Qty: 180 1RF (DME) skin tac wipe towelette See Rx Instructions .Route .MEDSUPPLY Qty: 20 4RF Rx Instructions: every 15 days to improve adherance of sensor (DME) pen needle, diabetic 31 gauge x 5/16 needle See Rx Instructions .Route Qty: 150 11RF Rx Instructions: qid insulin lispro [Humalog KwikPen Insulin] 100 unit/mL insulin pen See Rx Instructions subcut TID MDD 84 units 30 Days Qty: 25 3RF Rx Instructions: before meals 80-100 10 units 101-150-14 units 151-200 18 units 201-250 22 units 251-300 22 units 301-350 26 units over 350 28 units (DME) FreeStyle Lite Strips Strip See Rx Instructions .ROUTE .MEDSUPPLY Qty: 100 3RF Rx Instructions: As directed prn sensor failure, confirm glucose 3 times per day folic acid 1 mg tablet 1 mg PO DAILY Qty: 90 1RF lisinopril 10 mg tablet 10 mg PO DAILY Qty: 90 1RF thiamine HCl (vitamin B1) 100 mg tablet 100 mg PO DAILY 90 Days Qty: 90 1RF gabapentin 300 mg capsule 300 mg PO TID 30 Days Qty: 90 2RF dextroamphetamine-amphetamine [Adderall XR] 20 mg capsule,extended release 24hr PO DAILY quetiapine 50 mg tablet PO (DME) FreeStyle Laith 3 Plus Sensor Device See Rx Instructions .ROUTE .MEDSUPPLY Qty: 2 11RF Rx Instructions: As directed every 15 days (DME) blood-glucose meter [FreeStyle Lite Meter] Kit See Rx Instructions .ROUTE .MEDSUPPLY Qty: 1 0RF Rx Instructions: As directed for use with freestyle lite strips (DME) lancets [FreeStyle Lancets] 28 gauge misc See Rx Instructions .ROUTE .MEDSUPPLY Qty: 100 1RF Rx Instructions: 4 times a day prn sensor failure or to confirm glucose insulin glargine [Lantus Solostar U-100 Insulin] 100 unit/mL (3 mL) insulin pen 36 unit subcut QPM 30 Days Qty: 12 4RF polyethylene glycol 3350 [Miralax] 17 gram/dose powder 17 g PO DAILY 30 Days Qty: 510 2RF Rx Instructions: Take 17G (one cap full) daily with 8oz of water (DME) FreeStyle Laith 3 Torrey Misc See Rx Instructions .ROUTE .MEDSUPPLY Qty: 1 0RF Rx Instructions: As directed for use with fs laith sensors methadone 40 mg tablet,soluble 95 mg PO DAILY Print Language: Georgian
--- OUTSIDE RECORDS SUMMARY | 2025-04-16 21:10 | XMS_ITS | Clinical Summary ---
Author Organization [facility] Address [address] [place] [address] Care Team Providers Care Staff Psychiatrist Name Role Phone Ref, Has No Pcp Or Primary Care Provider Unavail able Allergies No known active allergies Social History [...] DTaP,Tdap,and Td Vaccines (1 - Tdap) 2016 Alcohol/Substance Use Screening 08/13/2024 COVID-19 Vaccine (1 - 2023-2 5 season) 2025 Influenza Vaccine (#1) 2025 RSV Vaccine (60+ years old a nd patients) (1 - 1-dose 75+ series) 2069 Pneumococcal Vaccine: Pediat rylee (0-5 Years) and At-Risk Patients (6-50 Years) Aged Out No longer eligible b ased on patient's age to complete this topic Insurance [employer] Care Teams Staff Psychiatrist Relationship Specialty Start Date End Date Ref, Has No Pcp Or DO NOT EDIT THIS RECORD VIA PROVIDER ON THE FLY PCP - General Invasive Cardiologist 05/04/23
[2025-04-16 21:19] VITALS: BP 127/80; PULSE 72; RESP 16; TEMP 36.4; O2SAT 97
[2025-04-16] MEDS: Diphth,Pertus(ACell),Tet Adult 0.5 ML SYRINGE IM (21:30)
[2025-04-16 21:34] VITALS: BP 127/80; PULSE 72; RESP 16; TEMP 36.4; O2SAT 97
== END 2025-04-16 21:31 | disposition home or self-care (01) ==
PROVIDERS: Emergency Provider Emergency Medicine; PCP Nurse Practitioner Family
DX: S61.451A Open bite of right hand, initial encounter (principal); W53.01XA Bitten by mouse, initial encounter; Y93.9 Activity, unspecified; Y92.9 Unspecified place or not applicable; Z23 Encounter for immunization; Y99.8 Other external cause status; Z87.891 Personal history of nicotine dependence
CPT/HCPCS: 90471; 90715; 99284

== ENCOUNTER 2025-06-16 10:05 | Outpatient (AMB) | payer OTHER, SELFPAY ==
--- NOTE | 2025-06-16 10:07 | MHC.OFFVIS ---
Vital Signs 06/16/25 10:09 Height 6 ft Weight 330 lb 14.621 oz BMI 44.9 BP 154/82 H Blood Pressure Location Lt brachial Pulse 59 Pulse Source Pulse Oximeter Pulse Oximetry (%) 98 Oxygen Delivery Method Room Air Intake Visit Reasons: f/u pancreolytic diabetes Intake Note: Patient present today to follow up on Type 2 Diabetes Mellitus.? Patient receives Freestyle Laith 3 Plus supplies through: Pharmacy Last Diabetic Eye exam: Last year Last Podiatry Visit: Does not see a Housecleaner Floor Random Glucose:?265 mg/dl HgA1C Patient is requesting blood work today. Chef Saucier Required: No Accompanied by: Self / Same As Patient Allergies No Known Allergies Allergy (Verified 06/16/25 10:13) Medication List - Last Reconciled 06/16/25 by Dann Dimas MD albuterol sulfate 90 mcg/actuation (ProAir HFA) 2 puffs inhalation Q6H PRN alcohol swabs (Alcohol Pads) 1 pad to test BS topically; blood-glucose sensor (FreeStyle Laith 3 Plus Sensor device) As directed every 15 days blood-glucose,electro mechanical solar technician,cont (FreeStyle Laith 3 [place]) As directed for use with fs laith sensors clonidine HCl 0.1 mg PO BID 30 days dextroamphetamine-amphetamine 20 mg ER (Adderall XR) caps PO DAILY folic acid 1 mg PO DAILY FreeStyle Lite Meter (blood-glucose meter) As directed for use with freestyle lite strips NS FreeStyle Lite Strips (blood sugar diagnostic) As directed prn sensor failure, confirm glucose 3 times per day NS gabapentin 300 mg PO TID 30 days insulin lispro (Humalog KwikPen (U-100) Insulin) before meals 80-100 10 units 101-150-14 units 151-200 18 units 201-250 22 units 251-300 24 units 301-350 26 units over 350 28 units 30 days MDD 84 units lancets (FreeStyle Lancets) 4 times a day prn sensor failure or to confirm glucose Lantus Solostar U-100 Insulin (insulin glargine) 36 units (0.36 mL) subcut QPM 30 days NS lisinopril 10 mg PO DAILY metformin 500 mg PO BID methadone 95 mg PO DAILY pen needle, diabetic qid NS polyethylene glycol 3350 (Miralax) 17 grams PO DAILY 30 days quetiapine mg PO [skin tac wipe every 15 days to improve adherance of sensor] thiamine HCl (vitamin B1) 100 mg PO DAILY 90 days HPI Comments Details: 30 YO male who is seen in f/u for Type 2 diabetes. He was diagnosed with a type 2 diabetes in 2022. He had a glucose of 243 in July 2024 and was started on Lantus 10 units . Last A1c 6%. Over the past few months he had been running extremely elevated glucose readings using his glucometer. He had self increased Lantus to 30 units and was taking Humalog 10 units t.i.d. from a friend. He has a history of chronic pancreatitis and is concerned that he may have pancreatic insufficiency. He has some chronic left upper sided abdominal pain and his stools have been off color (no blood). He would like to see a concept artist. He was given a referral to GI from his PCP in October. New referral was placed at a previous visit. He is not complaining of abd pain today. Prior ultrasound showed possible fatty liver. Initially diagnosed with T2DM 2022 He has a history of polysubstance abuse on methadone. He denies current cocaine. He is using THC. He was a heavy drinker in the past. He stopped all alcohol earlier in the year.He has elevated LFT's, hep C screen postive PCR negative Was initially started on treatment with metformin Freestyle lite meter and supplies sent today after one touch and accucheck were denied by insurance needs MEAGAN segovia Current regimen: metformin 500mg twice daily Lantus 36 units Short-actin-100 10 units 100-150 14 units 151-200 18 units 201-250 22 units 250-300 24 units 300-350 26 units Over 03650 units Unfortunately, patient did not bring in his sensor, glucometer or log book to follow up visit Reports low sugars none He did not bring in device No hypoglycemia Eye exam last eye exam last yr- needs to make appt Has neuropathy, last foot exam today in the office does not see podiatry but would like referral as he has callus formation Has nephropathy, on chichi inhibitor. 07/16/24 Elevated microalbumin/creatinine ratio 37 microalbumin 28 eGFR>60 Has HLD, on statin. Last LDL 147 as measured on 07/2024. Denies CAD. Diet: attempts to balance No diabetes education. PFSH Medical History Neuropathy Surgical History H/O tooth extraction Family History Father Diabetes Alcoholic Substance use disorder Mother Hypertension Social History Household Members: Family Housing: Apartment Alcohol intake: former Patient Tobacco Use Status: Former Tobacco user e-Cigarette/Vaping Use: Currently Using Second Hand Smoke Exposure: No Current occupational status: unemployed Cognitive needs: No Hearing needs: No Vision needs: No Physical Exam Vital Signs: Last Vital Signs Pulse 59 06/16/25 10:09 BP 154/82 H 06/16/25 10:09 Pulse Ox 98 06/16/25 10:09 Oxygen Delivery Method Room Air 06/16/25 10:09 BMI result Body Mass Index 44.9 Absence of Cushingoid features. Absence of acromegalic features. Neck exam reveals nl size thyroid about 15 gms. No thyroid nodules palpable. No carotid bruits present. Lungs CTA. Heart S1 S2, Reg R/R. No M/R/ G. Skin exam reveals absence of vitiligo or acanthosis nigricans. Abdominal exam reveals Soft NT/ND with NA BS. No organomegaly present. Neck Other: . Extrem Other: Visual exam of foot performed. No ulcerations or open lesions. No onchomycosis, no callouses.Pulses 2 + distally Sensation intact to monofilament exam. Vibratory sensation sensed is intact with 128 Hz tuning fork. There is mild edema around the ankles Results AMB Hemoglobin A1c AMB Hemoglobin A1c 7.2 % Last Edit by Leigh Good CMA on 06/16/25 11:21 Results Reviewed Results Reviewed: Laboratory Last Values Glucose (Clinic) 265 mg/dL (60-115) H 06/16/25 10:23 Hgb A1c (Clinic) 7.2 % (4.0-6.0) H 06/16/25 11:19 Assessment & Plan Assessment & Plan (1) Diabetes: Code(s): E11.9 - Type 2 diabetes mellitus without complications Category: Medical Qualifiers: Diabetes mellitus complication status: with hyperglycemia Diabetes mellitus half-way insulin use: with half-way use Diabetes mellitus type: type 2 Qualified Code(s): E11.65 - Type 2 diabetes mellitus with hyperglycemia; Z79.4 - manager environmental (current) use of insulin Plan: Is a 30-year-old white male with a history of pancreolytic diabetes due to multiple episodes of pancreatitis. He is currently being managed with metformin and basal-bolus insulin with glycemic control and known microvascular complications namely neuropathy and CKD. Plan is to reinitiate the sensor. Gave patient a sample Laith 3 reader. Can not make any adjustments of the insulin regimen because of lack of data today. Went over with the patient the correlation between poor glycemic control and development and progression of complications. Can not initiate a G LP 1 because of history of chronic pancreatitis. We will have patient check repeat lipid profile.Will check 24 hr UFC and AM testosterone fasting we will have patient follow up with the primary care diabetes team in 4 weeks Orders: Orders AMB Hemoglobin A1c Today E11.65 - Type 2 diabetes mellitus with hyperglycemia, Z79.4 - manager environmental (current) use of insulin Referrals Podiatry Referral E11.65 - Type 2 diabetes mellitus with hyperglycemia, Z79.4 - manager environmental (current) use of insulin Medications: Refilled blood-glucose sensor (FreeStyle Laith 3 Plus Sensor device) As directed every 15 days 2 ea 11RF Coding Level of Care Code Est Pt Level 4 (33810) Diagnoses Type 2 diabetes mellitus with hyperglycemia, with long-term current use of insulin E11.65; Z79.4 Diabetes mellitus complication status: with hyperglycemia Diabetes mellitus half-way insulin use: with half-way use Diabetes mellitus type: type 2
[2025-06-16 10:09] VITALS: BP 154/82; PULSE 59; O2SAT 98; BMI 44.9
[2025-06-16 10:28] LABS: Glucose, Whole Blood 265 mg/dL (60-115)
--- OUTSIDE RECORDS SUMMARY | 2025-06-16 11:43 | XMS_ITS | Clinical Summary ---
Author Organization [facility] Address [address] [place] [address] Care Team Providers Care Speech And Drama Teacher Name Role Phone Ref, Has No Pcp [...] 2016 Alcohol/Substance Use Screening 08/13/2024 COVID-19 Vaccine ( - 2024-2 6 season) 2025 Influenza Vaccine (#1) 2025 RSV Vaccine (60+ years old a nd patients) (1 - 1-dose 75+ series) 2069 Pneumococcal Vaccine: Pediat rylee (0-5 Years) and At-Risk Patients (6-50 Years) Aged Out No longer eligible b ased on patient's age to complete this topic Insurance [employer] Care Teams Speech And Drama Teacher Relationship Specialty Start Date End Date Ref, Has No Pcp Or DO NOT EDIT THIS RECORD VIA PROVIDER ON THE FLY PCP - General Mud Engineer 05/04/23
== END 2025-06-16 10:39 | disposition home or self-care (01) ==
LOC: HO.ENCR 10:05
PROVIDERS: PCP Nurse Practitioner Family; Visit Provider Internal Medicine Endocrinology, Diabetes & Metabolism
DX: E11.65 Type 2 diabetes mellitus with hyperglycemia (principal); Z79.4 Long term (current) use of insulin
CPT/HCPCS: 99214

== ENCOUNTER → 2025-06-16 10:05 | Outpatient (BNVA) | payer OTHER, SELFPAY | PROVIDERS: PCP Nurse Practitioner Family; Visit Provider Internal Medicine Endocrinology, Diabetes & Metabolism | DX: Z00.00 Encounter for general adult medical examination without abnormal findings (principal); E66.01 Morbid (severe) obesity due to excess calories; Z68.41 Body mass index [BMI] 40.0-44.9, adult; E11.65 Type 2 diabetes mellitus with hyperglycemia; Z79.4 Long term (current) use of insulin; Z13.31 Encounter for screening for depression; Z13.39 Encounter for screening examination for other mental health and behavioral disorders | CPT/HCPCS: 82947; 83036; 96127; 99212; 99395 ==

== ENCOUNTER 2025-06-16 14:20 | Outpatient (AMB) | payer OTHER, SELFPAY ==
--- NOTE | 2025-06-16 14:28 | A.OFFPC_ITS ---
Vital Signs 06/16/25 14:31 Height 6 ft Weight 332 lb BMI 45.0 BP 110/70 Blood Pressure Location Lt brachial Position Sitting Respiration 18 Pulse 72 Pulse Source Pulse Oximeter Temp 97.7 F Temp Source Oral Pulse Oximetry (%) 98 Oxygen Delivery Method Room Air Intake Visit Reasons: Annual PE Seat Joiner Chainstitch Required: No Accompanied by: Self / Same As Patient Allergies No Known Allergies Allergy (Verified 06/16/25 14:38) Medication List - Last Reconciled 06/16/25 by GIFTY CartwrightP- albuterol sulfate 90 mcg/actuation (ProAir HFA) 2 puffs inhalation Q6H PRN alcohol swabs (Alcohol Pads) 1 pad to test BS topically; amoxicillin-pot clavulanate 875-125 mg 1 tab PO BID 10 days blood-glucose sensor (FreeStyle Laith 3 Plus Sensor device) As directed every 15 days blood-glucose,resistance machine welder setter,cont (FreeStyle Laith 3 [place]) As directed for use with fs laith sensors clonidine HCl 0.2 mg PO BID 30 days dextroamphetamine-amphetamine 20 mg ER (Adderall XR) caps PO DAILY folic acid 1 mg PO DAILY FreeStyle Lite Meter (blood-glucose meter) As directed for use with freestyle lite strips NS FreeStyle Lite Strips (blood sugar diagnostic) As directed prn sensor failure, confirm glucose 3 times per day NS gabapentin 300 mg PO TID 30 days insulin lispro (Humalog KwikPen (U-100) Insulin) before meals 80-100 10 units 101-150-14 units 151-200 18 units 201-250 22 units 251-300 24 units 301-350 26 units over 350 28 units 30 days MDD 84 units lancets (FreeStyle Lancets) 4 times a day prn sensor failure or to confirm glucose Lantus Solostar U-100 Insulin (insulin glargine) 36 units (0.36 mL) subcut QPM 30 days NS lisinopril 10 mg PO DAILY metformin 500 mg PO BID pen needle, diabetic qid NS polyethylene glycol 3350 (Miralax) 17 grams PO DAILY 30 days quetiapine mg PO [skin tac wipe every 15 days to improve adherance of sensor] thiamine HCl (vitamin B1) 100 mg PO DAILY 90 days Tobacco use date assessed: 06/16/25 Dental Screening Dental Screen Date: 06/16/25 Did you have a dental visit in the last 12 months?: No Did you have a dental problem in the last 6 months where you did not have access to dental care?: No Was dental information given to patient?: Patient declined HPI Annual PE HPI Details History of Present Illness The patient is a 30-year-old male presenting for a physical exam. The patient has a history of morbid obesity and diabetes, for which he sees an bookseamer blindstitch. He has a history of pancreatitis. He also has a history of heavy alcohol use but has been abstinent for several months. The patient is followed by a electronic train control technician for his liver. Pt has a therapist and psychiatrist Health Maintenance - The patient is present for a physical exam. Social History - Substance Use: The patient has a histo ry of heavy alcohol consumption but reports he is no longer using and has been sober for months. Review of Systems Physical Exam General: Cooperative, healthy appearing, comfortable, no acute distress and well developed. Morbidly obese. Orientation: Patient oriented x3 Limitations: No limitations Head: Normal to inspection Ears: Hearing grossly normal bilaterally Nose: Normal external nose present Face and sinus: Normal facial exam, sinus pressure noted with palpation of frontal and maxillary sinuses Eyes: Appearance normal, both eyes and all related structures Neck: Normal visual inspection and Yes full ROM Respiratory: Normal respiratory effort and able to speak in complete sentences. Clear to auscultation bilaterally Cardiovascular: Regular rate and rhythm. Normal S1 and S2 GI: Normal to inspection. Soft to palpation and nontender. obese Skin: No rashes or lesions noted Neuro: Patient oriented x3 Extremities: Normal to inspection Results Plan Discussion Notes Patient Instructions [facility] Medical History Neuropathy Surgical History H/O tooth extraction Family History Father Diabetes Alcoholic Substance use disorder Mother Hypertension Social History Household Members: Family Housing: Apartment Alcohol intake: former Patient Tobacco Use Status: Former Tobacco user e-Cigarette/Vaping Use: Currently Using Second Hand Smoke Exposure: No Current occupational status: unemployed Cognitive needs: No Hearing needs: No Vision needs: No Questionnaire PHQ-9 Over the last 2 weeks, how often have you been bothered by any of the following problems? 1. Little interest or pleasure in doing things: not at all 2. Feeling down, depressed, or hopeless: several days 3. Trouble falling or staying asleep, or sleeping too much: several days 4. Feeling tired or having little energy: several days 5. Poor appetite or overeating: several days 6. Feeling bad about yourself - or that you are a failure or have let yourself or your family down: not at all 7. Trouble concentrating on things, such as reading the newspaper or watching television: not at all 8. Moving or speaking so slowly that other people could have noticed. Or the opposite - being so fidgety or restless that you have been moving around a lot more than usual: several days 9. Thoughts that you would be better off or of hurting yourself in some way: not at all Total score: 5 Depression Screening Interpretation: Negative Depression Screening Done: Yes 62122 - PHQ-9 Billing: Yes Source: Developed by Drs. Dann Ashley, Linda Macario, Nick Robert and colleagues, with an educational liz from [employer]. Thrive Questionnaire Date Thrive assessed: 02/01/22 I am a: Patient What is your living situation today?: I have a steady place to live Within the past 12 months, did the food you bought not last and you didn't have the money to get more?: I choose not to answer this question Within the past 12 months, did you worry whether your food would run out before you got money to buy more?: I choose not to answer this question Do you have trouble paying for medicines?: I choose not to answer this question Do you have trouble getting transportation to medical appointments?: I choose not to answer this question Do you have trouble paying your heating and electricity bill?: I choose not to answer this question Do you have trouble taking care of your child, family member or friend?: No Do you have trouble with day-to-day activities such as bathing, preparing meals, shopping, managing finances, etc.?: I choose not to answer this question Are you currently unemployed and looking for a job?: I choose not to answer this question Are you interested in more education?: Yes Please select the resources that you would like help with: Housing/Skilled Nursing, Food, Daily support and Job search/training Currently or been in a relationship where the following occur: No concerns reported THRIVE Score: 0 AUDIT C Alcohol Use Questionnaire (AUDIT-C) 1. How often do you have a drink containing alcohol?: Never Total Score: 0 Score Reviewed/Action Taken: No FABIOLA-7 AMB Questionnaire FABIOLA-7 Date FABIOLA - 7 assessed: 06/16/25 Feeling nervous, anxious, or on edge: 1 = Several days Not being able to stop or control worryin = Several days Worrying too much about different things: 1 = Several days Trouble relaxin = Several days Being so restless that it is hard to sit still: 1 = Several days Becoming easily annoyed or irritable: 1 = Several days Feeling afraid as if something awful might happen: 0 = Not at all Total FABIOLA-7 score (0-4 normal; 5-9 mild; 10-14 moderate; 15-21 severe): 6 Source: Developed by Drs. Dann Ashley, Linda Macario, Nick Robert and colleagues, with an educational liz from [employer]. FABIOLA-7 Assessment Billing FABIOLA-7 Assessment Tool: FABIOLA-7 Assessment 94488 Physical exam (Primary Care) Vital Signs: Last Vital Signs Temp 97.7 F 06/16/25 14:31 Pulse 72 06/16/25 14:31 Resp 18 06/16/25 14:31 BP 110/70 06/16/25 14:31 Pulse Ox 98 06/16/25 14:31 Oxygen Delivery Method Room Air 06/16/25 14:31 BMI result Body Mass Index 45.0 Tobacco/Smoking Status: Tobacco use Status Tobacco use date assessed 06/16/25 06/16/25 14:38 Patient Tobacco Use Status Former Tobacco user 06/16/25 14:29 e-Cigarette/Vaping Use Currently Using 06/16/25 14:29 PHQ-9: PHQ-9 Score PHQ-9: Total score 5 06/16/25 14:38 Depression Screening Interpretation: Negative Thrive Assessment: Date of Thrive Assessment Date Thrive assessed 02/01/22 06/16/25 14:29 Currently or been in a relationship where the following occur: No concerns reported Results AMB Hemoglobin A1c AMB Hemoglobin A1c 7.2 % Last Edit by Leigh Good CMA on 06/16/25 11:21 Coding Level of Care Code Est Pt Prev Care 18-39y(38986) Diagnoses Physical exam Z00.00 Additional Codes FABIOLA-7 Assessment Billing - FABIOLA-7 Assessment Tool: FABIOLA-7 Assessment 54072 ([id number]) PHQ-9 - 50404 - PHQ-9 Billing: Yes ([id number]) Assessment & Plan Assessment & Plan (1) Physical exam: Code(s): Z00.00 - Encounter for general adult medical examination without abnormal findings Category: Medical Plan . Orders: Orders Complete Blood Count Auto Diff Today Z00.00 - Encounter for general adult medical examination without abnormal findings TSH reflex Free T4 Today Z00.00 - Encounter for general adult medical examination without abnormal findings UA CC w/rflx Micro + Cult Today Z00.00 - Encounter for general adult medical examination without abnormal findings Lipid Panel Today Z00.00 - Encounter for general adult medical examination without abnormal findings Comprehensive [place]. Panel Fast Today Z00.00 - Encounter for general adult medical examination without abnormal findings Medications: New amoxicillin-pot clavulanate 875-125 mg 1 tab PO BID 20 tabs 0RF 10 days Changed From clonidine HCl 0.1 mg PO BID 30 days 60 tabs 0RF To clonidine HCl 0.2 mg PO BID 60 tabs 2RF 30 days
[2025-06-16 14:31] VITALS: BP 110/70; PULSE 72; RESP 18; TEMP 36.5; O2SAT 98; BMI 45.0
== END 2025-06-16 15:02 | disposition home or self-care (01) ==
LOC: HO.HMCC 14:21
PROVIDERS: PCP Nurse Practitioner Family; Visit Provider Nurse Practitioner Family
DX: Z00.00 Encounter for general adult medical examination without abnormal findings (principal)

== ENCOUNTER 2025-07-08 09:28 | Outpatient (REF) | payer OTHER, SELFPAY ==
--- OUTSIDE RECORDS SUMMARY | 2025-07-08 10:36 | XMS_ITS | Data Portability ---
Author Organization GIULIA RODRIGUEZ MD [facility], Main Office Address [address] [place] [phone] Assessment No assessment recorded. Plan of Treatment Reminders Order Date Submit Date Provider Last Modified By Organization Details Last Modified Time Details Appointments None recorded. Lab H pylori urea breath test, co2 infrared 2023 024 [email or web address] Main Office, [address] [place] [address], [phone], 4 13:20:02 H pylori urea breath test, co2 infrared 2023 024 [email or web address] Main Office, [address] [place] [address], [phone], 14:18:04 lipase, serum or plasma 2023 024 [email or web address] [facility] (Centralized Electronic Ordering - All Locations), Patient Can Go To The Location Of Their Choice, 10:29:17 bilirubin , total, blood 2023 024 [email or web address] [facility] (Centralized [facility] Ordering - All Locations), Patient Can Go To The Location Of Their Choice, 10:29:17 albumin, serum or plasma 2023 024 [email or web address] [facility] (Centralized Electronic Ordering - All Locations), Patient Can Go To The Location Of Their Choice, 10:29:17 AST/SGOT (aspartat e aminotran sferase), serum or plasma 05/22/ 2024 05/22/2 024 [email or web address] [facility] (Centralized Electronic Ordering - All Locations), Patient Can Go To The Location Of Their Choice, 10:29:17 ALT (alanine aminotran sferase), serum or plasma 2023 024 [email or web address] [facility] (Centralized [facility] Ordering - All Locations), Patient Can Go To The Location Of Their Choice, 10:29:17 hepatitis C liver status biomarker panel, serum 2023 024 [email or web address] [facility] (Centralized [facility] Ordering - All Locations), Patient Can Go To The Location Of Their Choice, 10:29:16 hepatitis C virus RNA, quant, PCR, serum or plasma 2023 024 [email or web address] [facility] (Centralized Electronic Ordering - All Locations), Patient Can Go To The Location Of Their Choice, 10:29:16 culture, aerobic + anaerobic 2023 024 [email or web address] [facility] (Centralized Electronic Ordering - All Locations), Patient Can Go To The Location Of Their Choice, 10:29:17 HIV 1 + 2 RNA panel, MARITZA+probe , serum or plasma 2023 024 [email or web address] [facility] (Centralized Electronic Ordering - All Locations), Patient Can Go To The Location Of Their Choice, 10:29:16 HIV-1 RNA, quantitat genoveva, PCR, serum or plasma 2023 024 [email or web address] [facility] (Centralized [facility] Ordering - All Locations), Patient Can Go To The Location Of Their Choice, 10:29:16 RPR (rapid plasma reagin), serum 2023 024 [email or web address] [facility] (Centralized Electronic Ordering - All Locations), Patient Can Go To The Location Of Their Choice, 10:29:16 HBsAg (hepatiti s B surface Ag), EIA, serum 2023 024 [email or web address] [facility] ([facility] Ordering - All Locations), Patient Can Go To The Location Of Their Choice, [id number] 4 10:29:16 hepatitis B surface Ab, qualitati ve, serum 2023 024 [email or web address] [facility] ([facility] Ordering - All Locations), Patient Can Go To The Location Of Their Choice, [id number] 4 10:29:17 chlamydia + gonorrhea RNA, QL, unspecifi ed specimen 2023 024 [email or web address] [facility] (Centralized Electronic Ordering - All Locations), Patient Can Go To The Location Of Their Choice, [id number] 4 10:29:17 CT + NG RNA, PCR, unspecifi ed specimen 2023 024 [email or web address] [facility] (Centralized [facility] Ordering - All Locations), Patient Can Go To The Location Of Their Choice, [id number] 4 10:29:17 Referral None recorded. Procedures None recorded. Surgeries None recorded. Imaging None recorded. Medication Orders vitamin E 268 mg (400 unit) capsule 2023 [facility]/Pharmacy #[id number], [address] [place] [address], [address], 13:20:25 bupropion HCl SR 100 mg tablet,12 hr sustained -release 2023 [id number] [address] [place] [address], [address], 13:41:09 vitamin E 268 mg (400 unit) capsule 2023 [email or web address] [facility]/Pharmacy #[id number], [address] [place] [address], [address], 17:41:29 Patient TargetsNo targets recorded. Patient InstructionsNo instructions recorded. Reason for Referral None Reported. Results Created Date Observation Date Name Description Value Unit Range Abnormal Flag Note LastModifiedBy Organization Detail LastModifiedTime 01/02/20 24 01/02/2024 WOUND CULTU RE wound culture GRAM STAIN RESUL T NO POLYS , NO EPITH ELIAL CELLS , NO ORGAN ISMS NOTED Not Available [facility] [address] [place] [address], [address], 01/02/2024 21:15:51 01/02/20 24 01/02/2024 WOUND CULTU RE performing lab Perfor vance Lab [facility] maxim zhou, a [facility] [address] [place] [address] Medic al Dire ele stuart MD Not Available [facility] [address] [place] [address], [address], 01/02/2024 21:15:51 01/02/20 24 01/02/2024 ANAER OBIC CULTU RE anaerobic culture GRAM STAIN RESUL T REFER TO AEROB IC CULTU RE FOR SMEAR RESUL TS Not Available [facility] [address] [place] [address], [address], 01/02/2024 21:15:52 01/02/20 24 01/02/2024 ANAER OBIC CULTU RE performing lab Perfor vance Lab [facility] atorlorin zhou, a [facility] [address] [place] [address] Medic al Dire ele stuart MD Not Available [facility] [address] [place] [address], [address], 01/02/2024 21:15:52 01/02/20 24 01/03/2024 CHLAM YDIA DNA SWAB chlamydia DNA swab NEGATI VE negati ve Not Available [facility] [address] [place] [address], [address], 01/03/2024 08:54:37 01/02/20 24 01/03/2024 GC DNA SWAB GC DNA swab NEGATI VE negati ve Not Available [facility] [address] [place] [address], [address], 01/03/2024 08:54:38 01/02/20 24 01/03/2024 GC DNA SWAB performing lab Perfor vance Lab [facility] atori abelardo, a [facility] [address] [place] [address] Medic al [facility] ele stuart MD Not Available [facility] [address] [place] [address], [address], 01/03/2024 08:54:38 01/02/20 24 01/02/2024 FUNGU S CULTU RE: SKIN HAIR NAIL performing lab Perfor vance Lab [facility] atori es, a membe r of [facility] [address] [facility]. [place], [place] [address] Medic al Dire ele stuart MD Not Available [facility] [address] [place] [address], [address], 01/31/2024 15:21:38 01/02/20 24 01/31/2024 FUNGU S CULTU RE: SKIN HAIR NAIL fungus culture: skin hair nail Negati ve for Fungus after 4 weeks Not Available [facility] [address] [place] [address], [address], 01/31/2024 15:21:38 01/02/20 24 01/02/2024 HCV FIBRO SURE methodology: Commen t The marcela evelyn teste d are perfo rmed by Fibro Sure- Speci fic metho ds. Not inten ded for use with other diagn ostic consi derat ions. Not Available [facility] ([facility]) [address] [place], [address], 02/07/2024 12:06:22 01/02/20 24 01/02/2024 HCV FIBRO [...] ity (META VIR A0-A3 ). Not Available [facility] ([facility]) [address] [place], [address], 02/07/2024 12:06:22 01/02/20 24 01/02/2024 HCV FIBRO [...] F4 - Cirrh osis Not Available [facility] ([facility]) [address] [facility], [place], [address], 02/07/2024 12:06:22 01/02/20 24 01/02/2024 HCV FIBRO [...] Sever e activ ity Not Available [facility] ([facility]) [address] [facility], [place], [address], 02/07/2024 12:06:22 01/02/20 24 01/02/2024 HCV FIBRO SURE comment: Commen t This test was devel oped and its perfo rmanc e jeromy cteri stics deter mined by [employer]. It has not been clear ed or appro jamie by the Food and Drug Admin istra tion. The FDA has deter mined that such clear ance or appro eliezer is not neces durga. For quest ions regar ding this repor t pleas e conta ct custo cornelia servi ce at [phone]. Not Available [facility] ([facility]) [address] [facility], [place], [address], 02/07/2024 12:06:22 01/02/20 24 01/04/2024 HCV FIBRO SURE fibrosis score 0.07 0.00-0 .21 Not Available [facility] ([facility]) [address] [place], [address], 02/07/2024 12:06:22 01/02/20 24 01/04/2024 HCV FIBRO SURE fibrosis stage Commen t F0 - No fibro sis Not Available [facility] ([facility]) [address] [place], [address], 02/07/2024 12:06:22 01/02/20 24 01/04/2024 HCV FIBRO SURE necroinflamm at activity score 0.53 0.00-0 .17 above high normal Not Available [facility] ([facility]) [address] [place], [address], 02/07/2024 12:06:22 01/02/20 24 01/04/2024 HCV FIBRO SURE necroinflamm at activity grade A2-Mod erate activi ty Not Available [facility] ([facility]) [address] [place], [address], 02/07/2024 12:06:22 01/02/20 24 01/04/2024 HCV FIBRO SURE alpha 2-macroglobu johnny, qn 102 mg/dL 110-27 6 below low normal Not Available [facility] ([facility]) [address] [place], [address], 02/07/2024 12:06:22 01/02/20 24 01/04/2024 HCV FIBRO SURE haptoglobin 203 mg/dL 17-317 Not Available [facility] ([facility]) [address] [place], [address], 02/07/2024 12:06:22 01/02/20 24 01/04/2024 HCV FIBRO SURE apolipoprote in A-1 136 mg/dL 101-17 8 Not Available [facility] ([facility]) [address] [place], [address], 02/07/2024 12:06:22 01/02/20 24 01/04/2024 HCV FIBRO SURE bilirubin, total 0.6 mg/dL 0.0-1. 2 Not Available [facility] ([facility]) [address] [place], [address], 02/07/2024 12:06:22 01/02/20 24 01/04/2024 HCV FIBRO SURE GGT 91 IU/L 0-65 above high normal Not Available [facility] ([facility]) [address] [place], [address], 02/07/2024 12:06:22 01/02/20 24 01/04/2024 HCV FIBRO SURE ALT (SGPT) p5p 112 IU/L 0-55 above high normal Not Available [facility] ([facility]) [address] [facility], [place], [address], 02/07/2024 12:06:22 01/02/20 24 01/04/2024 HCV FIBRO SURE limitations: Commen t The negat genoveva predi ctive value of a Fibro test score <0.31 (abse nce of clini mariia signi fican t fibro sis) was 85% when hugh red to liver biops y in 1,270 HCV [facility]fec [facility] with a 38% preva lence of signi fican t liver fibro sis (F2, 3 or 4). The posit genoveva predi ctive value of a Fibro - test score >0.48 (F2, 3, 4) was 61% in that same patie nt cruz t. HCV Fibro SURE is not recom [...] in the liver . Not Available [facility] ([facility]) [address] [facility], [place], [address], 02/07/2024 12:06:22 01/02/20 24 01/02/2024 HCV RNA BY PCR, QN RFX JATIN test information: Commen t The quant itati ve range of this assay is 15 IU/mL to 100 regi on IU/mL . Not Available [facility] ([facility]) [address] [facility], [place], [address], 02/07/2024 12:06:22 01/02/20 24 01/04/2024 HCV RNA BY PCR, QN RFX JATIN hepatitis C quantitation HCV Not Detect ed IU/mL Not Available [facility] ([facility]) [address] [facility], [place], [address], 02/07/2024 12:06:22 01/02/20 24 01/04/2024 HCV RNA BY PCR, QN RFX JATIN HCV log10 COMMEN T log10 _IU/m L Unabl e to calcu late resul t since non-n umeri c resul t obtai yecenia for compo nent test. Not Available [facility] ([facility]) [address] [facility], [place], [address], 02/07/2024 12:06:22 01/02/20 24 01/04/2024 HCV RNA BY PCR, QN RFX JATIN HCV genotype COMMEN T Not indic ated Not Available [facility] ([facility]) [address] [place], [address], 02/07/2024 12:06:22 01/02/20 24 01/24/2024 CHLAM YDIA/ GC AMPLI FICAT ION chlamydia trachomatis, MARITZA COMMEN T [facility] was unabl e to colle ct suffi cient speci men to perfo rm the follo wing test( s), and is provi ding the patie nt with re-co llect ion instr uctio ns. 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 Not Available [facility] ([facility]) [address] [facility], [place], [address], 02/07/2024 12:06:23 01/02/20 24 01/04/2024 RNA, PCR(N ONGRA PH)RF X/GEN OPRI log10 HIV-1 RNA COMMEN T log10 copy/ mL Unabl e to calcu late resul t since non-n umeri c resul t obtai yecenia for compo nent test. Not Available [facility] ([facility]) [address] [facility], [place], [address], 02/07/2024 12:06:23 01/02/20 24 01/04/2024 RNA, PCR(N ONGRA PH)RF X/GEN OPRI HIV genosure prime(R) COMMEN T Not indic ated Not Available [facility] ([facility]) [address] [place], [address], 02/07/2024 12:06:23 01/02/20 24 01/05/2024 HIV-1 /HIV- 2 QUALI TATIV E RNA HIV-1 RNA Non Reacti ve non reacti ve Not Available [facility] ([facility]) [address] [place], [address], 02/07/2024 12:06:24 01/02/20 24 01/05/2024 HIV-1 /HIV- 2 QUALI TATIV E RNA HIV-2 RNA Non Reacti ve non reacti ve Not Available [facility] ([facility]) [address] [place], [address], 02/07/2024 12:06:24 01/02/20 24 01/03/2024 RPR, RFX QN RPR/C ONFIR M TP RPR Non Reacti ve non reacti ve Not Available [facility] ([facility]) [address] [place], [address], 02/07/2024 12:06:24 01/02/20 24 01/04/2024 ALBUM IN albumin 4.7 g/dL 4.3-5. 2 Not Available [facility] ([facility]) [address] [place], [address], 02/07/2024 12:06:24 01/02/20 24 01/04/2024 BILIR UBIN, TOTAL bilirubin, total 0.5 mg/dL 0.0-1. 2 Not Available [facility] ([facility]) [address] [place], [address], 02/07/2024 12:06:25 01/02/20 24 01/04/2024 AST (SGOT ) AST (SGOT) 74 IU/L 0-40 above high normal Not Available [facility] ([facility]) [address] [place], [address], 02/07/2024 12:06:25 01/02/20 24 01/04/2024 ALT (SGPT ) ALT (SGPT) 95 IU/L 0-44 above high normal Not Available [facility] ([facility]) [address] [place], [address], 02/07/2024 12:06:26 01/02/20 24 01/04/2024 LIPAS E lipase 43 U/L 13-78 Not Available [facility] ([facility]) [address] [place], [address], 02/07/2024 12:06:26 01/02/20 24 01/25/2024 HBSAG SCREE N HBsAg screen COMMEN T [facility] was unabl e to colle ct suffi cient speci men to perfo rm the follo wing test( s), and is provi ding the patie nt with re-co llect ion instr uctio ns. Not Available [facility] ([facility]) [address] [place], [address], 02/07/2024 12:06:26 01/02/20 24 01/24/[address] PROBL EM request problem COMMEN T [facility] was unabl e to colle ct suffi cient speci men to perfo rm the follo wing test( s), and is provi ding the patie nt with re-co llect ion instr uctio ns. TEST: [id number] Chlam ydia/ GC Ampli ficat ion Not Available [facility] ([facility]) [address] [place], [address], 02/07/2024 12:06:27 01/02/20 24 01/25/[address] PROBL EM request problem COMMEN T [facility] was unabl e to colle ct suffi cient speci men to perfo rm the follo wing test( s), and is provi ding the patie nt with re-co llect ion instr uctio ns. TEST: [id number] 0 HBsAg Scree n Not Available [facility] ([facility]) [address] [facility], [place], [address], 02/07/2024 12:06:27 01/25/20 24 01/26/2024 H PYLOR I BREAT H TEST H pylori breath test NEGATI VE negati ve Not Available [facility] [address] [place], [address], 01/26/2024 09:27:28 01/25/20 24 01/26/2024 H PYLOR I BREAT H TEST performing lab Perfor vance Lab [facility] at[facility] es, [facility] [place] [address] [facility] [place] [address] Medic al Direc ele stuart MD Not Available [facility] [address] [place], [address], 01/26/2024 09:27:28 01/21/20 24 11/20/2023 US, abdom en No observ ation record ed. [email or web address] Not Available 2023 12:08:41 Result Notes None recorded. 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 Traci Julian MD [address] [facility] [place], [address], [place] GIULIA JULIAN MD [facility] 09:47:56 Chronic hepatitis C 275451663 Active 2023 Traci Julian MD [address] [facility] [place], [address], [place] GIULIA JULIAN MD [facility] 09:47:59 Exposure to sexually transmissib le disorder Active 2023 Traci Julian MD [address] [facility] [place], [address], [place] GIULIA JULIAN MD [facility] 4 09:48:29 Harmful pattern of use of alcohol 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 Medical Equipment None Reported. Allergies Allergen ID Allergen Name Allergen Category Reaction Reaction Severity Criticality Documentation Date Start Date Code Code System Note Provider Name and Address Organization Details Recorded Time 492 Prozac medicatio n Not available Not available Not available 10/03/20232014 99339 RxNorm Comme nt: adver se_ev ent_t ype: 16513 8002; ; Not Available [facility] 06:50:31 Medications Name Sig Start Date Stop [...] 30; VACCINE_ IND: no; SU_FULL_ NAME: Traci Mcgeeobed magallanes; Not Available Not Available Not Available [...] Body mass index (BMI) Body weight Systolic And Diastolic Provider Name and Address Organization Details Last Updated DateTime 4 180.34 cm 95 /min 12 /min 97.8 [degF] 44.1 kg/m2 171358. 19 g 130/80 mm[Hg] Allison JULIAN MD [facility] 4 12:52:48 Social History None recorded. Functional Status None recorded. Mental Status None recorded. Family History Nothing Reported Notes:Family history unknown , Response Property: Yes; Medical History No medical history recorded. Past Encounters Encounter ID Performer Location Encounter Start Date Encounter Closed Date Diagnosis/Indication Diagnosis SNOMED-CT Code Diagnosis ICD10 Code Diagnosis IMO Codes Diagnosis Note [id number] Traci Julian MD Main Office [address] [place] [phone] 01/02/2024 12:40:28 01/02/2024 13:18:34 Steatotic liver disease 387391176 K76.0 weight loss reviewed. diet and exercisewe ight loss strategies reviewed.a void ETOH Chronic hepatitis C 1283 12012 B18.2 previous hx.repeat labs.obtai n u/s report [facility] Exposure t o sexually transmissible disorder 675565502 Z20.2 STI panel reviewedPr eP and DOxypep reviewedco ndom use Harmful pa ttern of use of alcohol 16978124 F10.10 ETOH use. Anxietyaca mprosate offered. pt declines use todayHepat otoxic effects of ETOh use and effects on pancreatit is reviewed. Folliculitis 34892386 L7 3.9 bacterial/ fungal swab obtained.w ill tx if positive for infection Morbid obesity 575513674 E66.01 BMI 44.1hx fatty liver and other comorbidit ies; depression /anxiety.. cannot use semaglutid e due to hx pancreatit isblood work ordered:di ets and exerciseav oid ETOH.weigh t loss options to be discussed on next appointmen t which could also help w fatty liver among other comorbidit ies History of pancreatitis 9376686975 9107 Z87.19 hx multiple hospitaliz [id number] to ETOH [id number] Traci Julian MD Main Office [address] [place] [address], [place] [address] 01/16/2024 12:23:28 01/17/2024 09:21:35 Steatotic liver disease 595616826 K76.0 diet and exercisewe ight loss strategies reviewed.a void ETOHvitami n E suggested. await u/s report Chronic hepatitis C 1283 94353 B18.2 past hx.HCV VL nondetcete d. no need to treat Harmful pa ttern of use of alcohol 02093049 F10.10 ETOH use. AnxietyHep atotoxic effects of ETOh use and effects on pancreatit is reviewed. Morbid obesity 755888891 E66.01 BMI 44.1hx fatty liver and other comorbidit ies; depression /anxiety.. cannot use semaglutid e due to hx pancreatit isdiets and exerciseIf he is willing, bupropion is indicated for use as an adjunct to diet and exercise in patients who cannot take wegovy and who have a BMI 3 0).denies uncontroll ed hypertensi on, seizure disorder, eating disorder, use of other bupropion- containing products, or use of monoamine oxidase inhibitors . 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 potential side effects reviewed [id number] Traci Julian MD Main Office [address] [place] [address], [place] [phone] 01/25/2024 13:41:00 01/25/2024 15:55:31 Steatotic liver disease 759023481 K76.0 diet and exercisewe ight loss strategies reviewed.a void ETOHvitami n E suggested. await u/s report Chronic hepatitis C 1283 58721 B18.2 past hx.HCV VL nondetcete d. no need to treat Harmful pa ttern of use of alcohol 33846852 F10.10 ETOH use. AnxietyHep atotoxic effects of ETOh use and effects on pancreatit is reviewed. Morbid obesity 456331637 E66.01 BMI 44.1hx fatty liver and other comorbidit ies; depression /anxiety.. cannot use semaglutid e due to hx pancreatit isdiets and exerciseIf he is willing, bupropion is indicated for use as an adjunct to diet and exercise in patients who cannot take wegovy and who have a BMI 3 0).denies uncontroll ed hypertensi on, seizure disorder, eating disorder, use of other bupropion- containing products, or use of monoamine oxidase inhibitors . denies alcohol withdrawal .The plan would be to start One tablet (bupropion 90 mg) once daily in the morning for 1 week; increase as tolerated in weekly intervals: 1 tablet twice daily for 1 week; then 2 tablets in the morning and 1 tablet in the evening for 1 week; and then 2 tablets twice daily (maximum dose:bupro pion 360 mg per day]),he is on amphetamin e prescribed by another prescriber that should help with weight loss as well.would consider discontinu ation if weight loss is <4% to 5% of baseline after 3 monthswill discuss againpoten tial side effects reviewed Nonulcer dyspepsia 29330 07 K30 H pylori urea breath testgas x or omeprazole Mixed anxi ety and depressive disorder 968098734 F41.8 Buproprion could help for this as well, and smoking cessation. potential side effects reviewed Health Concerns Section Related Observation LastModified by Organization Detai ls LastModified Time None Recorded Concern Status LastModified by Organization Details LastModified Time None Recorded Advance Directives Directive None Recorded Payers Insurance Date Sequence Insurance Name Policy Number Policy Anand Covered Member ID Anand Member ID Guarantor Name 02/20/2024 1 [facility] (MEDICAID HMO) VALENTINA Granados Ariel Granados Notes Date Note Type Note Provider Name and Address Organization Details Recorded Time 01/02/2024 text/html ROS as noted in the HPI Male pt come in for fatty liver [...] fever. no current n/v/d. Traci Julian MD [address] [place] [address], [phone], [facility] TRACI JULIAN MD [facility] 01/08/2024 09:54:06 01/16/2024 text/html ROS as noted in the HPI f/uhx fatty liver/overweight/ETOH use; hx chronic pancreatitis hospitalized multiple times.on adderal prescribed by another prescriber ADHD; he is now on qd.12/2023 HCV VL PCR nondetected; HIV negative; fibrosure F0; RPR NR; alb 4.7 alb 4.7; GC/chlamydia pending; lipase =43; HBV s ag pendingolder CT scans 02/2021 fatty liver; u/s 2020 fatty liveru/s abd 11/2023 [place]: Fatty liver.has never been treated for weight [...] food in his stools.methadone Traci Julian MD [address] [place] [address], [phone], GIULIA JULIAN MD [facility] 01/25/2024 15:17:23 01/25/2024 text/html ROS as noted in the HPI f/uhx fatty liver/overweight/ETOH use; hx chronic pancreatitis hospitalized multiple times.on adderal prescribed by another prescriber ADHD; he is now on qd.12/2023 HCV VL PCR nondetected; HIV negative; fibrosure F0; RPR NR; alb 4.7 alb 4.7; GC/chlamydia pending; lipase =43; HBV s ag pendingolder CT scans 02/2021 fatty liver; u/s 2020 fatty liveru/s abd 11/2023 [place]: Fatty liver.has never been treated for weight [...] food in his stools.methadone Traci Julian MD [address] [place] [address], [phone], GIULIA JULIAN MD [facility] 01/28/2024 13:20:29
[2025-07-08 13:12] LABS: MANUAL DIFF FLAG NO
[2025-07-08 13:21] LABS: Hematocrit 45.6 % (42.0-52.0); Hemoglobin 15.1 g/dl (14.0-18.0); Imm Gran Abs Auto 0.03 X10*3/uL (0.00-0.03); Imm Gran Pct Auto 0.3 % (0.0-0.4); Lymphocytes Absolute Auto 2.1 X10*3/uL (1.2-4.9); Mean Corpuscular HGB Conc 33.1 g/dl (31.0-36.0); Mean Corpuscular Hemoglobin 28.3 pg (27.0-33.0); Mean Corpuscular Volume 85.6 fL (80.0-98.0); NRBC Abs Auto 0.000 X10*3/uL (0.0-0.012); NRBC Pct Auto 0.0 /100WBC (0.0-0.2); Platelet Count 245 X10*3/uL (160-400); Red Blood Count 5.33 X10*6/uL (4.60-5.80); White Blood Count 9.5 X10*3/uL (4.8-10.8)
[2025-07-08 13:52] LABS: Alanine Aminotransferase 64 U/L (0-40); Albumin Level 4.9 g/dL (3.5-5.0); Alkaline Phosphatase 62 U/L (39-117); Anion Gap 13 (12-20); Aspartate Amino Transferase 41 U/L (5-37); Blood Urea Nitrogen 13 mg/dL (9-16); Calcium 9.6 mg/dL (8.4-10.2); Carbon Dioxide 27 mmol/L (22-29); Chloride 102 mmol/L (96-108); Cholesterol 167 mg/dL (<200); Estimated Glomerular Filt Rate > 60; HDL Cholesterol 38 mg/dL (>40); Potassium 4.0 mmol/L (3.3-5.1); Sodium 138 mmol/L (135-145); Total Protein 7.7 g/dL (6.5-8.0); Triglycerides 87 mg/dL (<150)
[2025-07-08 15:10] LABS: Alanine Aminotransferase 68 U/L (0-40); Albumin Level 5.1 g/dL (3.5-5.0); Alkaline Phosphatase 61 U/L (39-117); Aspartate Amino Transferase 41 U/L (5-37); Total Protein 8.0 g/dL (6.5-8.0)
== END 2025-07-08 09:29 | disposition home or self-care (01) ==
LOC: HO.HMGCLDS 09:28
PROVIDERS: Absent Provider Nurse Practitioner Family; PCP Nurse Practitioner Family; Visit Provider Nurse Practitioner Family
DX: Z00.00 Encounter for general adult medical examination without abnormal findings (principal); R74.8 Abnormal levels of other serum enzymes
CPT/HCPCS: 36415; 80053; 80061; 80076; 84443; 85025

== ENCOUNTER 2025-07-15 13:34 | Outpatient (REF) | payer OTHER, SELFPAY ==
--- NOTE | ~2025-07-15 | CT_ITS ---
EXAMINATION: CT ABDOMEN AND PELVIS WITH CONTRAST CLINICAL INFORMATION: R74.8 - Abnormal levels of other serum enzymes, r/o biliary and pancreatic ductal pathology, including strictures, stones COMPARISON: Abdomen ultrasound 11/20/2023 TECHNIQUE: Multidetector volumetric images were obtained from the superior aspect of the liver through the pubic symphysis following administration 85 mL of Omnipaque 350 intravenous contrast. Sagittal and coronal reformatted images were obtained on the technologist's workstation. Oral contrast: No This CT examination was performed using dose optimization techniques as appropriate, variously including the following: *Automated exposure control *Adjustment of mA and/or kV according to patient size (this includes techniques or standardized protocols for targeted exams where dose is matched to indication/reason for exam; i.e. extremities or head) *Use of iterative reconstruction technique FINDINGS: LUNG BASES: The visualized lung bases are unremarkable. LIVER, GALLBLADDER, AND BILIARY TREE: Mildly decreased attenuation is noted throughout the liver. The gallbladder is unremarkable with no evidence of radiopaque gallstones, gallbladder wall thickening, or obvious pericholecystic inflammatory changes. PANCREAS: Unremarkable. SPLEEN: Unremarkable. ADRENAL GLANDS: Unremarkable. KIDNEYS AND URETERS: The kidneys are normal in size, shape, and attenuation. No hydronephrosis, hydroureter, or calculi seen. No perinephric stranding. BLADDER: Unremarkable. GASTROINTESTINAL TRACT: A few scattered pseudodiverticula are present in the descending and sigmoid colon. Appendix is within normal limits. ABDOMINAL WALL: No significant hernia is appreciated. LYMPH NODES: Normal. VASCULAR: Unremarkable. PELVIC VISCERA: Unremarkable. OSSEOUS STRUCTURES: Mild to moderate multilevel degenerative disc disease is present throughout the visible spine. The femoral necks appear shortened bilaterally, likely congenital. CT/CT abdomen pelvis w IV con IMPRESSION: Mild hepatic steatosis. Mild diverticulosis, no sign of infection. 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 Fleischner guidelines were followed. Electronically signed by: Ld Gutiérrez MD 07/15/2025 04:44 PM EST
[2025-07-15] MEDS: iohexoL 350 MG/ML 100 ML INFUS..BTL IV (15:59)
--- OUTSIDE RECORDS SUMMARY | 2025-07-15 16:07 | XMS_ITS | Data Portability ---
Author Organization GIULIA RODRIGUEZ MD [facility], Main Office Address [address] [place] [phone] Assessment No assessment recorded. Plan of Treatment Reminders Order Date Submit Date Provider Last Modified By Organization Details Last Modified Time Details Appointments None recorded. Lab H pylori urea breath test, co2 infrared 2023 024 [email or web address] Main Office, [address] [place] [address], [phone], 4 13:20:02 H pylori urea breath test, co2 infrared 2023 024 [email or web address] Main Office, [address] [place] [address], [phone], 14:18:04 lipase, serum or plasma 2023 024 [...] Go To The Location Of Their Choice, [id number] 4 10:29:16 hepatitis B surface Ab, qualitati ve, serum 2023 024 [email or web address] [facility] (Centralized Electronic Ordering - All Locations), Patient Can Go To The Location Of Their Choice, [id number] 4 10:29:17 chlamydia + gonorrhea RNA, QL, unspecifi ed specimen 2023 024 [email or web address] [facility] (Centralized Electronic Ordering - All Locations), Patient Can Go To The Location Of Their Choice, [address] 4 10:29:17 CT + NG RNA, PCR, unspecifi ed specimen 2023 024 [email or web address] [facility] (Centralized Electronic Ordering - All Locations), Patient Can Go To The Location Of Their Choice, [address] 4 10:29:17 Referral None recorded. Procedures None recorded. Surgeries None recorded. Imaging None recorded. Medication Orders vitamin E 268 mg (400 unit) capsule 2023 [facility]/Pharmacy #[id number], [address] [place] [address], [id number], 13:20:25 bupropion HCl SR 100 mg tablet,12 hr sustained -release 2023 [id number] [address] [place] [address], [address], 13:41:09 vitamin E 268 mg (400 unit) capsule 2023 [email or web address] [facility]/Pharmacy #[id number], [address] [place] [address], [address], 17:41:29 Patient TargetsNo targets recorded. Patient InstructionsNo instructions recorded. Reason for Referral None Reported. Results Created Date Observation Date Name Description Value Unit Range Abnormal Flag Note LastModifiedBy Organization Detail LastModifiedTime 01/02/20 24 01/02/2024 WOUND CULTU RE wound culture GRAM STAIN RESUL T NO POLYS , NO EPITH ELIAL CELLS , NO ORGAN ISMS NOTED Not Available [facility] [address] [place] [address], [id number], 01/02/2024 21:15:51 01/02/20 24 01/02/2024 WOUND CULTU RE performing lab Perfor vance [facility] maxim zhou, a membe [facility] [address] [place] [address] Medic al Dire ele stuart MD Not Available [facility] [address] [place] [address], [address], 01/02/2024 21:15:51 01/02/20 24 01/02/2024 ANAER OBIC CULTU RE anaerobic culture GRAM STAIN RESUL T REFER TO AEROB IC CULTU RE FOR SMEAR RESUL TS Not Available [facility] [address] [place] [address], [address], 01/02/2024 21:15:52 01/02/20 24 01/02/2024 ANAER OBIC CULTU RE performing lab Perfor vance [facility] atorlorin zhou, a [facility] [address] [place] [address] Medic al Dire ele stuart MD Not Available [facility] [address] [place] [address], [address], 01/02/2024 21:15:52 01/02/20 24 01/03/2024 CHLAM YDIA DNA SWAB chlamydia DNA swab NEGATI VE negati ve Not Available [facility] [address] [place] [address], [address], 01/03/2024 08:54:37 01/02/20 24 01/03/2024 GC DNA SWAB GC DNA swab NEGATI VE negati ve Not Available [facility] [address] [place] [address], [address], 01/03/2024 08:54:38 01/02/20 24 01/03/2024 GC DNA SWAB performing lab Perfor vance [facility] atori abelardo, a [facility] [address] [place] [address] Medic al [facility] ele stuart MD Not Available [facility] [address] [place] [address], [address], 01/03/2024 08:54:38 01/02/20 24 01/02/2024 FUNGU S CULTU RE: SKIN HAIR NAIL performing lab Perfor vance Lab [facility] atori es, a membe r of [facility] [address] [facility]. [place], [place] [address] Medic al Dire ele stuart MD Not Available [facility] [address] [place] [address], [address], 01/31/2024 15:21:38 01/02/20 24 01/31/2024 FUNGU S CULTU RE: SKIN HAIR NAIL fungus culture: skin hair nail Negati ve for Fungus after 4 weeks Not Available [facility] [address] [place] [address], [address], 01/31/2024 15:21:38 01/02/20 24 01/02/2024 HCV FIBRO SURE methodology: Commen t The marcela evelyn teste d are perfo rmed by Fibro Sure- Speci fic metho ds. Not inten ded for use with other diagn ostic consi derat ions. Not Available [facility] ([facility]) [address] [place], [address], 02/07/2024 12:06:22 01/02/20 24 01/02/2024 HCV FIBRO [...] (META VIR A0-A3 ). Not Available [facility] ([facility]) [address] [place], [address], 02/07/2024 12:06:22 01/02/20 24 01/02/2024 HCV FIBRO [...] F4 - Cirrh osis Not Available [facility] ([facility]) [address] [facility], [place], [address], 02/07/2024 12:06:22 01/02/20 24 01/02/2024 HCV FIBRO [...] Sever e activ ity Not Available [facility] ([facility]) [address] [facility], [place], [address], 02/07/2024 12:06:22 01/02/20 24 01/02/2024 HCV FIBRO SURE comment: Commen t This test was devel oped and its perfo rmanc e jeromy cteri stics deter mined by [employer]. It has not been clear ed or appro jamie by the Food and Drug Admin istra tion. The FDA has deter mined that such clear ance or appro eliezer is not neces durga. For quest ions regar ding this repor t pleas e conta ct custo cornelia servi ce at [phone]. Not Available [facility] ([facility]) [address] [facility], [place], [address], 02/07/2024 12:06:22 01/02/20 24 01/04/2024 HCV FIBRO SURE fibrosis score 0.07 0.00-0 .21 Not Available [facility] ([facility]) [address] [place], [address], 02/07/2024 12:06:22 01/02/20 24 01/04/2024 HCV FIBRO SURE fibrosis stage Commen t F0 - No fibro sis Not Available [facility] ([facility]) [address] [place], [address], 02/07/2024 12:06:22 01/02/20 24 01/04/2024 HCV FIBRO SURE necroinflamm at activity score 0.53 0.00-0 .17 above high normal Not Available [facility] ([facility]) [address] [place], [address], 02/07/2024 12:06:22 01/02/20 24 01/04/2024 HCV FIBRO SURE necroinflamm at activity grade A2-Mod erate activi ty Not Available [facility] ([facility]) [address] [place], [address], 02/07/2024 12:06:22 01/02/20 24 01/04/2024 HCV FIBRO SURE alpha 2-macroglobu johnny, qn 102 mg/dL 110-27 6 below low normal Not Available [facility] ([facility]) [address] [place], [address], 02/07/2024 12:06:22 01/02/20 24 01/04/2024 HCV FIBRO SURE haptoglobin 203 mg/dL 17-317 Not Available [facility] ([facility]) [address] [place], [address], 02/07/2024 12:06:22 01/02/20 24 01/04/2024 HCV FIBRO SURE apolipoprote in A-1 136 mg/dL 101-17 8 Not Available [facility] ([facility]) [address] [place], [address], 02/07/2024 12:06:22 01/02/20 24 01/04/2024 HCV FIBRO SURE bilirubin, total 0.6 mg/dL 0.0-1. 2 Not Available [facility] ([facility]) [address] [place], [address], 02/07/2024 12:06:22 01/02/20 24 01/04/2024 HCV FIBRO SURE GGT 91 IU/L 0-65 above high normal Not Available [facility] ([facility]) [address] [place], [address], 02/07/2024 12:06:22 01/02/20 24 01/04/2024 HCV FIBRO SURE ALT (SGPT) p5p 112 IU/L 0-55 above high normal Not Available [facility] ([facility]) [address] [facility], [place], [address], 02/07/2024 12:06:22 01/02/20 24 01/04/2024 HCV FIBRO SURE limitations: Commen t The negat genoveva predi ctive value of a Fibro test score <0.31 (abse nce of clini mariia signi fican t fibro sis) was 85% when hugh red to liver biops y in 1,270 [facility] with a 38% preva lence [...] in the liver . Not Available [facility] ([facility]) [address] [facility], [place], [address], 02/07/2024 12:06:22 01/02/20 24 01/02/2024 HCV RNA BY PCR, QN RFX JATIN test information: Commen t The quant itati ve range of this assay is 15 IU/mL to 100 regi on IU/mL . Not Available [facility] ([facility]) [address] [facility], [place], [address], 02/07/2024 12:06:22 01/02/20 24 01/04/2024 HCV RNA BY PCR, QN RFX JATIN hepatitis C quantitation HCV Not Detect ed IU/mL Not Available [facility] ([facility]) [address] [facility], [place], [address], 02/07/2024 12:06:22 01/02/20 24 01/04/2024 HCV RNA BY PCR, QN RFX JTAIN HCV log10 COMMEN T log10 _IU/m L Unabl e to calcu late resul t since non-n umeri c resul t obtai yecenia for compo nent test. Not Available [facility] ([facility]) [address] [facility], [place], [address], 02/07/2024 12:06:22 01/02/20 24 01/04/2024 HCV RNA BY PCR, QN RFX JATIN HCV genotype COMMEN T Not indic ated Not Available [facility] ([facility]) [address] [place], [address], 02/07/2024 12:06:22 01/02/20 24 01/24/2024 CHLAM YDIA/ GC AMPLI FICAT ION chlamydia trachomatis, MARITZA COMMEN T [facility] was unabl e to colle ct suffi cient speci men to perfo rm the follo wing test( s), and is provi ding the patie nt with re-co llect ion instr uctio ns. 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 Not Available [facility] ([facility]) [address] [facility], [place], [address], 02/07/2024 12:06:23 01/02/20 24 01/04/2024 RNA, PCR(N ONGRA PH)RF X/GEN OPRI log10 HIV-1 RNA COMMEN T log10 copy/ mL Unabl e to calcu late resul t since non-n umeri c resul t obtai yecenia for compo nent test. Not Available [facility] ([facility]) [address] [facility], [place], [address], 02/07/2024 12:06:23 01/02/20 24 01/04/2024 RNA, PCR(N ONGRA PH)RF X/GEN OPRI HIV genosure prime(R) COMMEN T Not indic ated Not Available [facility] ([facility]) [address] [place], [address], 02/07/2024 12:06:23 01/02/20 24 01/05/2024 HIV-1 /HIV- 2 QUALI TATIV E RNA HIV-1 RNA Non Reacti ve non reacti ve Not Available [facility] ([facility]) [address] [place], [address], 02/07/2024 12:06:24 01/02/20 24 01/05/2024 HIV-1 /HIV- 2 QUALI TATIV E RNA HIV-2 RNA Non Reacti ve non reacti ve Not Available [facility] ([facility]) [address] [place], [address], 02/07/2024 12:06:24 01/02/20 24 01/03/2024 RPR, RFX QN RPR/C ONFIR M TP RPR Non Reacti ve non reacti ve Not Available [facility] ([facility]) [address] [place], [address], 02/07/2024 12:06:24 01/02/20 24 01/04/2024 ALBUM IN albumin 4.7 g/dL 4.3-5. 2 Not Available [facility] ([facility]) [address] [place], [address], 02/07/2024 12:06:24 01/02/20 24 01/04/2024 BILIR UBIN, TOTAL bilirubin, total 0.5 mg/dL 0.0-1. 2 Not Available [facility] ([facility]) [address] [place], [address], 02/07/2024 12:06:25 01/02/20 24 01/04/2024 AST (SGOT ) AST (SGOT) 74 IU/L 0-40 above high normal Not Available [facility] ([facility]) [address] [place], [address], 02/07/2024 12:06:25 01/02/20 24 01/04/2024 ALT (SGPT ) ALT (SGPT) 95 IU/L 0-44 above high normal Not Available [facility] ([facility]) [address] [place], [address], 02/07/2024 12:06:26 01/02/20 24 01/04/2024 LIPAS E lipase 43 U/L 13-78 Not Available [facility] ([facility]) [address] [place], [address], 02/07/2024 12:06:26 01/02/20 24 01/25/2024 HBSAG SCREE N HBsAg screen COMMEN T [facility] was unabl e to colle ct suffi cient speci men to perfo rm the follo wing test( s), and is provi ding the patie nt with re-co llect ion instr uctio ns. Not Available [facility] ([facility]) [address] [place], [address], 02/07/2024 12:06:26 01/02/20 24 01/24/[address] PROBL EM request problem COMMEN T [facility] was unabl e to colle ct suffi cient speci men to perfo rm the follo wing test( s), and is provi ding the patie nt with re-co llect ion instr uctio ns. TEST: [id number] Chlam ydia/ GC Ampli ficat ion Not Available [facility] ([facility]) [address] [place], [address], 02/07/2024 12:06:27 01/02/20 24 01/25/[address] PROBL EM request problem COMMEN T [facility] was unabl e to colle ct suffi cient speci men to perfo rm the follo wing test( s), and is provi ding the patie nt with re-co llect ion instr uctio ns. TEST: [id number] HBsAg Scree n Not Available [facility] ([facility]) [address] [facility], [place], [address], 02/07/2024 12:06:27 01/25/20 24 01/26/2024 H PYLOR I BREAT H TEST H pylori breath test NEGATI VE negati ve Not Available [facility] [address] [place], [address], 01/26/2024 09:27:28 01/25/20 24 01/26/2024 H PYLOR I BREAT H TEST performing lab Perfor vance [facility] atori es, a [facility] [address] [facility] [place] [address] Medic al Direc ele stuart MD Not Available [facility] [address] [place], [address], 01/26/2024 09:27:28 01/21/20 24 11/20/2023 US, abdom en No observ ation record ed. [email or web address] Not Available 2023 12:08:41 Result Notes None recorded. 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 2023 Traci Julian MD [address] [facility] [place], [address], [place] GIULIA JULIAN MD [facility] 09:47:56 Chronic hepatitis C 911196256 Active 2023 Traci Julian MD [address] [facility] [place], [address], [place] GIUL[place] JULIAN MD [facility] 09:47:59 Exposure to sexually transmissib le disorder Active 2023 Traci Julian MD [address] [facility] [place], [address], [place] GIULIA JULIAN MD [facility] 4 09:48:29 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 Medical Equipment None Reported. Allergies Allergen ID Allergen Name Allergen Category Reaction Reaction Severity Criticality Documentation Date Start Date Code Code System Note Provider Name and Address Organization Details Recorded Time 492 Prozac medicatio n Not available Not available Not available 10/03/20232014 93247 RxNorm Comme nt: adver se_ev ent_t ype: 55067 8002; ; Not Available [facility] 06:50:31 Medications Name Sig Start Date [...] /min 12 /min 97.8 [degF] 44.1 kg/m2 398300. 19 g 130/80 mm[Hg] Allison JULIAN MD [facility] 4 12:52:48 Social History None recorded. Functional Status None recorded. Mental Status None recorded. Family History Nothing Reported Notes:Family history unknown , Response Property: Yes; Medical History No medical history recorded. Past Encounters Encounter ID Performer Location Encounter Start Date Encounter Closed Date Diagnosis/Indication Diagnosis SNOMED-CT Code Diagnosis ICD10 Code Diagnosis IMO Codes Diagnosis Note [id number] Traci Julian MD Main Office [address] [place] [phone] 01/02/2024 12:40:28 01/02/2024 13:18:34 Steatotic liver disease 330909523 K76.0 weight loss reviewed. diet and exercisewe ight loss strategies reviewed.a void ETOH Chronic hepatitis C 1283 62638 B18.2 previous hx.repeat labs.obtai n u/s report [facility] Exposure t o sexually transmissible disorder 850488120 Z20.2 STI panel reviewedPr eP and DOxypep reviewedco ndom use Harmful pa ttern of use of alcohol 43042298 F10.10 ETOH use. Anxietyaca mprosate offered. pt declines use todayHepat otoxic effects of ETOh use and effects on pancreatit is reviewed. Folliculitis 52267779 L7 3.9 bacterial/ fungal swab obtained.w ill tx if positive for infection Morbid obesity 029704074 E66.01 BMI 44.1hx fatty liver and other comorbidit ies; depression /anxiety.. cannot use semaglutid e due to hx pancreatit isblood work ordered:di ets and exerciseav oid ETOH.weigh t loss options to be discussed on next appointmen t which could also help w fatty liver among other comorbidit ies History of pancreatitis 3192618483 9107 Z87.19 hx multiple hospitaliz [id number] to ETOH [id number] Traci Julian MD Main Office [address] [place] [address], [place] [address] 01/16/2024 12:23:28 01/17/2024 09:21:35 Steatotic liver disease 563686571 K76.0 diet and exercisewe ight loss strategies reviewed.a void ETOHvitami n E suggested. await u/s report Chronic hepatitis C 1283 60280 B18.2 past hx.HCV VL nondetcete d. no need to treat Harmful pa ttern of use of alcohol 53488988 F10.10 ETOH use. AnxietyHep atotoxic effects of ETOh use and effects on pancreatit is reviewed. Morbid obesity 094451095 E66.01 BMI 44.1hx fatty liver and other [...] againpoten tial side effects reviewed Nonulcer dyspepsia 05913 07 K30 H pylori urea breath testgas x or omeprazole Mixed anxi ety and depressive disorder 834227195 F41.8 Buproprion could help for this as well, and smoking cessation. potential side effects reviewed [id number] Traci Julian MD Main Office [address] [place] [address], [place] [address] 01/25/2024 13:41:00 01/25/2024 15:55:31 Steatotic liver disease 543128310 K76.0 diet and exercisewe ight loss strategies reviewed.a void ETOHvitami n E suggested. await u/s report Chronic hepatitis C 1283 26264 B18.2 past hx.HCV VL nondetcete d. no need to treat Harmful pa ttern of use of alcohol 71586864 F10.10 ETOH use. AnxietyHep atotoxic effects of ETOh use and effects on pancreatit is reviewed. Morbid obesity 714425774 E66.01 BMI 44.1hx fatty liver and other [...] againpoten tial side effects reviewed Nonulcer dyspepsia 43889 07 K30 H pylori urea breath testgas x or omeprazole Mixed anxi ety and depressive disorder 386742709 F41.8 Buproprion could help for this as [...] Anand Member ID Guarantor Name 02/20/2024 1 [facility] NET PLAN (MEDICAID HMO) VALENTINA [...] no current n/v/d. Traci Julian MD [address] [place] [address], [phone], [facility] TRACI JULIAN MD [facility] 01/08/2024 09:54:06 01/16/2024 text/html ROS as [...] liver; u/s 2020 fatty liveru/s abd 11/2023 [place]: Fatty liver.has never been treated for weight [...] in his stools.methadone Traci Julian MD [address] [place] [address], [phone], GIULIA JULIAN MD [facility] 01/25/2024 15:17:23 01/25/2024 text/html ROS as [...] liver; u/s 2020 fatty liveru/s abd 11/2023 [place]: Fatty liver.has never been treated for weight [...] in his stools.methadone Traci Julian MD [address] [place] [address], [phone], GIULIA JULIAN MD [facility] 01/28/2024 13:20:29
--- OUTSIDE RECORDS SUMMARY | 2025-07-15 16:07 | XMS_ITS | Clinical Summary ---
Author Organization [facility] Address [address] [place] [address] Care Team Providers Care Boarding House Cook Name Role Phone Ref, Hasnopcp Primary Care Provider Unavailabl e Allergies No known active allergies Social History [...] - Tdap) 2016 Alcohol/Substance Use Screening 08/13/2024 Influenza Vaccine (#1) 2025 COVID-19 Vaccine (1 - 2024-2 6 season) 2025 Pneumococcal Vaccine: Pediat rylee (0-5 Years) and At-Risk Patients (6-50 Years) Aged Out No longer eligible b ased on patient's age to complete this topic Insurance [employer] Care Teams Boarding House Cook Relationship Specialty Start Date End Date Ref, Paulette DO NOT EDIT THIS RECORD VIA PROVIDER ON THE FLY PCP - General Pediatric Clinical Nurse Specialist 05/04/23
== END 2025-07-15 13:35 | disposition home or self-care (01) ==
LOC: HO.CT 13:34
PROVIDERS: PCP Nurse Practitioner Family; Visit Provider Nurse Practitioner Family
DX: R74.8 Abnormal levels of other serum enzymes (principal); R10.12 Left upper quadrant pain
CPT/HCPCS: 74177; Q9967

== ENCOUNTER → 2025-07-15 13:40 | Outpatient (BNV) | payer OTHER, SELFPAY | PROVIDERS: PCP Nurse Practitioner Family; Visit Provider Radiology Diagnostic Radiology | DX: K57.30 Diverticulosis of large intestine without perforation or abscess without bleeding (principal); K76.0 Fatty (change of) liver, not elsewhere classified | CPT/HCPCS: 74177 ==

== ENCOUNTER 2025-07-29 12:59 | Outpatient (AMB) | payer OTHER, SELFPAY ==
--- NOTE | 2025-07-29 13:05 | A.OFFVIS_ITS ---
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 This is my first visit with the patient Med History: History of etoh abuse, anxiety Initially diagnosed with T2DM 2022 Current regimen: Metformin 500mg twice daily -has not been taking Lantus 36 units-compliant Short-acting:-compliant 80-100 10 units 100-150 14 units 151-200 18 units 201-250 22 units 250-300 24 units 300-350 26 units Over 9[address]72 units A1C was 7.2% 06/2025 from 8 from 13.2 Reports low sugars none He did not initiate CGM but says he will. Has been checking with glucometer did not bring today No hypoglycemia Eye exam last eye exam last yr- needs to make appt Has neuropathy, last foot exam today in the office does not see podiatry but would like referral as he has callus formation Has nephropathy, on chichi inhibitor. 07/16/24 Elevated microalbumin/creatinine ratio 37 microalbumin 28 eGFR>60 Has HLD, on statin. Last LDL 147 as measured on 07/2024. Denies CAD. Diet: attempts to balance No diabetes education. ROS CONSTITUTIONAL: Denies weight loss, fever and chills. HEENT: Denies changes in vision and hearing. RESPIRATORY: Denies SOB and cough. CV: Denies palpitations and CP GI: Denies abdominal pain, nausea, vomiting and diarrhea. : Denies dysuria and urinary frequency. MSK: Denies new myalgia and joint pain. SKIN: Denies rash and pruritus. NEUROLOGICAL: Denies headache PSYCHIATRIC: Denies recent changes in mood. PHYSICAL EXAM: GENERAL: Alert and oriented x 3. NAD EYES: EOMI. Anicteric. HENT: Moist mucous membranes. No scleral icterus. No cervical lymphadenopathy. LUNGS: Clear to auscultation bilaterally. CARDIOVASCULAR: Regular rate and rhythm. No murmur. No JVD. ABDOMEN: Soft, non-tender +bs EXTREMITIES: No edema. Non-tender. SKIN: No rashes or lesions. Warm. NEUROLOGIC: No focal neurological deficits. CN II-XII grossly intact PSYCHIATRIC: Cooperative. Appropriate mood and affect [facility], [facility] Medical History Neuropathy Surgical History H/O tooth extraction Family History Father Diabetes Alcoholic Substance use disorder Mother Hypertension Social History Household Members: Family Housing: Apartment Alcohol intake: former Patient Tobacco Use Status: Former Tobacco user e-Cigarette/Vaping Use: Currently Using Second Hand Smoke Exposure: No Current occupational status: unemployed Cognitive needs: No Hearing needs: No Vision needs: No Physical Exam Vital Signs: Last Vital Signs Pulse 105 H 07/29/25 13:06 BP 128/80 07/29/25 13:06 Pulse Ox 98 07/29/25 13:06 Oxygen Delivery Method Room Air 07/29/25 13:06 BMI result Body Mass Index 44.5 Results Reviewed Results Reviewed: Laboratory Last Values Glucose (Clinic) 116 mg/dL (60-115) H 07/29/25 13:10 Assessment & Plan Assessment & Plan (1) Diabetes: Code(s): E11.9 - Type 2 diabetes mellitus without complications Category: Medical Qualifiers: Diabetes mellitus type: type 2 Diabetes mellitus curriculum and assessment coordinator insulin use: with curriculum and assessment coordinator use Diabetes mellitus complication status: with hyperglycemia Qualified Code(s): E11.65 - Type 2 diabetes mellitus with hyperglycemia; Z79.4 - group home (current) use of insulin Plan Diabetes Difficult to assess from A1C last month as has not initiated CGM and has not brought glucometer He could safely restart metfromin Continue current insulin doses Reports severe neuropathy-can increase gabapentin as tolerated Treat hypoglycemia by rules of 15s Return in 3 months or sooner as needed Medications: Changed From gabapentin 300 mg PO TID 30 days 90 caps 2RF To gabapentin 600 mg (2 x 300 mg) PO TID 540 caps 2RF 90 days Coding Level of Care Code Est Pt Level 4 (76663) Diagnoses Type 2 diabetes mellitus with hyperglycemia, with long-term current use of insulin E11.65; Z79.4 Diabetes mellitus type: type 2 Diabetes mellitus curriculum and assessment coordinator insulin use: with assisted use Diabetes mellitus complication status: with hyperglycemia
[2025-07-29 13:06] VITALS: BP 128/80; PULSE 105; O2SAT 98; BMI 44.5
[2025-07-29 13:17] LABS: Glucose, Whole Blood 116 mg/dL (60-115)
--- OUTSIDE RECORDS SUMMARY | 2025-07-29 17:06 | XMS_ITS | Clinical Summary ---
Author Organization [facility] Address [address] [place] [address] Care Team Providers Care Refractory Repairer Name Role Phone Ref, Hasnopcp Primary Care [...] this topic Insurance [employer] Care Teams Refractory Repairer Relationship Specialty Start Date End Date Ref, Paulette DO NOT EDIT THIS RECORD VIA PROVIDER ON THE FLY PCP - General Clinical Informatics Physician 05/04/23
== END 2025-07-29 13:33 | disposition home or self-care (01) ==
LOC: HO.ENCR 13:00
PROVIDERS: PCP Nurse Practitioner Family; Visit Provider Internal Medicine
DX: E11.65 Type 2 diabetes mellitus with hyperglycemia (principal); Z79.4 Long term (current) use of insulin

== ENCOUNTER → 2025-07-29 12:59 | Outpatient (BNVA) | payer OTHER, SELFPAY | PROVIDERS: PCP Nurse Practitioner Family; Visit Provider Internal Medicine | DX: E11.65 Type 2 diabetes mellitus with hyperglycemia (principal); E11.40 Type 2 diabetes mellitus with diabetic neuropathy, unspecified; Z79.4 Long term (current) use of insulin; Z79.899 Other long term (current) drug therapy; Z79.84 Long term (current) use of oral hypoglycemic drugs | CPT/HCPCS: 82947; 99212 ==

== ENCOUNTER 2025-07-30 14:56 | Outpatient (REF) | payer OTHER, SELFPAY | END 2025-07-30 14:57 | disposition home or self-care (01) | LOC: HO.LAB 14:56 | PROVIDERS: PCP Nurse Practitioner Family; Visit Provider Nurse Practitioner Family | DX: R10.12 Left upper quadrant pain (principal); Z11.59 Encounter for screening for other viral diseases; K76.0 Fatty (change of) liver, not elsewhere classified; K59.00 Constipation, unspecified; K57.90 Diverticulosis of intestine, part unspecified, without perforation or abscess without bleeding; R74.8 Abnormal levels of other serum enzymes | CPT/HCPCS: 36415; 81596; 99212 ==

== ENCOUNTER 2025-07-30 14:56 | Outpatient (AMB) | payer OTHER, SELFPAY ==
--- NOTE | 2025-07-30 14:58 | MHC.OFFVIS ---
Vital Signs 07/30/25 15:04 Height 6 ft Weight 328 lb BMI 44.5 BP 128/66 Blood Pressure Location Lt brachial Position Sitting Pulse 90 Pulse Source Pulse Oximeter Pulse Oximetry (%) 99 Oxygen Delivery Method Room Air Intake Visit Reasons: Gastroesophageal reflux disease Intake Note: Est pt for mgmt of fatty liver and CIC. CC; C/O constipation persistence despite current therapy. Pt confirms he is still taking miralax but feels that it is not as effective as it could be. No additional sx or concerns at this time. Apartment House Manager Required: No Accompanied by: Mother Allergies No Known Allergies Allergy (Verified 07/29/25 13:05) HPI HPI Gastroesophageal reflux disease: Details: Patient is a 30-year-old male with PMH of diabetes, substance and ETOH use d/o in remission, hx PE no longer on anticoagulation Patient is accompanied by his mom. Follow-up of left upper quadrant pain and elevated liver enzymes. He reports his left upper quadrant pain has since resolved. A CT scan of the abdomen on July 15 showed fatty liver and mild diverticulosis in the descending and sigmoid colon. His liver enzymes have been consistently elevated, with previous labs showing an AST of 190 U/L and an ALT of 200 U/L, which he notes were taken during a non-fasting state. More recent labs from last month showed improvement, with an AST of 41 U/L and an ALT of 68 U/L. The patient has a history of pancreatitis and was recently told he has high cholesterol. The patient reports ongoing constipation, with bowel movements not occurring daily. He has been taking MiraLAX with some improvement, noting it helps if he is consistent, but it does not provide immediate relief. He received a generic version of MiraLAX from the pharmacy that was consolidated and hard, which he could not use. [facility] Medical History (Updated 07/30/25 @ 15:47 by Alysha Christensen CNP) Diverticulosis Constipation Neuropathy Surgical History H/O tooth extraction Family History Father Diabetes Alcoholic Substance use disorder Mother Hypertension Social History Household Members: Family Housing: Apartment Alcohol intake: former Patient Tobacco Use Status: Former Tobacco user e-Cigarette/Vaping Use: Currently Using Second Hand Smoke Exposure: No Current occupational status: unemployed Cognitive needs: No Hearing needs: No Vision needs: No Review of Systems Const Reports as per HPI ENT Reports as per HPI Card Reports as per HPI Resp Reports as per HPI GI Reports as per HPI Reports as per HPI Physical Exam Vital Signs: Last Vital Signs Pulse 90 07/30/25 15:04 BP 128/66 07/30/25 15:04 Pulse Ox 99 07/30/25 15:04 Oxygen Delivery Method Room Air 07/30/25 15:04 BMI result Body Mass Index 44.5 Const General: healthy appearing, no acute distress and well developed Nutritional Appearance: obese Orientation/consciousness: patient oriented x3 HEENT Head: Yes normal to inspection, Yes normocephalic and Yes atraumatic Face and sinus: Yes normal facial exam Eyes General: appearance normal, both eyes and all related structures Neck Neck: Yes normal visual inspection Resp Effort & Inspection: normal respiratory effort, able to speak in complete sentences, no tracheal deviation and symmetric chest movement Auscultation: clear to auscultation bilaterally Cardio Jugular venous distension: no JVD GI Inspection: Yes obesity Neuro General: patient oriented x3 Gait exam (Neuro): Normal gait present Psych Appearance: grossly normal Mental Status: mental status grossly normal Speech and movement: Normal speech and movement present Affect: Anxious affect present Attitude: cooperative Thought process: Circumstantial thought process present Thought content: Normal thought content present Insight: Fair insight present (Psych) Judgement: Good judgement present (Psych) Results Reviewed Results Reviewed: Date of Service: 07/15/25 Procedure(s): CT abdomen pelvis w IV con Accession Number(s): [id number] cc: Isaac Dominguez CREDIT REPORTER-; Alysha Christensen DYNAMOMETER TUNER~ Report Number: [id number]: Total DLP = 1458.00 mGy-cm Reason for Exam: R74.8 - Abnormal levels of other serum enzymes EXAMINATION: CT ABDOMEN AND PELVIS WITH CONTRAST CLINICAL INFORMATION: R74.8 - Abnormal levels of other serum enzymes, r/o biliary and pancreatic ductal pathology, including strictures, stones COMPARISON: Abdomen ultrasound 11/20/2023 TECHNIQUE: Multidetector volumetric images were obtained from the superior aspect of the liver through the pubic symphysis following administration 85 mL of Omnipaque 350 intravenous contrast. Sagittal and coronal reformatted images were obtained on the technologist's workstation. Oral contrast: No This CT examination was performed using dose optimization techniques as appropriate, variously including the following: *Automated exposure control *Adjustment of mA and/or kV according to patient size (this includes techniques or standardized protocols for targeted exams where dose is matched to indication/reason for exam; i.e. extremities or head) *Use of iterative reconstruction technique FINDINGS: LUNG BASES: The visualized lung bases are unremarkable. LIVER, GALLBLADDER, AND BILIARY TREE: Mildly decreased attenuation is noted throughout the liver. The gallbladder is unremarkable with no evidence of radiopaque gallstones, gallbladder wall thickening, or obvious pericholecystic inflammatory changes. PANCREAS: Unremarkable. SPLEEN: Unremarkable. ADRENAL GLANDS: Unremarkable. KIDNEYS AND URETERS: The kidneys are normal in size, shape, and attenuation. No hydronephrosis, hydroureter, or calculi seen. No perinephric stranding. BLADDER: Unremarkable. GASTROINTESTINAL TRACT: A few scattered pseudodiverticula are present in the descending and sigmoid colon. Appendix is within normal limits. ABDOMINAL WALL: No significant hernia is appreciated. LYMPH NODES: Normal. VASCULAR: Unremarkable. PELVIC VISCERA: Unremarkable. OSSEOUS STRUCTURES: Mild to moderate multilevel degenerative disc disease is present throughout the visible spine. The femoral necks appear shortened bilaterally, likely congenital. CT/CT abdomen pelvis w IV con IMPRESSION: Mild hepatic steatosis. Mild diverticulosis, no sign of infection. 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 Assessment & Plan Assessment & Plan (1) Left upper quadrant pain: Code(s): R10.12 - Left upper quadrant pain Category: Medical Plan: Resolved. (2) Fatty liver: Code(s): K76.0 - Fatty (change of) liver, not elsewhere classified Category: Medical Plan: Given the history of significantly elevated liver enzymes, further evaluation is warranted to rule out other underlying causes beyond fatty liver. - Additional labs have been ordered to assess clotting function, iron stores, and levels of fat-soluble vitamins (A, D, E, K), as well as to test for hepatitis A. - The ordered labs do not require fasting, and the patient will proceed with the blood draw today. - A liver biopsy is not indicated at this time but may be considered in the future depending on lab results. -The patient's labs show he lacks immunity to hepatitis B. - The patient agreed to begin the hepatitis B vaccine series. Will start at next visit with either GI or PCP - Will continue to encourage lifestyle modifications, including alcohol abstinence and diabetes control, to support liver health. (3) Constipation: Code(s): K59.00 - Constipation, unspecified Category: Medical Qualifiers: Constipation type: unspecified constipation type Qualified Code(s): K59.00 - Constipation, unspecified Plan: Improvement with miralax. After discussing lactulose, the patient preferred to continue with MiraLAX, which will be refilled. - The patient was advised to check the medication at the pharmacy to avoid issues like the previously received hardened product. - A prescription for a Senna-stool softener combination will be sent for as-needed use for acute constipation, with counseling that it is not for regular, long-term use. (4) Diverticulosis: Code(s): K57.90 - Diverticulosis of intestine, part unspecified, without perforation or abscess without bleeding Category: Medical Plan: The patient was educated that diverticulosis is a benign condition and the goal is prevention of diverticulitis. - Counseled on lifestyle measures, including increasing dietary fiber, ensuring adequate hydration, and using probiotics, which are available [id number]. Plan Telephonic follow-up after labs or sooner as needed Time: I spent a total of 35 minutes on the date of encounter which includes: Preparing to see the patient (reviewed previous documentation, test results and medical history) Performing a medically appropriate exam and/or evaluation Ordering medications, tests, and procedures Documenting clinical information in the health record Medications: New sennosides-docusate sodium 8.6-50 mg Take two tablets at bedtime 2 tab-caps (2 x 8.6-50 mg) PO BEDTIME PRN 180 caps 1RF constipation Refilled polyethylene glycol 3350 (Miralax) Take 17G (one cap full) daily with 8oz of water 17 grams PO DAILY 510 grams 5RF constipation 30 days Coding Level of Care Code Established Pt Est Pt Level 3 (27033) Patient Type Established Diagnoses Left upper quadrant pain R10.12 Fatty liver K76.0 Constipation, unspecified constipation type K59.00 Constipation type: unspecified constipation type Diverticulosis K57.90
[2025-07-30 15:04] VITALS: BP 128/66; PULSE 90; O2SAT 99; BMI 44.5
--- OUTSIDE RECORDS SUMMARY | 2025-07-30 19:03 | XMS_ITS | Data Portability ---
Author Organization GIULIA RODRIGUEZ MD [facility], Main Office Address [address] [place] [phone] Assessment No assessment recorded. Plan of Treatment Reminders Order Date Submit Date Provider Last Modified By Organization Details Last Modified Time Details Appointments None recorded. Lab H pylori urea breath test, co2 infrared 2023 024 [email or web address] Main Office, [address] [place] [address], [id number], 4 13:20:02 H pylori urea breath test, co2 infrared 2023 024 [email or web address] Main Office, [address] [place] [address], [id number], 14:18:04 lipase, serum or plasma 2023 024 [...] Go To The Location Of Their Choice, [id number] 4 10:29:16 hepatitis B surface Ab, qualitati ve, serum 2023 024 [email or web address] [facility] (Centralized Electronic Ordering - All Locations), Patient Can Go To The Location Of Their Choice, [address] 4 10:29:17 chlamydia + gonorrhea RNA, QL, unspecifi ed specimen 2023 024 [email or web address] [facility] (Centralized Electronic Ordering - All Locations), Patient Can Go To The Location Of Their Choice, [address] 4 10:29:17 CT + NG RNA, PCR, unspecifi ed specimen 2023 024 [email or web address] [facility] (Centralized Electronic Ordering - All Locations), Patient Can Go To The Location Of Their Choice, [address] 4 10:29:17 Referral None recorded. Procedures None recorded. Surgeries None recorded. Imaging None recorded. Medication Orders vitamin E 268 mg (400 unit) capsule 2023 [facility][id number], [address] [place] [address], [address], 13:20:25 bupropion HCl SR 100 mg tablet,12 hr sustained -release 2023 [id number] [address] [place] [address], [address], 13:41:09 vitamin E 268 mg (400 unit) capsule 2023 [email or web address] [facility] #[id number], [address] [place] [address], [address], 17:41:29 Patient TargetsNo targets recorded. Patient InstructionsNo instructions recorded. Reason for Referral None Reported. Results Created Date Observation Date Name Description Value Unit Range Abnormal Flag Note LastModifiedBy Organization Detail LastModifiedTime 01/02/20 24 01/02/2024 WOUND CULTU RE wound culture GRAM STAIN RESUL T NO POLYS , NO EPITH ELIAL CELLS , NO ORGAN ISMS NOTED Not Available [facility] [address] [place] [address], [address], 01/02/2024 21:15:51 01/02/20 24 01/02/2024 WOUND CULTU RE performing lab Perfor vance [facility] maxim zhou, a [facility] [address] [place] [address] Medic al Dire ele stuart MD Not Available [facility] [address] [place] [address], [address], 01/02/2024 21:15:51 01/02/20 24 01/02/2024 ANAER OBIC CULTU RE anaerobic culture GRAM STAIN RESUL T REFER TO AEROB IC CULTU RE FOR SMEAR RESUL TS Not Available [facility] [address] [place] [address], [address], 01/02/2024 21:15:52 01/02/20 24 01/02/2024 ANAER OBIC CULTU RE performing lab Perfor vance Lab [facility] atorlorin zhou, a [facility] [address] [place] [address] Medic al Dire ele stuart MD Not Available [facility] [address] [place] [address], [address], 01/02/2024 21:15:52 01/02/20 24 01/03/2024 CHLAM YDIA DNA SWAB chlamydia DNA swab NEGATI VE negati ve Not Available [facility] [address] [place] [address], [address], 01/03/2024 08:54:37 01/02/20 24 01/03/2024 GC DNA SWAB GC DNA swab NEGATI VE negati ve Not Available [facility] [address] [place] [address], [address], 01/03/2024 08:54:38 01/02/20 24 01/03/2024 GC DNA SWAB performing lab Perfor vance Lab [facility] atori abelardo, a [facility] [address] [place] [address] Medic al [facility] ele stuart MD Not Available [facility] [address] [place] [address], [address], 01/03/2024 08:54:38 01/02/20 24 01/02/2024 FUNGU S CULTU RE: SKIN HAIR NAIL performing lab Perfor vance Lab [facility] atori es, a membe r of [facility] [address] [facility]. [place], [place] [address] Medic al Dire ele stuart MD Not Available [facility] [address] [place] [address], [address], 01/31/2024 15:21:38 01/02/20 24 01/31/2024 FUNGU S CULTU RE: SKIN HAIR NAIL fungus culture: skin hair nail Negati ve for Fungus after 4 weeks Not Available [facility] [address] [place] [address], [address], 01/31/2024 15:21:38 01/02/20 24 01/02/2024 HCV FIBRO SURE methodology: Commen t The marcela evelyn teste d are perfo rmed by Fibro Sure- Speci fic metho ds. Not inten ded for use with other diagn ostic consi derat ions. Not Available [facility] ([facility]) [address] [place], [address], 02/07/2024 12:06:22 01/02/20 24 01/02/2024 HCV FIBRO [...] (META VIR A0-A3 ). Not Available [facility] ([facility]) [address] [place], [address], 02/07/2024 12:06:22 01/02/20 24 01/02/2024 HCV FIBRO [...] Cirrh osis Not Available [facility] ([facility]) [address] [facility], [place], [address], 02/07/2024 12:06:22 01/02/20 24 01/02/2024 HCV FIBRO [...] Sever e activ ity Not Available [facility] ([facility]) [address] [facility], [place], [address], 02/07/2024 12:06:22 01/02/20 24 01/02/2024 HCV FIBRO SURE comment: Commen t This test was devel oped and its perfo rmanc e jeromy cteri stics deter mined by [employer]. It has not been clear ed or appro jamie by the Food and Drug Admin istra tion. The FDA has deter mined that such clear ance or appro eliezer is not neces durga. For quest ions regar ding this repor t pleas e conta ct custo cornelia servi ce at [phone]. Not Available [facility] ([facility]) [address] [facility], [place], [address], 02/07/2024 12:06:22 01/02/20 24 01/04/2024 HCV FIBRO SURE fibrosis score 0.07 0.00-0 .21 Not Available [facility] ([facility]) [address] [place], [address], 02/07/2024 12:06:22 01/02/20 24 01/04/2024 HCV FIBRO SURE fibrosis stage Commen t F0 - No fibro sis Not Available [facility] ([facility]) [address] [place], [address], 02/07/2024 12:06:22 01/02/20 24 01/04/2024 HCV FIBRO SURE necroinflamm at activity score 0.53 0.00-0 .17 above high normal Not Available [facility] ([facility]) [address] [place], [address], 02/07/2024 12:06:22 01/02/20 24 01/04/2024 HCV FIBRO SURE necroinflamm at activity grade A2-Mod erate activi ty Not Available [facility] ([facility]) [address] [place], [address], 02/07/2024 12:06:22 01/02/20 24 01/04/2024 HCV FIBRO SURE alpha 2-macroglobu johnny, qn 102 mg/dL 110-27 6 below low normal Not Available [facility] ([facility]) [address] [place], [address], 02/07/2024 12:06:22 01/02/20 24 01/04/2024 HCV FIBRO SURE haptoglobin 203 mg/dL 17-317 Not Available [facility] ([facility]) [address] [place], [address], 02/07/2024 12:06:22 01/02/20 24 01/04/2024 HCV FIBRO SURE apolipoprote in A-1 136 mg/dL 101-17 8 Not Available [facility] ([facility]) [address] [place], [address], 02/07/2024 12:06:22 01/02/20 24 01/04/2024 HCV FIBRO SURE bilirubin, total 0.6 mg/dL 0.0-1. 2 Not Available [facility] ([facility]) [address] [place], [address], 02/07/2024 12:06:22 01/02/20 24 01/04/2024 HCV FIBRO SURE GGT 91 IU/L 0-65 above high normal Not Available [facility] ([facility]) [address] [place], [address], 02/07/2024 12:06:22 01/02/20 24 01/04/2024 HCV FIBRO SURE ALT (SGPT) p5p 112 IU/L 0-55 above high normal Not Available [facility] ([facility]) [address] [facility], [place], [address], 02/07/2024 12:06:22 01/02/20 24 01/04/2024 HCV FIBRO SURE limitations: Commen t The negat genoveva predi ctive value of a Fibro test score <0.31 (abse nce of clini mariia signi fican t fibro sis) was 85% when hugh red to liver biops y in 1,270 HCV [facility] with a 38% preva [...] liver . Not Available [facility] ([facility]) [address] [facility], [place], [address], 02/07/2024 12:06:22 01/02/20 24 01/02/2024 HCV RNA BY PCR, QN RFX JATIN test information: Commen t The quant itati ve range of this assay is 15 IU/mL to 100 regi on IU/mL . Not Available [facility] ([facility]) [address] [facility], [place], [address], 02/07/2024 12:06:22 01/02/20 24 01/04/2024 HCV RNA BY PCR, QN RFX JATIN hepatitis C quantitation HCV Not Detect ed IU/mL Not Available [facility] ([facility]) [address] [facility], [place], [address], 02/07/2024 12:06:22 01/02/20 24 01/04/2024 HCV RNA BY PCR, QN RFX JATIN HCV log10 COMMEN T log10 _IU/m L Unabl e to calcu late resul t since non-n umeri c resul t obtai yecenia for compo nent test. Not Available [facility] ([facility]) [address] [facility], [place], [address], 02/07/2024 12:06:22 01/02/20 24 01/04/2024 HCV RNA BY PCR, QN RFX JATIN HCV genotype COMMEN T Not indic ated Not Available [facility] ([facility]) [address] [place], [address], 02/07/2024 12:06:22 01/02/20 24 01/24/2024 CHLAM YDIA/ GC AMPLI FICAT ION chlamydia trachomatis, MARITZA COMMEN T [facility] was unabl e to colle ct suffi cient speci men to perfo rm the follo wing test( s), and is provi ding the patie nt with re-co llect ion instr uctio ns. Not Available [facility] ([facility]) [address] [facility], [place], [address], 02/07/2024 12:06:23 01/02/20 24 01/24/2024 CHLAM YDIA/ GC AMPLI FICAT ION neisseria gonorrhoeae, MARITZA TNP Test not perfo rmed Not Available [facility] (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) [address] [facility], [place], [address], 02/07/2024 12:06:23 01/02/20 24 01/04/2024 RNA, PCR(N ONGRA PH)RF X/GEN OPRI HIV-1 RNA by PCR <20 copie s/mL HIV-1 RNA not detec luis The repor table range for this assay is 20 to 10,00 0,000 copie s HIV-1 RNA/m L. Not Available [facility] ([facility]) [address] [facility], [place], [address], 02/07/2024 12:06:23 01/02/20 24 01/04/2024 RNA, PCR(N ONGRA PH)RF X/GEN OPRI log10 HIV-1 RNA COMMEN T log10 copy/ mL Unabl e to calcu late resul t since non-n umeri c resul t obtai yecenia for compo nent test. Not Available [facility] ([facility]) [address] [facility], [place], [address], 02/07/2024 12:06:23 01/02/20 24 01/04/2024 RNA, PCR(N ONGRA PH)RF X/GEN OPRI HIV genosure prime(R) COMMEN T Not indic ated Not Available [facility] ([facility]) [address] [place], [address], 02/07/2024 12:06:23 01/02/20 24 01/05/2024 HIV-1 /HIV- 2 QUALI TATIV E RNA HIV-1 RNA Non Reacti ve non reacti ve Not Available [facility] ([facility]) [address] [place], [address], 02/07/2024 12:06:24 01/02/20 24 01/05/2024 HIV-1 /HIV- 2 QUALI TATIV E RNA HIV-2 RNA Non Reacti ve non reacti ve Not Available [facility] ([facility]) [address] [place], [address], 02/07/2024 12:06:24 01/02/20 24 01/03/2024 RPR, RFX QN RPR/C ONFIR M TP RPR Non Reacti ve non reacti ve Not Available [facility] ([facility]) [address] [place], [address], 02/07/2024 12:06:24 01/02/20 24 01/04/2024 ALBUM IN albumin 4.7 g/dL 4.3-5. 2 Not Available [facility] ([facility]) [address] [place], [address], 02/07/2024 12:06:24 01/02/20 24 01/04/2024 BILIR UBIN, TOTAL bilirubin, total 0.5 mg/dL 0.0-1. 2 Not Available [facility] ([facility]) [address] [place], [address], 02/07/2024 12:06:25 01/02/20 24 01/04/2024 AST (SGOT ) AST (SGOT) 74 IU/L 0-40 above high normal Not Available [facility] ([facility]) [address] [place], [address], 02/07/2024 12:06:25 01/02/20 24 01/04/2024 ALT (SGPT ) ALT (SGPT) 95 IU/L 0-44 above high normal Not Available [facility] ([facility]) [address] [place], [address], 02/07/2024 12:06:26 01/02/20 24 01/04/2024 LIPAS E lipase 43 U/L 13-78 Not Available [facility] ([facility]) [address] [place], [address], 02/07/2024 12:06:26 01/02/20 24 01/25/2024 HBSAG SCREE N HBsAg screen COMMEN T [facility] was unabl e to colle ct suffi cient speci men to perfo rm the follo wing test( s), and is provi ding the patie nt with re-co llect ion instr uctio ns. Not Available [facility] ([facility]) [address] [place], [address], 02/07/2024 12:06:26 01/02/20 24 01/24/[address] PROBL EM request problem COMMEN T [facility] was unabl e to colle ct suffi cient speci men to perfo rm the follo wing test( s), and is provi ding the patie nt with re-co llect ion instr uctio ns. TEST: [id number] Chlam ydia/ GC Ampli ficat ion Not Available [facility] ([facility]) [address] [place], [address], 02/07/2024 12:06:27 01/02/20 24 01/25/[address] PROBL EM request problem COMMEN T [facility] was unabl e to colle ct suffi cient speci men to perfo rm the follo wing test( s), and is provi ding the patie nt with re-co llect ion instr uctio ns. TEST: [id number] HBsAg Scree n Not Available [facility] ([facility]) [address] [facility] [place], [address], 02/07/2024 12:06:27 01/25/20 24 01/26/2024 H PYLOR I BREAT H TEST H pylori breath test NEGATI VE negati ve Not Available [facility] [address] [place], [address], 01/26/2024 09:27:28 01/25/20 24 01/26/2024 H PYLOR I BREAT H TEST performing lab Perfor vance [facility] at[facility] es, [facility] [address] [facility] [place] [address] Medic al Direc ele stuart MD Not Available [facility] [address] [place], [address], 01/26/2024 09:27:28 01/21/20 24 11/20/2023 US, abdom en No observ ation record ed. [email or web address] Not Available 2023 12:08:41 Result Notes None recorded. 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 Traci Julian [facility] [address] [facility] [place], [phone], [place] GIULIA JULIAN MD [facility] 09:47:56 Chronic hepatitis C 332130708 Active 2023 Traci Julian [facility] [address] [facility] [place], [address], [place] GIULIA JULIAN MD [facility] 09:47:59 Exposure to sexually transmissib le disorder Active 2023 Traci Julian MD [address] [facility] [place], [address], [place] GIULIA JULIAN MD [facility] 4 09:48:29 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 Medical Equipment None Reported. Allergies Allergen ID Allergen Name Allergen Category Reaction Reaction Severity Criticality Documentation Date Start Date Code Code System Note Provider Name and Address Organization Details Recorded Time 492 Prozac medicatio n Not available Not available Not available 10/03/20232014 29378 RxNorm Comme nt: adver se_ev ent_t ype: 46241 8002; ; Not Available [facility] 06:50:31 Medications Name Sig Start Date Stop [...] /min 12 /min 97.8 [degF] 44.1 kg/m2 383771. 19 g 130/80 mm[Hg] Allison JULIAN MD [facility] 4 12:52:48 Social History None recorded. Functional Status None recorded. Mental Status None recorded. Family History Nothing Reported Notes:Family history unknown , Response Property: Yes; Medical History No medical history recorded. Past Encounters Encounter ID Performer Location Encounter Start Date Encounter Closed Date Diagnosis/Indication Diagnosis SNOMED-CT Code Diagnosis ICD10 Code Diagnosis IMO Codes Diagnosis Note [id number] Traci Julian MD Main Office [address] [place] [phone] 01/02/2024 12:40:28 01/02/2024 13:18:34 Steatotic liver disease 262069161 K76.0 weight loss reviewed. diet and exercisewe ight loss strategies reviewed.a void ETOH Chronic hepatitis C 1283 73931 B18.2 previous hx.repeat labs.obtai n u/s report [facility] Exposure t o sexually transmissible disorder 103280420 Z20.2 STI panel reviewedPr eP and DOxypep reviewedco ndom use Harmful pa ttern of use of alcohol 77161046 F10.10 ETOH use. Anxietyaca mprosate offered. pt declines use todayHepat otoxic effects of ETOh use and effects on pancreatit is reviewed. Folliculitis 57499308 L7 3.9 bacterial/ fungal swab obtained.w ill tx if positive for infection Morbid obesity 585609139 E66.01 BMI 44.1hx fatty liver and other comorbidit ies; depression /anxiety.. cannot use semaglutid e due to hx pancreatit isblood work ordered:di ets and exerciseav oid ETOH.weigh t loss options to be discussed on next appointmen t which could also help w fatty liver among other comorbidit ies History of pancreatitis 8019501231 9107 Z87.19 hx multiple hospitaliz [id number] to ETOH [id number] Traci Julian MD Main Office [address] [place] [address], [place] [phone] 01/16/2024 12:23:28 01/17/2024 09:21:35 Steatotic liver disease 563777119 K76.0 diet and exercisewe ight loss strategies reviewed.a void ETOHvitami n E suggested. await u/s report Chronic hepatitis C 1283 55130 B18.2 past hx.HCV VL nondetcete d. no need to treat Harmful pa ttern of use of alcohol 58572011 F10.10 ETOH use. AnxietyHep atotoxic effects of ETOh use and effects on pancreatit is reviewed. Morbid obesity 022469714 E66.01 BMI 44.1hx fatty liver and other [...] againpoten tial side effects reviewed Nonulcer dyspepsia 05310 07 K30 H pylori urea breath testgas x or omeprazole Mixed anxi ety and depressive disorder 949585594 F41.8 Buproprion could help for this as well, and smoking cessation. potential side effects reviewed [id number] Traci Julian MD Main Office [address] [place] [address], [place] [phone] 01/25/2024 13:41:00 01/25/2024 15:55:31 Steatotic liver disease 700027381 K76.0 diet and exercisewe ight loss strategies reviewed.a void ETOHvitami n E suggested. await u/s report Chronic hepatitis C 1283 11793 B18.2 past hx.HCV VL nondetcete d. no need to treat Harmful pa ttern of use of alcohol 07859454 F10.10 ETOH use. AnxietyHep atotoxic effects of ETOh use and effects on pancreatit is reviewed. Morbid obesity 520154240 E66.01 BMI 44.1hx fatty liver and other [...] againpoten tial side effects reviewed Nonulcer dyspepsia 22834 07 K30 H pylori urea breath testgas x or omeprazole Mixed anxi ety and depressive disorder 051764209 F41.8 Buproprion could help for this as [...] Anand Member ID Guarantor Name 02/20/2024 1 [facility] NET PLAN (MEDICAID HMO) VALENTINA [...] fever. no current n/v/d. Traci Julian MD [address] [place] [address], [phone], [facility]I JULIAN MD [facility] 01/08/2024 09:54:06 01/16/2024 text/html ROS as noted [...] liver; u/s 2020 fatty liveru/s abd 11/2023 Fulda: Fatty liver.has never been treated for weight [...] food in his stools.methadone Traci Julian MD [address] [place] [address], [phone], GIULIA JULIAN MD [facility] 01/25/2024 15:17:23 01/25/2024 text/html ROS as noted [...] liver; u/s 2020 fatty liveru/s abd 11/2023 Fulda: Fatty liver.has never been treated for weight [...] has seen undigested food in his stools.methadone Tarci Julian MD [address] [place] [address], [phone], GIULIA JULIAN MD [facility] 01/28/2024 13:20:29
--- OUTSIDE RECORDS SUMMARY | 2025-07-30 19:03 | XMS_ITS | Clinical Summary ---
Author Organization [facility] Address [address] [place] [address] Care Team Providers Care Global Lead Name Role Phone Ref, Hasnopcp Primary Care [...] to complete this topic Insurance [place] [address] Care Teams Global Lead Relationship Specialty Start Date End Date Ref, Paulette DO NOT EDIT THIS RECORD VIA PROVIDER ON THE FLY PCP - General [employer] 05/04/23
== END 2025-07-30 16:20 | disposition home or self-care (01) ==
LOC: HO.HGI 14:57
PROVIDERS: PCP Nurse Practitioner Family; Visit Provider Nurse Practitioner Family
DX: R10.12 Left upper quadrant pain (principal); K76.0 Fatty (change of) liver, not elsewhere classified; K59.00 Constipation, unspecified; K57.90 Diverticulosis of intestine, part unspecified, without perforation or abscess without bleeding
CPT/HCPCS: 99213